=== PATIENT | male | born 1940 | race Caucasian/White ===

== ENCOUNTER 2016-12-30 19:25 | Inpatient (IN) | payer MEDICARE ==
[~2016-12-30] VITALS: Ht 172.7 cm; Wt 85.4 kg
[~2016-12-30 19:25] MED LIST: ADVA115A PO; ALBU1AER INH; CETI10 PO; ECOT81TA2 PO; FERR324T4 PO; OMEG5CAP PO; PROT40TA PO
[2016-12-30 19:30] VITALS: BP 149/75; PULSE 98; RESP 22; TEMP 98.4; O2SAT 91
--- NOTE | 2016-12-30 20:56 | PD ---
HPI Chief Complaint: Respiratory Symptoms Time Seen by Provider: 20:48 Travel History International Travel<30 days: No Contact w/Intl Traveler<30days: No Traveled to known affect area: No History of Present Illness HPI 76-year-old male presents to the emergency department for complaint of progressive shortness of breath 2 weeks. Patient was seen by his order clerk today Dr. Quiñones who prescribed a Z-Antonio for bronchitis and stated that his lungs were clear. Patient's had no chest pain or orthopnea. Patient denies any peripheral swelling or pain. Patient denies chest pain. Patient's had cough productive of scant sputum. No hemoptysis. Patient has history of COPD, PAD, anemia, peptic ulcer disease, and hypertension. Patient uses home nebulizer 4 times today and has noted that his machine is not working properly and not affectively administering his nebulized treatments. Patient took his first oral dose of azithromycin this afternoon at home. 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, hypertension, anemia, peptic ulcer disease, eye surgery, shoulder surgery, no tobacco use; nursing notes reviewed Hx Anticoagulant Therapy: Yes Arthritis: Yes Autoimmune Disease: No Cancer: Yes Cardiovascular Problems: Yes High Cholesterol: No Chemotherapy: No COPD: Yes Diabetes: No Endocrine: No Gastrointestinal Disorders: Yes (GERD) Genitourinary: No Hepatitis: No Hiatal Hernia: Yes Hypertension: Yes Immune Disorder: No Implanted Vascular Access Dvce: Yes Musculoskeletal: No Neurologic: No Psychiatric: No Reproductive: No Respiratory: Yes (COPD/EMPHYSEMA) Immunizations Current: Yes Radiation Therapy: No Thyroid Disease: No Ulcer: Yes (hx bleeding ulcers) Past Surgical History Abdominal Surgery: No AICD: No Cardiac Surgery: No Ear Surgery: No Endocrine Surgery: No Eye Surgery: Yes (BILATERAL CATARACT EXTRACT) Genitourinary Surgery: No Gynecologic Surgery: No Joint Replacement: Yes (BILATERAL SHOULDERS) Oral Surgery: Yes Pacemaker: No Thoracic Surgery: No Other Surgery: Yes (VASCULAR SURGERY LEFT LEG) Social History Alcohol Use: No Tobacco Use: No Substance Use: No Allergies-Medications (Allergen,Severity, Reaction): Coded Allergies: Cipro (Verified Allergy, Intermediate, RASH,SOB,TENDONITIS, 12/30/16) Pneumococcal Vaccine (Verified Allergy, Intermediate, SWELLING/RASH, ) Reported Meds & Prescriptions Reported Meds & Active Scripts Active Reported Integra (Multi-Vit/Iron-B Comp-Vit C) 62.5-62.5-40-3 mg Cap Fish Oil ([place]-3 Fatty Acids) 1,200 Mg Cap 1,200 Mg PO HS Atrovent HFA 12.9 GM Inh (Ipratropium [place]) 17 Mcg/Act Aer 2 Puff INH Q6HR PRN Coq10 (Coenzyme Q10 (Ubidecarenone)) 200 Mg Cap 200 Mg PO HS Advair Hfa 12 GM Inh (Fluticasone-Salmeterol 12 GM Inh) 115-21 Mcg/Act Aer 2 Puff INH BID Ecotrin Low Strength (Aspirin) 81 Mg Tabdr 81 Mg PO HS Rosuvastatin (Rosuvastatin Calcium) 10 Mg Tab 10 Mg PO HS Zithromax Z-Antonio (Azithromycin) 250 Mg Dspk 500 Mg PO DIRECTED 500 MG (2 tabs) day 1, then 1 tab days 2-5. Proair Hfa 8.5 GM Inh (Albuterol Sulfate) 90 Mcg/Act Aer 1 Puff INH Q4H PRN 108 mcg/actuation Review of Systems Except as stated in HPI: all other systems reviewed are Neg Physical Exam Narrative GENERAL: Well-developed well-nourished male in mild respiratory distress with supple oxygen in place SKIN: Warm and dry. HEAD: Normocephalic. EYES: No scleral icterus. No injection or drainage. NECK: Supple, trachea midline. No JVD or lymphadenopathy. CARDIOVASCULAR: Regular rate and rhythm without murmurs, gallops, or rubs. RESPIRATORY: Breath sounds equal bilaterally with a few expiratory wheezes. No accessory muscle use. GASTROINTESTINAL: Abdomen soft, non-tender, nondistended. MUSCULOSKELETAL: No cyanosis, or edema. BACK: Nontender without obvious deformity. No CVA tenderness. Data Data Last Documented VS Vital Signs Date Time Temp Pulse Resp B/P Pulse Ox O2 Delivery O2 Flow Rate FiO2 12/30/16 23:01 89 Nasal Cannula 2 12/30/16 23:01 101 20 134/65 12/30/16 19:30 98.4 Orders Complete Blood Count With Diff (12/30/16 20:48) Basic Metabolic Panel (Bmp) (12/30/16 20:48) B-Type Natriuretic Peptide (12/30/16 20:48) Magnesium (Mg) (12/30/16 20:48) Troponin I (12/30/16 20:48) Iv Access Insert/Monitor (12/30/16 20:48) Electrocardiogram (12/30/16 20:48) Ecg Monitoring (12/30/16 20:48) Oximetry (12/30/16 20:48) Oxygen Administration (12/30/16 20:48) Chest, Single Ap (12/30/16 20:48) Sodium Chloride 0.9% Flush (Ns Flush) (12/30/16 21:00) Methylprednisolone So Succ Inj (Solumedr (12/30/16 21:00) Albuterol-Ipratropium Neb (Duoneb Neb) (12/30/16 21:00) Albuterol-Ipratropium Neb (Duoneb Neb) (12/30/16 22:00) Blood Culture (12/30/16 21:57) Ceftriaxone Inj (Rocephin Inj) (12/30/16 22:00) Admit Order (Ed Use Only) (12/30/16 ) ^ Saline Lock (12/30/16 23:02) Resp Oxygen Bairon C Titrat 1-4 L (12/30/16 ) ^ Notify Dr: Other (12/30/16 23:02) Sodium Chloride 0.9% Flush (Ns Flush) (12/31/16 09:00) Sodium Chloride 0.9% Flush (Ns Flush) (12/30/16 23:15) Labs Laboratory Tests Test 12/30/16 21:05 White Blood Count 14.3 TH/MM3 Red Blood Count 4.70 MIL/MM3 Hemoglobin 10.0 GM/DL Hematocrit 32.3 % Mean Corpuscular Volume 68.7 FL Mean Corpuscular Hemoglobin 21.2 PG Mean Corpuscular Hemoglobin 30.9 % Concent Red Cell Distribution Width 20.0 % Platelet Count 219 TH/MM3 Mean Platelet Volume 8.1 FL Neutrophils (%) (Auto) 86.8 % Lymphocytes (%) (Auto) 6.0 % Monocytes (%) (Auto) 5.9 % Eosinophils (%) (Auto) 1.1 % Basophils (%) (Auto) 0.2 % Neutrophils # (Auto) 12.4 TH/MM3 Lymphocytes # (Auto) 0.9 TH/MM3 Monocytes # (Auto) 0.8 TH/MM3 Eosinophils # (Auto) 0.2 TH/MM3 Basophils # (Auto) 0.0 TH/MM3 CBC Comment AUTO DIFF Differential Comment AUTO DIFF CONFIRMED Ovalocytes 2+ Keratocytes 1+ Sodium Level 137 MEQ/L Potassium Level 4.3 MEQ/L Chloride Level 102 MEQ/L Carbon Dioxide Level 26.0 MEQ/L Anion Gap 9 MEQ/L Blood Urea Nitrogen 12 MG/DL Creatinine 1.30 MG/DL Estimat Glomerular Filtration 54 ML/MIN Rate Random Glucose 119 MG/DL Calcium Level 8.3 MG/DL Magnesium Level 2.3 MG/DL Troponin I LESS THAN 0.02 NG/ML B-Type Natriuretic Peptide 98 PG/ML MDM Medical Decision Making Medical Screen Exam Complete: Yes Emergency Medical Condition: Yes Medical Record Reviewed: Yes Interpretation(s) EKG sinus rhythm rate [address] elevation or injury pattern change noted Last Impressions Chest X-Ray 12/30/162047 Signed Impressions: Service Date/Time: Friday, December 30, 2016 21:32 - CONCLUSION: Bibasilar consolidation and small effusions. Calvin Jean Baptiste MD CBC & BMP Diagram 12/30/16 21:05 Differential Diagnosis Exacerbation COPD bronchitis pneumonia ACS CHF PE Narrative Course Patient placed on chief procurement officer IV access obtained patient continued on supplemental oxygen DuoNeb updrafts 2 ordered along with Solu-Medrol 125 mg to be administered Patient reports feels clinically improved and lung sounds are improved after 2 DuoNeb updrafts O2 saturations on 2 L 90 11/18/92 percent Third updraft ordered; patient desirous of being discharged to home however has been encouraged to stay for vital of and will reassess at that time O2 saturations have decreased to 88-90% on 2 L/M NC while waiting on 3rd updraft --patient denies associated dyspnea case discussed with java application engineer medicine service for admission; patient has already taken azithromycin 500 mg po today and received rocephin 1 gm ivpb here. Patient meets criterion for sepsis per HR WCC and source --pulmonary-infectious bronchitis/pneumonia; ABG respiratory alkalosis,placed on 3 L/M NC w O2sat 94% Sepsis Criteria SIRS Criteria (2 or more): Heart rate over 90, WBC > 68540, < 4000 or > 10% bands Sepsis Criteria (SIRS+source): Infect source susp/known (bronchitis; possible early LLL infiltrate) Physician Communication Physician Communication discussed with Gualberto Roa ---will admit to Dr Viera Diagnosis Primary Impression: COPD (chronic obstructive pulmonary disease) Qualified Code: J44.1 - Chronic obstructive pulmonary disease with acute exacerbation Additional Impressions: Pulmonary infiltrate Sepsis Qualified Code: A41.9 - Sepsis, due to unspecified organism Ailyn Coppola MD Dec 30, 2016 20:56
[2016-12-30] MEDS ORDERED: ADVA115A INH (21:00)
[2016-12-30] MEDS ORDERED: ROSU1TAB6 PO (21:00)
[2016-12-30] MEDS ORDERED: ASPI-147 PO (21:00)
[2016-12-30] MEDS ORDERED: methylPREDNISolone SOD SUCC 125 MG/2 ML VIAL IVP ONE (21:00)
[2016-12-30] MEDS ORDERED: FISH120014 PO (21:00)
[2016-12-30] MEDS ORDERED: IPRA17I INH (21:00)
[2016-12-30] MEDS ORDERED: SODIUM CHLORIDE 0.9% FLUSH 5 ML FLUSH IVF PRN ×2 (21:00→23:15)
[2016-12-30] MEDS ORDERED: ALBUAER3 INH (21:00)
[2016-12-30] MEDS ORDERED: COQ1200C PO (21:00)
[2016-12-30] MEDS ORDERED: ZITHTAB PO (21:00)
[2016-12-30 21:05] VITALS: BP 122/69; PULSE 86; RESP 22; O2SAT 93
[2016-12-30] MEDS: RESP: ALBUTEROL 2.5 MG/IPRATROPIUM 0.5 MG NEB (SCH) INH ×2 (21:07→21:20)
[2016-12-30] MEDS ORDERED: FE FCAP (21:12)
[2016-12-30 21:13] LABS: AUTOMATED NEUTROPHIL # 12.4 TH/MM3 (1.8-7.7); BASOPHIL % 0.2 % (0.0-2.0); EOSINOPHIL # 0.2 TH/MM3 (0-0.4); EOSINOPHIL % 1.1 % (0.0-4.0); HEMATOCRIT 32.3 % (39.0-51.0); LYMPHOCYTE # 0.9 TH/MM3 (1.0-4.8); MEAN CELL VOLUME 68.7 FL (80.0-100.0); MEAN CORPUSCULAR HEMOGLOBIN 21.2 PG (27.0-34.0); MEAN CORPUSCULAR HGB CONC 30.9 % (32.0-36.0); MONO % 5.9 % (0.0-8.0); NEUT % 86.8 % (16.0-70.0); PLATELET COUNT 219 TH/MM3 (150-450); WHITE BLOOD COUNT 14.3 TH/MM3 (4.0-11.0)
[2016-12-30 21:17] VITALS: BP 140/64; PULSE 86; RESP 22; O2SAT 94
[2016-12-30 21:24] LABS: HEMO FLAGS AUTO DIFF
[2016-12-30 21:27] LABS: CHLORIDE 102 MEQ/L (98-107); POTASSIUM 4.3 MEQ/L (3.5-5.1); SODIUM (NA) 137 MEQ/L (136-145)
[2016-12-30 21:30] LABS: ANION GAP 9 MEQ/L (5-15); BLOOD UREA NITROGEN 12 MG/DL (7-18); MAGNESIUM 2.3 MG/DL (1.5-2.5)
[2016-12-30 21:33] LABS: GLOMERULAR FILTRATION RATE 54 ML/MIN (>89)
--- NOTE | 2016-12-30 21:49 | RADHPO ---
EXAM DATE/TIME: 12/30/2016 21:32 [facility] COMPARISON: No previous studies available for comparison. INDICATIONS : Short of breath and difficulty breathing for 2 weeks. MEDICAL HISTORY : Emphysema. Hypertension. COPD. Ulcer. SURGICAL HISTORY : None. ENCOUNTER: Initial ACUITY: 2 weeks PAIN SCORE: 0/10 LOCATION: Bilateral chest FINDINGS: Mild, ill-defined infiltrate seen of both lung bases, left worse than right. Small bilateral pleural effusions are suspected as well. No pneumothorax. Heart size stable, within normal limits. Thoracic aorta is tortuous. I believe there is a hiatal pradeep ia. CONCLUSION: Bibasilar consolidation and small effusions. Calvin Jean Baptiste MD on December 30, 2016 at 21:46 Board Certified Radiologist. This report was verified electronically.
[2016-12-30 22:00] LABS: KERATOCYTES 1+ (NORMAL)
[2016-12-30] MEDS ORDERED: cefTRIAXone INJ 1,000 MG in SODIUM CHLORIDE 0.9% INJ 100 ML IV ONE (22:00)
[2016-12-30] MEDS ORDERED: RESP: ALBUTEROL 2.5 MG/IPRATROPIUM 0.5 MG NEB (SCH) NEB ONE (22:00)
[2016-12-30 22:01] LABS: OVALOCYTES 2+ (NORMAL); SCAN/DIFF AUTO DIFF CONFIRMED
[2016-12-30 23:01] VITALS: BP 134/65; PULSE 101; RESP 20; O2SAT 88
[2016-12-30 23:30] VITALS: O2SAT 90
[2016-12-30 23:31] LABS: BLOOD GAS BASE EXCESS -0.9 mmol/L (-2-2); BLOOD GAS CARBOXYHEMOGLOBIN 2.7 % (0-4); BLOOD GAS HCO3 23 mmol/L (22-26); BLOOD GAS METHEMOGLOBIN 0.9 % (0-2); BLOOD GAS O2 HGB SATURATION 88 % (90-100); BLOOD GAS OXYGEN CONTENT 12.2 Vol % (12.0-20.0); BLOOD GAS PCO2 35 mmHG (38-42); BLOOD GAS PO2 62 mmHG (61-120); BLOOD GAS TOTAL HGB 9.9 G/DL (12.0-16.0); TEMP CORR TO 98.6
[2016-12-30 23:32] LABS: CRITICAL VALUE YES; DRAW SITE RT RADIAL; LITER FLOW 2 L/M; NUMBER OF ARTERIAL PUNCTURES 1; OXYGEN DEVICE NASAL CANNULA; STAT YES; ULNAR PULSE PRESENT
[2016-12-30 23:53] VITALS: BP 108/65; PULSE 103; RESP 22; O2SAT 91
[2016-12-31] VITALS (26 sets, daily range): BP systolic 125–152; BP diastolic 32–87; PULSE 88–106; RESP 20–40; TEMP 97.4–98.4; O2SAT 90–95
[2016-12-31] MEDS ORDERED: AZITHROMYCIN 250 MG TAB PO ONE (01:30)
[2016-12-31] MEDS ORDERED: SENNOSIDES 8.6 MG TAB PO PRN (01:30)
[2016-12-31] MEDS ORDERED: ACETAMINOPHEN 325 MG TAB PO PRN (01:30)
[2016-12-31] MEDS: HEPARIN SODIUM - SQ 10,000 UNITS/ML VIAL SQ SCH ×2 (02:08→14:46)
[2016-12-31] MEDS: methylPREDNISolone SOD SUCC 125 MG/2 ML VIAL IVP SCH ×4 (03:22→20:14)
[2016-12-31] MEDS: SODIUM CHLORIDE 0.9% FLUSH 5 ML FLUSH IVF PRN (03:23)
[2016-12-31] MEDS: RESP: ALBUTEROL 2.5 MG/IPRATROPIUM 0.5 MG NEB (SCH) INH ×4 (04:08→20:02)
[2016-12-31] MEDS: SODIUM CHLORIDE 0.9% FLUSH 5 ML FLUSH IVF SCH ×2 (09:00→20:14)
[2016-12-31] MEDS ORDERED: SODIUM CHLORIDE 0.9% FLUSH 5 ML FLUSH IVF SCH (09:00)
[2016-12-31] MEDS ORDERED: ALBUTEROL SULFATE 90 MCG/ACT HFA 8 GM INHALER INH PRN (11:30)
--- NOTE | 2016-12-31 12:00 | MH ---
cc: HONORIO BELL MD DATE OF ADMISSION: 12/30/2016 CHIEF COMPLAINT Cough, shortness of breath. HISTORY OF PRESENT ILLNESS This is a 76-year-old male with past medical/surgical history significant for arthritis, COPD, popliteal aneurysm with thrombosis, limb ischemia and arterial bypass, hypertension, anemia, peptic ulcer disease, eye surgery, COPD, GERD, history of bilateral cataract extraction bilateral shoulder surgery, vascular surgery of the left leg, who came to the ER at [facility] complaining of shortness of breath from the last two weeks. The patient was seen by the manufacturing finance manager, Dr. Quiñones, who prescribed a Z-Antonio for bronchitis and stated that his lungs were clear. The patient has no chest pain or orthopnea. The patient denies any peripheral leg swelling or pain. The patient denies any chest pain. The patient had a productive cough with scant sputum. No hemoptysis. History of COPD, peripheral arterial disease and anemia. When I examined the patient he felt better but still had a lot of wheezing and decreased air entry in the lungs. The patient denies any other complaints. Other than that nothing significant. PAST MEDICAL/SURGICAL HISTORY As dictated above. SOCIAL HISTORY Denies smoking, drinking or taking any drugs. Lives at home. 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 FAMILY HISTORY Nothing significant. ALLERGIES 1. CIPRO. 2. PNEUMOCOCCAL VACCINE. MEDICATIONS 1. Integra p.o. daily. 2. Fish oil p.o. daily. 3. Atrovent HFA, two puff inhalation q.6h. 4. CoQ10 200 mg p.o. h.s. 5. Advair inhaler, two puff inhalation twice a day. 6. Ecotrin 81 mg p.o. daily. 7. Atorvastatin 10 mg p.o. h.s. 8. Zithromax. 9. Z-Antonio p.o. as directed. 10.ProAir HFA, one puff inhalation q.4h. REVIEW OF SYSTEMS Positive for cough, shortness of breath, wheezing and scant sputum. All other review of systems is negative. PHYSICAL EXAMINATION GENERAL: This is a 76-year-old male sitting lying in bed, not in acute distress. VITAL SIGNS: Temperature 98.0, heart rate 102, respirations 30, blood pressure 149/62. O2 saturation 92% on four liter nasal cannula. HEENT: Normocephalic, atraumatic. EOMI. PERRL. Oral mucosa moist. NECK: Supple. No visible thyromegaly or neck mass. Trachea is central. CV: Regular rate and rhythm. LUNGS: Bilateral wheezing. Bilateral decreased air entry. ABDOMEN: Soft, nontender. Bowel sounds audible. EXTREMITIES: No cyanosis. No clubbing. NEUROLOGIC: Awake, alert, oriented x4. No focal deficit. SKIN: Warm and dry. PSYCHIATRIC: The patient is cooperative. Mood and affect is normal. LABORATORY CBC reveals WBC count 14.3 high, hemoglobin 10.0 low, hematocrit 32.3 low, MCV 68.7 low, MCH 21.2 low, platelet count 219. ABGs done showed pH of 7.43 with PCO2 of 35 and PO2 62, oxygen saturation 88%. Blood cultures x2 done are negative so far. IMAGING Chest x-ray done shows bibasilar consolidation and small effusion. ASSESSMENT AND PLAN 1. This is a 76-year male who came to the ER diagnosed with shortness of breath, cough and wheezing secondary to bilateral pneumonia and COPD exacerbation. The patient is on Zithromax and Rocephin one gram IV daily. The patient is also on Solu-Medrol 60 mg IV q.6h. and DuoNeb nebulization every six hours. Pulmonary is consulted. Further recommendations per pulmonary. 2. History of hyperlipidemia. Continue the home medication, atorvastatin 10 mg p.o. daily. 3. History of COPD. Continue the home medication. 4. History of arthritis. Continue home medication. 5. History of popliteal aneurysm status post surgery. 6. History of hypertension. Continue home medication. 7. History of anemia. Will monitor H&H. 8. Leukocytosis secondary to pneumonia. 9. DVT prophylaxis. Heparin 5000 units subcutaneous twice a day. 10.GI prophylaxis with Protonix 40 mg p.o. daily. 11.We are going to manage the patient on a daily basis and make recommendations on a daily basis. Honorio Bell MD EA/JADE /11:22 AM /11:43 AM
[2016-12-31] MEDS: FLUTICASONE SALMETEROL PO SCH ×2 (12:45→21:50)
[2016-12-31] MEDS: ATORVASTATIN 20 MG TAB PO SCH (20:17)
[2016-12-31] MEDS: ASPIRIN EC 81 MG TABEC PO SCH (20:17)
[2016-12-31] MEDS: cefTRIAXone INJ 1,000 MG in SODIUM CHLORIDE 0.9% INJ 100 ML IV SCH (20:35)
[2016-12-31] MEDS ORDERED: NON-FORMULARY DRUG (Omega-3 Fatty Acids (Fish Oil) 1,200 MG) PO SCH (21:00)
[2016-12-31] MEDS ORDERED: NON-FORMULARY DRUG (Coenzyme Q10 (Ubidecarenone) (Coq10) 200 MG) PO SCH (21:00)
[2016-12-31] MEDS: AZITHROMYCIN 250 MG TAB PO SCH (21:50)
--- NOTE | 2016-12-31 22:15 | EKG ---
Date Performed: 12/30/2016 Time Performed: 21:00:08 PTAGE: 76 years EKG: Sinus rhythm Inferior T wave changes are nonspecific Borderline ECG PREVIOUS TRACING : 07/27/2016 22.38 Compared to prior tracing no significant change DOCTOR: Rachell Padgett Interpretating Date/Time 12/31/2016 22:14:56
--- NOTE | 2016-12-31 23:48 | MB ---
cc: HUANG VIERA MD,GABRIEL Nassar MD DATE OF CONSULTATION: 12/31/2016 REASON FOR CONSULTATION: COPD exacerbation and pneumonia. HISTORY OF PRESENT ILLNESS: Mr. Connell is a pleasant 76 year-old white male with longstanding history of severe COPD, uses oxygen 2 liters nasal cannula. The patient was having cough and congestion for a few days. He was seen in the office yesterday. At that time he was maintaining good oxygen saturation and did not have any wheezing. The patient was prescribed antibiotics. He went home. After some time he went to take a shower, he was feeling so weak and short of breath. He decided to come to the emergency room. He had a chest x-ray done which shows small pleural effusion with bibasilar infiltrate. His CBC showed WBC count 40.3, hemoglobin 10.0, hematocrit 32.3, MCV 68, platelet count 219. Sodium 137, potassium 4.25, chloride 102, CO2 26, BUN 12, creatinine 1.30, blood gas on 2 liters nasal cannula pH 7.43, PCO2 35, PO2 62, bicarb 23. PAST MEDICAL HISTORY: 1. History of COPD. 2. PAD. 3. GERD. 4. Cataract surgery. 5. Shoulder surgery. 6. Hypertension 7. Peptic ulcer disease. MEDICATIONS He is currently takin. Zithromax 500 milligrams 2. Rocephin one gram daily. 3. Aspirin 81 milligrams daily. 4. Lipitor 20 milligrams a day. 5. Albuterol and atrovent nebulizer treatment. 6. Solu-Medrol 667 milligrams q6 hours. ALLERGIES: CIPRO PNEUMOCOCCAL VACCINE. SOCIAL HISTORY: His has a smoking history in the past which he quit. No alcohol use. He still works for the [employer]. FAMILY HISTORY: Noncontributory. REVIEW OF SYSTEMS: He has shortness of breath with exertion, no DVT or pulmonary embolus. PHYSICAL EXAMINATION: The patient is mildly short of breath. VITAL SIGNS: Blood pressure 150/74, heart rate 104, respiratory rate 22, temperature 98.2. HEENT: Examination unremarkable. Neck: Supple. JVP not raised. Chest: He has basilar rales. Heart: S1-S2 is normal. Abdomen: Benign. Extremities: No edema. IMPRESSION 1. COPD exacerbation. 2. Bronchitis. 3. Basilar infiltrate. 4. Small pleural effusion. 5. Hypertension. 6. PAD. PLAN I discussed with the patient. Will give him antibiotics, Rocephin and Zithromax, aerosol treatment, IV Solu-Medrol, supplement his oxygen. Check his cultures. Wean steroids as tolerated. Further treatment will depend on the course in the hospital. Thank you, Dr. Viera, for the consult. Gabriel Quiñones MD ADA/TONJA /6:15 PM /11:24 PM
[2017-01-01] VITALS (17 sets, daily range): BP systolic 118–172; BP diastolic 48–80; PULSE 88–120; RESP 21–44; TEMP 97.4–97.8; O2SAT 90–96
[2017-01-01] MEDS: HEPARIN SODIUM - SQ 10,000 UNITS/ML VIAL SQ SCH ×2 (02:33→13:29)
[2017-01-01] MEDS: methylPREDNISolone SOD SUCC 125 MG/2 ML VIAL IVP SCH ×4 (02:33→19:46)
[2017-01-01] MEDS: SODIUM CHLORIDE 0.9% FLUSH 5 ML FLUSH IVF PRN (02:34)
[2017-01-01] MEDS: RESP: ALBUTEROL 2.5 MG/IPRATROPIUM 0.5 MG NEB (SCH) INH ×4 (03:48→21:45)
[2017-01-01 05:28] LABS: AUTOMATED NEUTROPHIL # 15.6 TH/MM3 (1.8-7.7); BASOPHIL % 0.1 % (0.0-2.0); HEMATOCRIT 30.3 % (39.0-51.0); LYMPH % 3.1 % (9.0-44.0); LYMPHOCYTE # 0.5 TH/MM3 (1.0-4.8); MEAN CELL VOLUME 69.5 FL (80.0-100.0); MEAN CORPUSCULAR HEMOGLOBIN 22.1 PG (27.0-34.0); MEAN CORPUSCULAR HGB CONC 31.8 % (32.0-36.0); MONO % 1.4 % (0.0-8.0); NEUT % 95.4 % (16.0-70.0); PLATELET COUNT 230 TH/MM3 (150-450); RED BLOOD COUNT 4.36 MIL/MM3 (4.50-5.90); RED CELL DISTRIBUTION WIDTH 20.4 % (11.6-17.2); WHITE BLOOD COUNT 16.3 TH/MM3 (4.0-11.0)
[2017-01-01 05:31] LABS: HEMO FLAGS AUTO DIFF
[2017-01-01 05:42] LABS: CHLORIDE 103 MEQ/L (98-107); SODIUM (NA) 141 MEQ/L (136-145)
[2017-01-01 05:48] LABS: ANION GAP 12 MEQ/L (5-15); BICARBONATE 26.3 MEQ/L (21.0-32.0); BLOOD UREA NITROGEN 16 MG/DL (7-18); OVALOCYTES 1+ (NORMAL); PLATELET ESTIMATE SMEAR NORMAL (NORMAL); PLATELET MORPHOLOGY NORMAL (NORMAL); SCAN/DIFF AUTO DIFF CONFIRMED
[2017-01-01 05:51] LABS: ALT (GPT) 15 U/L (12-78); AST (GOT) 6 U/L (15-37); GLOMERULAR FILTRATION RATE 54 ML/MIN (>89)
[2017-01-01 05:52] LABS: TOTAL BILIRUBIN ADULT 0.4 MG/DL (0.2-1.0)
[2017-01-01 05:54] LABS: ALKALINE PHOSPHATASE 97 U/L (45-117)
[2017-01-01] MEDS: FLUTICASONE SALMETEROL PO SCH ×2 (08:05→19:45)
[2017-01-01] MEDS: SODIUM CHLORIDE 0.9% FLUSH 5 ML FLUSH IVF SCH ×2 (08:05→19:46)
--- NOTE | 2017-01-01 08:13 | HHI.PR ---
Subjective History of Present Illness Patient have SOB/ Wheezing no acute issue d/w GLACIOLOGIST. Review of Systems Constitutional Constitutional: Fatigue, Weakness Vitals/Results Intake & Output 12/31/16 12/31/16 01/01/17 15:00 23:00 07:00 Intake Total 220 ml 500 ml 100 ml Output Total 960 ml 375 ml 900 ml Balance -740 ml 125 ml -800 ml Intake Oral 220 ml 500 ml 100 ml Output Urine Total 960 ml 375 ml 900 ml Stool Total 0 ml 0 ml 0 ml # Voids 1 2 Vital Signs Vital Signs Date Time Temp Pulse Resp B/P Pulse Ox O2 Delivery O2 Flow Rate FiO2 01/01/17 06:09 97 01/01/17 04:30 94 21 127/59 92 01/01/17 04:00 97.5 90 21 161/72 96 01/01/17 04:00 94 01/01/17 02:37 95 01/01/17 00:00 92 01/01/17 00:00 97.4 88 22 118/48 93 12/31/16 22:00 94 12/31/16 20:22 97.4 102 27 125/66 93 12/31/16 20:03 92 Nasal Cannula 3.00 12/31/16 20:00 101 12/31/16 19:00 100 31 149/69 93 12/31/16 18:00 104 12/31/16 17:00 104 32 150/73 92 12/31/16 16:00 106 12/31/16 16:00 106 32 147/66 92 12/31/16 15:00 102 31 147/64 92 12/31/16 14:00 104 12/31/16 14:00 98.2 106 27 152/87 94 12/31/16 14:00 102 12/31/16 13:50 104 12/31/16 13:00 96 31 143/62 90 12/31/16 12:00 98 31 141/63 91 12/31/16 12:00 98 12/31/16 11:00 100 27 148/32 91 12/31/16 10:06 102 40 149/62 92 12/31/16 10:00 102 12/31/16 09:22 91 Nasal Cannula 4.00 CBC/BMP: 01/01/17 0440 01/01/17 0440 Lab Results Laboratory Tests Test 01/01/17 04:40 White Blood Count 16.3 TH/MM3 Red Blood Count 4.36 MIL/MM3 Hemoglobin 9.6 GM/DL Hematocrit 30.3 % Mean Corpuscular Volume 69.5 FL Mean Corpuscular Hemoglobin 22.1 PG Mean Corpuscular Hemoglobin 31.8 % Concent Red Cell Distribution Width 20.4 % Platelet Count 230 TH/MM3 Mean Platelet Volume 8.9 FL Neutrophils (%) (Auto) 95.4 % Lymphocytes (%) (Auto) 3.1 % Monocytes (%) (Auto) 1.4 % Eosinophils (%) (Auto) 0.0 % Basophils (%) (Auto) 0.1 % Neutrophils # (Auto) 15.6 TH/MM3 Lymphocytes # (Auto) 0.5 TH/MM3 Monocytes # (Auto) 0.2 TH/MM3 Eosinophils # (Auto) 0.0 TH/MM3 Basophils # (Auto) 0.0 TH/MM3 CBC Comment AUTO DIFF Differential Comment AUTO DIFF CONFIRMED Platelet Estimate NORMAL Platelet Morphology Comment NORMAL Ovalocytes 1+ Sodium Level 141 MEQ/L Potassium Level 4.0 MEQ/L Chloride Level 103 MEQ/L Carbon Dioxide Level 26.3 MEQ/L Anion Gap 12 MEQ/L Blood Urea Nitrogen 16 MG/DL Creatinine 1.30 MG/DL Estimat Glomerular Filtration 54 ML/MIN Rate Random Glucose 149 MG/DL Calcium Level 8.8 MG/DL Total Bilirubin 0.4 MG/DL Aspartate Amino Transf 6 U/L (AST/SGOT) Alanine Aminotransferase 15 U/L (ALT/SGPT) Alkaline Phosphatase 97 U/L Total Protein 6.9 GM/DL Albumin 3.1 GM/DL Physical Exam General General Appearance: No Acute Distress, Comfortable Eyes Eye Exam: Pupils Equal, Pupils Reactive, Sclera White, Extraocular Movement Intact Throat Throat Exam: Oral Mucosa [place] & Moist, Oral Pharynx Normal Neck Neck Exam: Neck Supple, Trachea Midline Pulmonary Resp Exam: Rhonchi, Diminished Breath Sounds Resp Remarks Bilateral wheezing. Cardiology CV Exam: Regular, Normal Sinus Rhythm Gastrointestinal/Abdomen GI Exam: Soft, Non-Tender, Bowel Sounds Present Musculoskeletal MS Exam: Normal Tone Neurologic Neuro Exam: Alert, Awake, Oriented, Speech Clear, Moving All Extremities, No Focal Deficits Psychiatric Psych Exam: Appropriate Responses VTE Prophylaxis VTE Prophylaxis Meds: Heparin PUD Prophylasis PUD Prophylaxis: Protonix Assessment/Plan Assessment/Plan ASSESSMENT AND PLAN 1. This is a 76-year male who came to the ER diagnosed with shortness of breath, cough and wheezing secondary to bilateral pneumonia and COPD exacerbation. The patient is on Zithromax and Rocephin one gram IV daily. The patient is also on Solu-Medrol 60 mg IV q.6h. and DuoNeb nebulization every six hours. Pulmonary input noted. Further recommendations per pulmonary. 2. History of hyperlipidemia. Continue the home medication, atorvastatin 10 mg p.o. daily. 3. History of COPD. Continue the home medication. 4. History of arthritis. Continue home medication. 5. History of popliteal aneurysm status post surgery. 6. History of hypertension. Continue home medication. 7. History of anemia. Will monitor H&H. 8. Leukocytosis secondary to pneumonia. 9. DVT prophylaxis. Heparin 5000 units subcutaneous twice a day. 10.GI prophylaxis with Protonix 40 mg p.o. daily. 11.We are going to manage the patient on a daily basis and make recommendations on a daily basis. Discussed Condition with: Patient Honorio Viera MD Jan 01, 2017 08:13
[2017-01-01] MEDS: ATORVASTATIN 20 MG TAB PO SCH (19:45)
[2017-01-01] MEDS: ASPIRIN EC 81 MG TABEC PO SCH (19:45)
[2017-01-01 21:10] LABS: MEAN CORPUSCULAR HGB CONC 29.4 % (32.0-36.0)
[2017-01-01] MEDS: cefTRIAXone INJ 1,000 MG in SODIUM CHLORIDE 0.9% INJ 100 ML IV SCH (22:27)
[2017-01-01] MEDS: AZITHROMYCIN 250 MG TAB PO SCH (22:27)
[2017-01-01] MEDS: ONDANSETRON HCL 4 MG/2 ML VIAL IVP PRN (23:40)
[2017-01-02] VITALS (22 sets, daily range): BP systolic 110–175; BP diastolic 61–81; PULSE 82–104; RESP 15–49; TEMP 97.5–97.9; O2SAT 86–97
[2017-01-02] MEDS: HEPARIN SODIUM - SQ 10,000 UNITS/ML VIAL SQ SCH ×2 (01:37→13:30)
[2017-01-02] MEDS: methylPREDNISolone SOD SUCC 125 MG/2 ML VIAL IVP SCH ×4 (02:24→21:06)
[2017-01-02] MEDS: RESP: ALBUTEROL 2.5 MG/IPRATROPIUM 0.5 MG NEB (SCH) INH ×4 (03:13→20:49)
[2017-01-02 05:36] LABS: AUTOMATED NEUTROPHIL # 14.3 TH/MM3 (1.8-7.7); BASOPHIL % 0.1 % (0.0-2.0); HEMATOCRIT 32.3 % (39.0-51.0); LYMPH % 2.5 % (9.0-44.0); LYMPHOCYTE # 0.4 TH/MM3 (1.0-4.8); MEAN CELL VOLUME 69.9 FL (80.0-100.0); MEAN CORPUSCULAR HEMOGLOBIN 20.5 PG (27.0-34.0); MONO % 1.6 % (0.0-8.0); NEUT % 95.8 % (16.0-70.0); PLATELET COUNT 247 TH/MM3 (150-450); RED BLOOD COUNT 4.63 MIL/MM3 (4.50-5.90); RED CELL DISTRIBUTION WIDTH 21.9 % (11.6-17.2); WHITE BLOOD COUNT 14.9 TH/MM3 (4.0-11.0)
[2017-01-02 05:42] LABS: HEMO FLAGS AUTO DIFF
[2017-01-02 05:44] LABS: CHLORIDE 101 MEQ/L (98-107); POTASSIUM 4.7 MEQ/L (3.5-5.1); SODIUM (NA) 139 MEQ/L (136-145)
[2017-01-02 05:49] LABS: ANION GAP 10 MEQ/L (5-15); BICARBONATE 28.3 MEQ/L (21.0-32.0); BLOOD UREA NITROGEN 20 MG/DL (7-18)
[2017-01-02 05:52] LABS: ALT (GPT) 18 U/L (12-78); AST (GOT) 7 U/L (15-37); GLOMERULAR FILTRATION RATE 59 ML/MIN (>89)
[2017-01-02 05:54] LABS: TOTAL BILIRUBIN ADULT 0.3 MG/DL (0.2-1.0)
[2017-01-02 05:55] LABS: ALKALINE PHOSPHATASE 88 U/L (45-117)
[2017-01-02 06:02] LABS: ACANTHOCYTES 1+ (NORMAL); OVALOCYTES 1+ (NORMAL); PLATELET ESTIMATE SMEAR NORMAL (NORMAL); PLATELET MORPHOLOGY NORMAL (NORMAL)
[2017-01-02 06:03] LABS: SCAN/DIFF AUTO DIFF CONFIRMED
[2017-01-02] MEDS: ONDANSETRON HCL 4 MG/2 ML VIAL IVP PRN ×2 (06:18→21:05)
--- NOTE | 2017-01-02 07:09 | HHI.PR ---
Subjective History of Present Illness Patient have SOB/ Wheezing feel weak and tired. no acute issue. 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 Review of Systems Constitutional Constitutional: Fatigue, Weakness Pulmonary Respiratory: Coughing, Shortness of Breath, Wheezing Vitals/Results Intake & Output 01/01/17 01/01/17 01/02/17 15:00 23:00 07:00 Intake Total 360 ml 480 ml Output Total 350 ml 500 ml 900 ml Balance -350 ml -140 ml -420 ml Intake Oral 240 ml 480 ml IV Total 120 ml Output Urine Total 350 ml 500 ml 900 ml # Voids 1 Vital Signs Vital Signs Date Time Temp Pulse Resp B/P Pulse Ox O2 Delivery O2 Flow Rate FiO2 01/02/17 06:00 86 01/02/17 04:00 97.5 96 24 141/61 93 01/02/17 04:00 88 01/02/17 02:00 86 01/02/17 00:01 97.6 90 23 143/61 96 01/02/17 00:01 90 01/01/17 22:00 98 01/01/17 21:14 98 31 144/66 95 01/01/17 20:01 97.6 120 44 172/80 93 01/01/17 20:00 101 01/01/17 19:34 93 Nasal Cannula 5.50 01/01/17 18:00 104 01/01/17 16:00 96 01/01/17 16:00 96 32 138/67 91 01/01/17 14:00 96 01/01/17 12:00 100 01/01/17 12:00 97.6 100 30 151/64 90 01/01/17 10:00 88 01/01/17 09:42 93 Nasal Cannula 5.50 01/01/17 08:00 97.8 92 28 134/60 93 01/01/17 08:00 92 CBC/BMP: 01/02/17 0430 01/02/17 0430 Lab Results Laboratory Tests Test 01/02/17 04:30 White Blood Count 14.9 TH/MM3 Red Blood Count 4.63 MIL/MM3 Hemoglobin 9.5 GM/DL Hematocrit 32.3 % Mean Corpuscular Volume 69.9 FL Mean Corpuscular Hemoglobin 20.5 PG Mean Corpuscular Hemoglobin 29.4 % Concent Red Cell Distribution Width 21.9 % Platelet Count 247 TH/MM3 Mean Platelet Volume 8.9 FL Neutrophils (%) (Auto) 95.8 % Lymphocytes (%) (Auto) 2.5 % Monocytes (%) (Auto) 1.6 % Eosinophils (%) (Auto) 0.0 % Basophils (%) (Auto) 0.1 % Neutrophils # (Auto) 14.3 TH/MM3 Lymphocytes # (Auto) 0.4 TH/MM3 Monocytes # (Auto) 0.2 TH/MM3 Eosinophils # (Auto) 0.0 TH/MM3 Basophils # (Auto) 0.0 TH/MM3 CBC Comment AUTO DIFF Differential Comment AUTO DIFF CONFIRMED Platelet Estimate NORMAL Platelet Morphology Comment NORMAL Ovalocytes 1+ Acanthocytes 1+ Sodium Level 139 MEQ/L Potassium Level 4.7 MEQ/L Chloride Level 101 MEQ/L Carbon Dioxide Level 28.3 MEQ/L Anion Gap 10 MEQ/L Blood Urea Nitrogen 20 MG/DL Creatinine 1.20 MG/DL Estimat Glomerular Filtration 59 ML/MIN Rate Random Glucose 148 MG/DL Calcium Level 8.6 MG/DL Total Bilirubin 0.3 MG/DL Aspartate Amino Transf 7 U/L (AST/SGOT) Alanine Aminotransferase 18 U/L (ALT/SGPT) Alkaline Phosphatase 88 U/L Total Protein 6.6 GM/DL Albumin 2.9 GM/DL Microbiology Microbiology 01/01/17 Gram Stain, Received Pending 01/01/17 Sputum Culture, Received Pending Physical Exam General General Appearance: No Acute Distress, Comfortable Eyes Eye Exam: Pupils Equal, Pupils Reactive, Sclera White, Extraocular Movement Intact Throat Throat Exam: Oral Mucosa [place] & Moist, Oral Pharynx Normal Neck Neck Exam: Neck Supple, Trachea Midline Pulmonary Resp Exam: Rhonchi Resp Remarks Bilateral wheezing. Cardiology CV Exam: Regular, Normal Sinus Rhythm Gastrointestinal/Abdomen GI Exam: Soft, Non-Tender, Bowel Sounds Present Musculoskeletal MS Exam: Normal Tone Integumentary Skin Exam: Clear, Warm, Dry, Intact Neurologic Neuro Exam: Alert, Awake, Oriented, Speech Clear, Moving All Extremities, No Focal Deficits VTE Prophylaxis VTE Prophylaxis Meds: Heparin PUD Prophylasis PUD Prophylaxis: Protonix Assessment/Plan Assessment/Plan ASSESSMENT AND PLAN 1. This is a 76-year male who came to the ER diagnosed with shortness of breath, cough and wheezing secondary to bilateral pneumonia and COPD exacerbation. The patient is on Zithromax and Rocephin one gram IV daily. The patient is also on Solu-Medrol 60 mg IV q.6h. and DuoNeb nebulization every six hours. Pulmonary input noted. Further recommendations per pulmonary. 2. History of hyperlipidemia. Continue the home medication, atorvastatin 10 mg p.o. daily. 3. History of COPD. Continue the home medication. 4. History of arthritis. Continue home medication. 5. History of popliteal aneurysm status post surgery. 6. History of hypertension. Continue home medication. 7. History of anemia. Will monitor H&H. 8. Leukocytosis secondary to pneumonia. 9. DVT prophylaxis. Heparin 5000 units subcutaneous twice a day. 10.GI prophylaxis with Protonix 40 mg p.o. daily. 11.We are going to manage the patient on a daily basis and make recommendations on a daily basis. Discussed Condition with: Patient Honorio Viera MD Jan 02, 2017 07:09
[2017-01-02] MEDS: SODIUM CHLORIDE 0.9% FLUSH 5 ML FLUSH IVF SCH ×2 (08:56→21:06)
[2017-01-02] MEDS: FLUTICASONE SALMETEROL PO SCH ×2 (08:57→21:06)
--- NOTE | 2017-01-02 19:17 | HHI.PR ---
Subjective Remarks 76 YOWM with Severe COPD, Br, Lung infilt breathing better has cough, mild congestion has wheezing Objective Vital Signs Vital Signs Date Time Temp Pulse Resp B/P Pulse Ox O2 Delivery O2 Flow Rate FiO2 01/02/17 18:00 82 01/02/17 16:00 100 35 143/63 91 01/02/17 16:00 100 01/02/17 15:00 92 28 151/65 91 01/02/17 15:00 92 01/02/17 14:00 92 01/02/17 13:07 102 30 152/71 89 01/02/17 13:07 102 01/02/17 13:00 104 39 175/81 90 01/02/17 13:00 104 01/02/17 12:00 92 01/02/17 12:00 92 25 162/71 91 01/02/17 10:16 94 Nasal Cannula 4.00 01/02/17 10:00 88 01/02/17 10:00 88 23 140/66 95 01/02/17 09:00 92 49 150/74 91 01/02/17 09:00 92 01/02/17 08:00 84 01/02/17 08:00 97.9 86 27 140/67 93 01/02/17 07:30 97 Nasal Cannula 6.00 01/02/17 06:00 86 01/02/17 04:00 97.5 96 24 141/61 93 01/02/17 04:00 88 01/02/17 02:00 86 01/02/17 00:01 97.6 90 23 143/61 96 01/02/17 00:01 90 01/01/17 22:00 98 01/01/17 21:14 98 31 144/66 95 01/01/17 20:01 97.6 120 44 172/80 93 01/01/17 20:00 101 01/01/17 19:34 93 Nasal Cannula 5.50 I/O 01/01/17 01/01/17 01/01/17 01/02/17 01/02/17 01/02/17 07:00 15:00 23:00 07:00 15:00 23:00 Intake Total 100 ml 360 ml 480 ml 1180 ml Output Total 900 ml 350 ml 750 ml 900 ml 720 ml Balance -800 ml -350 ml -390 ml -420 ml 460 ml Intake Oral 100 ml 240 ml 480 ml 1180 ml IV Total 120 ml Output Urine Total 900 ml 350 ml 750 ml 900 ml 720 ml Stool Total 0 ml # Voids 2 1 1 0 Result Diagram: 01/02/1742901/02/17429 Objective Remarks GENERAL: MBMN WM, mild sob SKIN: Warm and dry. HEAD: Normocephalic. EYES: No scleral icterus. No injection or drainage. NECK: Supple, trachea midline. No JVD or lymphadenopathy. CARDIOVASCULAR: Regular rate and rhythm without murmurs, gallops, or rubs. RESPIRATORY: Breath sounds equal bilaterally. No accessory muscle use. Exp rhonchi GASTROINTESTINAL: Abdomen soft, non-tender, nondistended. MUSCULOSKELETAL: No cyanosis, or edema. BACK: Nontender without obvious deformity. No CVA tenderness. A/P Assessment and Plan COPD Exac Bronchitis Basal infilt HTN PAD PLAN: IV Solumedrol Cont Rocephin Aerosol nebs Wean 02 Stable to tr to floor from pulm standpoint Deo Quiñones MD Jan 02, 2017 19:17
[2017-01-02] MEDS: ASPIRIN EC 81 MG TABEC PO SCH (21:05)
[2017-01-02] MEDS: ATORVASTATIN 20 MG TAB PO SCH (21:05)
[2017-01-02] MEDS: cefTRIAXone INJ 1,000 MG in SODIUM CHLORIDE 0.9% INJ 100 ML IV SCH (21:07)
[2017-01-03] VITALS (22 sets, daily range): BP systolic 115–181; BP diastolic 48–82; PULSE 82–110; RESP 21–37; TEMP 97.4–98.1; O2SAT 85–98
[2017-01-03] MEDS: RESP: ALBUTEROL 2.5 MG/3 ML NEB (PRN) INH ×2 (01:57→22:44)
[2017-01-03] MEDS: methylPREDNISolone SOD SUCC 125 MG/2 ML VIAL IVP SCH ×4 (03:31→21:41)
[2017-01-03] MEDS: HEPARIN SODIUM - SQ 10,000 UNITS/ML VIAL SQ SCH ×2 (03:31→14:40)
[2017-01-03] MEDS: RESP: ALBUTEROL 2.5 MG/IPRATROPIUM 0.5 MG NEB (SCH) INH ×4 (03:54→21:19)
[2017-01-03 06:49] LABS: AUTOMATED NEUTROPHIL # 12.5 TH/MM3 (1.8-7.7); HEMATOCRIT 34.8 % (39.0-51.0); LYMPH % 2.6 % (9.0-44.0); LYMPHOCYTE # 0.3 TH/MM3 (1.0-4.8); MEAN CELL VOLUME 70.3 FL (80.0-100.0); MEAN CORPUSCULAR HEMOGLOBIN 22.4 PG (27.0-34.0); MEAN CORPUSCULAR HGB CONC 31.8 % (32.0-36.0); NEUT % 95.4 % (16.0-70.0); PLATELET COUNT 283 TH/MM3 (150-450); RED BLOOD COUNT 4.95 MIL/MM3 (4.50-5.90); RED CELL DISTRIBUTION WIDTH 22.8 % (11.6-17.2); WHITE BLOOD COUNT 13.1 TH/MM3 (4.0-11.0)
[2017-01-03 06:56] LABS: CHLORIDE 99 MEQ/L (98-107); POTASSIUM 4.8 MEQ/L (3.5-5.1); SODIUM (NA) 139 MEQ/L (136-145)
[2017-01-03 06:58] LABS: HEMO FLAGS AUTO DIFF
[2017-01-03 07:09] LABS: ALKALINE PHOSPHATASE 101 U/L (45-117); ALT (GPT) 33 U/L (12-78); ANION GAP 9 MEQ/L (5-15); AST (GOT) 17 U/L (15-37); BLOOD UREA NITROGEN 22 MG/DL (7-18); GLOMERULAR FILTRATION RATE 54 ML/MIN (>89); TOTAL BILIRUBIN ADULT 0.3 MG/DL (0.2-1.0)
--- NOTE | 2017-01-03 07:13 | HHI.PR ---
Subjective History of Present Illness Patient have SOB/ Wheezing feel weak and tired. no acute issue. 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 d/ w at bed side all questions answered. Review of Systems Constitutional Constitutional: Fatigue, Weakness Pulmonary Respiratory: Coughing, Shortness of Breath, Wheezing Vitals/Results Intake & Output 01/02/17 01/02/17 01/03/17 15:00 23:00 07:00 Intake Total 1180 ml 480 ml 600 ml Output Total 720 ml 500 ml 800 ml Balance 460 ml -20 ml -200 ml Intake Oral 1180 ml 480 ml 480 ml IV Total 120 ml Output Urine Total 720 ml 500 ml 800 ml # Voids 0 0 Vital Signs Vital Signs Date Time Temp Pulse Resp B/P Pulse Ox O2 Delivery O2 Flow Rate FiO2 01/03/17 06:00 92 01/03/17 04:00 97.6 92 24 117/56 92 01/03/17 04:00 92 01/03/17 03:00 90 21 144/61 89 01/03/17 02:13 95 Venturi Mask 3.00 50 01/03/17 02:10 94 Venturi Mask 6.00 50 01/03/17 02:00 82 01/03/17 02:00 82 24 138/52 98 01/03/17 01:57 93 Nasal Cannula 6.00 Humidified 01/03/17 01:54 82 Nasal Cannula 6.00 Humidified 01/03/17 01:51 87 Nasal Cannula 6.00 Humidified 01/03/17 01:50 88 01/03/17 01:50 88 21 131/48 89 01/03/17 01:50 89 Nasal Cannula 6.00 Humidified 01/03/17 01:30 95 Nasal Cannula 6.00 Humidified 01/03/17 01:00 108 01/03/17 01:00 108 37 181/77 85 01/03/17 00:30 99 Nasal Cannula 6.00 Humidified 01/03/17 00:00 97.9 84 25 115/71 94 01/03/17 00:00 94 Nasal Cannula 6.00 Humidified 01/03/17 00:00 84 01/02/17 23:13 86 Nasal Cannula 6.00 Humidified 01/02/17 23:13 153/75 86 01/02/17 23:00 100 15 110/65 89 01/02/17 23:00 100 01/02/17 23:00 89 Nasal Cannula 5.00 Humidified 01/02/17 22:00 90 Nasal Cannula 4.00 Humidified 01/02/17 22:00 94 01/02/17 22:00 94 18 140/69 90 01/02/17 21:00 92 19 121/64 97 01/02/17 21:00 97 Nasal Cannula 4.00 Humidified 01/02/17 20:49 92 Nasal Cannula 4.00 01/02/17 20:00 94 Nasal Cannula 4.00 Humidified 01/02/17 20:00 98 01/02/17 20:00 97.8 98 28 143/68 91 01/02/17 18:00 82 01/02/17 16:00 100 35 143/63 91 01/02/17 16:00 100 01/02/17 15:00 92 28 151/65 91 01/02/17 15:00 92 01/02/17 14:00 92 01/02/17 13:07 102 30 152/71 89 01/02/17 13:07 102 01/02/17 13:00 104 39 175/81 90 01/02/17 13:00 104 01/02/17 12:00 92 01/02/17 12:00 92 25 162/71 91 01/02/17 10:16 94 Nasal Cannula 4.00 01/02/17 10:00 88 01/02/17 10:00 88 23 140/66 95 01/02/17 09:00 92 49 150/74 91 01/02/17 09:00 92 01/02/17 08:00 84 01/02/17 08:00 97.9 86 27 140/67 93 01/02/17 07:30 97 Nasal Cannula 6.00 CBC/BMP: 01/03/17 0552 01/03/17 0552 Lab Results Laboratory Tests Test 01/03/17 05:52 White Blood Count 13.1 TH/MM3 Red Blood Count 4.95 MIL/MM3 Hemoglobin 11.1 GM/DL Hematocrit 34.8 % Mean Corpuscular Volume 70.3 FL Mean Corpuscular Hemoglobin 22.4 PG Mean Corpuscular Hemoglobin 31.8 % Concent Red Cell Distribution Width 22.8 % Platelet Count 283 TH/MM3 Mean Platelet Volume 9.9 FL Neutrophils (%) (Auto) 95.4 % Lymphocytes (%) (Auto) 2.6 % Monocytes (%) (Auto) 2.0 % Eosinophils (%) (Auto) 0.0 % Basophils (%) (Auto) 0.0 % Neutrophils # (Auto) 12.5 TH/MM3 Lymphocytes # (Auto) 0.3 TH/MM3 Monocytes # (Auto) 0.3 TH/MM3 Eosinophils # (Auto) 0.0 TH/MM3 Basophils # (Auto) 0.0 TH/MM3 CBC Comment AUTO DIFF Sodium Level 139 MEQ/L Potassium Level 4.8 MEQ/L Chloride Level 99 MEQ/L Carbon Dioxide Level 31.0 MEQ/L Anion Gap 9 MEQ/L Blood Urea Nitrogen 22 MG/DL Creatinine 1.30 MG/DL Estimat Glomerular Filtration 54 ML/MIN Rate Random Glucose 151 MG/DL Calcium Level 9.9 MG/DL Total Bilirubin 0.3 MG/DL Aspartate Amino Transf 17 U/L (AST/SGOT) Alanine Aminotransferase 33 U/L (ALT/SGPT) Alkaline Phosphatase 101 U/L Total Protein 7.7 GM/DL Albumin 3.4 GM/DL Physical Exam General General Appearance: No Acute Distress, Comfortable Eyes Eye Exam: Pupils Equal, Pupils Reactive, Sclera White, Extraocular Movement Intact Throat Throat Exam: Oral Mucosa [place] & Moist, Oral Pharynx Normal Neck Neck Exam: Neck Supple, Trachea Midline Pulmonary Resp Exam: Rhonchi Resp Remarks Bilateral wheezing. Cardiology CV Exam: Regular, Normal Sinus Rhythm Gastrointestinal/Abdomen GI Exam: Soft, Non-Tender, Bowel Sounds Present Musculoskeletal MS Exam: Normal Tone Integumentary Skin Exam: Clear, Warm, Dry, Intact Neurologic Neuro Exam: Alert, Awake, Oriented, Speech Clear, Moving All Extremities, No Focal Deficits Psychiatric Psych Exam: Appropriate Responses VTE Prophylaxis VTE Prophylaxis Meds: Heparin PUD Prophylasis PUD Prophylaxis: Protonix Assessment/Plan Assessment/Plan ASSESSMENT AND PLAN 1. This is a 76-year male who came to the ER diagnosed with shortness of breath, cough and wheezing secondary to bilateral pneumonia and COPD exacerbation. The patient is on Zithromax and Rocephin one gram IV daily. The patient is also on Solu-Medrol 60 mg IV q.6h. and DuoNeb nebulization every six hours. Pulmonary input noted. Further recommendations per pulmonary. 2. History of hyperlipidemia. Continue the home medication, atorvastatin 10 mg p.o. daily. 3. History of COPD. Continue the home medication. 4. History of arthritis. Continue home medication. 5. History of popliteal aneurysm status post surgery. 6. History of hypertension. Continue home medication. 7. History of anemia. Will monitor H&H. 8. Leukocytosis secondary to pneumonia. 9. DVT prophylaxis. Heparin 5000 units subcutaneous twice a day. 10.GI prophylaxis with Protonix 40 mg p.o. daily. 11.We are going to manage the patient on a daily basis and make recommendations on a daily basis. Discussed Condition with: Patient, Spouse Honorio Viera MD Jan 03, 2017 07:13
[2017-01-03 07:36] LABS: KERATOCYTES OCC (NORMAL); OVALOCYTES 1+ (NORMAL); PLATELET ESTIMATE SMEAR NORMAL (NORMAL); PLATELET MORPHOLOGY NORMAL (NORMAL); ROULEAUX PRESENT (NORMAL); SCAN/DIFF AUTO DIFF CONFIRMED
[2017-01-03] MEDS: FLUTICASONE SALMETEROL PO SCH ×2 (08:21→21:36)
[2017-01-03] MEDS: SODIUM CHLORIDE 0.9% FLUSH 5 ML FLUSH IVF SCH ×2 (08:21→21:42)
--- NOTE | 2017-01-03 14:22 | HHI.PR ---
Subjective Remarks alert on O2 by NC LESS SOB Objective Vital Signs Date Time Temp Pulse Resp B/P Pulse Ox O2 Delivery O2 Flow Rate FiO2 01/03/17 12:00 86 21 122/58 92 01/03/17 12:00 100 01/03/17 11:00 96 01/03/17 11:00 96 22 138/61 93 01/03/17 10:02 93 Nasal Cannula 4.00 01/03/17 10:00 100 26 137/61 93 01/03/17 10:00 100 01/03/17 09:16 110 25 164/68 90 01/03/17 09:16 110 01/03/17 09:00 100 37 179/82 96 01/03/17 09:00 100 01/03/17 08:08 102 01/03/17 08:08 97.4 102 37 147/64 89 01/03/17 07:00 98 Venturi Mask 3.00 50 01/03/17 06:00 92 01/03/17 04:00 97.6 92 24 117/56 92 01/03/17 04:00 92 01/03/17 03:00 90 21 144/61 89 01/03/17 02:13 95 Venturi Mask 3.00 50 01/03/17 02:10 94 Venturi Mask 6.00 50 01/03/17 02:00 82 01/03/17 02:00 82 24 138/52 98 01/03/17 01:57 93 Nasal Cannula 6.00 Humidified 01/03/17 01:54 82 Nasal Cannula 6.00 Humidified 01/03/17 01:51 87 Nasal Cannula 6.00 Humidified 01/03/17 01:50 88 01/03/17 01:50 88 21 131/48 89 01/03/17 01:50 89 Nasal Cannula 6.00 Humidified 01/03/17 01:30 95 Nasal Cannula 6.00 Humidified 01/03/17 01:00 108 01/03/17 01:00 108 37 181/77 85 01/03/17 00:30 99 Nasal Cannula 6.00 Humidified 01/03/17 00:00 97.9 84 25 115/71 94 01/03/17 00:00 94 Nasal Cannula 6.00 Humidified 01/03/17 00:00 84 01/02/17 23:13 86 Nasal Cannula 6.00 Humidified 01/02/17 23:13 153/75 86 2/24/17 23:00 100 15 110/65 89 01/02/17 23:00 100 01/02/17 23:00 89 Nasal Cannula 5.00 Humidified 01/02/17 22:00 90 Nasal Cannula 4.00 Humidified 01/02/17 22:00 94 01/02/17 22:00 94 18 140/69 90 01/02/17 21:00 92 19 121/64 97 01/02/17 21:00 97 Nasal Cannula 4.00 Humidified 01/02/17 20:49 92 Nasal Cannula 4.00 01/02/17 20:00 94 Nasal Cannula 4.00 Humidified 01/02/17 20:00 98 01/02/17 20:00 97.8 98 28 143/68 91 01/02/17 18:00 82 01/02/17 16:00 100 35 143/63 91 01/02/17 16:00 100 01/02/17 15:00 92 28 151/65 91 01/02/17 15:00 92 I/O 01/02/17 01/02/17 01/02/17 01/03/17 01/03/17 01/03/17 07:00 15:00 23:00 07:00 15:00 23:00 Intake Total 480 ml 1180 ml 480 ml 600 ml Output Total 901 ml 720 ml 500 ml 800 ml Balance -421 ml 460 ml -20 ml -200 ml Intake Oral 480 ml 1180 ml 480 ml 480 ml IV Total 120 ml Output Urine Total 900 ml 720 ml 500 ml 800 ml Stool Total 1 ml # Voids 0 0 Result Diagram: 01/03/17 0552 01/03/17 0552 Objective Remarks GENERAL: SKIN: Warm and dry. HEAD: Atraumatic. Normocephalic. EYES: Pupils equal and round. No scleral icterus. No injection or drainage. ENT: No nasal bleeding or discharge. Mucous membranes pink and moist. NECK: Trachea midline. No JVD. CARDIOVASCULAR: Regular rate and rhythm. RESPIRATORY: No accessory muscle use. Clear to auscultation. Breath sounds equal bilaterally. GASTROINTESTINAL: Abdomen soft, non-tender, nondistended. Hepatic and splenic margins not palpable. MUSCULOSKELETAL: Extremities without clubbing, cyanosis, or edema. No obvious deformities. NEUROLOGICAL: Awake and alert. No obvious cranial nerve deficits. Motor grossly within normal limits. Five out of 5 muscle strength in the arms and legs. Normal speech. PSYCHIATRIC: Appropriate mood and affect; insight and judgment normal. Assessment and Plan Assessment and Plan ASS: COPD EXACERBATION RESPIRATORY FAILURE PLAN: CONTINUE 02 BROCHDILATOR THERAPY INCREASE ACTIVITY Tate Ybarra MD Jan 03, 2017 14:22
[2017-01-03] MEDS: ASPIRIN EC 81 MG TABEC PO SCH (21:42)
[2017-01-03] MEDS: ATORVASTATIN 20 MG TAB PO SCH (21:42)
[2017-01-03] MEDS: cefTRIAXone INJ 1,000 MG in SODIUM CHLORIDE 0.9% INJ 100 ML IV SCH (21:43)
[2017-01-04] VITALS (18 sets, daily range): BP systolic 129–168; BP diastolic 70–87; PULSE 80–124; RESP 22–35; TEMP 97.4–98.2; O2SAT 84–99
[2017-01-04] MEDS: HEPARIN SODIUM - SQ 10,000 UNITS/ML VIAL SQ SCH ×2 (01:50→13:28)
[2017-01-04] MEDS: SODIUM CHLORIDE 0.9% FLUSH 5 ML FLUSH IVF PRN ×2 (02:59→20:49)
[2017-01-04] MEDS: methylPREDNISolone SOD SUCC 125 MG/2 ML VIAL IVP SCH ×4 (02:59→20:48)
[2017-01-04] MEDS: RESP: ALBUTEROL 2.5 MG/IPRATROPIUM 0.5 MG NEB (SCH) INH (03:02)
[2017-01-04 06:11] LABS: AUTOMATED NEUTROPHIL # 11.2 TH/MM3 (1.8-7.7); BASOPHIL % 0.2 % (0.0-2.0); HEMATOCRIT 33.9 % (39.0-51.0); LYMPH % 2.9 % (9.0-44.0); LYMPHOCYTE # 0.3 TH/MM3 (1.0-4.8); MEAN CELL VOLUME 69.7 FL (80.0-100.0); MEAN CORPUSCULAR HEMOGLOBIN 21.2 PG (27.0-34.0); MEAN CORPUSCULAR HGB CONC 30.4 % (32.0-36.0); NEUT % 93.9 % (16.0-70.0); PLATELET COUNT 238 TH/MM3 (150-450); RED BLOOD COUNT 4.87 MIL/MM3 (4.50-5.90); RED CELL DISTRIBUTION WIDTH 22.9 % (11.6-17.2); WHITE BLOOD COUNT 11.9 TH/MM3 (4.0-11.0)
[2017-01-04 06:17] LABS: HEMO FLAGS AUTO DIFF
[2017-01-04 06:19] LABS: CHLORIDE 98 MEQ/L (98-107); SODIUM (NA) 138 MEQ/L (136-145)
[2017-01-04 06:23] LABS: ANION GAP 6 MEQ/L (5-15); BICARBONATE 33.6 MEQ/L (21.0-32.0)
[2017-01-04 06:24] LABS: BLOOD UREA NITROGEN 28 MG/DL (7-18)
[2017-01-04 06:27] LABS: ALT (GPT) 36 U/L (12-78); AST (GOT) 16 U/L (15-37); GLOMERULAR FILTRATION RATE 54 ML/MIN (>89)
[2017-01-04 06:28] LABS: OVALOCYTES 1+ (NORMAL); PLATELET ESTIMATE SMEAR NORMAL (NORMAL); PLATELET MORPHOLOGY NORMAL (NORMAL); SCAN/DIFF AUTO DIFF CONFIRMED; TOTAL BILIRUBIN ADULT 0.5 MG/DL (0.2-1.0)
[2017-01-04 06:30] LABS: ALKALINE PHOSPHATASE 86 U/L (45-117)
[2017-01-04] MEDS: RESP: ALBUTEROL 2.5 MG/3 ML NEB (PRN) INH ×2 (07:47→11:49)
[2017-01-04] MEDS: FLUTICASONE SALMETEROL PO SCH ×2 (09:59→20:50)
[2017-01-04] MEDS: SODIUM CHLORIDE 0.9% FLUSH 5 ML FLUSH IVF SCH ×2 (09:59→20:49)
[2017-01-04] MEDS: RESP: IPRATROPIUM 0.5 MG/2.5 ML NEB NEB PRN (11:49)
--- NOTE | 2017-01-04 13:17 | RADHPO ---
EXAM DATE/TIME: 01/04/2017 13:00 [place] COMPARISON: CHEST SINGLE AP, December 30, 2016, 21:32. INDICATIONS : Short of breath, pneumonia MEDICAL HISTORY : Chronic obstructive pulmonary disease. Emphysema. SURGICAL HISTORY : Bilateral shoulder replacement ENCOUNTER: Subsequent ACUITY: 1 week PAIN SCORE: 0/10 LOCATION: Bilateral chest FINDINGS: Minimal bibasilar atelectasis, considerably improved in the interim. No definite effusion seen. No pn eumothorax. Heart size stable, within normal limits. CONCLUSION: Decreasing bibasilar atelectasis, now trace. Calvin Jean Baptiste MD on January 04, 2017 at 13:15 Board Certified Radiologist. This report was verified electronically.
--- NOTE | 2017-01-04 13:24 | HHI.PR ---
Subjective History of Present Illness Patient have SOB/ Wheezing feel weak and tired. no acute issue. 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 Check sputum for gram stain and culture sensitivity, d/w at bed side all questions answered. On 6 litre by nasal canula s/p Chest x- ray today. started on lasix 20 mg IV Daily and Mucinex need BIPAP at night. Review of Systems Constitutional Constitutional: Fatigue, Weakness Pulmonary Respiratory: Coughing, Shortness of Breath, Wheezing Vitals/Results Intake & Output 01/03/17 01/03/17 01/04/17 15:00 23:00 07:00 Intake Total 400 ml 420 ml 240 ml Output Total 200 ml 300 ml 475 ml Balance 200 ml 120 ml -235 ml Intake Oral 400 ml 320 ml 240 ml IV Total 100 ml Output Urine Total 200 ml 300 ml 475 ml Stool Total 0 ml 0 ml # Voids 1 Vital Signs Vital Signs Date Time Temp Pulse Resp B/P Pulse Ox O2 Delivery O2 Flow Rate FiO2 01/04/17 12:00 98 01/04/17 12:00 98.2 112 33 129/76 84 01/04/17 11:00 80 01/04/17 10:00 96 01/04/17 09:00 102 01/04/17 08:00 110 01/04/17 08:00 98.1 98 26 155/79 95 01/04/17 07:49 91 Nasal Cannula 6.00 01/04/17 07:21 92 Nasal Cannula 6.00 01/04/17 06:30 92 Nasal Cannula 6.00 01/04/17 06:00 95 01/04/17 04:00 98 01/04/17 04:00 97.6 96 22 142/76 92 01/04/17 03:02 92 Venturi Mask 6.00 50 01/04/17 00:00 97.4 92 22 145/70 92 01/04/17 00:00 98 01/03/17 23:10 Venturi Mask 6.00 50 01/03/17 23:10 89 Venturi Mask 7.00 50 01/03/17 21:19 92 Nasal Cannula 4.00 01/03/17 20:00 92 01/03/17 20:00 88 Nasal Cannula 4.00 01/03/17 20:00 98.1 92 28 153/68 92 01/03/17 18:00 104 01/03/17 16:25 102 30 129/58 90 01/03/17 16:00 102 01/03/17 14:50 97.4 102 37 147/64 89 01/03/17 14:00 94 CBC/BMP: 01/04/17 0540 01/04/17 0540 Lab Results Laboratory Tests Test 01/04/17 05:40 White Blood Count 11.9 TH/MM3 Red Blood Count 4.87 MIL/MM3 Hemoglobin 10.3 GM/DL Hematocrit 33.9 % Mean Corpuscular Volume 69.7 FL Mean Corpuscular Hemoglobin 21.2 PG Mean Corpuscular Hemoglobin 30.4 % Concent Red Cell Distribution Width 22.9 % Platelet Count 238 TH/MM3 Mean Platelet Volume 8.7 FL Neutrophils (%) (Auto) 93.9 % Lymphocytes (%) (Auto) 2.9 % Monocytes (%) (Auto) 3.0 % Eosinophils (%) (Auto) 0.0 % Basophils (%) (Auto) 0.2 % Neutrophils # (Auto) 11.2 TH/MM3 Lymphocytes # (Auto) 0.3 TH/MM3 Monocytes # (Auto) 0.4 TH/MM3 Eosinophils # (Auto) 0.0 TH/MM3 Basophils # (Auto) 0.0 TH/MM3 CBC Comment AUTO DIFF Differential Comment AUTO DIFF CONFIRMED Platelet Estimate NORMAL Platelet Morphology Comment NORMAL Ovalocytes 1+ Sodium Level 138 MEQ/L Potassium Level 5.0 MEQ/L Chloride Level 98 MEQ/L Carbon Dioxide Level 33.6 MEQ/L Anion Gap 6 MEQ/L Blood Urea Nitrogen 28 MG/DL Creatinine 1.30 MG/DL Estimat Glomerular Filtration 54 ML/MIN Rate Random Glucose 149 MG/DL Calcium Level 9.6 MG/DL Total Bilirubin 0.5 MG/DL Aspartate Amino Transf 16 U/L (AST/SGOT) Alanine Aminotransferase 36 U/L (ALT/SGPT) Alkaline Phosphatase 86 U/L Total Protein 6.6 GM/DL Albumin 3.1 GM/DL Microbiology Microbiology 01/04/17 Gram Stain, Received Pending 01/04/17 Sputum Culture, Received Pending Physical Exam General General Appearance: No Acute Distress, Comfortable Eyes Eye Exam: Pupils Equal, Pupils Reactive, Sclera White, Extraocular Movement Intact Throat Throat Exam: Oral Mucosa [place] & Moist, Oral Pharynx Normal Neck Neck Exam: Neck Supple, Trachea Midline Pulmonary Resp Exam: Rhonchi Resp Remarks Bilateral wheezing. Cardiology CV Exam: Regular, Normal Sinus Rhythm Gastrointestinal/Abdomen GI Exam: Soft, Non-Tender, Bowel Sounds Present Musculoskeletal MS Exam: Normal Tone Integumentary Skin Exam: Clear, Warm, Dry, Intact Neurologic Neuro Exam: Alert, Awake, Oriented, Speech Clear, Moving All Extremities, No Focal Deficits Psychiatric Psych Exam: Appropriate Responses VTE Prophylaxis VTE Prophylaxis Meds: Heparin PUD Prophylasis PUD Prophylaxis: Protonix Assessment/Plan Assessment/Plan ASSESSMENT AND PLAN 1. This is a 76-year male who came to the ER diagnosed with shortness of breath, cough and wheezing secondary to bilateral pneumonia and COPD exacerbation. The patient is on Zithromax and Rocephin one gram IV daily. The patient is also on Solu-Medrol 60 mg IV q.6h. and DuoNeb nebulization every six hours. Pulmonary input noted. Check sputum for gram stain and culture sensitivity, On 6 litre by nasal canula s/p Chest x- ray today...noted.. started on lasix 20 mg IV Daily and Mucinex need BIPAP at night. Further recommendations per pulmonary. 2. History of hyperlipidemia. Continue the home medication, atorvastatin 10 mg p.o. daily. 3. History of COPD. Continue the home medication. 4. History of arthritis. Continue home medication. 5. History of popliteal aneurysm status post surgery. 6. History of hypertension. Continue home medication. 7. History of anemia. Will monitor H&H. 8. Leukocytosis secondary to pneumonia. 9. DVT prophylaxis. Heparin 5000 units subcutaneous twice a day. 10.GI prophylaxis with Protonix 40 mg p.o. daily. 11.We are going to manage the patient on a daily basis and make recommendations on a daily basis. Check CBC with diff CMP in AM. Discussed Condition with: Patient, Spouse Honorio Viera MD Jan 04, 2017 13:24
[2017-01-04] MEDS: FUROSEMIDE 20 MG/2 ML VIAL IV SCH (13:28)
[2017-01-04] MEDS: guaiFENesin E.R. 600 MG TAB PO SCH ×2 (13:28→20:49)
[2017-01-04] MEDS: RESP: ALBUTEROL 2.5 MG/IPRATROPIUM 0.5 MG NEB (SCH) NEB ×2 (15:23→21:33)
[2017-01-04] MEDS: PANTOPRAZOLE SODIUM 40 MG VIAL IV PUSH SCH (20:48)
[2017-01-04] MEDS: cefTRIAXone INJ 1,000 MG in SODIUM CHLORIDE 0.9% INJ 100 ML IV SCH (20:48)
[2017-01-04] MEDS: ASPIRIN EC 81 MG TABEC PO SCH (20:49)
[2017-01-04] MEDS: ATORVASTATIN 20 MG TAB PO SCH (20:49)
[2017-01-04] MEDS ORDERED: CHLORHEXIDINE GLUCONATE 2 % 1 PACK (2 CLOTHS)(extra cloths) TOP PRN (22:30)
[2017-01-05] VITALS (31 sets, daily range): BP systolic 108–161; BP diastolic 53–77; PULSE 74–118; RESP 18–52; TEMP 97.3–98.1; O2SAT 85–99
[2017-01-05] MEDS: HEPARIN SODIUM - SQ 10,000 UNITS/ML VIAL SQ SCH ×2 (00:50→13:01)
[2017-01-05] MEDS: methylPREDNISolone SOD SUCC 125 MG/2 ML VIAL IVP SCH ×4 (02:39→19:40)
[2017-01-05] MEDS: CHLORHEXIDINE GLUCONATE 2 % 1 PACK (2 CLOTHS)(taper/protocol) TOP SCH (02:40)
[2017-01-05] MEDS: RESP: ALBUTEROL 2.5 MG/IPRATROPIUM 0.5 MG NEB (SCH) NEB ×4 (03:19→21:50)
[2017-01-05 05:55] LABS: BASOPHIL % 0.1 % (0.0-2.0); EOSINOPHIL % 0.1 % (0.0-4.0); HEMATOCRIT 31.7 % (39.0-51.0); LYMPH % 4.7 % (9.0-44.0); LYMPHOCYTE # 0.4 TH/MM3 (1.0-4.8); MEAN CELL VOLUME 69.6 FL (80.0-100.0); MEAN CORPUSCULAR HEMOGLOBIN 21.5 PG (27.0-34.0); MEAN CORPUSCULAR HGB CONC 30.9 % (32.0-36.0); MONO % 3.7 % (0.0-8.0); NEUT % 91.4 % (16.0-70.0); PLATELET COUNT 209 TH/MM3 (150-450); RED BLOOD COUNT 4.55 MIL/MM3 (4.50-5.90); RED CELL DISTRIBUTION WIDTH 23.2 % (11.6-17.2); WHITE BLOOD COUNT 7.7 TH/MM3 (4.0-11.0)
[2017-01-05 05:57] LABS: HEMO FLAGS AUTO DIFF
[2017-01-05 06:12] LABS: ALKALINE PHOSPHATASE 76 U/L (45-117); ALT (GPT) 34 U/L (12-78); ANION GAP 7 MEQ/L (5-15); AST (GOT) 11 U/L (15-37); BLOOD UREA NITROGEN 30 MG/DL (7-18); CHLORIDE 97 MEQ/L (98-107); GLOMERULAR FILTRATION RATE 49 ML/MIN (>89); POTASSIUM 4.1 MEQ/L (3.5-5.1); SODIUM (NA) 138 MEQ/L (136-145); TOTAL BILIRUBIN ADULT 0.4 MG/DL (0.2-1.0)
[2017-01-05 06:30] LABS: OVALOCYTES 1+ (NORMAL); PLATELET ESTIMATE SMEAR NORMAL (NORMAL); PLATELET MORPHOLOGY NORMAL (NORMAL); ROULEAUX PRESENT (NORMAL); SCAN/DIFF AUTO DIFF CONFIRMED
--- NOTE | 2017-01-05 08:29 | HHI.PR ---
Subjective History of Present Illness Patient have SOB/ Wheezing feel weak and tired. no acute issue. D/W [employer]. Annette. Check sputum for gram stain and culture sensitivity, . On 6 litre by nasal canula s/p Chest x- ray today. on lasix 20 mg IV Daily and Mucinex on BIPAP at night. Review of Systems Constitutional Constitutional: Fatigue, Weakness Pulmonary Respiratory: Coughing, Shortness of Breath, Wheezing Vitals/Results Intake & Output 01/04/17 01/04/17 01/05/17 15:00 23:00 07:00 Intake Total 480 ml 220 ml 120 ml Output Total 975 ml 1000 ml Balance -495 ml -780 ml 120 ml Intake Oral 480 ml 120 ml 120 ml IV Total 0 ml 100 ml Output Urine Total 975 ml 1000 ml Stool Total 0 ml 0 ml # Voids 3 # Bowel Movements 0 0 Vital Signs Vital Signs Date Time Temp Pulse Resp B/P Pulse Ox O2 Delivery O2 Flow Rate FiO2 01/05/17 08:00 100 52 154/63 85 01/05/17 07:35 85 Nasal Cannula 6.00 01/05/17 07:00 97.5 86 18 128/66 94 01/05/17 06:04 95 Bi-Pap 50 01/05/17 06:00 100 24 140/68 86 01/05/17 06:00 97 01/05/17 06:00 93 40 01/05/17 05:00 74 22 123/55 93 01/05/17 04:00 74 01/05/17 04:00 97.3 74 24 127/55 93 01/05/17 03:19 92 Nasal Cannula 6.00 01/05/17 03:00 90 28 124/68 93 01/05/17 02:00 102 01/05/17 02:00 80 19 121/60 95 01/05/17 01:10 93 40 01/05/17 01:00 86 20 108/53 94 01/05/17 00:25 99 40 01/05/17 00:25 96 Bi-Pap 40 01/05/17 00:00 86 01/05/17 00:00 97.7 90 18 131/64 99 01/04/17 23:53 90 Bi-Pap 50 01/04/17 23:30 99 50 01/04/17 22:00 100 01/04/17 21:00 98.2 98 24 168/87 92 01/04/17 20:10 91 Nasal Cannula 6.00 01/04/17 20:00 98 01/04/17 19:00 90 Nasal Cannula 6.00 01/04/17 18:00 104 01/04/17 16:00 98.1 108 35 151/75 94 01/04/17 16:00 124 01/04/17 14:00 116 01/04/17 12:00 98 01/04/17 12:00 98.2 112 33 129/76 84 01/04/17 11:00 80 01/04/17 10:00 96 01/04/17 09:00 102 CBC/BMP: 01/05/17 0505 01/05/17 0505 Lab Results Laboratory Tests Test 01/04/17 01/05/17 23:10 05:05 Nasal Screen MRSA (PCR) NEGATIVE White Blood Count 7.7 TH/MM3 Red Blood Count 4.55 MIL/MM3 Hemoglobin 9.8 GM/DL Hematocrit 31.7 % Mean Corpuscular Volume 69.6 FL Mean Corpuscular Hemoglobin 21.5 PG Mean Corpuscular Hemoglobin 30.9 % Concent Red Cell Distribution Width 23.2 % Platelet Count 209 TH/MM3 Mean Platelet Volume 9.1 FL Neutrophils (%) (Auto) 91.4 % Lymphocytes (%) (Auto) 4.7 % Monocytes (%) (Auto) 3.7 % Eosinophils (%) (Auto) 0.1 % Basophils (%) (Auto) 0.1 % Neutrophils # (Auto) 7.0 TH/MM3 Lymphocytes # (Auto) 0.4 TH/MM3 Monocytes # (Auto) 0.3 TH/MM3 Eosinophils # (Auto) 0.0 TH/MM3 Basophils # (Auto) 0.0 TH/MM3 CBC Comment AUTO DIFF Differential Comment AUTO DIFF CONFIRMED Platelet Estimate NORMAL Platelet Morphology Comment NORMAL Ovalocytes 1+ Rouleau PRESENT Sodium Level 138 MEQ/L Potassium Level 4.1 MEQ/L Chloride Level 97 MEQ/L Carbon Dioxide Level 34.0 MEQ/L Anion Gap 7 MEQ/L Blood Urea Nitrogen 30 MG/DL Creatinine 1.40 MG/DL Estimat Glomerular Filtration 49 ML/MIN Rate Random Glucose 153 MG/DL Calcium Level 8.8 MG/DL Total Bilirubin 0.4 MG/DL Aspartate Amino Transf 11 U/L (AST/SGOT) Alanine Aminotransferase 34 U/L (ALT/SGPT) Alkaline Phosphatase 76 U/L Total Protein 6.0 GM/DL Albumin 2.9 GM/DL Microbiology Microbiology 01/04/17 Gram Stain, Received Pending 01/04/17 Sputum Culture, Received Pending Physical Exam General General Appearance: No Acute Distress, Comfortable Eyes Eye Exam: Pupils Equal, Pupils Reactive, Sclera White, Extraocular Movement Intact Throat Throat Exam: Oral Mucosa [place] & Moist, Oral Pharynx Normal Neck Neck Exam: Neck Supple, Trachea Midline Pulmonary Resp Exam: Rhonchi, Diminished Breath Sounds Resp Remarks Bilateral wheezing. Cardiology CV Exam: Regular, Normal Sinus Rhythm Gastrointestinal/Abdomen GI Exam: Soft, Non-Tender, Bowel Sounds Present Musculoskeletal MS Exam: Normal Tone Integumentary Skin Exam: Clear, Warm, Dry, Intact Neurologic Neuro Exam: Alert, Awake, Oriented, Speech Clear, Moving All Extremities, No Focal Deficits Psychiatric Psych Exam: Appropriate Responses VTE Prophylaxis VTE Prophylaxis Meds: Heparin PUD Prophylasis PUD Prophylaxis: Protonix Assessment/Plan Assessment/Plan ASSESSMENT AND PLAN 1. This is a 76-year male who came to the ER diagnosed with shortness of breath, cough and wheezing secondary to bilateral pneumonia and COPD exacerbation. The patient is on Zithromax and Rocephin one gram IV daily. The patient is also on Solu-Medrol 60 mg IV q.6h. and DuoNeb nebulization every six hours. Pulmonary input noted. Check sputum for gram stain and culture sensitivity, On 6 litre by nasal canula s/p Chest x- ray today...noted.. on lasix 20 mg IV Daily and Mucinex on BIPAP at night. Further recommendations per pulmonary. 2. History of hyperlipidemia. Continue the home medication, atorvastatin 10 mg p.o. daily. 3. History of COPD. Continue the home medication. 4. History of arthritis. Continue home medication. 5. History of popliteal aneurysm status post surgery. 6. History of hypertension. Continue home medication. 7. History of anemia. Will monitor H&H. 8. Leukocytosis secondary to pneumonia. 9. DVT prophylaxis. Heparin 5000 units subcutaneous twice a day. 10.GI prophylaxis with Protonix 40 mg p.o. daily. 11.We are going to manage the patient on a daily basis and make recommendations on a daily basis. Check CBC with diff CMP in AM. Physical therapy evaluation and treatment. Discussed Condition with: Patient Honorio Viera MD Jan 05, 2017 08:29
[2017-01-05] MEDS: FUROSEMIDE 20 MG/2 ML VIAL IV SCH (10:26)
[2017-01-05] MEDS: guaiFENesin E.R. 600 MG TAB PO SCH ×2 (10:26→19:41)
[2017-01-05] MEDS: SODIUM CHLORIDE 0.9% FLUSH 5 ML FLUSH IVF SCH ×2 (10:27→19:40)
[2017-01-05] MEDS: FLUTICASONE SALMETEROL PO SCH ×2 (10:27→19:41)
[2017-01-05] MEDS: LORazepam 0.5 MG TAB PO PRN ×2 (13:00→22:52)
[2017-01-05] MEDS ORDERED: GLUCAGON 1 MG/ML VIAL OTHER PRN (13:15)
[2017-01-05] MEDS ORDERED: DEXTROSE 50% IN WATER 50 ML VIAL(D50) IV PUSH PRN (13:15)
[2017-01-05] MEDS ORDERED: PLEASE DISCONTINUE PREVIOUS SUPPLEMENTAL SCALE INSULIN ORDERS XX ONE (13:15)
[2017-01-05] MEDS: LOW DOSE INSULIN NOVOLOG SUPPLEMENTAL SCALE SQ SCH ×2 (18:05→20:49)
--- NOTE | 2017-01-05 18:37 | HHI.PR ---
Subjective Remarks 76 YOWM with Severe COPD, Br, Lung infilt breathing better has cough, mild congestion has wheezing Used CPAP briefly, does't like it Objective Vital Signs Vital Signs Date Time Temp Pulse Resp B/P Pulse Ox O2 Delivery O2 Flow Rate FiO2 01/05/17 18:00 102 01/05/17 18:00 102 28 148/77 96 01/05/17 17:00 104 32 141/72 89 01/05/17 16:00 98 01/05/17 16:00 98.1 98 23 115/60 95 01/05/17 15:00 100 29 140/71 95 01/05/17 14:00 104 25 124/63 94 01/05/17 14:00 104 01/05/17 13:00 106 24 131/60 95 01/05/17 12:00 97.5 110 40 132/66 94 01/05/17 12:00 118 01/05/17 11:00 104 38 158/71 92 01/05/17 10:00 94 23 142/66 96 01/05/17 10:00 94 01/05/17 09:00 96 22 143/66 96 01/05/17 08:00 100 01/05/17 08:00 100 52 154/63 85 01/05/17 07:35 85 Nasal Cannula 6.00 01/05/17 07:25 93 Nasal Cannula 6.00 01/05/17 07:00 97.5 86 18 128/66 94 01/05/17 06:04 95 Bi-Pap 50 01/05/17 06:00 100 24 140/68 86 01/05/17 06:00 97 01/05/17 06:00 93 40 01/05/17 05:00 74 22 123/55 93 01/05/17 04:00 74 01/05/17 04:00 97.3 74 24 127/55 93 01/05/17 03:19 92 Nasal Cannula 6.00 01/05/17 03:00 90 28 124/68 93 01/05/17 02:00 102 01/05/17 02:00 80 19 121/60 95 01/05/17 01:10 93 40 01/05/17 01:00 86 20 108/53 94 01/05/17 00:25 99 40 01/05/17 00:25 96 Bi-Pap 40 01/05/17 00:00 86 01/05/17 00:00 97.7 90 18 131/64 99 01/04/17 23:53 90 Bi-Pap 50 01/04/17 23:30 99 50 01/04/17 22:00 100 01/04/17 21:00 98.2 98 24 168/87 92 01/04/17 20:10 91 Nasal Cannula 6.00 01/04/17 20:00 98 01/04/17 19:00 90 Nasal Cannula 6.00 I/O 01/04/17 01/04/17 01/04/17 01/05/17 01/05/17 01/05/17 07:00 15:00 23:00 07:00 15:00 23:00 Intake Total 240 ml 480 ml 220 ml 120 ml 720 ml Output Total 475 ml 975 ml 1000 ml 1375 ml Balance -235 ml -495 ml -780 ml 120 ml -655 ml Intake Oral 240 ml 480 ml 120 ml 120 ml 720 ml IV Total 0 ml 100 ml 0 ml Output Urine Total 475 ml 975 ml 1000 ml 1375 ml Stool Total 0 ml 0 ml 0 ml # Voids 3 # Bowel Movements 0 0 0 Result Diagram: 01/05/17 0505 01/05/17 0505 Objective Remarks GENERAL: MBMN WM, mild sob SKIN: Warm and dry. HEAD: Normocephalic. EYES: No scleral icterus. No injection or drainage. NECK: Supple, trachea midline. No JVD or lymphadenopathy. CARDIOVASCULAR: Regular rate and rhythm without murmurs, gallops, or rubs. RESPIRATORY: Breath sounds equal bilaterally. No accessory muscle use. Exp rhonchi GASTROINTESTINAL: Abdomen soft, non-tender, nondistended. MUSCULOSKELETAL: No cyanosis, or edema. BACK: Nontender without obvious deformity. No CVA tenderness. A/P Assessment and Plan COPD Exac Bronchitis Basal infilt HTN PAD PLAN: IV Solumedrol Cont Rocephin Aerosol nebs Wean 02 CPAP prn DW pt and NuriaDeo Carlisle MD Jan 05, 2017 18:37
[2017-01-05] MEDS: PANTOPRAZOLE SODIUM 40 MG VIAL IV PUSH SCH (19:40)
[2017-01-05] MEDS: ASPIRIN EC 81 MG TABEC PO SCH (19:41)
[2017-01-05] MEDS: ATORVASTATIN 20 MG TAB PO SCH (19:41)
[2017-01-05] MEDS: INSULIN DETEMIR 100 UNITS/ML VIAL SQ SCH (20:49)
[2017-01-05] MEDS: cefTRIAXone INJ 1,000 MG in SODIUM CHLORIDE 0.9% INJ 100 ML IV SCH (21:43)
[2017-01-06] VITALS (27 sets, daily range): BP systolic 100–159; BP diastolic 47–77; PULSE 80–112; RESP 16–36; TEMP 97.6–98.4; O2SAT 89–97
[2017-01-06] MEDS: HEPARIN SODIUM - SQ 10,000 UNITS/ML VIAL SQ SCH ×2 (01:33→16:21)
[2017-01-06] MEDS: RESP: ALBUTEROL 2.5 MG/IPRATROPIUM 0.5 MG NEB (SCH) NEB ×4 (03:59→22:03)
[2017-01-06] MEDS: CHLORHEXIDINE GLUCONATE 2 % 1 PACK (2 CLOTHS)(taper/protocol) TOP SCH (04:00)
[2017-01-06] MEDS: methylPREDNISolone SOD SUCC 125 MG/2 ML VIAL IVP SCH ×4 (04:35→21:52)
[2017-01-06 06:04] LABS: HEMATOCRIT 32.6 % (39.0-51.0); LYMPH % 3.1 % (9.0-44.0); LYMPHOCYTE # 0.5 TH/MM3 (1.0-4.8); MEAN CELL VOLUME 69.1 FL (80.0-100.0); MEAN CORPUSCULAR HEMOGLOBIN 21.4 PG (27.0-34.0); MONO % 5.1 % (0.0-8.0); NEUT % 91.8 % (16.0-70.0); PLATELET COUNT 259 TH/MM3 (150-450); RED BLOOD COUNT 4.72 MIL/MM3 (4.50-5.90); RED CELL DISTRIBUTION WIDTH 22.5 % (11.6-17.2); WHITE BLOOD COUNT 15.3 TH/MM3 (4.0-11.0)
[2017-01-06 06:05] LABS: CHLORIDE 95 MEQ/L (98-107); POTASSIUM 3.7 MEQ/L (3.5-5.1); SODIUM (NA) 139 MEQ/L (136-145)
[2017-01-06 06:12] LABS: ANION GAP 10 MEQ/L (5-15); BLOOD UREA NITROGEN 30 MG/DL (7-18); HEMO FLAGS AUTO DIFF
[2017-01-06 06:15] LABS: ALT (GPT) 39 U/L (12-78); AST (GOT) 9 U/L (15-37); GLOMERULAR FILTRATION RATE 54 ML/MIN (>89)
[2017-01-06 06:16] LABS: TOTAL BILIRUBIN ADULT 0.5 MG/DL (0.2-1.0)
[2017-01-06 06:18] LABS: ALKALINE PHOSPHATASE 80 U/L (45-117)
[2017-01-06] MEDS: LOW DOSE INSULIN NOVOLOG SUPPLEMENTAL SCALE SQ SCH ×4 (06:29→22:00)
--- NOTE | 2017-01-06 07:18 | HHI.PR ---
Subjective History of Present Illness Patient have SOB/ Wheezing feel weak and tired. no acute issue. D/W [employer]. [place]. Check sputum for gram stain and culture sensitivity, . On 6 litre by nasal canula s/p Chest x- ray today. on lasix 20 mg IV Daily and Mucinex on BIPAP at night. have anxiety on ativan Review of Systems Constitutional Constitutional: Fatigue, Weakness Pulmonary Respiratory: Coughing, Shortness of Breath, Wheezing Vitals/Results Intake & Output 01/05/17 01/05/17 01/06/17 15:00 23:00 07:00 Intake Total 1620 ml 220 ml Output Total 1725 ml 900 ml Balance -105 ml -680 ml Intake Oral 1520 ml 220 ml IV Total 100 ml Output Urine Total 1725 ml 900 ml # Voids 2 # Bowel Movements 0 0 Vital Signs Vital Signs Date Time Temp Pulse Resp B/P Pulse Ox O2 Delivery O2 Flow Rate FiO2 01/06/17 06:00 88 01/06/17 06:00 84 22 121/58 97 01/06/17 05:00 94 26 150/75 90 01/06/17 05:00 90 Nasal Cannula 6.00 01/06/17 04:00 88 01/06/17 04:00 98.4 88 26 140/63 96 01/06/17 03:40 96 Nasal Cannula 5.00 01/06/17 03:40 92 Nasal Cannula 5.00 01/06/17 03:00 82 21 117/59 89 01/06/17 02:00 80 21 114/50 91 01/06/17 02:00 80 01/06/17 02:00 93 Bi-Pap 40 01/06/17 01:30 94 Nasal Cannula 5.00 01/06/17 01:26 95 40 01/06/17 01:00 84 19 100/56 97 01/06/17 00:04 88 01/06/17 00:00 93 Bi-Pap 40 01/06/17 00:00 98.2 88 16 112/60 93 01/05/17 23:10 97 Bi-Pap 40 01/05/17 23:10 97 40 01/05/17 23:01 98 30 161/64 95 01/05/17 22:00 92 01/05/17 22:00 92 24 140/75 99 01/05/17 21:50 94 Nasal Cannula 5.00 01/05/17 21:00 104 30 158/72 94 01/05/17 20:50 95 Nasal Cannula 5.00 01/05/17 20:00 98.0 108 27 122/71 93 01/05/17 20:00 108 01/05/17 19:35 93 Nasal Cannula 6.00 01/05/17 19:00 108 26 133/65 94 01/05/17 19:00 92 Nasal Cannula 6.00 01/05/17 18:00 102 01/05/17 18:00 102 28 148/77 96 01/05/17 17:00 104 32 141/72 89 01/05/17 16:00 98 01/05/17 16:00 98.1 98 23 115/60 95 01/05/17 15:00 100 29 140/71 95 01/05/17 14:00 104 25 124/63 94 01/05/17 14:00 104 01/05/17 13:00 106 24 131/60 95 01/05/17 12:00 97.5 110 40 132/66 94 01/05/17 12:00 118 01/05/17 11:00 104 38 158/71 92 01/05/17 10:00 94 23 142/66 96 01/05/17 10:00 94 01/05/17 09:00 96 22 143/66 96 01/05/17 08:00 100 01/05/17 08:00 100 52 154/63 85 01/05/17 07:35 85 Nasal Cannula 6.00 01/05/17 07:25 93 Nasal Cannula 6.00 CBC/BMP: 01/06/17 0500 01/06/17 0500 Lab Results Laboratory Tests Test 01/06/17 05:00 White Blood Count 15.3 TH/MM3 Red Blood Count 4.72 MIL/MM3 Hemoglobin 10.1 GM/DL Hematocrit 32.6 % Mean Corpuscular Volume 69.1 FL Mean Corpuscular Hemoglobin 21.4 PG Mean Corpuscular Hemoglobin 31.0 % Concent Red Cell Distribution Width 22.5 % Platelet Count 259 TH/MM3 Mean Platelet Volume 9.0 FL Neutrophils (%) (Auto) 91.8 % Lymphocytes (%) (Auto) 3.1 % Monocytes (%) (Auto) 5.1 % Eosinophils (%) (Auto) 0.0 % Basophils (%) (Auto) 0.0 % Neutrophils # (Auto) 14.0 TH/MM3 Lymphocytes # (Auto) 0.5 TH/MM3 Monocytes # (Auto) 0.8 TH/MM3 Eosinophils # (Auto) 0.0 TH/MM3 Basophils # (Auto) 0.0 TH/MM3 CBC Comment AUTO DIFF Sodium Level 139 MEQ/L Potassium Level 3.7 MEQ/L Chloride Level 95 MEQ/L Carbon Dioxide Level 34.0 MEQ/L Anion Gap 10 MEQ/L Blood Urea Nitrogen 30 MG/DL Creatinine 1.30 MG/DL Estimat Glomerular Filtration 54 ML/MIN Rate Random Glucose 121 MG/DL Calcium Level 8.4 MG/DL Total Bilirubin 0.5 MG/DL Aspartate Amino Transf 9 U/L (AST/SGOT) Alanine Aminotransferase 39 U/L (ALT/SGPT) Alkaline Phosphatase 80 U/L Total Protein 6.3 GM/DL Albumin 2.9 GM/DL Physical Exam General General Appearance: No Acute Distress, Comfortable Eyes Eye Exam: Pupils Equal, Pupils Reactive, Sclera White, Extraocular Movement Intact Throat Throat Exam: Oral Mucosa [place] & Moist, Oral Pharynx Normal Neck Neck Exam: Neck Supple, Trachea Midline Pulmonary Resp Exam: Rhonchi, Diminished Breath Sounds Resp Remarks Bilateral wheezing. Cardiology CV Exam: Regular, Normal Sinus Rhythm Gastrointestinal/Abdomen GI Exam: Soft, Non-Tender, Bowel Sounds Present Musculoskeletal MS Exam: Normal Tone Integumentary Skin Exam: Clear, Warm, Dry, Intact Neurologic Neuro Exam: Alert, Awake, Oriented, Speech Clear, Moving All Extremities, No Focal Deficits Psychiatric Psych Exam: Appropriate Responses VTE Prophylaxis VTE Prophylaxis Meds: Heparin PUD Prophylasis PUD Prophylaxis: Protonix Assessment/Plan Assessment/Plan ASSESSMENT AND PLAN 1. This is a 76-year male who came to the ER diagnosed with shortness of breath, cough and wheezing secondary to bilateral pneumonia and COPD exacerbation. The patient is on Zithromax and Rocephin one gram IV daily. The patient is also on Solu-Medrol 60 mg IV q.6h. and DuoNeb nebulization every six hours. Pulmonary input noted. Check sputum for gram stain and culture sensitivity, On 6 litre by nasal canula s/p Chest x- ray today...noted.. on lasix 20 mg IV Daily and Mucinex on BIPAP at night. Further recommendations per pulmonary. 2. History of hyperlipidemia. Continue the home medication, atorvastatin 10 mg p.o. daily. 3. History of COPD. Continue the home medication. 4. History of arthritis. Continue home medication. 5. History of popliteal aneurysm status post surgery. 6. History of hypertension. Continue home medication. 7. History of anemia. Will monitor H&H. 8. Leukocytosis secondary to pneumonia. 9. DVT prophylaxis. Heparin 5000 units subcutaneous twice a day. 10.GI prophylaxis with Protonix 40 mg p.o. daily. 11.We are going to manage the patient on a daily basis and make recommendations on a daily basis. Check CBC with diff CMP in AM. Physical therapy evaluation and treatment. Discussed Condition with: Patient Honorio Viera MD Jan 06, 2017 07:18
[2017-01-06 07:22] LABS: KERATOCYTES OCC (NORMAL); OVALOCYTES 1+ (NORMAL); SCAN/DIFF AUTO DIFF CONFIRMED
[2017-01-06] MEDS: AZITHROMYCIN INJ 500 MG in SODIUM CHLOR 0.9% 250 ML INJ 250 ML IV SCH (07:48)
[2017-01-06] MEDS: FUROSEMIDE 20 MG/2 ML VIAL IV SCH (07:53)
[2017-01-06] MEDS: SODIUM CHLORIDE 0.9% FLUSH 5 ML FLUSH IVF SCH ×2 (07:53→19:40)
[2017-01-06] MEDS: guaiFENesin E.R. 600 MG TAB PO SCH ×2 (07:53→21:53)
[2017-01-06] MEDS: FLUTICASONE SALMETEROL PO SCH ×2 (07:54→21:53)
[2017-01-06] MEDS: ONDANSETRON HCL 4 MG/2 ML VIAL IVP PRN (19:39)
[2017-01-06] MEDS: PANTOPRAZOLE SODIUM 40 MG VIAL IV PUSH SCH (19:40)
--- NOTE | 2017-01-06 19:46 | HHI.PR ---
Subjective Remarks 76 YOWM with Severe COPD, Br, Lung infilt breathing better has cough, mild congestion has wheezing Used CPAP briefly, does't like it weaned to 3LNC Objective Vital Signs Vital Signs Date Time Temp Pulse Resp B/P Pulse Ox O2 Delivery O2 Flow Rate FiO2 01/06/17 18:00 112 01/06/17 18:00 102 28 148/61 93 01/06/17 17:00 96 25 153/73 93 01/06/17 16:00 94 01/06/17 16:00 91 Nasal Cannula 4.00 01/06/17 16:00 98.1 94 28 151/70 97 01/06/17 15:00 96 28 148/71 90 01/06/17 14:00 84 28 123/47 96 01/06/17 14:00 84 01/06/17 13:00 102 01/06/17 13:00 102 29 153/59 92 01/06/17 12:00 98.2 102 36 159/77 94 01/06/17 12:00 102 01/06/17 12:00 94 Nasal Cannula 4.00 01/06/17 11:00 102 01/06/17 11:00 104 27 135/65 93 01/06/17 10:00 96 30 127/56 01/06/17 10:00 95 Nasal Cannula 4.00 01/06/17 10:00 96 01/06/17 09:00 102 01/06/17 09:00 102 34 122/65 93 01/06/17 08:00 96 01/06/17 08:00 92 Nasal Cannula 4.00 01/06/17 08:00 97.6 92 17 150/69 90 01/06/17 07:00 92 25 136/75 91 01/06/17 07:00 92 Nasal Cannula 5.00 01/06/17 06:00 88 01/06/17 06:00 84 22 121/58 97 01/06/17 05:00 94 26 150/75 90 01/06/17 05:00 90 Nasal Cannula 6.00 01/06/17 04:00 88 01/06/17 04:00 98.4 88 26 140/63 96 01/06/17 03:40 96 Nasal Cannula 5.00 01/06/17 03:40 92 Nasal Cannula 5.00 01/06/17 03:00 82 21 117/59 89 01/06/17 02:00 80 21 114/50 91 01/06/17 02:00 80 01/06/17 02:00 93 Bi-Pap 40 01/06/17 01:30 94 Nasal Cannula 5.00 01/06/17 01:26 95 40 01/06/17 01:00 84 19 100/56 97 01/06/17 00:04 88 01/06/17 00:00 93 Bi-Pap 40 01/06/17 00:00 98.2 88 16 112/60 93 01/05/17 23:10 97 Bi-Pap 40 01/05/17 23:10 97 40 01/05/17 23:01 98 30 161/64 95 01/05/17 22:00 92 01/05/17 22:00 92 24 140/75 99 01/05/17 21:50 94 Nasal Cannula 5.00 01/05/17 21:00 104 30 158/72 94 01/05/17 20:50 95 Nasal Cannula 5.00 01/05/17 20:00 98.0 108 27 122/71 93 01/05/17 20:00 108 I/O 01/05/17 01/05/17 01/05/17 01/06/17 01/06/17 01/06/17 07:00 15:00 23:00 07:00 15:00 23:00 Intake Total 120 ml 1620 ml 220 ml 750 ml Output Total 1725 ml 900 ml 700 ml Balance 120 ml -105 ml -680 ml 50 ml Intake Oral 120 ml 1520 ml 220 ml 480 ml IV Total 100 ml 270 ml Output Urine Total 1725 ml 900 ml 700 ml # Voids 3 2 # Bowel Movements 0 0 0 1 Result Diagram: 01/06/17 0500 01/06/17 0500 Objective Remarks GENERAL: MBMN WM, mild sob SKIN: Warm and dry. HEAD: Normocephalic. EYES: No scleral icterus. No injection or drainage. NECK: Supple, trachea midline. No JVD or lymphadenopathy. CARDIOVASCULAR: Regular rate and rhythm without murmurs, gallops, or rubs. RESPIRATORY: Breath sounds equal bilaterally. No accessory muscle use. Exp rhonchi GASTROINTESTINAL: Abdomen soft, non-tender, nondistended. MUSCULOSKELETAL: No cyanosis, or edema. BACK: Nontender without obvious deformity. No CVA tenderness. A/P Assessment and Plan COPD Exac Bronchitis Basal infilt HTN PAD PLAN: IV Solumedrol Cont Rocephin Aerosol nebs Wean 02 CPAP prn DW pt and at BS Stable to tr to floor in AM Deo Quiñones MD Jan 06, 2017 19:46
[2017-01-06] MEDS: SODIUM CHLORIDE 0.9% FLUSH 5 ML FLUSH IVF PRN (21:52)
[2017-01-06] MEDS: ATORVASTATIN 20 MG TAB PO SCH (21:53)
[2017-01-06] MEDS: cefTRIAXone INJ 1,000 MG in SODIUM CHLORIDE 0.9% INJ 100 ML IV SCH (21:56)
[2017-01-06] MEDS: ASPIRIN EC 81 MG TABEC PO SCH (21:59)
[2017-01-06] MEDS: INSULIN DETEMIR 100 UNITS/ML VIAL SQ SCH (22:00)
[2017-01-06] MEDS: LORazepam 0.5 MG TAB PO PRN (22:19)
[2017-01-07] VITALS (41 sets, daily range): BP systolic 108–161; BP diastolic 46–79; PULSE 68–102; RESP 22–40; TEMP 97.7–98.2; O2SAT 88–99
[2017-01-07] MEDS: HEPARIN SODIUM - SQ 10,000 UNITS/ML VIAL SQ SCH ×2 (01:45→15:09)
[2017-01-07] MEDS: SODIUM CHLORIDE 0.9% FLUSH 5 ML FLUSH IVF PRN (02:27)
[2017-01-07] MEDS: methylPREDNISolone SOD SUCC 125 MG/2 ML VIAL IVP SCH ×4 (02:27→21:22)
[2017-01-07] MEDS: RESP: ALBUTEROL 2.5 MG/IPRATROPIUM 0.5 MG NEB (SCH) NEB ×3 (03:49→21:38)
[2017-01-07] MEDS: CHLORHEXIDINE GLUCONATE 2 % 1 PACK (2 CLOTHS)(taper/protocol) TOP SCH (04:00)
[2017-01-07 05:02] LABS: AUTOMATED NEUTROPHIL # 15.4 TH/MM3 (1.8-7.7); HEMATOCRIT 31.3 % (39.0-51.0); LYMPH % 1.3 % (9.0-44.0); LYMPHOCYTE # 0.2 TH/MM3 (1.0-4.8); MEAN CORPUSCULAR HEMOGLOBIN 21.3 PG (27.0-34.0); MEAN CORPUSCULAR HGB CONC 30.9 % (32.0-36.0); MONO % 2.8 % (0.0-8.0); NEUT % 95.9 % (16.0-70.0); PLATELET COUNT 219 TH/MM3 (150-450); RED BLOOD COUNT 4.54 MIL/MM3 (4.50-5.90)
[2017-01-07 05:08] LABS: HEMO FLAGS AUTO DIFF
[2017-01-07 05:29] LABS: CHLORIDE 98 MEQ/L (98-107); SODIUM (NA) 139 MEQ/L (136-145)
[2017-01-07 05:50] LABS: ALKALINE PHOSPHATASE 74 U/L (45-117); ALT (GPT) 36 U/L (12-78); ANION GAP 7 MEQ/L (5-15); AST (GOT) 8 U/L (15-37); BICARBONATE 34.1 MEQ/L (21.0-32.0); BLOOD UREA NITROGEN 26 MG/DL (7-18); GLOMERULAR FILTRATION RATE 59 ML/MIN (>89); TOTAL BILIRUBIN ADULT 0.5 MG/DL (0.2-1.0)
[2017-01-07] MEDS: LOW DOSE INSULIN NOVOLOG SUPPLEMENTAL SCALE SQ SCH ×4 (07:00→21:32)
[2017-01-07 07:23] LABS: SCAN/DIFF AUTO DIFF CONFIRMED
--- NOTE | 2017-01-07 07:33 | HHI.PR ---
Subjective History of Present Illness Patient have SOB/ Wheezing feel weak and tired. no acute issue. D/W [employer]. sintia. . On 4 litre by nasal canula s/p Chest x- ray ..noted on lasix 20 mg IV Daily and Mucinex on BIPAP at night. have anxiety on ativan Review of Systems Constitutional Constitutional: Fatigue, Weakness Pulmonary Respiratory: Coughing, Shortness of Breath, Wheezing Vitals/Results Intake & Output 01/06/17 01/06/17 01/07/17 15:00 23:00 07:00 Intake Total 750 ml 500 ml 340 ml Output Total 700 ml 700 ml 750 ml Balance 50 ml -200 ml -410 ml Intake Oral 480 ml 500 ml 240 ml IV Total 270 ml 100 ml Output Urine Total 700 ml 700 ml 750 ml # Bowel Movements 1 0 0 Vital Signs Vital Signs Date Time Temp Pulse Resp B/P Pulse Ox O2 Delivery O2 Flow Rate FiO2 01/07/17 07:01 74 24 124/50 97 01/07/17 06:01 80 28 140/63 95 01/07/17 05:01 86 25 144/79 93 01/07/17 04:01 98.0 70 25 127/47 97 01/07/17 04:00 95 Nasal Cannula 4.00 01/07/17 04:00 68 01/07/17 03:00 72 26 130/49 96 01/07/17 02:00 74 01/07/17 02:00 74 28 147/49 99 01/07/17 01:00 80 22 135/65 88 01/07/17 00:00 90 Nasal Cannula 5.00 01/07/17 00:00 97.7 78 22 142/52 95 01/07/17 00:00 78 01/06/17 23:00 84 23 131/59 93 01/06/17 22:00 92 34 150/68 95 01/06/17 22:00 92 01/06/17 21:00 92 26 129/64 96 01/06/17 20:00 93 Nasal Cannula 4.00 01/06/17 20:00 102 01/06/17 20:00 98.0 102 27 118/55 93 01/06/17 19:20 95 Nasal Cannula 4.00 01/06/17 18:00 112 01/06/17 18:00 102 28 148/61 93 01/06/17 17:00 96 25 153/73 93 01/06/17 16:00 94 01/06/17 16:00 91 Nasal Cannula 4.00 01/06/17 16:00 98.1 94 28 151/70 97 01/06/17 15:00 96 28 148/71 90 01/06/17 14:00 84 28 123/47 96 01/06/17 14:00 84 01/06/17 13:00 102 01/06/17 13:00 102 29 153/59 92 01/06/17 12:00 98.2 102 36 159/77 94 01/06/17 12:00 102 01/06/17 12:00 94 Nasal Cannula 4.00 01/06/17 11:00 102 01/06/17 11:00 104 27 135/65 93 01/06/17 10:00 96 30 127/56 01/06/17 10:00 95 Nasal Cannula 4.00 01/06/17 10:00 96 01/06/17 09:00 102 01/06/17 09:00 102 34 122/65 93 01/06/17 08:00 96 01/06/17 08:00 92 Nasal Cannula 4.00 01/06/17 08:00 97.6 92 17 150/69 90 CBC/BMP: 01/07/17 0426 01/07/17 0426 Lab Results Laboratory Tests Test 01/07/17 04:26 White Blood Count 16.0 TH/MM3 Red Blood Count 4.54 MIL/MM3 Hemoglobin 9.7 GM/DL Hematocrit 31.3 % Mean Corpuscular Volume 69.0 FL Mean Corpuscular Hemoglobin 21.3 PG Mean Corpuscular Hemoglobin 30.9 % Concent Red Cell Distribution Width 23.0 % Platelet Count 219 TH/MM3 Mean Platelet Volume 8.7 FL Neutrophils (%) (Auto) 95.9 % Lymphocytes (%) (Auto) 1.3 % Monocytes (%) (Auto) 2.8 % Eosinophils (%) (Auto) 0.0 % Basophils (%) (Auto) 0.0 % Neutrophils # (Auto) 15.4 TH/MM3 Lymphocytes # (Auto) 0.2 TH/MM3 Monocytes # (Auto) 0.4 TH/MM3 Eosinophils # (Auto) 0.0 TH/MM3 Basophils # (Auto) 0.0 TH/MM3 CBC Comment AUTO DIFF Differential Comment AUTO DIFF CONFIRMED Sodium Level 139 MEQ/L Potassium Level 4.0 MEQ/L Chloride Level 98 MEQ/L Carbon Dioxide Level 34.1 MEQ/L Anion Gap 7 MEQ/L Blood Urea Nitrogen 26 MG/DL Creatinine 1.20 MG/DL Estimat Glomerular Filtration 59 ML/MIN Rate Random Glucose 133 MG/DL Calcium Level 7.6 MG/DL Total Bilirubin 0.5 MG/DL Aspartate Amino Transf 8 U/L (AST/SGOT) Alanine Aminotransferase 36 U/L (ALT/SGPT) Alkaline Phosphatase 74 U/L Total Protein 5.5 GM/DL Albumin 2.5 GM/DL Physical Exam General General Appearance: No Acute Distress, Comfortable Eyes Eye Exam: Pupils Equal, Pupils Reactive, Sclera White, Extraocular Movement Intact Throat Throat Exam: Oral Mucosa [place] & Moist, Oral Pharynx Normal Neck Neck Exam: Neck Supple, Trachea Midline Pulmonary Resp Exam: Rhonchi, Diminished Breath Sounds Resp Remarks Bilateral wheezing. Cardiology CV Exam: Regular, Normal Sinus Rhythm Gastrointestinal/Abdomen GI Exam: Soft, Non-Tender, Bowel Sounds Present Musculoskeletal MS Exam: Normal Tone Integumentary Skin Exam: Clear, Warm, Dry, Intact Neurologic Neuro Exam: Alert, Awake, Oriented, Speech Clear, Moving All Extremities, No Focal Deficits Psychiatric Psych Exam: Appropriate Responses VTE Prophylaxis VTE Prophylaxis Meds: Heparin PUD Prophylasis PUD Prophylaxis: Protonix Assessment/Plan Assessment/Plan ASSESSMENT AND PLAN 1. This is a 76-year male who came to the ER diagnosed with shortness of breath, cough and wheezing secondary to bilateral pneumonia and COPD exacerbation. The patient is on Zithromax and Rocephin one gram IV daily. The patient is also on Solu-Medrol 60 mg IV q.6h. and DuoNeb nebulization every six hours. Pulmonary input noted. Check sputum for gram stain and culture sensitivity, On 4 litre by nasal canula s/p Chest x- ray today...noted.. on lasix 20 mg IV Daily and Mucinex on BIPAP at night. Further recommendations per pulmonary. 2. History of hyperlipidemia. Continue the home medication, atorvastatin 10 mg p.o. daily. 3. History of COPD. Continue the home medication. 4. History of arthritis. Continue home medication. 5. History of popliteal aneurysm status post surgery. 6. History of hypertension. Continue home medication. 7. History of anemia. Will monitor H&H. 8. Leukocytosis secondary to pneumonia. 9. DVT prophylaxis. Heparin 5000 units subcutaneous twice a day. 10.GI prophylaxis with Protonix 40 mg p.o. daily. 11.We are going to manage the patient on a daily basis and make recommendations on a daily basis. Check CBC with diff CMP in AM. Physical therapy evaluation and treatment. Discussed Condition with: Patient Honorio Viera MD Jan 07, 2017 07:33
[2017-01-07] MEDS: FLUTICASONE SALMETEROL PO SCH ×2 (09:02→21:23)
[2017-01-07] MEDS: FUROSEMIDE 20 MG/2 ML VIAL IV SCH (09:03)
[2017-01-07] MEDS: AZITHROMYCIN INJ 500 MG in SODIUM CHLOR 0.9% 250 ML INJ 250 ML IV SCH (09:03)
[2017-01-07] MEDS: guaiFENesin E.R. 600 MG TAB PO SCH ×2 (09:03→21:22)
[2017-01-07] MEDS: SODIUM CHLORIDE 0.9% FLUSH 5 ML FLUSH IVF SCH ×2 (09:04→21:22)
--- NOTE | 2017-01-07 18:11 | HHI.PR ---
Subjective Remarks 76 YOWM with Severe COPD, Br, Lung infilt breathing better has cough, mild congestion has wheezing Used CPAP briefly, does't like it weaned to 3LNC Feels depressed Objective Vital Signs Vital Signs Date Time Temp Pulse Resp B/P Pulse Ox O2 Delivery O2 Flow Rate FiO2 01/07/17 17:01 84 26 132/62 92 01/07/17 16:01 98.2 86 31 115/61 95 01/07/17 16:00 84 01/07/17 16:00 95 Nasal Cannula 4.00 01/07/17 15:01 84 34 140/58 94 01/07/17 15:00 84 01/07/17 14:01 94 35 125/67 93 01/07/17 14:00 96 01/07/17 13:00 86 01/07/17 12:01 98.0 96 31 121/50 92 01/07/17 12:00 86 01/07/17 12:00 96 Nasal Cannula 4.00 01/07/17 11:01 102 29 161/75 88 01/07/17 11:00 100 01/07/17 10:01 84 23 143/59 94 01/07/17 10:00 88 01/07/17 09:41 92 Nasal Cannula 5.00 01/07/17 09:01 97.9 84 40 151/66 91 01/07/17 09:00 88 01/07/17 08:30 99 Nasal Cannula 4.00 01/07/17 08:00 84 01/07/17 07:01 74 24 124/50 97 01/07/17 07:00 74 01/07/17 06:01 80 28 140/63 95 01/07/17 06:00 80 01/07/17 05:01 86 25 144/79 93 01/07/17 04:01 98.0 70 25 127/47 97 01/07/17 04:00 95 Nasal Cannula 4.00 01/07/17 04:00 68 01/07/17 03:00 72 26 130/49 96 01/07/17 02:00 74 01/07/17 02:00 74 28 147/49 99 01/07/17 01:00 80 22 135/65 88 01/07/17 00:00 90 Nasal Cannula 5.00 01/07/17 00:00 97.7 78 22 142/52 95 01/07/17 00:00 78 01/06/17 23:00 84 23 131/59 93 01/06/17 22:00 92 34 150/68 95 01/06/17 22:00 92 01/06/17 21:00 92 26 129/64 96 01/06/17 20:00 93 Nasal Cannula 4.00 01/06/17 20:00 102 01/06/17 20:00 98.0 102 27 118/55 93 01/06/17 19:20 95 Nasal Cannula 4.00 I/O 01/06/17 01/06/17 01/06/17 01/07/17 01/07/17 01/07/17 07:00 15:00 23:00 07:00 15:00 23:00 Intake Total 220 ml 750 ml 500 ml 340 ml 730 ml Output Total 900 ml 700 ml 700 ml 750 ml 400 ml Balance -680 ml 50 ml -200 ml -410 ml 330 ml Intake Oral 220 ml 480 ml 500 ml 240 ml 480 ml IV Total 270 ml 100 ml 250 ml Output Urine Total 900 ml 700 ml 700 ml 750 ml 400 ml # Voids 2 # Bowel Movements 0 1 0 0 0 Result Diagram: 01/07/1742501/07/17425 Objective Remarks GENERAL: MBMN WM, mild sob SKIN: Warm and dry. HEAD: Normocephalic. EYES: No scleral icterus. No injection or drainage. NECK: Supple, trachea midline. No JVD or lymphadenopathy. CARDIOVASCULAR: Regular rate and rhythm without murmurs, gallops, or rubs. RESPIRATORY: Breath sounds equal bilaterally. No accessory muscle use. Exp rhonchi GASTROINTESTINAL: Abdomen soft, non-tender, nondistended. MUSCULOSKELETAL: No cyanosis, or edema. BACK: Nontender without obvious deformity. No CVA tenderness. A/P Assessment and Plan COPD Exac Bronchitis Basal infilt HTN PAD PLAN: IV Solumedrol Cont Rocephin Aerosol nebs Wean 02 CPAP prn Nystatin S&S paxil 20 mg daily Deo Quiñones MD Jan 07, 2017 18:11
[2017-01-07] MEDS: cefTRIAXone INJ 1,000 MG in SODIUM CHLORIDE 0.9% INJ 100 ML IV SCH (21:21)
[2017-01-07] MEDS: NYSTATIN SUSP 500,000 U/5 ML CUP SWISH-SWAL SCH (21:21)
[2017-01-07] MEDS: ATORVASTATIN 20 MG TAB PO SCH (21:22)
[2017-01-07] MEDS: ASPIRIN EC 81 MG TABEC PO SCH (21:22)
[2017-01-07] MEDS: PANTOPRAZOLE SODIUM 40 MG VIAL IV PUSH SCH (21:22)
[2017-01-07] MEDS: INSULIN DETEMIR 100 UNITS/ML VIAL SQ SCH (21:30)
[2017-01-08] VITALS (32 sets, daily range): BP systolic 102–154; BP diastolic 42–80; PULSE 72–108; RESP 20–40; TEMP 96–98.3; O2SAT 90–96
[2017-01-08] MEDS: SODIUM CHLORIDE 0.9% FLUSH 5 ML FLUSH IVF PRN (01:55)
[2017-01-08] MEDS: HEPARIN SODIUM - SQ 10,000 UNITS/ML VIAL SQ SCH ×2 (01:55→13:45)
[2017-01-08] MEDS: methylPREDNISolone SOD SUCC 125 MG/2 ML VIAL IVP SCH (01:55)
[2017-01-08] MEDS: RESP: ALBUTEROL 2.5 MG/IPRATROPIUM 0.5 MG NEB (SCH) NEB ×3 (03:10→15:33)
[2017-01-08] MEDS: CHLORHEXIDINE GLUCONATE 2 % 1 PACK (2 CLOTHS)(taper/protocol) TOP SCH (04:00)
[2017-01-08 04:59] LABS: AUTOMATED NEUTROPHIL # 15.4 TH/MM3 (1.8-7.7); BASOPHIL # 0.4 TH/MM3 (0-0.2); BASOPHIL % 2.2 % (0.0-2.0); LYMPH % 3.3 % (9.0-44.0); LYMPHOCYTE # 0.5 TH/MM3 (1.0-4.8); MEAN CELL VOLUME 69.2 FL (80.0-100.0); MEAN CORPUSCULAR HEMOGLOBIN 21.6 PG (27.0-34.0); MEAN CORPUSCULAR HGB CONC 31.2 % (32.0-36.0); MONO % 1.2 % (0.0-8.0); NEUT % 93.3 % (16.0-70.0); PLATELET COUNT 208 TH/MM3 (150-450); RED BLOOD COUNT 4.47 MIL/MM3 (4.50-5.90); RED CELL DISTRIBUTION WIDTH 21.5 % (11.6-17.2); WHITE BLOOD COUNT 16.5 TH/MM3 (4.0-11.0)
[2017-01-08 05:07] LABS: POTASSIUM 4.2 MEQ/L (3.5-5.1)
[2017-01-08 05:09] LABS: HEMO FLAGS AUTO DIFF
[2017-01-08 05:15] LABS: BICARBONATE 35.1 MEQ/L (21.0-32.0)
[2017-01-08 05:19] LABS: CALCIUM-PROTEIN CORRECTED 8.2 MG/DL (8.5-10.1); TOTAL BILIRUBIN ADULT 0.4 MG/DL (0.2-1.0)
[2017-01-08 05:22] LABS: OVALOCYTES 1+ (NORMAL); PLATELET ESTIMATE SMEAR NORMAL (NORMAL); PLATELET MORPHOLOGY NORMAL (NORMAL); SCAN/DIFF AUTO DIFF CONFIRMED; TEARDROP RBCS 1+ (NORMAL)
[2017-01-08] MEDS: LOW DOSE INSULIN NOVOLOG SUPPLEMENTAL SCALE SQ SCH ×4 (06:20→21:00)
--- NOTE | 2017-01-08 08:13 | HHI.PR ---
Subjective History of Present Illness Patient have SOB/ Wheezing better feel better. no acute issue. D/W [employer]. soham . On 3 litre by nasal canula on lasix 20 mg IV Daily and Mucinex on BIPAP at night. have anxiety on ativan ok to transfer to [facility]. Review of Systems Constitutional Constitutional: Fatigue, Weakness Pulmonary Respiratory: Coughing, Shortness of Breath, Wheezing Vitals/Results Intake & Output 01/07/17 01/07/17 01/08/17 15:00 23:00 07:00 Intake Total 730 ml 840 ml Output Total 400 ml 1150 ml Balance 330 ml -310 ml Intake Oral 480 ml 740 ml IV Total 250 ml 100 ml Output Urine Total 400 ml 1150 ml # Voids 3 # Bowel Movements 0 0 Vital Signs Vital Signs Date Time Temp Pulse Resp B/P Pulse Ox O2 Delivery O2 Flow Rate FiO2 01/08/17 06:14 73 01/08/17 06:01 72 28 141/57 93 01/08/17 05:01 88 26 154/68 92 01/08/17 04:01 98.0 74 20 102/49 93 01/08/17 04:00 93 Nasal Cannula 3.00 01/08/17 04:00 90 01/08/17 03:01 78 29 144/55 95 01/08/17 02:01 82 26 125/42 96 01/08/17 02:00 82 01/08/17 01:01 78 21 128/53 95 01/08/17 00:01 80 24 148/47 96 01/08/17 00:00 80 01/08/17 00:00 96 Nasal Cannula 3.00 01/07/17 23:01 98.0 100 28 135/64 92 01/07/17 23:00 95 Nasal Cannula 3.00 01/07/17 22:02 92 28 124/57 94 01/07/17 22:00 90 01/07/17 21:38 94 Nasal Cannula 4.00 01/07/17 21:01 86 22 126/62 95 01/07/17 20:01 96 29 129/64 94 01/07/17 20:00 95 Nasal Cannula 4.00 01/07/17 20:00 96 01/07/17 19:30 98.0 94 32 123/64 94 01/07/17 19:01 94 24 108/46 94 01/07/17 19:00 95 Nasal Cannula 5.00 01/07/17 18:01 90 27 137/56 95 01/07/17 18:00 88 01/07/17 17:01 84 26 132/62 92 01/07/17 17:00 88 01/07/17 16:01 98.2 86 31 115/61 95 01/07/17 16:00 84 01/07/17 16:00 95 Nasal Cannula 4.00 01/07/17 15:01 84 34 140/58 94 01/07/17 15:00 84 01/07/17 14:01 94 35 125/67 93 01/07/17 14:00 96 01/07/17 13:00 86 01/07/17 12:01 98.0 96 31 121/50 92 01/07/17 12:00 86 01/07/17 12:00 96 Nasal Cannula 4.00 01/07/17 11:01 102 29 161/75 88 01/07/17 11:00 100 01/07/17 10:01 84 23 143/59 94 01/07/17 10:00 88 01/07/17 09:41 92 Nasal Cannula 5.00 01/07/17 09:01 97.9 84 40 151/66 91 01/07/17 09:00 88 01/07/17 08:30 99 Nasal Cannula 4.00 CBC/BMP: 01/08/17 0439 01/08/17 0439 Lab Results Laboratory Tests Test 01/08/17 04:39 White Blood Count 16.5 TH/MM3 Red Blood Count 4.47 MIL/MM3 Hemoglobin 9.7 GM/DL Hematocrit 31.0 % Mean Corpuscular Volume 69.2 FL Mean Corpuscular Hemoglobin 21.6 PG Mean Corpuscular Hemoglobin 31.2 % Concent Red Cell Distribution Width 21.5 % Platelet Count 208 TH/MM3 Mean Platelet Volume 9.1 FL Neutrophils (%) (Auto) 93.3 % Lymphocytes (%) (Auto) 3.3 % Monocytes (%) (Auto) 1.2 % Eosinophils (%) (Auto) 0.0 % Basophils (%) (Auto) 2.2 % Neutrophils # (Auto) 15.4 TH/MM3 Lymphocytes # (Auto) 0.5 TH/MM3 Monocytes # (Auto) 0.2 TH/MM3 Eosinophils # (Auto) 0.0 TH/MM3 Basophils # (Auto) 0.4 TH/MM3 CBC Comment AUTO DIFF Differential Comment AUTO DIFF CONFIRMED Platelet Estimate NORMAL Platelet Morphology Comment NORMAL Tear Drop Cells 1+ Ovalocytes 1+ Sodium Level 140 MEQ/L Potassium Level 4.2 MEQ/L Chloride Level 98 MEQ/L Carbon Dioxide Level 35.1 MEQ/L Anion Gap 7 MEQ/L Blood Urea Nitrogen 22 MG/DL Creatinine 1.30 MG/DL Estimat Glomerular Filtration 54 ML/MIN Rate Random Glucose 108 MG/DL Calcium Level 7.4 MG/DL Protein Corrected Calcium 8.2 MG/DL Total Bilirubin 0.4 MG/DL Aspartate Amino Transf 9 U/L (AST/SGOT) Alanine Aminotransferase 35 U/L (ALT/SGPT) Alkaline Phosphatase 75 U/L Total Protein 5.7 GM/DL Albumin 2.6 GM/DL Physical Exam General General Appearance: No Acute Distress, Comfortable Eyes Eye Exam: Pupils Equal, Pupils Reactive, Sclera White, Extraocular Movement Intact Throat Throat Exam: Oral Mucosa [place] & Moist, Oral Pharynx Normal Neck Neck Exam: Neck Supple, Trachea Midline Pulmonary Resp Exam: Rhonchi, Diminished Breath Sounds Resp Remarks Bilateral wheezing. Cardiology CV Exam: Regular, Normal Sinus Rhythm Gastrointestinal/Abdomen GI Exam: Soft, Non-Tender, Bowel Sounds Present Musculoskeletal MS Exam: Normal Tone Integumentary Skin Exam: Clear, Warm, Dry, Intact Neurologic Neuro Exam: Alert, Awake, Oriented, Speech Clear, Moving All Extremities, No Focal Deficits Psychiatric Psych Exam: Appropriate Responses VTE Prophylaxis VTE Prophylaxis Meds: Heparin PUD Prophylasis PUD Prophylaxis: Protonix Assessment/Plan Assessment/Plan ASSESSMENT AND PLAN 1. This is a 76-year male who came to the ER diagnosed with shortness of breath, cough and wheezing secondary to bilateral pneumonia and COPD exacerbation. The patient is on Zithromax and Rocephin one gram IV daily. The patient is also on Solu-Medrol 40 mg IV q.6h. and DuoNeb nebulization every six hours. Pulmonary input noted. Check sputum for gram stain and culture sensitivity, On 3 litre by nasal canula s/p Chest x- ray today...noted.. on lasix 20 mg IV Daily and Mucinex on BIPAP at night. Further recommendations per pulmonary. 2. History of hyperlipidemia. Continue the home medication, atorvastatin 10 mg p.o. daily. 3. History of COPD. Continue the home medication. 4. History of arthritis. Continue home medication. 5. History of popliteal aneurysm status post surgery. 6. History of hypertension. Continue home medication. 7. History of anemia. Will monitor H&H. 8. Leukocytosis secondary to pneumonia/ steroids...will monitor. 9. DVT prophylaxis. Heparin 5000 units subcutaneous twice a day. 10.GI prophylaxis with Protonix 40 mg p.o. daily. Check CBC with diff CMP in AM. Physical therapy evaluation and treatment. ok to transfer to [facility]. We are going to manage the patient on a daily basis and make recommendations on a daily basis. Discussed Condition with: Patient Honorio Viera MD Jan 08, 2017 08:13
[2017-01-08] MEDS: guaiFENesin E.R. 600 MG TAB PO SCH ×2 (08:51→19:54)
[2017-01-08] MEDS: NYSTATIN SUSP 500,000 U/5 ML CUP SWISH-SWAL SCH ×4 (08:51→19:53)
[2017-01-08] MEDS: FUROSEMIDE 20 MG/2 ML VIAL IV SCH (08:51)
[2017-01-08] MEDS: SODIUM CHLORIDE 0.9% FLUSH 5 ML FLUSH IVF SCH ×2 (08:52→19:56)
[2017-01-08] MEDS: AZITHROMYCIN INJ 500 MG in SODIUM CHLOR 0.9% 250 ML INJ 250 ML IV SCH (08:52)
[2017-01-08] MEDS: methylPREDNISolone SOD SUCC 40 MG/1 ML VIAL IVP SCH ×2 (08:52→15:36)
[2017-01-08] MEDS: FLUTICASONE SALMETEROL PO SCH ×2 (08:53→19:56)
[2017-01-08] MEDS: PARoxetine HCL 20 MG TAB PO SCH (08:57)
[2017-01-08] MEDS: POLYETHYLENE GLYCOL 17 GM PKG PO SCH (15:37)
--- NOTE | 2017-01-08 19:12 | HHI.PR ---
Subjective Remarks 76 YOWM with Severe COPD, Br, Lung infilt breathing better has cough, mild congestion has wheezing weaned to 2LNC Feelsbetter Ambulates in hallway Objective Vital Signs Vital Signs Date Time Temp Pulse Resp B/P Pulse Ox O2 Delivery O2 Flow Rate FiO2 01/08/17 18:00 94 01/08/17 16:41 98.3 102 29 134/64 96 01/08/17 16:00 96 01/08/17 16:00 93 Nasal Cannula 3.00 01/08/17 15:00 106 01/08/17 14:00 108 01/08/17 13:44 98.0 108 40 135/58 93 01/08/17 13:00 94 01/08/17 12:00 93 Nasal Cannula 3.00 01/08/17 12:00 94 01/08/17 11:00 98 01/08/17 10:01 100 31 140/57 93 01/08/17 10:00 102 01/08/17 09:07 93 Nasal Cannula 3.00 01/08/17 09:01 100 29 153/61 90 01/08/17 09:00 102 01/08/17 08:30 95 Nasal Cannula 4.00 01/08/17 08:01 98.3 86 30 149/67 90 01/08/17 08:00 80 01/08/17 07:00 78 01/08/17 06:14 73 01/08/17 06:01 72 28 141/57 93 01/08/17 05:01 88 26 154/68 92 01/08/17 04:01 98.0 74 20 102/49 93 01/08/17 04:00 93 Nasal Cannula 3.00 01/08/17 04:00 90 01/08/17 03:01 78 29 144/55 95 01/08/17 02:01 82 26 125/42 96 01/08/17 02:00 82 01/08/17 01:01 78 21 128/53 95 01/08/17 00:01 80 24 148/47 96 01/08/17 00:00 80 01/08/17 00:00 96 Nasal Cannula 3.00 01/07/17 23:01 98.0 100 28 135/64 92 01/07/17 23:00 95 Nasal Cannula 3.00 01/07/17 22:02 92 28 124/57 94 01/07/17 22:00 90 01/07/17 21:38 94 Nasal Cannula 4.00 01/07/17 21:01 86 22 126/62 95 01/07/17 20:01 96 29 129/64 94 01/07/17 20:00 95 Nasal Cannula 4.00 01/07/17 20:00 96 01/07/17 19:30 98.0 94 32 123/64 94 I/O 01/07/17 01/07/17 01/07/17 01/08/17 01/08/17 01/08/17 07:00 15:00 23:00 07:00 15:00 23:00 Intake Total 340 ml 730 ml 840 ml 730 ml Output Total 750 ml 400 ml 1150 ml 800 ml Balance -410 ml 330 ml -310 ml -70 ml Intake Oral 240 ml 480 ml 740 ml 480 ml IV Total 100 ml 250 ml 100 ml 250 ml Output Urine Total 750 ml 400 ml 1150 ml 800 ml # Voids 3 # Bowel Movements 0 0 0 1 Result Diagram: 01/08/179 01/08/17438 Objective Remarks GENERAL: MBMN WM, mild sob SKIN: Warm and dry. HEAD: Normocephalic. EYES: No scleral icterus. No injection or drainage. NECK: Supple, trachea midline. No JVD or lymphadenopathy. CARDIOVASCULAR: Regular rate and rhythm without murmurs, gallops, or rubs. RESPIRATORY: Breath sounds equal bilaterally. No accessory muscle use. Exp rhonchi GASTROINTESTINAL: Abdomen soft, non-tender, nondistended. MUSCULOSKELETAL: No cyanosis, or edema. BACK: Nontender without obvious deformity. No CVA tenderness. A/P Assessment and Plan COPD Exac Bronchitis Basal infilt HTN PAD PLAN: Cont Rocephin Aerosol nebs Wean 02 CPAP prn Nystatin S&S Paxil 20 mg daily DC Solumedrol Pred 10 mg tid DW Pt would prefer to go to Rehab for few days Deo Quiñones MD Jan 08, 2017 19:12
[2017-01-08] MEDS: PANTOPRAZOLE SODIUM 40 MG VIAL IV PUSH SCH (19:53)
[2017-01-08] MEDS: ASPIRIN EC 81 MG TABEC PO SCH (19:53)
[2017-01-08] MEDS: ATORVASTATIN 20 MG TAB PO SCH (19:54)
[2017-01-08] MEDS: INSULIN DETEMIR 100 UNITS/ML VIAL SQ SCH (21:04)
[2017-01-08] MEDS: RESP: ALBUTEROL 2.5 MG/3 ML NEB (PRN) INH (21:13)
[2017-01-08] MEDS: RESP: IPRATROPIUM 0.5 MG/2.5 ML NEB NEB PRN (21:13)
[2017-01-08] MEDS: cefTRIAXone INJ 1,000 MG in SODIUM CHLORIDE 0.9% INJ 100 ML IV SCH (21:34)
[2017-01-09] VITALS (7 sets, daily range): BP systolic 133–178; BP diastolic 66–98; PULSE 80–92; RESP 20; TEMP 96.4–98; O2SAT 91–95
[2017-01-09] MEDS: HEPARIN SODIUM - SQ 10,000 UNITS/ML VIAL SQ SCH ×2 (00:10→14:03)
[2017-01-09] MEDS: CHLORHEXIDINE GLUCONATE 2 % 1 PACK (2 CLOTHS)(taper/protocol) TOP SCH (03:27)
[2017-01-09] MEDS: RESP: ALBUTEROL 2.5 MG/3 ML NEB (PRN) INH (03:35)
[2017-01-09] MEDS: RESP: IPRATROPIUM 0.5 MG/2.5 ML NEB NEB PRN (03:35)
[2017-01-09 05:50] LABS: CHLORIDE 99 MEQ/L (98-107); POTASSIUM 3.9 MEQ/L (3.5-5.1); SODIUM (NA) 142 MEQ/L (136-145)
[2017-01-09 05:52] LABS: AUTOMATED NEUTROPHIL # 13.3 TH/MM3 (1.8-7.7); BASOPHIL % 0.3 % (0.0-2.0); EOSINOPHIL % 0.1 % (0.0-4.0); HEMATOCRIT 32.5 % (39.0-51.0); LYMPH % 3.7 % (9.0-44.0); LYMPHOCYTE # 0.5 TH/MM3 (1.0-4.8); MEAN CELL VOLUME 69.8 FL (80.0-100.0); MEAN CORPUSCULAR HEMOGLOBIN 22.1 PG (27.0-34.0); MEAN CORPUSCULAR HGB CONC 31.7 % (32.0-36.0); MONO % 4.9 % (0.0-8.0); PLATELET COUNT 204 TH/MM3 (150-450); RED BLOOD COUNT 4.66 MIL/MM3 (4.50-5.90); RED CELL DISTRIBUTION WIDTH 22.6 % (11.6-17.2); WHITE BLOOD COUNT 14.5 TH/MM3 (4.0-11.0)
[2017-01-09 05:54] LABS: HEMO FLAGS AUTO DIFF
[2017-01-09 05:57] LABS: ANION GAP 7 MEQ/L (5-15); BICARBONATE 36.4 MEQ/L (21.0-32.0)
[2017-01-09 05:58] LABS: BLOOD UREA NITROGEN 19 MG/DL (7-18)
[2017-01-09 06:00] LABS: ALT (GPT) 31 U/L (12-78); AST (GOT) 8 U/L (15-37); GLOMERULAR FILTRATION RATE 59 ML/MIN (>89)
[2017-01-09 06:02] LABS: TOTAL BILIRUBIN ADULT 0.4 MG/DL (0.2-1.0)
[2017-01-09 06:03] LABS: ALKALINE PHOSPHATASE 82 U/L (45-117)
[2017-01-09 06:13] LABS: OVALOCYTES 2+ (NORMAL); PLATELET ESTIMATE SMEAR NORMAL (NORMAL); PLATELET MORPHOLOGY NORMAL (NORMAL); SCAN/DIFF AUTO DIFF CONFIRMED
[2017-01-09] MEDS: LOW DOSE INSULIN NOVOLOG SUPPLEMENTAL SCALE SQ SCH ×4 (06:34→20:16)
--- NOTE | 2017-01-09 08:08 | HHI.PR ---
Subjective History of Present Illness Patient have SOB/ Wheezing better feel better. no acute issue. D/W RN. Daniela On 3 litre by nasal canula on lasix 20 mg IV Daily and Mucinex on BIPAP at night. have anxiety on ativan d/w no acute yuri possible DC Soon. Review of Systems Constitutional Constitutional: Fatigue, Weakness Pulmonary Respiratory: Coughing, Shortness of Breath, Wheezing Vitals/Results Intake & Output 01/08/17 01/08/17 01/09/17 15:00 23:00 07:00 Intake Total 1190 ml 120 ml Output Total 1250 ml Balance -60 ml 120 ml Intake Oral 840 ml 120 ml IV Total 350 ml Output Urine Total 1250 ml # Voids 2 # Bowel Movements 1 0 Vital Signs Vital Signs Date Time Temp Pulse Resp B/P Pulse Ox O2 Delivery O2 Flow Rate FiO2 01/09/17 04:00 Nasal Cannula 3.00 01/09/17 04:00 97.5 87 20 156/77 95 01/09/17 00:00 Nasal Cannula 3.00 01/08/17 23:00 96.0 89 20 150/80 94 01/08/17 23:00 Nasal Cannula 3.00 01/08/17 22:00 94 01/08/17 21:13 96 Nasal Cannula 3.00 01/08/17 20:00 97.6 96 40 137/65 96 01/08/17 20:00 97 Nasal Cannula 2.00 01/08/17 20:00 87 01/08/17 18:00 94 01/08/17 16:41 98.3 102 29 134/64 96 01/08/17 16:00 96 01/08/17 16:00 93 Nasal Cannula 3.00 01/08/17 15:00 106 01/08/17 14:00 108 01/08/17 13:44 98.0 108 40 135/58 93 01/08/17 13:00 94 01/08/17 12:00 93 Nasal Cannula 3.00 01/08/17 12:00 94 01/08/17 11:00 98 01/08/17 10:01 100 31 140/57 93 01/08/17 10:00 102 01/08/17 09:07 93 Nasal Cannula 3.00 01/08/17 09:01 100 29 153/61 90 01/08/17 09:00 102 01/08/17 08:30 95 Nasal Cannula 4.00 CBC/BMP: 01/09/17 0455 01/09/17 0455 Lab Results Laboratory Tests Test 01/09/17 04:55 White Blood Count 14.5 TH/MM3 Red Blood Count 4.66 MIL/MM3 Hemoglobin 10.3 GM/DL Hematocrit 32.5 % Mean Corpuscular Volume 69.8 FL Mean Corpuscular Hemoglobin 22.1 PG Mean Corpuscular Hemoglobin 31.7 % Concent Red Cell Distribution Width 22.6 % Platelet Count 204 TH/MM3 Mean Platelet Volume 8.6 FL Neutrophils (%) (Auto) 91.0 % Lymphocytes (%) (Auto) 3.7 % Monocytes (%) (Auto) 4.9 % Eosinophils (%) (Auto) 0.1 % Basophils (%) (Auto) 0.3 % Neutrophils # (Auto) 13.3 TH/MM3 Lymphocytes # (Auto) 0.5 TH/MM3 Monocytes # (Auto) 0.7 TH/MM3 Eosinophils # (Auto) 0.0 TH/MM3 Basophils # (Auto) 0.0 TH/MM3 CBC Comment AUTO DIFF Differential Comment AUTO DIFF CONFIRMED Platelet Estimate NORMAL Platelet Morphology Comment NORMAL Ovalocytes 2+ Sodium Level 142 MEQ/L Potassium Level 3.9 MEQ/L Chloride Level 99 MEQ/L Carbon Dioxide Level 36.4 MEQ/L Anion Gap 7 MEQ/L Blood Urea Nitrogen 19 MG/DL Creatinine 1.20 MG/DL Estimat Glomerular Filtration 59 ML/MIN Rate Random Glucose 129 MG/DL Calcium Level 7.6 MG/DL Total Bilirubin 0.4 MG/DL Aspartate Amino Transf 8 U/L (AST/SGOT) Alanine Aminotransferase 31 U/L (ALT/SGPT) Alkaline Phosphatase 82 U/L Total Protein 6.0 GM/DL Albumin 2.7 GM/DL Physical Exam General General Appearance: No Acute Distress, Comfortable Eyes Eye Exam: Pupils Equal, Pupils Reactive, Sclera White, Extraocular Movement Intact Throat Throat Exam: Oral Mucosa [place] & Moist, Oral Pharynx Normal Neck Neck Exam: Neck Supple, Trachea Midline Pulmonary Resp Exam: Rhonchi, Diminished Breath Sounds Resp Remarks Bilateral wheezing. Cardiology CV Exam: Regular, Normal Sinus Rhythm Gastrointestinal/Abdomen GI Exam: Soft, Non-Tender, Bowel Sounds Present Musculoskeletal MS Exam: Normal Tone Integumentary Skin Exam: Clear, Warm, Dry, Intact Neurologic Neuro Exam: Alert, Awake, Oriented, Speech Clear, Moving All Extremities, No Focal Deficits Psychiatric Psych Exam: Appropriate Responses VTE Prophylaxis VTE Prophylaxis Meds: Heparin PUD Prophylasis PUD Prophylaxis: Protonix Assessment/Plan Assessment/Plan ASSESSMENT AND PLAN 1. This is a 76-year male who came to the ER diagnosed with shortness of breath, cough and wheezing secondary to bilateral pneumonia and COPD exacerbation. The patient is on Zithromax and Rocephin one gram IV daily. The patient is also on Solu-Medrol 40 mg IV q.6h. and DuoNeb nebulization every six hours. Pulmonary input noted. Check sputum for gram stain and culture sensitivity, On 3 litre by nasal canula s/p Chest x- ray ...noted.. on lasix 20 mg IV Daily and Mucinex on BIPAP at night. Further recommendations per pulmonary. 2. History of hyperlipidemia. Continue the home medication, atorvastatin 10 mg p.o. daily. 3. History of COPD. Continue the home medication. 4. History of arthritis. Continue home medication. 5. History of popliteal aneurysm status post surgery. 6. History of hypertension. Continue home medication. 7. History of anemia. Will monitor H&H. 8. Leukocytosis secondary to pneumonia/ steroids...will monitor. 9. DVT prophylaxis. Heparin 5000 units subcutaneous twice a day. 10.GI prophylaxis with Protonix 40 mg p.o. daily. Check CBC with diff CMP in AM. Physical therapy evaluation and treatment. We are going to manage the patient on a daily basis and make recommendations on a daily basis. DC Plan soon. Discussed Condition with: Patient Honorio Viera MD Jan 09, 2017 08:08
[2017-01-09] MEDS: SODIUM CHLORIDE 0.9% FLUSH 5 ML FLUSH IVF SCH ×2 (08:40→20:14)
[2017-01-09] MEDS: FUROSEMIDE 20 MG/2 ML VIAL IV SCH (08:40)
[2017-01-09] MEDS: AZITHROMYCIN INJ 500 MG in SODIUM CHLOR 0.9% 250 ML INJ 250 ML IV SCH (08:40)
[2017-01-09] MEDS: guaiFENesin E.R. 600 MG TAB PO SCH ×2 (08:41→20:15)
[2017-01-09] MEDS: POLYETHYLENE GLYCOL 17 GM PKG PO SCH (08:41)
[2017-01-09] MEDS: PARoxetine HCL 20 MG TAB PO SCH (08:41)
[2017-01-09] MEDS: predniSONE 10 MG TAB PO SCH ×3 (08:41→16:59)
[2017-01-09] MEDS: NYSTATIN SUSP 500,000 U/5 ML CUP SWISH-SWAL SCH ×4 (08:41→20:16)
[2017-01-09] MEDS: FLUTICASONE SALMETEROL PO SCH ×2 (08:41→20:17)
[2017-01-09] MEDS: RESP: ALBUTEROL 2.5 MG/IPRATROPIUM 0.5 MG NEB (SCH) NEB ×4 (09:15→20:32)
--- NOTE | 2017-01-09 17:37 | HHI.PR ---
Subjective Remarks 76 YOWM with Severe COPD, Br, Lung infilt breathing better has cough, mild congestion has wheezing weaned to 2LNC Feelsbetter Objective Vital Signs Vital Signs Date Time Temp Pulse Resp B/P Pulse Ox O2 Delivery O2 Flow Rate FiO2 01/09/17 16:00 87 20 178/79 91 01/09/17 12:18 98.0 80 20 133/66 93 01/09/17 09:16 93 Nasal Cannula 2.50 01/09/17 09:10 96 Nasal Cannula 3.00 01/09/17 08:00 97.9 82 20 138/68 93 01/09/17 04:00 Nasal Cannula 3.00 01/09/17 04:00 97.5 87 20 156/77 95 01/09/17 00:00 Nasal Cannula 3.00 01/08/17 23:00 96.0 89 20 150/80 94 01/08/17 23:00 Nasal Cannula 3.00 01/08/17 22:00 94 01/08/17 21:13 96 Nasal Cannula 3.00 01/08/17 20:00 97.6 96 40 137/65 96 01/08/17 20:00 97 Nasal Cannula 2.00 01/08/17 20:00 87 01/08/17 18:00 94 I/O 01/08/17 01/08/17 01/08/17 01/09/17 01/09/17 01/09/17 07:00 15:00 23:00 07:00 15:00 23:00 Intake Total 840 ml 1190 ml 120 ml 260 ml Output Total 1150 ml 1250 ml Balance -310 ml -60 ml 120 ml 260 ml Intake Oral 740 ml 840 ml 120 ml IV Total 100 ml 350 ml 260 ml Output Urine Total 1150 ml 1250 ml # Voids 3 2 # Bowel Movements 0 1 0 Result Diagram: 01/09/17 0455 01/09/17 0455 Objective Remarks GENERAL: MBMN WM, mild sob SKIN: Warm and dry. HEAD: Normocephalic. EYES: No scleral icterus. No injection or drainage. NECK: Supple, trachea midline. No JVD or lymphadenopathy. CARDIOVASCULAR: Regular rate and rhythm without murmurs, gallops, or rubs. RESPIRATORY: Breath sounds equal bilaterally. No accessory muscle use. Exp rhonchi GASTROINTESTINAL: Abdomen soft, non-tender, nondistended. MUSCULOSKELETAL: No cyanosis, or edema. BACK: Nontender without obvious deformity. No CVA tenderness. A/P Assessment and Plan COPD Exac Bronchitis Basal infilt HTN PAD PLAN: Cont Rocephin Aerosol nebs Wean 02 CPAP prn Nystatin S&S Paxil 20 mg daily Pred 10 mg tid Avaiable prn over weekend. Deo Quiñones MD Jan 09, 2017 17:37
[2017-01-09] MEDS: PANTOPRAZOLE SODIUM 40 MG VIAL IV PUSH SCH (20:14)
[2017-01-09] MEDS: INSULIN DETEMIR 100 UNITS/ML VIAL SQ SCH (20:15)
[2017-01-09] MEDS: ATORVASTATIN 20 MG TAB PO SCH (20:15)
[2017-01-09] MEDS: ASPIRIN EC 81 MG TABEC PO SCH (20:15)
[2017-01-09] MEDS: cefTRIAXone INJ 1,000 MG in SODIUM CHLORIDE 0.9% INJ 100 ML IV SCH (21:22)
[2017-01-10] VITALS (9 sets, daily range): BP systolic 123–163; BP diastolic 67–83; PULSE 80–101; RESP 18–22; TEMP 96.4–98.7; O2SAT 91–97
[2017-01-10] MEDS: HEPARIN SODIUM - SQ 10,000 UNITS/ML VIAL SQ SCH ×2 (00:08→14:37)
[2017-01-10] MEDS: LOW DOSE INSULIN NOVOLOG SUPPLEMENTAL SCALE SQ SCH ×4 (06:20→21:36)
[2017-01-10 07:05] LABS: AUTOMATED NEUTROPHIL # 11.3 TH/MM3 (1.8-7.7); BASOPHIL # 0.1 TH/MM3 (0-0.2); BASOPHIL % 0.5 % (0.0-2.0); EOSINOPHIL % 0.1 % (0.0-4.0); LYMPH % 7.9 % (9.0-44.0); LYMPHOCYTE # 1.1 TH/MM3 (1.0-4.8); MEAN CELL VOLUME 69.8 FL (80.0-100.0); MEAN CORPUSCULAR HEMOGLOBIN 21.9 PG (27.0-34.0); MEAN CORPUSCULAR HGB CONC 31.4 % (32.0-36.0); MONO % 7.2 % (0.0-8.0); NEUT % 84.3 % (16.0-70.0); PLATELET COUNT 206 TH/MM3 (150-450); RED BLOOD COUNT 4.43 MIL/MM3 (4.50-5.90); RED CELL DISTRIBUTION WIDTH 23.3 % (11.6-17.2); WHITE BLOOD COUNT 13.5 TH/MM3 (4.0-11.0)
[2017-01-10 07:06] LABS: HEMO FLAGS AUTO DIFF
[2017-01-10 07:18] LABS: POTASSIUM 3.9 MEQ/L (3.5-5.1)
[2017-01-10 07:37] LABS: BICARBONATE 36.4 MEQ/L (21.0-32.0); CALCIUM-PROTEIN CORRECTED 8.1 MG/DL (8.5-10.1); TOTAL BILIRUBIN ADULT 0.4 MG/DL (0.2-1.0)
[2017-01-10] MEDS: RESP: ALBUTEROL 2.5 MG/IPRATROPIUM 0.5 MG NEB (SCH) NEB ×4 (07:43→19:50)
[2017-01-10 07:46] LABS: KERATOCYTES OCC (NORMAL); OVALOCYTES 1+ (NORMAL); SCAN/DIFF AUTO DIFF CONFIRMED
--- NOTE | 2017-01-10 08:54 | HHI.PR ---
Subjective History of Present Illness Patient have SOB/ Wheezing better feel better. no acute issue. D/W RN. Mariza On 3 litre by nasal canula on lasix 20 mg IV Daily and Mucinex on BIPAP at night. have anxiety on ativan d/w at bed side no acute issue possible DC Soon. Patient and very happy with care provided by me. Review of Systems Constitutional Constitutional: Fatigue, Weakness Pulmonary Respiratory: Coughing, Shortness of Breath, Wheezing Vitals/Results Intake & Output 01/09/17 01/09/17 01/10/17 15:00 23:00 07:00 Intake Total 380 ml 0 ml Balance 380 ml 0 ml IV Total 380 ml 0 ml # Voids 4 # Bowel Movements 0 Vital Signs Vital Signs Date Time Temp Pulse Resp B/P Pulse Ox O2 Delivery O2 Flow Rate FiO2 01/10/17 07:44 97 Nasal Cannula 3.50 01/10/17 04:41 96.4 89 20 159/80 96 01/10/17 00:03 97.0 101 22 145/81 95 01/09/17 21:11 96.4 92 20 145/98 93 01/09/17 20:33 92 Nasal Cannula 4.00 01/09/17 20:00 Nasal Cannula 3.00 01/09/17 16:00 87 20 178/79 91 01/09/17 12:18 98.0 80 20 133/66 93 01/09/17 09:16 93 Nasal Cannula 2.50 01/09/17 09:10 96 Nasal Cannula 3.00 CBC/BMP: 01/10/17 0634 01/10/17 0634 Lab Results Laboratory Tests Test 01/10/17 06:34 White Blood Count 13.5 TH/MM3 Red Blood Count 4.43 MIL/MM3 Hemoglobin 9.7 GM/DL Hematocrit 31.0 % Mean Corpuscular Volume 69.8 FL Mean Corpuscular Hemoglobin 21.9 PG Mean Corpuscular Hemoglobin 31.4 % Concent Red Cell Distribution Width 23.3 % Platelet Count 206 TH/MM3 Mean Platelet Volume 8.4 FL Neutrophils (%) (Auto) 84.3 % Lymphocytes (%) (Auto) 7.9 % Monocytes (%) (Auto) 7.2 % Eosinophils (%) (Auto) 0.1 % Basophils (%) (Auto) 0.5 % Neutrophils # (Auto) 11.3 TH/MM3 Lymphocytes # (Auto) 1.1 TH/MM3 Monocytes # (Auto) 1.0 TH/MM3 Eosinophils # (Auto) 0.0 TH/MM3 Basophils # (Auto) 0.1 TH/MM3 CBC Comment AUTO DIFF Differential Comment AUTO DIFF CONFIRMED Ovalocytes 1+ Keratocytes OCC Sodium Level 138 MEQ/L Potassium Level 3.9 MEQ/L Chloride Level 98 MEQ/L Carbon Dioxide Level 36.4 MEQ/L Anion Gap 4 MEQ/L Blood Urea Nitrogen 18 MG/DL Creatinine 1.10 MG/DL Estimat Glomerular Filtration 65 ML/MIN Rate Random Glucose 71 MG/DL Calcium Level 7.3 MG/DL Protein Corrected Calcium 8.1 MG/DL Total Bilirubin 0.4 MG/DL Aspartate Amino Transf 10 U/L (AST/SGOT) Alanine Aminotransferase 30 U/L (ALT/SGPT) Alkaline Phosphatase 78 U/L Total Protein 5.6 GM/DL Albumin 2.5 GM/DL Physical Exam General General Appearance: No Acute Distress, Comfortable Eyes Eye Exam: Pupils Equal, Pupils Reactive, Sclera White, Extraocular Movement Intact Throat Throat Exam: Oral Mucosa [place] & Moist, Oral Pharynx Normal Neck Neck Exam: Neck Supple, Trachea Midline Pulmonary Resp Exam: Rhonchi, Diminished Breath Sounds Resp Remarks Bilateral wheezing...better. Cardiology CV Exam: Regular, Normal Sinus Rhythm Gastrointestinal/Abdomen GI Exam: Soft, Non-Tender, Bowel Sounds Present Musculoskeletal MS Exam: Normal Tone Integumentary Skin Exam: Clear, Warm, Dry, Intact Neurologic Neuro Exam: Alert, Awake, Oriented, Speech Clear, Moving All Extremities, No Focal Deficits Psychiatric Psych Exam: Appropriate Responses VTE Prophylaxis VTE Prophylaxis Meds: Heparin PUD Prophylasis PUD Prophylaxis: Protonix Assessment/Plan Assessment/Plan ASSESSMENT AND PLAN 1. This is a 76-year male who came to the ER diagnosed with shortness of breath, cough and wheezing secondary to bilateral pneumonia and COPD exacerbation. The patient is on Zithromax and Rocephin one gram IV daily. The patient is also on prednisone 10 mg PO TID. and DuoNeb nebulization every six hours. Pulmonary input noted. Checked sputum for gram stain and culture sensitivity,..normal respiratory vladimir.. On 3 litre by nasal canula s/ p Chest x- ray ...noted.. on lasix 20 mg IV Daily and Mucinex on BIPAP at night. Further recommendations per pulmonary. 2. History of hyperlipidemia. Continue the home medication, atorvastatin 10 mg p.o. daily. 3. History of COPD. Continue the home medication. 4. History of arthritis. Continue home medication. 5. History of popliteal aneurysm status post surgery. 6. History of hypertension. Continue home medication. 7. History of anemia. Will monitor H&H. 8. Leukocytosis secondary to pneumonia/ steroids...will monitor. 9. DVT prophylaxis. Heparin 5000 units subcutaneous twice a day. 10.GI prophylaxis with Protonix 40 mg p.o. daily. Check CBC with diff CMP in AM. Physical therapy evaluation and treatment. We are going to manage the patient on a daily basis and make recommendations on a daily basis. DC Plan soon. Discussed Condition with: Patient, Spouse Honorio Viera MD Jan 10, 2017 08:54
[2017-01-10] MEDS: PARoxetine HCL 20 MG TAB PO SCH (09:06)
[2017-01-10] MEDS: NYSTATIN SUSP 500,000 U/5 ML CUP SWISH-SWAL SCH ×4 (09:06→21:35)
[2017-01-10] MEDS: guaiFENesin E.R. 600 MG TAB PO SCH ×2 (09:06→21:35)
[2017-01-10] MEDS: predniSONE 10 MG TAB PO SCH ×3 (09:06→17:51)
[2017-01-10] MEDS: POLYETHYLENE GLYCOL 17 GM PKG PO SCH (09:07)
[2017-01-10] MEDS: FUROSEMIDE 20 MG/2 ML VIAL IV SCH (09:07)
[2017-01-10] MEDS: AZITHROMYCIN INJ 500 MG in SODIUM CHLOR 0.9% 250 ML INJ 250 ML IV SCH (09:13)
[2017-01-10] MEDS: SODIUM CHLORIDE 0.9% FLUSH 5 ML FLUSH IVF SCH ×2 (09:14→21:38)
[2017-01-10] MEDS: FLUTICASONE SALMETEROL PO SCH ×2 (09:15→21:38)
[2017-01-10] MEDS: PANTOPRAZOLE SODIUM 40 MG VIAL IV PUSH SCH (21:34)
[2017-01-10] MEDS: ASPIRIN EC 81 MG TABEC PO SCH (21:35)
[2017-01-10] MEDS: ATORVASTATIN 20 MG TAB PO SCH (21:35)
[2017-01-10] MEDS: cefTRIAXone INJ 1,000 MG in SODIUM CHLORIDE 0.9% INJ 100 ML IV SCH (21:35)
[2017-01-10] MEDS: INSULIN DETEMIR 100 UNITS/ML VIAL SQ SCH (21:36)
[2017-01-11] VITALS (8 sets, daily range): BP systolic 131–158; BP diastolic 66–78; PULSE 79–94; RESP 16–22; TEMP 96.6–99.2; O2SAT 92–96
[2017-01-11] MEDS: HEPARIN SODIUM - SQ 10,000 UNITS/ML VIAL SQ SCH ×2 (00:39→13:13)
[2017-01-11] MEDS: LOW DOSE INSULIN NOVOLOG SUPPLEMENTAL SCALE SQ SCH ×4 (06:19→21:00)
[2017-01-11 07:10] LABS: AUTOMATED NEUTROPHIL # 9.5 TH/MM3 (1.8-7.7); BASOPHIL % 0.1 % (0.0-2.0); EOSINOPHIL % 0.1 % (0.0-4.0); HEMATOCRIT 29.5 % (39.0-51.0); LYMPH % 9.5 % (9.0-44.0); LYMPHOCYTE # 1.1 TH/MM3 (1.0-4.8); MEAN CELL VOLUME 69.8 FL (80.0-100.0); MEAN CORPUSCULAR HEMOGLOBIN 22.1 PG (27.0-34.0); MEAN CORPUSCULAR HGB CONC 31.7 % (32.0-36.0); MONO % 5.5 % (0.0-8.0); NEUT % 84.8 % (16.0-70.0); PLATELET COUNT 208 TH/MM3 (150-450); RED BLOOD COUNT 4.23 MIL/MM3 (4.50-5.90); RED CELL DISTRIBUTION WIDTH 22.4 % (11.6-17.2); WHITE BLOOD COUNT 11.2 TH/MM3 (4.0-11.0)
[2017-01-11 07:11] LABS: HEMO FLAGS AUTO DIFF
[2017-01-11 07:24] LABS: POTASSIUM 3.8 MEQ/L (3.5-5.1)
[2017-01-11] MEDS: RESP: ALBUTEROL 2.5 MG/IPRATROPIUM 0.5 MG NEB (SCH) NEB ×4 (07:38→19:36)
[2017-01-11 07:41] LABS: KERATOCYTES OCC (NORMAL); OVALOCYTES 1+ (NORMAL); SCAN/DIFF AUTO DIFF CONFIRMED
[2017-01-11 07:45] LABS: BICARBONATE 34.5 MEQ/L (21.0-32.0); CALCIUM-PROTEIN CORRECTED 8.3 MG/DL (8.5-10.1); TOTAL BILIRUBIN ADULT 0.4 MG/DL (0.2-1.0)
[2017-01-11] MEDS: FUROSEMIDE 20 MG/2 ML VIAL IV SCH (09:01)
[2017-01-11] MEDS: AZITHROMYCIN INJ 500 MG in SODIUM CHLOR 0.9% 250 ML INJ 250 ML IV SCH (09:01)
[2017-01-11] MEDS: guaiFENesin E.R. 600 MG TAB PO SCH ×2 (09:02→20:46)
[2017-01-11] MEDS: NYSTATIN SUSP 500,000 U/5 ML CUP SWISH-SWAL SCH ×4 (09:02→20:46)
[2017-01-11] MEDS: predniSONE 10 MG TAB PO SCH ×3 (09:02→17:31)
[2017-01-11] MEDS: PARoxetine HCL 20 MG TAB PO SCH (09:02)
[2017-01-11] MEDS: POLYETHYLENE GLYCOL 17 GM PKG PO SCH (09:02)
[2017-01-11] MEDS: SODIUM CHLORIDE 0.9% FLUSH 5 ML FLUSH IVF SCH ×2 (09:02→20:47)
[2017-01-11] MEDS: FLUTICASONE SALMETEROL PO SCH ×2 (09:03→20:47)
--- NOTE | 2017-01-11 11:34 | HHI.PR ---
Subjective History of Present Illness Patient have SOB/ Wheezing better feel better. no acute issue. D/W RN. Reyna On 2 litre by nasal canula on lasix 20 mg IV Daily and Mucinex on BIPAP at night. have anxiety on ativan d/w at bed side refused to be discharged today..no acute issue. Patient and very happy with care provided by me. Review of Systems Constitutional Constitutional: Fatigue, Weakness Pulmonary Respiratory: Coughing, Shortness of Breath, Wheezing Vitals/Results Intake & Output 01/10/17 01/10/17 01/11/17 15:00 23:00 07:00 Intake Total 650 ml Balance 650 ml Intake Oral 650 ml # Voids 7 1 1 # Bowel Movements 0 1 Vital Signs Vital Signs Date Time Temp Pulse Resp B/P Pulse Ox O2 Delivery O2 Flow Rate FiO2 01/11/17 11:19 94 Nasal Cannula 2.00 01/11/17 09:16 96.6 79 16 158/78 94 01/11/17 07:39 96 Nasal Cannula 2.50 01/11/17 00:31 96.8 87 22 144/77 94 01/10/17 20:20 96.7 86 22 149/75 93 01/10/17 20:00 Nasal Cannula 3.00 01/10/17 19:50 94 Nasal Cannula 2.50 01/10/17 16:00 98.7 98 18 158/78 94 01/10/17 12:00 98.3 92 22 123/67 91 CBC/BMP: 01/11/17 0632 01/11/17 0632 Lab Results Laboratory Tests Test 01/11/17 06:32 White Blood Count 11.2 TH/MM3 Red Blood Count 4.23 MIL/MM3 Hemoglobin 9.3 GM/DL Hematocrit 29.5 % Mean Corpuscular Volume 69.8 FL Mean Corpuscular Hemoglobin 22.1 PG Mean Corpuscular Hemoglobin 31.7 % Concent Red Cell Distribution Width 22.4 % Platelet Count 208 TH/MM3 Mean Platelet Volume 8.4 FL Neutrophils (%) (Auto) 84.8 % Lymphocytes (%) (Auto) 9.5 % Monocytes (%) (Auto) 5.5 % Eosinophils (%) (Auto) 0.1 % Basophils (%) (Auto) 0.1 % Neutrophils # (Auto) 9.5 TH/MM3 Lymphocytes # (Auto) 1.1 TH/MM3 Monocytes # (Auto) 0.6 TH/MM3 Eosinophils # (Auto) 0.0 TH/MM3 Basophils # (Auto) 0.0 TH/MM3 CBC Comment AUTO DIFF Differential Comment AUTO DIFF CONFIRMED Ovalocytes 1+ Keratocytes OCC Sodium Level 137 MEQ/L Potassium Level 3.8 MEQ/L Chloride Level 97 MEQ/L Carbon Dioxide Level 34.5 MEQ/L Anion Gap 6 MEQ/L Blood Urea Nitrogen 12 MG/DL Creatinine 1.00 MG/DL Estimat Glomerular Filtration 72 ML/MIN Rate Random Glucose 82 MG/DL Calcium Level 7.3 MG/DL Protein Corrected Calcium 8.3 MG/DL Total Bilirubin 0.4 MG/DL Aspartate Amino Transf 9 U/L (AST/SGOT) Alanine Aminotransferase 31 U/L (ALT/SGPT) Alkaline Phosphatase 74 U/L Total Protein 5.3 GM/DL Albumin 2.4 GM/DL Physical Exam General General Appearance: No Acute Distress, Comfortable Eyes Eye Exam: Pupils Equal, Pupils Reactive, Sclera White, Extraocular Movement Intact Throat Throat Exam: Oral Mucosa [place] & Moist, Oral Pharynx Normal Neck Neck Exam: Neck Supple, Trachea Midline Pulmonary Resp Exam: Rhonchi, Diminished Breath Sounds Resp Remarks Bilateral wheezing...better. Cardiology CV Exam: Regular, Normal Sinus Rhythm Gastrointestinal/Abdomen GI Exam: Soft, Non-Tender, Bowel Sounds Present Musculoskeletal MS Exam: Normal Tone Integumentary Skin Exam: Clear, Warm, Dry, Intact Neurologic Neuro Exam: Alert, Awake, Oriented, Speech Clear, Moving All Extremities, No Focal Deficits Psychiatric Psych Exam: Appropriate Responses VTE Prophylaxis VTE Prophylaxis Meds: Heparin PUD Prophylasis PUD Prophylaxis: Protonix Assessment/Plan Assessment/Plan ASSESSMENT AND PLAN 1. This is a 76-year male who came to the ER diagnosed with shortness of breath, cough and wheezing secondary to bilateral pneumonia and COPD exacerbation. The patient is on Zithromax and Rocephin one gram IV daily. The patient is also on prednisone 10 mg PO TID. and DuoNeb nebulization every six hours. Pulmonary input noted. Checked sputum for gram stain and culture sensitivity,..normal respiratory vladimir.. On 3 litre by nasal canula s/ p Chest x- ray ...noted.. on lasix 20 mg IV Daily and Mucinex on BIPAP at night. Further recommendations per pulmonary. 2. History of hyperlipidemia. Continue the home medication, atorvastatin 10 mg p.o. daily. 3. History of COPD. Continue the home medication. 4. History of arthritis. Continue home medication. 5. History of popliteal aneurysm status post surgery. 6. History of hypertension. Continue home medication. 7. History of anemia. Will monitor H&H. 8. Leukocytosis secondary to pneumonia/ steroids...will monitor. 9. DVT prophylaxis. Heparin 5000 units subcutaneous twice a day. 10.GI prophylaxis with Protonix 40 mg p.o. daily. Check CBC with diff CMP in AM. Physical therapy evaluation and treatment. We are going to manage the patient on a daily basis and make recommendations on a daily basis. DC Plan soon. Discussed Condition with: Patient Honorio Viera MD Jan 11, 2017 11:34
[2017-01-11] MEDS: cefTRIAXone INJ 1,000 MG in SODIUM CHLORIDE 0.9% INJ 100 ML IV SCH (20:46)
[2017-01-11] MEDS: ATORVASTATIN 20 MG TAB PO SCH (20:46)
[2017-01-11] MEDS: PANTOPRAZOLE SODIUM 40 MG VIAL IV PUSH SCH (20:46)
[2017-01-11] MEDS: ASPIRIN EC 81 MG TABEC PO SCH (20:46)
[2017-01-11] MEDS: INSULIN DETEMIR 100 UNITS/ML VIAL SQ SCH (20:47)
[2017-01-12] VITALS: BP 143/79; PULSE 94; RESP 22; TEMP 98; O2SAT 92
[2017-01-12] MEDS: HEPARIN SODIUM - SQ 10,000 UNITS/ML VIAL SQ SCH (01:04)
[2017-01-12] MEDS: LOW DOSE INSULIN NOVOLOG SUPPLEMENTAL SCALE SQ SCH (06:22)
[2017-01-12 06:55] LABS: AUTOMATED NEUTROPHIL # 9.9 TH/MM3 (1.8-7.7); EOSINOPHIL % 0.4 % (0.0-4.0); HEMATOCRIT 27.6 % (39.0-51.0); LYMPH % 8.9 % (9.0-44.0); MEAN CELL VOLUME 69.2 FL (80.0-100.0); MEAN CORPUSCULAR HEMOGLOBIN 22.1 PG (27.0-34.0); MEAN CORPUSCULAR HGB CONC 31.9 % (32.0-36.0); MONO % 6.5 % (0.0-8.0); NEUT % 84.2 % (16.0-70.0); PLATELET COUNT 200 TH/MM3 (150-450); RED BLOOD COUNT 3.99 MIL/MM3 (4.50-5.90); RED CELL DISTRIBUTION WIDTH 22.9 % (11.6-17.2); WHITE BLOOD COUNT 11.7 TH/MM3 (4.0-11.0)
[2017-01-12 06:59] LABS: POTASSIUM 3.6 MEQ/L (3.5-5.1)
[2017-01-12 07:00] LABS: HEMO FLAGS AUTO DIFF
[2017-01-12 07:16] LABS: BICARBONATE 30.8 MEQ/L (21.0-32.0); CALCIUM-PROTEIN CORRECTED 8.5 MG/DL (8.5-10.1); TOTAL BILIRUBIN ADULT 0.5 MG/DL (0.2-1.0)
[2017-01-12 07:28] LABS: ACANTHOCYTES OCC (NORMAL); OVALOCYTES 1+ (NORMAL); SCAN/DIFF AUTO DIFF CONFIRMED; TARGET CELLS 1+ (NORMAL)
[2017-01-12] MEDS: RESP: ALBUTEROL 2.5 MG/IPRATROPIUM 0.5 MG NEB (SCH) NEB (07:42)
[2017-01-12 07:43] VITALS: O2SAT 92
[2017-01-12 08:00] VITALS: BP 155/72; PULSE 78; RESP 20; TEMP 96.7; O2SAT 94
--- NOTE | 2017-01-12 08:24 | HHI.PR ---
Subjective History of Present Illness Patient have SOB/ Wheezing better feel better. no acute issue. D/W RN. Reyna On 2 litre by nasal canula on lasix 20 mg IV Daily and Mucinex on BIPAP at night. have anxiety on ativan d/w at bed side refused to be discharged today..no acute issue. Patient and very happy with care provided by me. Review of Systems Constitutional Constitutional: Fatigue, Weakness Pulmonary Respiratory: Coughing, Shortness of Breath, Wheezing Vitals/Results Intake & Output 01/11/17 01/11/17 01/12/17 15:00 23:00 07:00 Intake Total 1000 ml Balance 1000 ml Intake Oral 1000 ml # Voids 5 3 # Bowel Movements 1 Vital Signs Vital Signs Date Time Temp Pulse Resp B/P Pulse Ox O2 Delivery O2 Flow Rate FiO2 01/12/17 08:00 96.7 78 20 155/72 94 01/12/17 07:43 92 Nasal Cannula 2.00 01/12/17 04:00 01/12/17 00:00 98.0 94 22 143/79 92 01/11/17 21:12 97.3 86 22 142/78 95 01/11/17 20:00 95 Nasal Cannula 3.00 01/11/17 19:35 95 Nasal Cannula 2.00 01/11/17 17:43 98.5 93 18 137/77 92 01/11/17 13:25 99.2 94 16 131/66 92 01/11/17 11:19 94 Nasal Cannula 2.00 01/11/17 09:16 96.6 79 16 158/78 94 CBC/BMP: 01/12/17 0603 01/12/17 0603 Lab Results Laboratory Tests Test 01/12/17 06:03 White Blood Count 11.7 TH/MM3 Red Blood Count 3.99 MIL/MM3 Hemoglobin 8.8 GM/DL Hematocrit 27.6 % Mean Corpuscular Volume 69.2 FL Mean Corpuscular Hemoglobin 22.1 PG Mean Corpuscular Hemoglobin 31.9 % Concent Red Cell Distribution Width 22.9 % Platelet Count 200 TH/MM3 Mean Platelet Volume 8.7 FL Neutrophils (%) (Auto) 84.2 % Lymphocytes (%) (Auto) 8.9 % Monocytes (%) (Auto) 6.5 % Eosinophils (%) (Auto) 0.4 % Basophils (%) (Auto) 0.0 % Neutrophils # (Auto) 9.9 TH/MM3 Lymphocytes # (Auto) 1.0 TH/MM3 Monocytes # (Auto) 0.8 TH/MM3 Eosinophils # (Auto) 0.0 TH/MM3 Basophils # (Auto) 0.0 TH/MM3 CBC Comment AUTO DIFF Differential Comment AUTO DIFF CONFIRMED Target Cells 1+ Ovalocytes 1+ Acanthocytes OCC Sodium Level 137 MEQ/L Potassium Level 3.6 MEQ/L Chloride Level 99 MEQ/L Carbon Dioxide Level 30.8 MEQ/L Anion Gap 7 MEQ/L Blood Urea Nitrogen 13 MG/DL Creatinine 0.98 MG/DL Estimat Glomerular Filtration 74 ML/MIN Rate Random Glucose 86 MG/DL Calcium Level 7.4 MG/DL Protein Corrected Calcium 8.5 MG/DL Total Bilirubin 0.5 MG/DL Aspartate Amino Transf 9 U/L (AST/SGOT) Alanine Aminotransferase 32 U/L (ALT/SGPT) Alkaline Phosphatase 69 U/L Total Protein 5.2 GM/DL Albumin 2.3 GM/DL Physical Exam General General Appearance: No Acute Distress, Comfortable Eyes Eye Exam: Pupils Equal, Pupils Reactive, Sclera White, Extraocular Movement Intact Throat Throat Exam: Oral Mucosa [place] & Moist, Oral Pharynx Normal Neck Neck Exam: Neck Supple, Trachea Midline Pulmonary Resp Exam: Rhonchi, Diminished Breath Sounds Resp Remarks Bilateral wheezing...better. Cardiology CV Exam: Regular, Normal Sinus Rhythm Gastrointestinal/Abdomen GI Exam: Soft, Non-Tender, Bowel Sounds Present Musculoskeletal MS Exam: Normal Tone Integumentary Skin Exam: Clear, Warm, Dry, Intact Neurologic Neuro Exam: Alert, Awake, Oriented, Speech Clear, Moving All Extremities, No Focal Deficits Psychiatric Psych Exam: Appropriate Responses VTE Prophylaxis VTE Prophylaxis Meds: Heparin PUD Prophylasis PUD Prophylaxis: Protonix Assessment/Plan Assessment/Plan ASSESSMENT AND PLAN 1. This is a 76-year male who came to the ER diagnosed with shortness of breath, cough and wheezing secondary to bilateral pneumonia and COPD exacerbation. The patient is on Zithromax and Rocephin one gram IV daily. The patient is also on prednisone 10 mg PO TID. and DuoNeb nebulization every six hours. Pulmonary input noted. Checked sputum for gram stain and culture sensitivity,..normal respiratory vladimir.. On 3 litre by nasal canula s/ p Chest x- ray ...noted.. on lasix 20 mg IV Daily and Mucinex on BIPAP at night. Further recommendations per pulmonary. 2. History of hyperlipidemia. Continue the home medication, atorvastatin 10 mg p.o. daily. 3. History of COPD. Continue the home medication. 4. History of arthritis. Continue home medication. 5. History of popliteal aneurysm status post surgery. 6. History of hypertension. Continue home medication. 7. History of anemia. Will monitor H&H. 8. Leukocytosis secondary to pneumonia/ steroids...will monitor. 9. DVT prophylaxis. Heparin 5000 units subcutaneous twice a day. 10.GI prophylaxis with Protonix 40 mg p.o. daily. Check CBC with diff CMP in AM. Physical therapy evaluation and treatment. We are going to manage the patient on a daily basis and make recommendations on a daily basis. DC Plan soon. Honorio Viera MD Jan 12, 2017 08:24
[2017-01-12] MEDS ORDERED: LORA-392 PO (08:35)
[2017-01-12] MEDS ORDERED: PARO20TA2 PO (08:35)
[2017-01-12] MEDS ORDERED: NYST1000 SWISH-SWAL (08:35)
[2017-01-12] MEDS ORDERED: CEFT500T3 PO (08:35)
[2017-01-12] MEDS ORDERED: FURO20TA PO (08:35)
[2017-01-12] MEDS: PARoxetine HCL 20 MG TAB PO SCH (08:41)
[2017-01-12] MEDS: guaiFENesin E.R. 600 MG TAB PO SCH (08:41)
[2017-01-12] MEDS: SODIUM CHLORIDE 0.9% FLUSH 5 ML FLUSH IVF SCH (08:42)
[2017-01-12] MEDS: FUROSEMIDE 20 MG/2 ML VIAL IV SCH (08:42)
[2017-01-12] MEDS: POLYETHYLENE GLYCOL 17 GM PKG PO SCH (08:42)
[2017-01-12] MEDS: NYSTATIN SUSP 500,000 U/5 ML CUP SWISH-SWAL SCH (08:42)
[2017-01-12] MEDS: AZITHROMYCIN INJ 500 MG in SODIUM CHLOR 0.9% 250 ML INJ 250 ML IV SCH (08:42)
[2017-01-12] MEDS: predniSONE 10 MG TAB PO SCH (08:42)
[2017-01-12] MEDS: FLUTICASONE SALMETEROL PO SCH (08:43)
--- NOTE | 2017-02-12 10:12 | MD ---
cc: HONORIO BELL MD ADMISSION DATE: 12/31/2016 DISCHARGE DATE: 01/12/2017 Okay to discharge the patient home. CONDITION AT THE TIME OF DISCHARGE Satisfactory. ACTIVITY As tolerated. DIET Cardiac diet. ALLERGIES CIPRO AND PNEUMOCOCCAL VACCINE. DISCHARGE MEDICATIONS Include: 1. Ceftin 500 mg twice a day. 2. Furosemide 20 mg p.o. daily. 3. Lorazepam 0.5 mg p.o. q. 8-hour. 4. Nystatin liquid 5 mL swish and swallow four times a day for 10 days. 5. Paxil 20 mg p.o. daily. 6. Albuterol one puff inhalation q. 4-hour. 7. Aspirin 81 mg p.o. daily. 8. Zithromax 500 mg p.o. daily. 9. Advair 115/21 two puff inhalation twice a day. 10. Atrovent inhaler two puff inhalation q. 6-hour. 11. Multivitamin p.o. daily. 12. [place]-3 polyunsaturated fatty acid 1200 mg p.o. at bedtime. 13. Crestor 10 mg p.o. daily. The patient was advised to followup with PCP and pulmonary in one week. ADMISSION DIAGNOSIS Shortness of breath, cough and wheezing secondary to bilateral pneumonia and COPD exacerbation. The patient was given Zithromax, Rocephin during the hospital stay. The patient was also seen by rn assessment. Sputum Gram stain and culture and sensitivity was checked and shows normal respiratory vladimir. The patient was on oxygen in the hospital. The patient also has sleep apnea and was on BiPAP at nighttime. Other complaints include hyperlipidemia, COPD, arthritis, popliteal aneurysm, hypertension, anemia, leukocytosis secondary to pneumonia and steroids. HOSPITAL COURSE This is a 76-year-old male admitted with shortness of breath, diagnosed with pneumonia and COPD exacerbation. The patient was given IV antibiotic and also Solu-Medrol IV and eventually changed to prednisone p.o. The patient remained stable. The patient was discharged in satisfactory condition. The patient had leukocytosis which is improved during hospital stay. The patient had low albumin and low protein. MRSA nasal screen was negative. The patient had a gram stain which shows heavy growth of normal respiratory vladimir. The patient had blood cultures x2 done and negative so far. The patient had a chest x-ray done which shows bibasilar consolidation and small effusion which was done on December 30, 2016 and chest x-ray was done and shows decreasing bibasilar atelectasis which was done on January 04. Further details in the medical record. Honorio Bell MD EA/MARKUS /11:46 AM /9:58 AM
== END 2017-01-12 10:20 | disposition home or self-care (01) | DRG 190 ==
LOC: PHED 19:25 → INTOOBSV 23:05 → PHEDA 23:05 → PHICU 12-31 02:21 → OBSVTOIN 12-31 11:32 → PH3B 01-08 22:55
PROVIDERS: ADMIT Family Medicine; ATTEND Family Medicine
PROC: 5A09457 Assistance with Respiratory Ventilation, 24-96 Consecutive Hours, Continuous Positive Airway Pressure (ICD-10-PCS; principal; 2017-01-04)
DX: J44.0 Chronic obstructive pulmonary disease with (acute) lower respiratory infection (principal); J18.9 Pneumonia, unspecified organism; J96.90 Respiratory failure, unspecified, unspecified whether with hypoxia or hypercapnia; E87.3 Alkalosis; D64.9 Anemia, unspecified; J44.1 Chronic obstructive pulmonary disease with (acute) exacerbation; E78.5 Hyperlipidemia, unspecified; I10 Essential (primary) hypertension; I73.9 Peripheral vascular disease, unspecified; K21.9 Gastro-esophageal reflux disease without esophagitis; F41.9 Anxiety disorder, unspecified; Z87.891 Personal history of nicotine dependence; Z88.1 Allergy status to other antibiotic agents; Z88.7 Allergy status to serum and vaccine
CPT/HCPCS: 36600; 71010; 80048; 80053; 82805; 82948; 83735; 83880; 84484; 85025; 87040; 87070; 87205; 87641; 93005; 94003; 94640; 94664; 94667; 94668; 96365; 96375; C9113; J0456; J0696; J1644; J1815; J1940; J2405; J2920; J2930; J7050; J7512; J7613; J7644

== ENCOUNTER 2017-03-17 11:28 | Observation (INO) | payer MEDICARE ==
[2017-03-17] VITALS (9 sets, daily range): BP systolic 144–185; BP diastolic 69–92; PULSE 84–103; RESP 18–20; TEMP 96.2–98.7; O2SAT 89–94
[~2017-03-17] VITALS: Ht 172.7 cm; Wt 84.7 kg
[~2017-03-17 11:28] MED LIST changes: +ADVA115A INH; -ADVA115A PO; -ALBU1AER INH; +ALBUAER3 INH; +ASPI-147 PO; +CEFT500T3 PO; -CETI10 PO; +COQ1200C PO; -ECOT81TA2 PO; +FE FCAP; -FERR324T4 PO; +FISH120014 PO; +FURO20TA PO; +IPRA17I INH; +LORA-392 PO; +NYST1000 SWISH-SWAL; -OMEG5CAP PO; +PARO20TA2 PO; -PROT40TA PO; +ROSU1TAB6 PO; +ZITHTAB PO
[2017-03-17] MEDS ORDERED: PRED10 PO (11:44)
[2017-03-17] MEDS ORDERED: FE FCAP (11:44)
[2017-03-17] MEDS ORDERED: methylPREDNISolone SOD SUCC 125 MG/2 ML VIAL IVP ONE (11:45)
--- NOTE | 2017-03-17 11:48 | PD ---
HPI Chief Complaint: Respiratory Distress Time Seen by Provider: 11:35 Travel History International Travel<30 days: No Contact w/Intl Traveler<30days: No Traveled to known affect area: No History of Present Illness HPI 76yo M with PMH of COPD on home O2 2L NC presents to the ED with c/o worsening sob that started at 4am today. States he walked back from the bathroom and felt sob so he used his pump but he was not feeling much better. Pt was seen at his PMD's office last week and was given z-enma and prednisone tapering. Pt is on 10mg of prednisone now. Denies any fever, chest pain, n/v, abdominal pain , focal weakness or numbness. Pt was admitted at [place] for COPD exacerbation and pneumonia 12/31/16-01/12/17. PFSH Past Medical History Hx Anticoagulant Therapy: Yes Arthritis: Yes (hands and ankle) Asthma: No Autoimmune Disease: No Cancer: Yes (ca polyp removed during colonoscopy) Cardiovascular Problems: Yes High Cholesterol: Yes Chemotherapy: No Congestive Heart Failure: No COPD: Yes Coronary Artery Disease: No Diabetes: No Endocrine: No Gastrointestinal Disorders: Yes (GERD) Genitourinary: Yes Hepatitis: No Hiatal Hernia: Yes Hypertension: Yes Immune Disorder: No Inguinal Hernia: Yes (bilateral) Implanted Vascular Access Dvce: Yes Musculoskeletal: Yes Neurologic: No Psychiatric: No Reproductive: No Respiratory: Yes (COPD, EMPHYSEMA) Immunizations Current: Yes Radiation Therapy: No Thyroid Disease: No Ulcer: Yes (hx bleeding [id number] yrs ago) Past Surgical History Abdominal Surgery: No AICD: No Cardiac Surgery: No Ear Surgery: No Endocrine Surgery: No Eye Surgery: Yes (BILATERAL CATARACT EXTRACT) Genitourinary Surgery: No Gynecologic Surgery: No Joint Replacement: Yes (BILATERAL SHOULDERS) Oral Surgery: Yes Pacemaker: No Thoracic Surgery: No Other Surgery: Yes (VASCULAR SURGERY LEFT LEG, papliteal aneurysm with thrombosis) Social History Alcohol Use: No Tobacco Use: No Substance Use: No Allergies-Medications (Allergen,Severity, Reaction): Coded Allergies: Cipro (Verified Allergy, Intermediate, RASH,SOB,TENDONITIS, 03/17/17) Pneumococcal Vaccine (Verified Allergy, Intermediate, SWELLING/RASH, ) Reported Meds & Prescriptions Reported Meds & Active Scripts Active Reported Integra (Multi-Vit/Iron-B Comp-Vit C) 62.5-62.5-40-3 mg Cap Prednisone 10 Mg Tab 10 Mg PO BID Integra (Multi-Vit/Iron-B Comp-Vit C) 62.5-62.5-40-3 mg Cap Fish Oil ([place]-3 Fatty Acids) 1,200 Mg Cap 1,200 Mg PO HS Atrovent HFA 12.9 GM Inh (Ipratropium [place]) 17 Mcg/Act Aer 2 Puff INH Q6HR PRN Coq10 (Coenzyme Q10 (Ubidecarenone)) 200 Mg Cap 200 Mg PO HS Advair Hfa 12 GM Inh (Fluticasone-Salmeterol 12 GM Inh) 115-21 Mcg/Act Aer 2 Puff INH BID Ecotrin Low Strength (Aspirin) 81 Mg Tabdr 81 Mg PO HS Rosuvastatin (Rosuvastatin Calcium) 10 Mg Tab 10 Mg PO HS Proair Hfa 8.5 GM Inh (Albuterol Sulfate) 90 Mcg/Act Aer 1 Puff INH Q4H PRN 108 mcg/actuation Review of Systems Except as stated in HPI: all other systems reviewed are Neg Physical Exam Narrative GENERAL: 76yo M in moderate distress. SKIN: Focused skin assessment warm/dry. HEAD: Atraumatic. Normocephalic. EYES: Pupils equal and round. No scleral icterus. No injection or drainage. ENT: No nasal bleeding or discharge. Mucous membranes pink and moist. NECK: Trachea midline. No JVD. CARDIOVASCULAR: Tachycardia at 100bpm. No murmur appreciated. RESPIRATORY: + accessory muscle use. Expiratory wheezing bilaterally. Tachypneic. 91% on 2L NC. GASTROINTESTINAL: Abdomen soft, non-tender, nondistended. MUSCULOSKELETAL: No obvious deformities. No clubbing. No cyanosis. No edema. No calf tenderness. NEUROLOGICAL: Awake and alert. No obvious cranial nerve deficits. Motor grossly within normal limits. Normal speech. PSYCHIATRIC: Appropriate mood and affect; insight and judgment normal. Data Data Last Documented VS Vital Signs Date Time Temp Pulse Resp B/P Pulse Ox O2 Delivery O2 Flow Rate FiO2 03/17/17 13:47 18 94 Nasal Cannula 2 03/17/17 13:35 86 151/72 03/17/17 11:36 98.7 Orders Complete Blood Count With Diff (03/17/17 11:42) Basic Metabolic Panel (Bmp) (03/17/17 11:42) B-Type Natriuretic Peptide (03/17/17 11:42) Act Partial Throm Time (Ptt) (03/17/17 11:42) Prothrombin Time / Inr (Pt) (03/17/17 11:42) Ckmb (Isoenzyme) Profile (03/17/17 11:42) Troponin I (03/17/17 11:42) Arterial Blood Gas (Abg) (03/17/17 11:42) Blood Culture (03/17/17 11:42) Iv Access Insert/Monitor (03/17/17 11:42) Ecg Monitoring (03/17/17 11:42) Oximetry (03/17/17 11:42) Oxygen Administration (03/17/17 11:42) Chest, Single Ap (03/17/17 11:42) Sodium Chloride 0.9% Flush (Ns Flush) (03/17/17 11:45) Methylprednisolone So Succ Inj (Solumedr (03/17/17 11:45) Albuterol-Ipratropium Neb (Duoneb Neb) (03/17/17 11:45) Lactic Acid Sepsis Protocol (03/17/17 11:42) Sodium Chlor 0.9% 1000 Ml Inj (Ns 1000 M (03/17/17 12:15) Vancomycin Inj (Vancomycin Inj) (03/17/17 12:15) Piperacil-Tazo 2.25 Gm Premix (Zosyn 2.2 (03/17/17 12:15) Labs Laboratory Tests Test 03/17/17 03/17/17 03/17/17 11:45 12:00 12:01 White Blood Count 12.6 TH/MM3 Red Blood Count 5.74 MIL/MM3 Hemoglobin 13.7 GM/DL Hematocrit 43.7 % Mean Corpuscular Volume 76.1 FL Mean Corpuscular Hemoglobin 23.9 PG Mean Corpuscular Hemoglobin 31.3 % Concent Red Cell Distribution Width 22.6 % Platelet Count 260 TH/MM3 Mean Platelet Volume 9.6 FL Neutrophils (%) (Auto) 89.4 % Lymphocytes (%) (Auto) 5.9 % Monocytes (%) (Auto) 4.2 % Eosinophils (%) (Auto) 0.4 % Basophils (%) (Auto) 0.1 % Neutrophils # (Auto) 11.3 TH/MM3 Lymphocytes # (Auto) 0.7 TH/MM3 Monocytes # (Auto) 0.5 TH/MM3 Eosinophils # (Auto) 0.1 TH/MM3 Basophils # (Auto) 0.0 TH/MM3 CBC Comment AUTO DIFF Differential Comment AUTO DIFF CONFIRMED Ovalocytes 1+ Rouleau PRESENT Prothrombin Time 11.0 SEC Prothromb Time International 1.0 RATIO Ratio Activated Partial 25.0 SEC Thromboplast Time Sodium Level 138 MEQ/L Potassium Level 3.9 MEQ/L Chloride Level 100 MEQ/L Carbon Dioxide Level 30.0 MEQ/L Anion Gap 8 MEQ/L Blood Urea Nitrogen 11 MG/DL Creatinine 1.20 MG/DL Estimat Glomerular Filtration 59 ML/MIN Rate Random Glucose 127 MG/DL Calcium Level 8.8 MG/DL Total Creatine Kinase 32 U/L Troponin I LESS THAN 0.02 NG/ML B-Type Natriuretic Peptide 111 PG/ML Lactic Acid Level 2.0 mmol/L Blood Gas Puncture Site LT RADIAL Blood Gas Patient Temperature 98.6 Blood Gas HCO3 28 mmol/L Blood Gas Base Excess 4.3 mmol/L Blood Gas Oxygen Saturation 90 % Arterial Blood pH 7.46 Arterial Blood Partial 40 mmHG Pressure CO2 Arterial Blood Partial 67 mmHG Pressure O2 Arterial Blood Oxygen Content 16.7 Vol % Arterial Blood 2.1 % Carboxyhemoglobin Arterial Blood Methemoglobin 0.9 % Blood Gas Hemoglobin 13.1 G/DL Oxygen Delivery Device NASAL CANNULA Blood Gas Liter Flow 2 L/M [facility] Medical Decision Making Medical Screen Exam Complete: Yes Emergency Medical Condition: Yes Interpretation(s) EKG: NSR 83bpm. Normal axis. +PACs. Q wave V1, V2. Laboratory Tests Test 03/17/17 03/17/17 03/17/17 11:45 12:00 12:01 White Blood Count 12.6 TH/MM3 (4.0-11.0) Red Blood Count 5.74 MIL/MM3 (4.50-5.90) Hemoglobin 13.7 GM/DL (13.0-17.0) Hematocrit 43.7 % (39.0-51.0) Mean Corpuscular Volume 76.1 FL (80.0-100.0) Mean Corpuscular Hemoglobin 23.9 PG (27.0-34.0) Mean Corpuscular Hemoglobin 31.3 % Concent (32.0-36.0) Red Cell Distribution Width 22.6 % (11.6-17.2) Platelet Count 260 TH/MM3 (150-450) Mean Platelet Volume 9.6 FL (7.0-11.0) Neutrophils (%) (Auto) 89.4 % (16.0-70.0) Lymphocytes (%) (Auto) 5.9 % (9.0-44.0) Monocytes (%) (Auto) 4.2 % (0.0-8.0) Eosinophils (%) (Auto) 0.4 % (0.0-4.0) Basophils (%) (Auto) 0.1 % (0.0-2.0) Neutrophils # (Auto) 11.3 TH/MM3 (1.8-7.7) Lymphocytes # (Auto) 0.7 TH/MM3 (1.0-4.8) Monocytes # (Auto) 0.5 TH/MM3 (0-0.9) Eosinophils # (Auto) 0.1 TH/MM3 (0-0.4) Basophils # (Auto) 0.0 TH/MM3 (0-0.2) CBC Comment AUTO DIFF Differential Comment AUTO DIFF CONFIRMED Ovalocytes 1+ (NORMAL) Rouleau PRESENT (NORMAL) Prothrombin Time 11.0 SEC (9.8-11.6) Prothromb Time International 1.0 RATIO Ratio Activated Partial 25.0 SEC Thromboplast Time (24.3-30.1) Sodium Level 138 MEQ/L (136-145) Potassium Level 3.9 MEQ/L (3.5-5.1) Chloride Level 100 MEQ/L (98-107) Carbon Dioxide Level 30.0 MEQ/L (21.0-32.0) Anion Gap 8 MEQ/L (5-15) Blood Urea Nitrogen 11 MG/DL (7-18) Creatinine 1.20 MG/DL (0.60-1.30) Estimat Glomerular Filtration 59 ML/MIN (>89) Rate Random Glucose 127 MG/DL (74-106) Calcium Level 8.8 MG/DL (8.5-10.1) Total Creatine Kinase 32 U/L (39-308) Troponin I LESS THAN 0.02 NG/ML (0.02-0.05) B-Type Natriuretic Peptide 111 PG/ML (0-100) Lactic Acid Level 2.0 mmol/L (0.4-2.0) Blood Gas Puncture Site LT RADIAL Blood Gas Patient Temperature 98.6 Blood Gas HCO3 28 mmol/L (22-26) Blood Gas Base Excess 4.3 mmol/L (-2-2) Blood Gas Oxygen Saturation 90 % (90-100) Arterial Blood pH 7.46 (7.380-7.420) Arterial Blood Partial 40 mmHG (38-42) Pressure CO2 Arterial Blood Partial 67 mmHG Pressure O2 (61-120) Arterial Blood Oxygen Content 16.7 Vol % (12.0-20.0) Arterial Blood 2.1 % (0-4) Carboxyhemoglobin Arterial Blood Methemoglobin 0.9 % (0-2) Blood Gas Hemoglobin 13.1 G/DL (12.0-16.0) Oxygen Delivery Device NASAL CANNULA Blood Gas Liter Flow 2 L/M Last Impressions Chest X-Ray 03/17/17 1142 Signed Impressions: Service Date/Time: Friday, March 17, 2017 12:07 - CONCLUSION: Chronic bilateral linear lower lung zone opacity. Differential diagnosis includes atelectasis, mild pulmonary edema, and chronic lung disease. Franc Lopez MD Differential Diagnosis COPD exacerbation vs. Pneumonia vs. ACS vs. CHF Narrative Course 76yo M with worsening sob today. Pt wheezing diffusely and tachypneic. Pt given duonebs x 3, and methylprednisolone 60mg IV. Pt just saw his PMD last week and finished z-enma and is on prednisone taper. Pt meets SIRS criteria with HR 96 and WBC at 12.6. Pt given NS IVF x1 and vancomycin and zosyn since pt was hospitalized less than 3 months ago. Lactic acid 2.0. BNP 111. CXR showed chronic bilateral linear lower lung zone opacity. Pt reevaluated at bedside and was feeling better but now short of breath again after laying down. Pt is sitting up and states he normally is not sob just sitting down and this is new. Since pt failed outpatient treatment, will admit him for COPD exacerbation. Sepsis Criteria SIRS Criteria (2 or more): Heart rate over 90, RR > 20 or PaCO2 < 32, WBC > 39855, < 4000 or > 10% bands Sepsis Criteria (SIRS+source): Infect source susp/known Diagnosis Primary Impression: COPD exacerbation Admitting Information Admitting Physician Requests: Observation Jennifer Hoover DO March 17, 2017 11:48
[2017-03-17] MEDS: RESP: ALBUTEROL 2.5 MG/IPRATROPIUM 0.5 MG NEB (SCH) INH ×3 (11:56→22:00)
[2017-03-17 11:58] LABS: AUTOMATED NEUTROPHIL # 11.3 TH/MM3 (1.8-7.7); BASOPHIL % 0.1 % (0.0-2.0); EOSINOPHIL # 0.1 TH/MM3 (0-0.4); EOSINOPHIL % 0.4 % (0.0-4.0); HEMATOCRIT 43.7 % (39.0-51.0); LYMPH % 5.9 % (9.0-44.0); LYMPHOCYTE # 0.7 TH/MM3 (1.0-4.8); MEAN CELL VOLUME 76.1 FL (80.0-100.0); MEAN CORPUSCULAR HEMOGLOBIN 23.9 PG (27.0-34.0); MEAN CORPUSCULAR HGB CONC 31.3 % (32.0-36.0); MONO % 4.2 % (0.0-8.0); NEUT % 89.4 % (16.0-70.0); PLATELET COUNT 260 TH/MM3 (150-450); RED BLOOD COUNT 5.74 MIL/MM3 (4.50-5.90); RED CELL DISTRIBUTION WIDTH 22.6 % (11.6-17.2); WHITE BLOOD COUNT 12.6 TH/MM3 (4.0-11.0)
[2017-03-17 12:00] LABS: HEMO FLAGS AUTO DIFF
[2017-03-17] MEDS: SODIUM CHLORIDE 0.9% FLUSH 10 ML FLUSH IVF PRN ×2 (12:02→12:37)
[2017-03-17 12:08] LABS: CHLORIDE 100 MEQ/L (98-107); POTASSIUM 3.9 MEQ/L (3.5-5.1); SODIUM (NA) 138 MEQ/L (136-145)
[2017-03-17 12:10] LABS: ANION GAP 8 MEQ/L (5-15)
[2017-03-17 12:10] LABS: BLOOD GAS BASE EXCESS 4.3 mmol/L (-2-2); BLOOD GAS CARBOXYHEMOGLOBIN 2.1 % (0-4); BLOOD GAS HCO3 28 mmol/L (22-26); BLOOD GAS METHEMOGLOBIN 0.9 % (0-2); BLOOD GAS O2 HGB SATURATION 90 % (90-100); BLOOD GAS OXYGEN CONTENT 16.7 Vol % (12.0-20.0); BLOOD GAS PCO2 40 mmHG (38-42); BLOOD GAS PO2 67 mmHG (61-120); BLOOD GAS TOTAL HGB 13.1 G/DL (12.0-16.0); TEMP CORR TO 98.6
[2017-03-17 12:11] LABS: BLOOD UREA NITROGEN 11 MG/DL (7-18)
[2017-03-17 12:11] LABS: CRITICAL VALUE NO; DRAW SITE LT RADIAL; LITER FLOW 2 L/M; NUMBER OF ARTERIAL PUNCTURES 1; OXYGEN DEVICE NASAL CANNULA; STAT YES; ULNAR PULSE PRESENT
[2017-03-17 12:14] LABS: GLOMERULAR FILTRATION RATE 59 ML/MIN (>89)
[2017-03-17] MEDS ORDERED: SODIUM CHLOR 0.9% 1000 ML INJ 1,000 ML IV ONE (12:15)
[2017-03-17] MEDS ORDERED: PIPERACIL-TAZO 2.25 GM PREMIX 50 ML IV ONE (12:15)
[2017-03-17] MEDS ORDERED: VANCOMYCIN INJ 1,000 MG in SODIUM CHLOR 0.9% 250 ML INJ 250 ML IV ONE (12:15)
[2017-03-17 12:19] LABS: CREATINE KINASE 32 U/L (39-308)
[2017-03-17 12:20] LABS: OVALOCYTES 1+ (NORMAL); ROULEAUX PRESENT (NORMAL); SCAN/DIFF AUTO DIFF CONFIRMED
--- NOTE | 2017-03-17 12:23 | RADHPO ---
EXAM DATE/TIME: 03/17/2017 12:07 [place] COMPARISON: CHEST SINGLE AP, January 04, 2017, 13:00. INDICATIONS : Short of breath. MEDICAL HISTORY : Chronic obstructive pulmonary disease. Emphysema. SURGICAL HISTORY : None. ENCOUNTER: Initial ACUITY: 2 days PAIN SCORE: 0/10 LOCATION: Bilateral chest FINDINGS: Single AP view of the chest. Bilateral shoulder prostheses. Bilateral lower lung zone atelectasis nir johnny mild pulmonary edema versus chronic lung disease. The lungs are otherwise clear and grossly uncha nged from the prior study of 01/04/2070. Cardiomediastinal silhouette within normal limits. No evidenc e of pleural effusion or pneumothorax. CONCLUSION: Chronic bilateral linear lower lung zone opacity. Differential diagnosis includes atelect asis, mild pulmonary edema, and chronic lung disease. Franc Lopez MD on March 17, 2017 at 12:19 Board Certified Radiologist. This report was verified electronically.
[2017-03-17] MEDS ORDERED: RESP: ALBUTEROL 2.5 MG/3 ML NEB (PRN) INH (14:15)
[2017-03-17] MEDS ORDERED: SODIUM CHLORIDE 0.9% FLUSH 10 ML FLUSH IV FLUSH PRN (14:15)
[2017-03-17] MEDS ORDERED: LEVOFLOXACIN 500 MG PREMIX INJ 100 ML IV SCH (14:30)
[2017-03-17] MEDS: cefTRIAXone 1,000 MG/NS 100 ML IV SCH ×2 (15:51)
[2017-03-17] MEDS: HEPARIN SODIUM - SQ 10,000 UNITS/ML VIAL SQ SCH (18:00)
--- NOTE | 2017-03-17 19:00 | MH ---
cc: TANIA MELLO DATE OF ADMISSION 03/17/2017 DATE OF [address] Tania Mello. PRIMARY CARE PHYSICIAN Dr. Caitlin Jimenez. REASON FOR ADMISSION Shortness of breath, wheezing, respiratory distress. HISTORY OF THE PRESENT ILLNESS The patient is very pleasant 76-year male with significant past history of COPD who was last admitted in the hospital on December of 2016 because of COPD exacerbation. This time the patient came again with complaint of shortness of breath. 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 He could not get out of bed. While he was sitting he had a shortness of breath and on getting up he has more shortness of breath with wheezing. He uses pump inhalers and it did not help. The patient was having some shortness of breath and some wheezing for the past couple of days, for which he has been seen by his primary care doctor who gave him a tapering dose of steroids and he had a course of Z-Antonio. The patient last took 10 milligrams of prednisone. He had no fever, no chills. No nausea or vomiting. The patient has no abdominal pain. No chest pain. Just tightness and wheezing, overall tightness with wheezing and shortness of breath. There is no diaphoresis. There is no headache or dizziness. PAST MEDICAL HISTORY Significant for: 1. COPD. 2. Anemia. 3. Hypertension. 4. 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 5. Peptic ulcer disease in the remote past. 6. Eye surgery. 7. Gastroesophageal reflux disease. SOCIAL HISTORY The patient stopped smoking approximately one year ago. He does not drink or do any drugs. Lives at home. 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 REVIEW OF SYSTEMS As described above in the history of present illness, otherwise negative for 10 systems. FAMILY HISTORY Noncontributory. ALLERGIES THE PATIENT IS ALLERGIC TO CIPRO AND PNEUMOCOCCAL VACCINE. MEDICATIONS Reviewed, please see MAR. PHYSICAL EXAMINATION GENERAL: The patient is alert and oriented, well-built, lying on bed with some shortness of breath. VITAL SIGNS: The patient afebrile, heart rate 103, respiratory 20, blood pressure 155/83, pulse ox of 91% on 2 liters. HEENT: Head is atraumatic, normocephalic. Negative conjunctival icterus. Mouth unremarkable. NECK: Supple. Negative increased JVD. Central trachea. CHEST: Distant air entry bibasilar in the mid zone. With scattered expiratory wheeze mostly in the basilar region. CARDIOVASCULAR: S1-S2 audible. Unable to hear any S3 gallop. ABDOMEN: Soft, no organomegaly. Positive bowel sounds. MUSCULOSKELETAL: No cyanosis or pedal edema appreciated. CENTRAL NERVOUS SYSTEM: Grossly intact. SKIN: Warm and dry. PSYCHIATRIC: Appropriate mood and affect. LABORATORY DATA Investigations WBC 12.6. Hemoglobin, hematocrit and platelet count within normal limits. GFR 59, random glucose 127, otherwise BMP within normal limits. Total CK 32. Troponin less than 0.02. peptide 111. Lactic acid 2. PT, INR, APTT within normal limits. ABG was done on 2 liters shows pH of 7.46, CO2 40, O2 of 67. IMAGING Chest x-ray was done which shows chronic bilateral linear lower lung zone opacity. Differential diagnosis include atelectasis, mild pulmonary edema, and chronic lung disease. EKG was done which showed sinus rhythm with PACs at rate of 83 beats per minute. Without any acute ST-T wave changes. ASSESSMENT 1. COPD exacerbation. 2. Acute on chronic bronchitis with chronic lung changes on x-ray. 3. Seems like SARS on admission. History of arthritis. 4. History of anemia. 5. Hypertension. 6. Leukocytosis likely secondary to steroids and infection. PLAN 1. Admit to the floor under observation. 2. IV steroids. 3. IV antibiotic. 4. Breathing treatments. 5. Monitor labs. 6. Pulmonary consult. 7. Continue some of home medications as indicated. 8. As the patient failed outpatient therapy, need to observe in house. If needed we may convert into inpatient. 9. Discussed with the patient. 10. Further recommendation to follow as per patient's progress. 11. GI prophylaxis and DVT prophylaxis as well. Tania Mello MD JP/TD /6:05 PM /6:36 PM
[2017-03-17] MEDS ORDERED: NON-FORMULARY DRUG (Coenzyme Q10 (Ubidecarenone) (Coq10) 200 MG) PO SCH (21:00)
[2017-03-17] MEDS ORDERED: NON-FORMULARY DRUG (Omega-3 Fatty Acids (Fish Oil) 1,200 MG) PO SCH (21:00)
[2017-03-17] MEDS ORDERED: FLUTICASONE SALMETEROL INH SCH (21:00)
[2017-03-17] MEDS: FAMOTIDINE 20 MG TAB PO SCH (21:03)
[2017-03-17] MEDS: ASPIRIN EC 81 MG TABEC PO SCH (21:03)
[2017-03-17] MEDS: ATORVASTATIN 20 MG TAB PO SCH (21:03)
[2017-03-17] MEDS: SODIUM CHLORIDE 0.9% FLUSH 10 ML FLUSH IV FLUSH SCH (21:04)
[2017-03-17] MEDS: methylPREDNISolone SOD SUCC 125 MG/2 ML VIAL IVP SCH (21:04)
--- NOTE | 2017-03-17 23:28 | MB ---
cc: DEO HAMMOND,JAWBRENDON DATE OF CONSULTATION: 03/17/2017 REQUESTING PHYSICIAN: Dr. Mello REASON FOR CONSULTATION: COPD exacerbation HISTORY OF PRESENT ILLNESS: Mr. Connell is a 78-year-old male with a longstanding history of COPD is oxygen dependent. He is on oxygen 2 liters nasal cannula. He has not been doing well for the last 8 to 10 days. He was seen in the office, and was started on Z-Antonio and prednisone. He did better but over the last 2 or 3 days he was getting worse. He went to the hospital and could not work. He uses oxygen all the time. Because of worsening of his symptoms, he came to the hospital. He had a workup done. LABORATORY DATA: His CBC showed WBC count 12.6, hemoglobin 13.3, hematocrit 43.7, MCV 76, platelet count 260. Sodium 138, potassium 3.9, chloride 100, CO2 33, BUN 11, creatinine 1.10, blood gas pH 7.46, PCO2 40, PO2 67, bicarb 28. X-RAYS: Chest x-ray shows chronic bilateral urinary changes. Possible atelectasis of pulmonary edema. PAST MEDICAL HISTORY: Significant for: 1. History of COPD. 2. GERD. 3. Cataract surgery. 4. Shoulder surgery. 5. PAD, status post surgery on his back. 6. Peptic ulcer disease. MEDICATIONS: 1. Solu-Medrol 60 mg q. 8-hour. 2. Aspirin 81 mg a day. 3. Lipitor 20 milligrams a day. 4. Famotidine 20 milligrams 5. Heparin 5000 q12 hours. 6. Albuterol and atrovent 7. Rocephin one gram a day. ALLERGIES: CIPRO AND PNEUMOCOCCAL VACCINE. SOCIAL HISTORY He is . He has a history of smoking which he quit. 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 FAMILY HISTORY: Noncontributory. REVIEW OF SYSTEMS: He is short of breath with any little activity. Performance status has decreased. No history of DVT or pulmonary embolism. PHYSICAL EXAMINATION: Physical examination reveals an elderly male, mild short of breath. VITAL SIGNS: Blood pressure is 155/83, heart rate 103, respiratory rate 20, temperature 97.8. HEENT: Pupils are equal and reactive to light. Nasal mucosa normal. Neck: Supple. JVP not raised. Chest: Expiratory rhonchi. Abdomen: Soft, nontender, nondistended. Bowel sounds present. Extremities: No edema. He has varicose veins. ADJUNCT PHILOSOPHY FACULTY: Alert, oriented x3, no focal deficits. IMPRESSION: 1. COPD exacerbation. 2. Bronchitis. 3. PAD. 4. GERD. 5. Peptic ulcer disease. 6. Hypertension. PLAN: IV Solu-Medrol, aerosol treatment, Albuterol and atrovent. Continue antibiotics supplement, oxygen. He is on subcu atrovent for DVT prophylaxis and famotidine for GI prophylaxis. Further treatment will depend on the course in the hospital. Thank you, Dr. Mello, for this consult. Deo Hammond MD ADA/TONJA /7:35 PM /11:05 PM
[2017-03-18] VITALS (8 sets, daily range): BP systolic 142–164; BP diastolic 86–99; PULSE 91–105; RESP 14–20; TEMP 95.3–97.1; O2SAT 92–94
[2017-03-18] MEDS: RESP: ALBUTEROL 2.5 MG/IPRATROPIUM 0.5 MG NEB (SCH) INH ×4 (04:11→21:11)
[2017-03-18] MEDS: methylPREDNISolone SOD SUCC 125 MG/2 ML VIAL IVP SCH ×3 (05:22→22:48)
[2017-03-18] MEDS: HEPARIN SODIUM - SQ 10,000 UNITS/ML VIAL SQ SCH ×2 (05:23→19:14)
--- NOTE | 2017-03-18 06:22 | EKG ---
Date Performed: 03/17/2017 Time Performed: 11:33:34 PTAGE: 76 years EKG: Sinus rhythm with PAC(s) Possible septal infarct - age undetermined Abnormal ECG PREVIOUS TRACING : 12/30/2016 21.00 Compared to the previous tracing Q waves present DOCTOR: Rachell Padgett Interpretating Date/Time 03/18/2017 06:21:35
[2017-03-18 06:36] LABS: AUTOMATED NEUTROPHIL # 8.9 TH/MM3 (1.8-7.7); BASOPHIL % 0.1 % (0.0-2.0); HEMATOCRIT 42.9 % (39.0-51.0); LYMPH % 5.7 % (9.0-44.0); LYMPHOCYTE # 0.6 TH/MM3 (1.0-4.8); MEAN CELL VOLUME 76.2 FL (80.0-100.0); MEAN CORPUSCULAR HEMOGLOBIN 24.2 PG (27.0-34.0); MEAN CORPUSCULAR HGB CONC 31.8 % (32.0-36.0); MONO % 1.9 % (0.0-8.0); NEUT % 92.3 % (16.0-70.0); PLATELET COUNT 262 TH/MM3 (150-450); RED BLOOD COUNT 5.63 MIL/MM3 (4.50-5.90); RED CELL DISTRIBUTION WIDTH 23.1 % (11.6-17.2); WHITE BLOOD COUNT 9.8 TH/MM3 (4.0-11.0)
[2017-03-18 06:50] LABS: BICARBONATE 29.9 MEQ/L (21.0-32.0)
[2017-03-18 07:11] LABS: HEMO FLAGS AUTO DIFF
[2017-03-18 07:49] LABS: OVALOCYTES 1+ (NORMAL); SCAN/DIFF AUTO DIFF CONFIRMED; TARGET CELLS 1+ (NORMAL)
--- NOTE | 2017-03-18 08:18 | HHI.PR ---
Subjective History of Present Illness Patient c/o SOB/ Wheezing no other acute issue. Review of Systems Constitutional Constitutional: Fatigue, Weakness Pulmonary Respiratory: Coughing, Shortness of Breath, Wheezing Vitals/Results Intake & Output 03/17/17 03/17/17 03/18/17 15:00 23:00 07:00 Intake Total 1150 ml 480 ml 0 ml Output Total 275 ml 300 ml 1000 ml Balance 875 ml 180 ml -1000 ml Intake Oral 480 ml IV Total 1150 ml 0 ml Output Urine Total 275 ml 300 ml 1000 ml # Voids 2 # Bowel Movements 0 Vital Signs Vital Signs Date Time Temp Pulse Resp B/P Pulse Ox O2 Delivery O2 Flow Rate FiO2 03/18/17 04:00 95.4 95 18 148/91 92 03/18/17 00:00 95.3 105 20 164/87 94 03/17/17 22:00 92 Nasal Cannula 3.00 03/17/17 20:00 96.2 97 18 147/76 93 03/17/17 15:15 97.0 103 20 155/83 91 03/17/17 14:45 86 18 156/69 92 Nasal Cannula 2 03/17/17 13:47 18 94 Nasal Cannula 2 03/17/17 13:35 86 18 151/72 93 Nasal Cannula 2 03/17/17 12:35 84 18 144/75 92 Nasal Cannula 2 03/17/17 12:01 93 Nasal Cannula 2.00 03/17/17 11:49 93 Nasal Cannula 2 03/17/17 11:44 20 92 Nasal Cannula 2 03/17/17 11:36 98.7 96 20 185/92 89 CBC/BMP: 03/18/17 0515 03/18/17 0515 Lab Results Laboratory Tests Test 03/17/17 03/17/17 03/17/17 03/18/17 11:45 12:00 12:01 05:15 White Blood Count 12.6 TH/MM3 9.8 TH/MM3 Red Blood Count 5.74 MIL/MM3 5.63 MIL/MM3 Hemoglobin 13.7 GM/DL 13.6 GM/DL Hematocrit 43.7 % 42.9 % Mean Corpuscular Volume 76.1 FL 76.2 FL Mean Corpuscular Hemoglobin 23.9 PG 24.2 PG Mean Corpuscular Hemoglobin 31.3 % 31.8 % Concent Red Cell Distribution Width 22.6 % 23.1 % Platelet Count 260 TH/MM3 262 TH/MM3 Mean Platelet Volume 9.6 FL 10.0 FL Neutrophils (%) (Auto) 89.4 % 92.3 % Lymphocytes (%) (Auto) 5.9 % 5.7 % Monocytes (%) (Auto) 4.2 % 1.9 % Eosinophils (%) (Auto) 0.4 % 0.0 % Basophils (%) (Auto) 0.1 % 0.1 % Neutrophils # (Auto) 11.3 TH/MM3 8.9 TH/MM3 Lymphocytes # (Auto) 0.7 TH/MM3 0.6 TH/MM3 Monocytes # (Auto) 0.5 TH/MM3 0.2 TH/MM3 Eosinophils # (Auto) 0.1 TH/MM3 0.0 TH/MM3 Basophils # (Auto) 0.0 TH/MM3 0.0 TH/MM3 CBC Comment AUTO DIFF AUTO DIFF Differential Comment AUTO DIFF AUTO DIFF CONFIRMED CONFIRMED Ovalocytes 1+ 1+ Rouleau PRESENT Prothrombin Time 11.0 SEC Prothromb Time International 1.0 RATIO Ratio Activated Partial 25.0 SEC Thromboplast Time Sodium Level 138 MEQ/L 140 MEQ/L Potassium Level 3.9 MEQ/L 4.0 MEQ/L Chloride Level 100 MEQ/L 100 MEQ/L Carbon Dioxide Level 30.0 MEQ/L 29.9 MEQ/L Anion Gap 8 MEQ/L 10 MEQ/L Blood Urea Nitrogen 11 MG/DL 13 MG/DL Creatinine 1.20 MG/DL 1.20 MG/DL Estimat Glomerular Filtration 59 ML/MIN 59 ML/MIN Rate Random Glucose 127 MG/DL 156 MG/DL Calcium Level 8.8 MG/DL 9.1 MG/DL Total Creatine Kinase 32 U/L Troponin I LESS THAN 0.02 NG/ML B-Type Natriuretic Peptide 111 PG/ML Lactic Acid Level 2.0 mmol/L Blood Gas Puncture Site LT RADIAL Blood Gas Patient Temperature 98.6 Blood Gas HCO3 28 mmol/L Blood Gas Base Excess 4.3 mmol/L Blood Gas Oxygen Saturation 90 % Arterial Blood pH 7.46 Arterial Blood Partial 40 mmHG Pressure CO2 Arterial Blood Partial 67 mmHG Pressure O2 Arterial Blood Oxygen Content 16.7 Vol % Arterial Blood 2.1 % Carboxyhemoglobin Arterial Blood Methemoglobin 0.9 % Blood Gas Hemoglobin 13.1 G/DL Oxygen Delivery Device NASAL CANNULA Blood Gas Liter Flow 2 L/M Target Cells 1+ Microbiology Microbiology 5/9/17 Aerobic Blood Culture, Received Pending 03/17/17 Anaerobic Blood Culture, Received Pending 03/17/17 Aerobic Blood Culture, Received Pending 03/17/17 Anaerobic Blood Culture, Received Pending Physical Exam General General Appearance: No Acute Distress, Comfortable Eyes Eye Exam: Pupils Equal, Pupils Reactive, Sclera White, Extraocular Movement Intact Throat Throat Exam: Oral Mucosa [place] & Moist, Oral Pharynx Normal Neck Neck Exam: Neck Supple, Trachea Midline Pulmonary Resp Exam: Crackles, Decreased Bases Resp Remarks bilateral wheezing. Cardiology CV Exam: Regular, Normal Sinus Rhythm Gastrointestinal/Abdomen GI Exam: Soft, Non-Tender, Bowel Sounds Present, Non-Distended, Distended Musculoskeletal MS Exam: Normal Tone, Good Strength Integumentary Skin Exam: Clear, Warm, Dry, Intact Extremeties Extremities Exam: No Edema Neurologic Neuro Exam: Alert, Awake, Oriented, Speech Clear, Moving All Extremities, No Focal Deficits Psychiatric Psych Exam: Appropriate Responses VTE Prophylaxis VTE Prophylaxis Meds: Heparin PUD Prophylasis PUD Prophylaxis: Protonix Assessment/Plan Assessment/Plan ASSESSMENT 1. COPD exacerbation. 2. Acute on chronic bronchitis with chronic lung changes on x-ray. 3. Seems like SARS on admission. History of arthritis. 4. History of anemia. 5. Hypertension. 6. Leukocytosis likely secondary to steroids and infection. resolved. PLAN IV steroids. IV antibiotic. Breathing treatments. Monitor labs. Pulmonary consult. Continue some of home medications as indicated. As the patient failed outpatient therapy, need to observe in house. If needed we may convert into inpatient. Discussed with the patient. Further recommendation to follow as per patient's progress. GI prophylaxis and DVT prophylaxis as well. Discussed Condition with: Patient Honorio Viera MD March 18, 2017 08:18
[2017-03-18] MEDS: FAMOTIDINE 20 MG TAB PO SCH ×2 (08:19→22:47)
[2017-03-18] MEDS: SODIUM CHLORIDE 0.9% FLUSH 10 ML FLUSH IV FLUSH SCH ×2 (08:20→22:46)
[2017-03-18] MEDS: cefTRIAXone 1,000 MG/NS 100 ML IV SCH ×2 (14:49)
[2017-03-18] MEDS: ASPIRIN EC 81 MG TABEC PO SCH (22:47)
[2017-03-18] MEDS: ATORVASTATIN 20 MG TAB PO SCH (22:47)
[2017-03-19] VITALS (8 sets, daily range): BP systolic 134–176; BP diastolic 75–97; PULSE 89–102; RESP 18–22; TEMP 95.4–98.4; O2SAT 90–94
[2017-03-19] MEDS: RESP: ALBUTEROL 2.5 MG/IPRATROPIUM 0.5 MG NEB (SCH) INH ×4 (03:12→21:13)
[2017-03-19 06:36] LABS: AUTOMATED NEUTROPHIL # 14.6 TH/MM3 (1.8-7.7); BASOPHIL % 0.2 % (0.0-2.0); EOSINOPHIL # 0.1 TH/MM3 (0-0.4); EOSINOPHIL % 0.8 % (0.0-4.0); HEMATOCRIT 42.2 % (39.0-51.0); LYMPH % 2.5 % (9.0-44.0); LYMPHOCYTE # 0.4 TH/MM3 (1.0-4.8); MEAN CELL VOLUME 76.7 FL (80.0-100.0); MEAN CORPUSCULAR HEMOGLOBIN 24.4 PG (27.0-34.0); MEAN CORPUSCULAR HGB CONC 31.8 % (32.0-36.0); MONO % 3.8 % (0.0-8.0); NEUT % 92.7 % (16.0-70.0); PLATELET COUNT 260 TH/MM3 (150-450); RED CELL DISTRIBUTION WIDTH 22.8 % (11.6-17.2); WHITE BLOOD COUNT 15.7 TH/MM3 (4.0-11.0)
[2017-03-19 06:37] LABS: HEMO FLAGS AUTO DIFF
[2017-03-19 06:45] LABS: CHLORIDE 102 MEQ/L (98-107); POTASSIUM 4.3 MEQ/L (3.5-5.1); SODIUM (NA) 142 MEQ/L (136-145)
[2017-03-19 06:52] LABS: ANION GAP 8 MEQ/L (5-15); BLOOD UREA NITROGEN 22 MG/DL (7-18)
[2017-03-19 06:55] LABS: ALT (GPT) 24 U/L (12-78); AST (GOT) 11 U/L (15-37); GLOMERULAR FILTRATION RATE 59 ML/MIN (>89)
[2017-03-19 06:56] LABS: TOTAL BILIRUBIN ADULT 0.5 MG/DL (0.2-1.0)
[2017-03-19] MEDS: methylPREDNISolone SOD SUCC 125 MG/2 ML VIAL IVP SCH (06:56)
[2017-03-19 06:57] LABS: ALKALINE PHOSPHATASE 95 U/L (45-117)
[2017-03-19] MEDS: HEPARIN SODIUM - SQ 10,000 UNITS/ML VIAL SQ SCH ×2 (06:57→17:10)
[2017-03-19 07:13] LABS: KERATOCYTES OCC (NORMAL); OVALOCYTES 1+ (NORMAL); SCAN/DIFF AUTO DIFF CONFIRMED; TARGET CELLS 1+ (NORMAL)
--- NOTE | 2017-03-19 08:02 | HHI.PR ---
Subjective History of Present Illness Patient SOB/ Wheezing better no other acute issue. D/W KATHIA Baez. Possible DC Tomorrow. Review of Systems Constitutional Constitutional: Fatigue, Weakness Pulmonary Respiratory: Coughing, Shortness of Breath, Wheezing Vitals/Results Intake & Output 03/18/17 03/18/17 03/19/17 15:00 23:00 07:00 Intake Total 1350 ml 220 ml Output Total 200 ml 600 ml 900 ml Balance -200 ml 750 ml -680 ml Intake Oral 1350 ml 220 ml Output Urine Total 200 ml 600 ml 900 ml # Voids 2 # Bowel Movements 1 0 Vital Signs Vital Signs Date Time Temp Pulse Resp B/P Pulse Ox O2 Delivery O2 Flow Rate FiO2 03/19/17 04:00 98.4 89 22 134/75 94 03/19/17 00:00 98.3 90 22 135/75 93 03/18/17 21:10 92 Nasal Cannula 3.00 03/18/17 20:00 97.0 91 20 142/86 93 03/18/17 17:35 97.1 93 16 162/86 92 03/18/17 12:00 96.3 96 14 160/86 92 03/18/17 09:19 92 Nasal Cannula 3.00 03/18/17 09:03 96.5 95 18 164/99 93 CBC/BMP: 03/19/17 0610 03/19/17 0610 Lab Results Laboratory Tests Test 03/19/17 06:10 White Blood Count 15.7 TH/MM3 Red Blood Count 5.50 MIL/MM3 Hemoglobin 13.4 GM/DL Hematocrit 42.2 % Mean Corpuscular Volume 76.7 FL Mean Corpuscular Hemoglobin 24.4 PG Mean Corpuscular Hemoglobin 31.8 % Concent Red Cell Distribution Width 22.8 % Platelet Count 260 TH/MM3 Mean Platelet Volume 9.6 FL Neutrophils (%) (Auto) 92.7 % Lymphocytes (%) (Auto) 2.5 % Monocytes (%) (Auto) 3.8 % Eosinophils (%) (Auto) 0.8 % Basophils (%) (Auto) 0.2 % Neutrophils # (Auto) 14.6 TH/MM3 Lymphocytes # (Auto) 0.4 TH/MM3 Monocytes # (Auto) 0.6 TH/MM3 Eosinophils # (Auto) 0.1 TH/MM3 Basophils # (Auto) 0.0 TH/MM3 CBC Comment AUTO DIFF Differential Comment AUTO DIFF CONFIRMED Target Cells 1+ Ovalocytes 1+ Keratocytes OCC Sodium Level 142 MEQ/L Potassium Level 4.3 MEQ/L Chloride Level 102 MEQ/L Carbon Dioxide Level 32.0 MEQ/L Anion Gap 8 MEQ/L Blood Urea Nitrogen 22 MG/DL Creatinine 1.20 MG/DL Estimat Glomerular Filtration 59 ML/MIN Rate Random Glucose 145 MG/DL Calcium Level 8.7 MG/DL Total Bilirubin 0.5 MG/DL Aspartate Amino Transf 11 U/L (AST/SGOT) Alanine Aminotransferase 24 U/L (ALT/SGPT) Alkaline Phosphatase 95 U/L Total Protein 6.4 GM/DL Albumin 3.1 GM/DL Microbiology Microbiology 03/18/17 Gram Stain, Received Pending 03/18/17 Sputum Culture, Received Pending Physical Exam General General Appearance: No Acute Distress, Comfortable Eyes Eye Exam: Pupils Equal, Pupils Reactive, Sclera White, Extraocular Movement Intact Throat Throat Exam: Oral Mucosa [place] & Moist, Oral Pharynx Normal Neck Neck Exam: Neck Supple, Trachea Midline Pulmonary Resp Exam: Crackles, Decreased Bases Resp Remarks bilateral wheezing. Cardiology CV Exam: Regular, Normal Sinus Rhythm Gastrointestinal/Abdomen GI Exam: Soft, Non-Tender, Bowel Sounds Present, Non-Distended, Distended Musculoskeletal MS Exam: Normal Tone, Good Strength Integumentary Skin Exam: Clear, Warm, Dry, Intact Extremeties Extremities Exam: No Edema Neurologic Neuro Exam: Alert, Awake, Oriented, Speech Clear, Moving All Extremities, No Focal Deficits Psychiatric Psych Exam: Appropriate Responses VTE Prophylaxis VTE Prophylaxis Meds: Heparin PUD Prophylasis PUD Prophylaxis: Protonix Assessment/Plan Assessment/Plan ASSESSMENT 1. COPD exacerbation. 2. Acute on chronic bronchitis with chronic lung changes on x-ray. 3. Seems like SARS on admission. History of arthritis. 4. History of anemia. 5. Hypertension. 6. Leukocytosis likely secondary to steroids and infection. resolved. PLAN PO steroids Prednisone. IV antibiotic. Breathing treatments. Monitor labs. Pulmonary input noted. Continue some of home medications as indicated. Discussed with the patient. Further recommendation to follow as per patient's progress. GI prophylaxis and DVT prophylaxis as well. Check CBC with diff CMP in AM. Possible DC Tomorrow. Discussed Condition with: Patient Honorio Viera MD March 19, 2017 08:02
[2017-03-19] MEDS: SODIUM CHLORIDE 0.9% FLUSH 10 ML FLUSH IV FLUSH SCH ×2 (09:52→20:54)
[2017-03-19] MEDS: predniSONE 20 MG TAB PO SCH ×2 (09:52→20:53)
[2017-03-19] MEDS: FAMOTIDINE 20 MG TAB PO SCH ×2 (09:53→20:54)
[2017-03-19] MEDS: cefTRIAXone 1,000 MG/NS 100 ML IV SCH ×2 (15:13)
--- NOTE | 2017-03-19 20:17 | HHI.PR ---
Subjective Remarks 76 YOWM with COPD exac, bronchitis Feels better Ambulates with 02 Breathing better Objective Vital Signs Vital Signs Date Time Temp Pulse Resp B/P Pulse Ox O2 Delivery O2 Flow Rate FiO2 03/19/17 16:00 95.4 92 21 152/91 92 03/19/17 12:00 95.6 98 22 152/85 92 03/19/17 10:18 92 Nasal Cannula 2.50 03/19/17 08:00 95.9 97 22 176/97 90 03/19/17 04:00 98.4 89 22 134/75 94 03/19/17 00:00 98.3 90 22 135/75 93 03/18/17 21:10 92 Nasal Cannula 3.00 I/O 03/18/17 03/18/17 03/18/17 03/19/17 03/19/17 03/19/17 07:00 15:00 23:00 07:00 15:00 23:00 Intake Total 0 ml 1350 ml 220 ml 900 ml 650 ml Output Total 1000 ml 200 ml 600 ml 900 ml Balance -1000 ml -200 ml 750 ml -680 ml 900 ml 650 ml Intake Oral 1350 ml 220 ml 900 ml 550 ml IV Total 0 ml 100 ml Output Urine Total 1000 ml 200 ml 600 ml 900 ml # Voids 2 4 # Bowel Movements 1 0 0 Result Diagram: 03/19/17 0610 03/19/17 0610 Objective Remarks GENERAL: MBMN WM mild sob on ambulation SKIN: Warm and dry. HEAD: Normocephalic. EYES: No scleral icterus. No injection or drainage. NECK: Supple, trachea midline. No JVD or lymphadenopathy. CARDIOVASCULAR: Regular rate and rhythm without murmurs, gallops, or rubs. RESPIRATORY: Breath sounds equal bilaterally. No accessory muscle use. GASTROINTESTINAL: Abdomen soft, non-tender, nondistended. MUSCULOSKELETAL: No cyanosis, or edema. BACK: Nontender without obvious deformity. No CVA tenderness. A/P Assessment and Plan COPD Exac improving Bronchitis PAD GERD PLAN: DW Pt and DC Solumedrol PO Prednisone Chenge to PO Abx DC plans for home vs rehab Deo Quiñones MD March 19, 2017 20:17
[2017-03-19] MEDS: CEFUROXIME AXETIL 500 MG TAB PO SCH (20:53)
[2017-03-19] MEDS: ASPIRIN EC 81 MG TABEC PO SCH (20:53)
[2017-03-19] MEDS: ATORVASTATIN 20 MG TAB PO SCH (20:54)
[2017-03-20] VITALS: BP 133/69; PULSE 83; RESP 18; TEMP 95.4; O2SAT 92
[2017-03-20] MEDS: RESP: ALBUTEROL 2.5 MG/IPRATROPIUM 0.5 MG NEB (SCH) INH (03:18)
[2017-03-20] MEDS: HEPARIN SODIUM - SQ 10,000 UNITS/ML VIAL SQ SCH (05:47)
[2017-03-20 06:40] LABS: AUTOMATED NEUTROPHIL # 13.6 TH/MM3 (1.8-7.7); BASOPHIL % 0.3 % (0.0-2.0); HEMATOCRIT 40.1 % (39.0-51.0); LYMPH % 3.3 % (9.0-44.0); LYMPHOCYTE # 0.5 TH/MM3 (1.0-4.8); MEAN CELL VOLUME 76.1 FL (80.0-100.0); MEAN CORPUSCULAR HEMOGLOBIN 24.1 PG (27.0-34.0); MEAN CORPUSCULAR HGB CONC 31.7 % (32.0-36.0); MONO % 4.6 % (0.0-8.0); NEUT % 91.8 % (16.0-70.0); PLATELET COUNT 244 TH/MM3 (150-450); RED BLOOD COUNT 5.27 MIL/MM3 (4.50-5.90); WHITE BLOOD COUNT 14.8 TH/MM3 (4.0-11.0)
[2017-03-20 06:47] LABS: CHLORIDE 103 MEQ/L (98-107); POTASSIUM 4.5 MEQ/L (3.5-5.1); SODIUM (NA) 142 MEQ/L (136-145)
[2017-03-20 06:51] LABS: ANION GAP 5 MEQ/L (5-15); BICARBONATE 33.8 MEQ/L (21.0-32.0); BLOOD UREA NITROGEN 27 MG/DL (7-18)
[2017-03-20 06:54] LABS: ALT (GPT) 27 U/L (12-78); AST (GOT) 12 U/L (15-37); GLOMERULAR FILTRATION RATE 65 ML/MIN (>89)
[2017-03-20 06:55] LABS: TOTAL BILIRUBIN ADULT 0.3 MG/DL (0.2-1.0)
[2017-03-20 06:57] LABS: ALKALINE PHOSPHATASE 88 U/L (45-117)
[2017-03-20 06:59] LABS: HEMO FLAGS DIFF FINAL
[2017-03-20 08:00] VITALS: BP 136/79; PULSE 82; RESP 20; TEMP 96.1; O2SAT 95
--- NOTE | 2017-03-20 08:34 | HHI.PR ---
Subjective History of Present Illness Patient SOB/ Wheezing better no other acute issue. D/W KATHIA [email or web address] to DC home today. Review of Systems Constitutional Constitutional: Fatigue, Weakness Pulmonary Respiratory: Coughing, Shortness of Breath, Wheezing Vitals/Results Intake & Output 03/19/17 03/19/17 03/20/17 15:00 23:00 07:00 Intake Total 900 ml 1130 ml 420 ml Balance 900 ml 1130 ml 420 ml Intake Oral 900 ml 1030 ml 420 ml IV Total 100 ml # Voids 4 2 2 # Bowel Movements 0 0 0 Vital Signs Vital Signs Date Time Temp Pulse Resp B/P Pulse Ox O2 Delivery O2 Flow Rate FiO2 03/20/17 08:00 96.1 82 20 136/79 95 03/20/17 00:00 95.4 83 18 133/69 92 03/19/17 21:15 94 Nasal Cannula 3.00 03/19/17 20:00 97.6 102 18 161/92 93 03/19/17 16:00 95.4 92 21 152/91 92 03/19/17 12:00 95.6 98 22 152/85 92 03/19/17 10:18 92 Nasal Cannula 2.50 CBC/BMP: 03/20/17 0515 03/20/17 0515 Lab Results Laboratory Tests Test 03/20/17 05:15 White Blood Count 14.8 TH/MM3 Red Blood Count 5.27 MIL/MM3 Hemoglobin 12.7 GM/DL Hematocrit 40.1 % Mean Corpuscular Volume 76.1 FL Mean Corpuscular Hemoglobin 24.1 PG Mean Corpuscular Hemoglobin 31.7 % Concent Red Cell Distribution Width 23.0 % Platelet Count 244 TH/MM3 Mean Platelet Volume 9.5 FL Neutrophils (%) (Auto) 91.8 % Lymphocytes (%) (Auto) 3.3 % Monocytes (%) (Auto) 4.6 % Eosinophils (%) (Auto) 0.0 % Basophils (%) (Auto) 0.3 % Neutrophils # (Auto) 13.6 TH/MM3 Lymphocytes # (Auto) 0.5 TH/MM3 Monocytes # (Auto) 0.7 TH/MM3 Eosinophils # (Auto) 0.0 TH/MM3 Basophils # (Auto) 0.0 TH/MM3 CBC Comment DIFF FINAL Differential Comment Sodium Level 142 MEQ/L Potassium Level 4.5 MEQ/L Chloride Level 103 MEQ/L Carbon Dioxide Level 33.8 MEQ/L Anion Gap 5 MEQ/L Blood Urea Nitrogen 27 MG/DL Creatinine 1.10 MG/DL Estimat Glomerular Filtration 65 ML/MIN Rate Random Glucose 129 MG/DL Calcium Level 8.4 MG/DL Total Bilirubin 0.3 MG/DL Aspartate Amino Transf 12 U/L (AST/SGOT) Alanine Aminotransferase 27 U/L (ALT/SGPT) Alkaline Phosphatase 88 U/L Total Protein 6.1 GM/DL Albumin 3.0 GM/DL Physical Exam General General Appearance: No Acute Distress, Comfortable Eyes Eye Exam: Pupils Equal, Pupils Reactive, Sclera White, Extraocular Movement Intact Throat Throat Exam: Oral Mucosa [place] & Moist, Oral Pharynx Normal Neck Neck Exam: Neck Supple, Trachea Midline Pulmonary Resp Exam: Crackles, Decreased Bases Resp Remarks bilateral wheezing. Cardiology CV Exam: Regular, Normal Sinus Rhythm Gastrointestinal/Abdomen GI Exam: Soft, Non-Tender, Bowel Sounds Present, Non-Distended, Distended Musculoskeletal MS Exam: Normal Tone, Good Strength Integumentary Skin Exam: Clear, Warm, Dry, Intact Extremeties Extremities Exam: No Edema Neurologic Neuro Exam: Alert, Awake, Oriented, Speech Clear, Moving All Extremities, No Focal Deficits Psychiatric Psych Exam: Appropriate Responses VTE Prophylaxis VTE Prophylaxis Meds: Heparin PUD Prophylasis PUD Prophylaxis: Protonix Assessment/Plan Assessment/Plan ASSESSMENT 1. COPD exacerbation. 2. Acute on chronic bronchitis with chronic lung changes on x-ray. 3. Seems like SARS on admission. History of arthritis. 4. History of anemia. 5. Hypertension. 6. Leukocytosis likely secondary to steroids and infection. resolved. PLAN PO steroids Prednisone. IV antibiotic. Breathing treatments. Monitor labs. Pulmonary input noted. Continue some of home medications as indicated. Discussed with the patient. Further recommendation to follow as per patient's progress. GI prophylaxis and DVT prophylaxis as well. ok to dc home today f/u with pcp/pulmonary 1 week. Discussed Condition with: Patient Honorio Viera MD March 20, 2017 08:34
[2017-03-20] MEDS ORDERED: CEFT500T3 PO (08:36)
[2017-03-20] MEDS: CEFUROXIME AXETIL 500 MG TAB PO SCH (09:10)
[2017-03-20] MEDS: FAMOTIDINE 20 MG TAB PO SCH (09:10)
[2017-03-20] MEDS: predniSONE 20 MG TAB PO SCH (09:10)
[2017-03-20] MEDS: SODIUM CHLORIDE 0.9% FLUSH 10 ML FLUSH IV FLUSH SCH (09:10)
--- NOTE | 2017-03-23 08:09 | MD ---
cc: HONORIO BELL MD ADMISSION DATE: 03/17/2017 DISCHARGE DATE: 03/20/2017 DISPOSITION Okay to discharge the patient home. CONDITION AT THE TIME OF DISCHARGE Satisfactory. ACTIVITY As tolerated. DIET Cardiac diet. ALLERGY CIPRO. PNEUMOCOCCAL VACCINE. MEDICATIONS 1. Rocephin 500 mg twice a day for 7 days. 2. Albuterol inhaler, 2 puff inhalation q.4 hours p.r.n. cough, congestion, wheezing and shortness of breath. 3. Aspirin 81 mg p.o. q.h.s. 4. Coenzyme Q10 200 mg p.o. at bedtime. 5. Advair HFA 115/21 mcg, 2 puffs inhalation twice a day. 6. Ipratropium HFA 2 puffs inhalation q.6 h. 7. Multivitamin p.o. daily. 8. [place]-3 polyunsaturated fatty acid 1200 mg p.o. at bedtime. 9. Prednisone 10 mg twice a day. 10. Rosuvastatin 10 mg p.o. at bedtime. FOLLOWUP Patient advised to follow up with PCP and pulmonary in one week. ADMISSION DIAGNOSIS Shortness of breath secondary to COPD exacerbation. DISCHARGE DIAGNOSES 1. COPD exacerbation improved. The patient's shortness of breath improved. 2. Acute on chronic bronchitis. 3. History of anemia. 4. History of hypertension. HOSPITAL COURSE This is a 76-year male admitted with above-mentioned complaints and problems, seen by Pulmonary. The patient was given IV steroids and also given Rocephin during the hospital stay IV. The patient remained stable. No acute event happened. Dr. Jaylan Quiñones was the patient during the hospital stay. The patient was discharged in satisfactory condition. Further details in the medical record. Honorio Bell MD EA/CHEYENNE /8:40 AM /8:00 AM
== END 2017-03-20 10:41 | disposition home or self-care (01) ==
LOC: PHED 11:28 → PHEDA 14:02 → PH3A 14:51
PROVIDERS: ADMIT Family Medicine; ATTEND Family Medicine
DX: J44.1 Chronic obstructive pulmonary disease with (acute) exacerbation (principal); J20.9 Acute bronchitis, unspecified; J44.0 Chronic obstructive pulmonary disease with (acute) lower respiratory infection; K21.9 Gastro-esophageal reflux disease without esophagitis; I73.9 Peripheral vascular disease, unspecified; D72.829 Elevated white blood cell count, unspecified; I10 Essential (primary) hypertension; D64.9 Anemia, unspecified; E78.00 Pure hypercholesterolemia, unspecified; Z88.1 Allergy status to other antibiotic agents; Z88.7 Allergy status to serum and vaccine; Z87.11 Personal history of peptic ulcer disease; Z87.891 Personal history of nicotine dependence; Z96.611 Presence of right artificial shoulder joint; Z96.612 Presence of left artificial shoulder joint
CPT/HCPCS: 36600; 71010; 80048; 80053; 82550; 82805; 83605; 83880; 84484; 85025; 85610; 85730; 87040; 87070; 87205; 93005; 94640; 94664; 96365; 96367; 96375; 99285; G0378; J0696; J1644; J2543; J2930; J3370; J7030; J7050; J7512

== ENCOUNTER 2017-06-07 09:40 | Emergency (ER) | payer MEDICARE ==
[~2017-06-07] VITALS: Ht 172.7 cm; Wt 85.0 kg
[~2017-06-07 09:40] MED LIST changes: +FE FCAP PO; -FURO20TA PO; -LORA-392 PO; -NYST1000 SWISH-SWAL; -PARO20TA2 PO; +PRED10 PO; -ZITHTAB PO
[2017-06-07 09:42] VITALS: BP 138/70; PULSE 79; RESP 20; TEMP 98; O2SAT 92
[2017-06-07] MEDS ORDERED: OMEGCAP PO (09:53)
[2017-06-07] MEDS ORDERED: IPRASOL INH (09:53)
[2017-06-07] MEDS ORDERED: FISHCAP4 PO (09:53)
--- NOTE | 2017-06-07 09:57 | PD ---
HPI Chief Complaint: Pain: Acute or Chronic Time Seen by Provider: 09:49 Travel History International Travel<30 days: No Contact w/Intl Traveler<30days: No Traveled to known affect area: No History of Present Illness HPI Patient presents with complaints of right calf pain after a fall yesterday. States he was walking in the house when he fell forward partially onto the left seat and his knees. Denies any head trauma. Denies any loss consciousness. Continues to ambulate with pain in his right calf. History of peripheral vascular disease, takes enteric-coated aspirin daily. Denies any swelling or erythema. Denies any knee pain. Denies any ankle pain. Aggravated by ambulation, relieved with rest PFSH Past Medical History Hx Anticoagulant Therapy: Yes Arthritis: Yes Asthma: Yes Autoimmune Disease: No Cancer: Yes (ca polyp removed during colonoscopy) Cardiovascular Problems: No High Cholesterol: Yes Chemotherapy: No Congestive Heart Failure: No COPD: Yes Coronary Artery Disease: No Diabetes: No Diminished Hearing: No Endocrine: No Gastrointestinal Disorders: Yes (GERD) Genitourinary: No Hepatitis: No Hiatal Hernia: Yes Hypertension: Yes Immune Disorder: No Inguinal Hernia: Yes (bilateral) Implanted Vascular Access Dvce: Yes Musculoskeletal: Yes Neurologic: No Psychiatric: No Reproductive: No Respiratory: Yes Immunizations Current: Yes Radiation Therapy: No Thyroid Disease: No Ulcer: Yes (hx bleeding [id number] yrs ago) ?: Not Past Surgical History Abdominal Surgery: No AICD: No Cardiac Surgery: Yes (bilateral angiograms) Ear Surgery: No Endocrine Surgery: No Eye Surgery: Yes (BILATERAL CATARACT EXTRACT) Genitourinary Surgery: No Gynecologic Surgery: No Joint Replacement: Yes (BILATERAL SHOULDERS) Oral Surgery: Yes Pacemaker: No Thoracic Surgery: No Other Surgery: Yes (VASCULAR SURGERY LEFT LEG, papliteal aneurysm with thrombosis) Social History Alcohol Use: No Tobacco Use: No (QUIT 11/2015) Substance Use: No Allergies-Medications (Allergen,Severity, Reaction): Coded Allergies: Cipro (Verified Allergy, Intermediate, RASH,SOB,TENDONITIS, 06/07/17) Pneumococcal Vaccine (Verified Allergy, Intermediate, SWELLING/RASH, ) Reported Meds & Prescriptions Reported Meds & Active Scripts Active Reported Fish Oil + D3 (Fish Oil-Cholecalciferol) 1,200-1,000 Mg-Unit Cap 1 Cap PO DAILY Duoneb (Ipratropium-Albuterol Neb) 0.5-2.5 Mg/3 Ml Neb 1 Nebule INH Q4HR NEB [place]-3 Fish Oil/Vitamin (Fish Oil-Cholecalciferol) 1,000-1,000 Mg Cap 1 Cap PO DAILY Integra (Multi-Vit/Iron-B Comp-Vit C) 62.5-62.5-40-3 mg Cap 1 Tab PO DAILY Atrovent HFA 12.9 GM Inh (Ipratropium [place]) 17 Mcg/Act Aer 2 Puff INH Q6HR PRN Advair Hfa 12 GM Inh (Fluticasone-Salmeterol 12 GM Inh) 115-21 Mcg/Act Aer 2 Puff INH BID Ecotrin Low Strength (Aspirin) 81 Mg Tabdr 81 Mg PO HS Rosuvastatin (Rosuvastatin Calcium) 10 Mg Tab 10 Mg PO HS Proair Hfa 8.5 GM Inh (Albuterol Sulfate) 90 Mcg/Act Aer 1 Puff INH Q4H PRN 108 mcg/actuation Review of Systems General / Constitutional: No: Fever Eyes: No: Visual changes HENT: No: Headaches Cardiovascular: No: Chest Pain or Discomfort Respiratory: No: Shortness of Breath Gastrointestinal: No: Abdominal Pain Genitourinary: No: Dysuria Musculoskeletal: No: Pain Skin: No Rash Neurologic: No: Weakness Psychiatric: No: Depression Endocrine: No: Polydipsia Hematologic/Lymphatic: No: Easy Bruising Physical Exam Narrative GENERAL: Well-nourished, well-developed patient. SKIN: Focused skin assessment warm/dry. HEAD: Normocephalic. EYES: No scleral icterus. No injection or drainage. NECK: Supple, trachea midline. No JVD or lymphadenopathy. CARDIOVASCULAR: Regular rate and rhythm without murmurs, gallops, or rubs. RESPIRATORY: Breath sounds equal bilaterally. No accessory muscle use. GASTROINTESTINAL: Abdomen soft, non-tender, nondistended. MUSCULOSKELETAL: No cyanosis, or edema. BACK: Nontender without obvious deformity. No CVA tenderness. Examination right lower extremity reveals mild aggravation of calf pain with flexion extension of the ankle, no pain with flexion extension of the knee, no erythema or edema, tender to palpation of the calf without ecchymosis pain is slightly elicited with palpation of the tibial surface Data Data Last Documented VS Vital Signs Date Time Temp Pulse Resp B/P Pulse Ox O2 Delivery O2 Flow Rate FiO2 06/07/17 09:42 98.0 79 20 138/70 92 Orders Tibia/Fibula (Ap/Lat) (06/07/17 ) MDM Medical Decision Making Medical Screen Exam Complete: Yes Emergency Medical Condition: Yes Differential Diagnosis Calf muscle strain, tib-fib fracture, DVT Narrative Course Assessment and plan discussed with patient and at bedside. DVT is unlikely secondary to acute onset after a fall. Last 72 hours Impressions Tibia/Fibula X-Ray 06/07/17 0000 Signed Impressions: Service Date/Time: Wednesday, June 07, 2017 10:06 - CONCLUSION: Negative for acute process. Sriram Stanford MD FACR Diagnosis Primary Impression: Strain of calf muscle Qualified Code: S86.811A - Strain of calf muscle, right, initial encounter Patient Instructions: General Instructions Additional Instructions: Encourage nonsteroidal anti-inflammatories warm heat gentle stretching and strengthening and massage. Follow-up with PCP. Encouraged to return to emergency room with any onset of new symptoms. Med/Other Pt SpecificInfo: No Meds Exist/No RX given Disposition: 01 DISCHARGE HOME Condition: Good Robbin Randolph MD Jun 07, 2017 09:57
--- NOTE | 2017-06-07 10:35 | RADRPT ---
EXAM DATE/TIME: 06/07/2017 10:06 [facility] COMPARISON: No previous studies available for comparison. INDICATIONS : Right upper posterior lower leg pain and swelling from a fall MEDICAL HISTORY : Chronic obstructive pulmonary disease. Emphysema. blood clots SURGICAL HISTORY : Vascular surgery bilateral legs ENCOUNTER: Initial ACUITY: 3 days PAIN SCORE: 8/10 LOCATION: Right posterior lower leg FINDINGS: Two view examination of the right tibia demonstrates no evidence of fracture or dislocation. Bony mi neralization is normal. The soft tissue structures are intact. Evidence for previous surgery is not ed. CONCLUSION: Negative for acute process. Sriram Stanford MD FACR on June 07, 2017 at 10:33 Board Certified Radiologist. This report was verified electronically.
== END 2017-06-07 11:09 | disposition home or self-care (01) ==
LOC: PHED 09:40
DX: S86.111A Strain of other muscle(s) and tendon(s) of posterior muscle group at lower leg level, right leg, initial encounter (principal); W19.XXXA Unspecified fall, initial encounter; Y93.01 Activity, walking, marching and hiking; Y92.009 Unspecified place in unspecified non-institutional (private) residence as the place of occurrence of the external cause
CPT/HCPCS: 73590; 99283

== ENCOUNTER 2017-09-22 08:26 | Emergency (ER) | payer MEDICARE ==
[~2017-09-22] VITALS: Ht 172.7 cm; Wt 84.2 kg
[~2017-09-22 08:26] MED LIST changes: -CEFT500T3 PO; -COQ1200C PO; -FE FCAP; -FISH120014 PO; +FISHCAP4 PO; +IPRASOL INH; +OMEGCAP PO; -PRED10 PO
[2017-09-22 08:36] VITALS: BP 167/87; PULSE 94; RESP 20; TEMP 97.7; O2SAT 90
[2017-09-22] MEDS ORDERED: PRED5TAB PO (08:46)
[2017-09-22 09:03] VITALS: PULSE 89; O2SAT 94
--- NOTE | 2017-09-22 09:11 | PD ---
HPI Chief Complaint: Musculoskeletal Complaint Time Seen by Provider: 09:00 Travel History International Travel<30 days: No Contact w/Intl Traveler<30days: No Traveled to known affect area: No History of Present Illness HPI 77-year-old male with history of COPD on 3 L of oxygen at home presents for evaluation of right elbow pain. Symptoms started yesterday. Pain is an aching pain in his right elbow that is worse with movement. 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 He denies fevers, chills. No history of gout. He has no other complaints at this time. PFSH Past Medical History Hx Anticoagulant Therapy: Yes Arthritis: Yes Asthma: Yes Autoimmune Disease: No Cancer: Yes (ca polyp removed during colonoscopy) Cardiovascular Problems: No High Cholesterol: Yes Chemotherapy: No Congestive Heart Failure: No COPD: Yes Coronary Artery Disease: No Diabetes: No Diminished Hearing: No Endocrine: No Gastrointestinal Disorders: Yes (GERD) Genitourinary: No Hepatitis: No Hiatal Hernia: Yes Hypertension: No Immune Disorder: No Inguinal Hernia: Yes (bilateral) Implanted Vascular Access Dvce: Yes Musculoskeletal: Yes Neurologic: No Psychiatric: No Reproductive: No Respiratory: Yes Immunizations Current: Yes Radiation Therapy: No Thyroid Disease: No Ulcer: Yes (hx bleeding [id number] yrs ago) ?: Not Past Surgical History Abdominal Surgery: No AICD: No Cardiac Surgery: Yes Ear Surgery: No Endocrine Surgery: No Eye Surgery: Yes (BILATERAL CATARACT EXTRACT) Genitourinary Surgery: No Gynecologic Surgery: No Joint Replacement: Yes (BILATERAL SHOULDERS) Oral Surgery: Yes Pacemaker: No Thoracic Surgery: No Other Surgery: Yes (FEM POP BLE) Social History Alcohol Use: No Tobacco Use: No (QUIT 11/2015) Substance Use: No Allergies-Medications (Allergen,Severity, Reaction): Coded Allergies: ciprofloxacin (Unverified Allergy, Intermediate, RASH,SOB,TENDONITIS, ) pneumococcal vaccine (Unverified Allergy, Intermediate, SWELLING/RASH, ) Reported Meds & Prescriptions Reported Meds & Active Scripts Active Tylenol-Codeine #3 (Acetaminophen-Codeine) 300-30 mg Tab 1 Tab PO Q4H PRN Reported Prednisone 5 Mg Tab 5 Mg PO DAILY Duoneb (Ipratropium-Albuterol Neb) 0.5-2.5 Mg/3 Ml Neb 1 Nebule INH Q4HR NEB [place]-3 Fish Oil/Vitamin (Fish Oil-Cholecalciferol) 1,000-1,000 Mg Cap 1 Cap PO DAILY Integra (Multi-Vit/Iron-B Comp-Vit C) 62.5-62.5-40-3 mg Cap 1 Tab PO DAILY Atrovent HFA 12.9 GM Inh (Ipratropium [place]) 17 Mcg/Act Aer 2 Puff INH Q6HR PRN Advair Hfa 12 GM Inh (Fluticasone-Salmeterol 12 GM Inh) 115-21 Mcg/Act Aer 2 Puff INH BID Ecotrin Low Strength (Aspirin) 81 Mg Tabdr 81 Mg PO HS Rosuvastatin (Rosuvastatin Calcium) 10 Mg Tab 10 Mg PO HS Proair Hfa 8.5 GM Inh (Albuterol Sulfate) 90 Mcg/Act Aer 1 Puff INH Q4H PRN 108 mcg/actuation Review of Systems Except as stated in HPI: all other systems reviewed are Neg Physical Exam Narrative GENERAL: Well-developed well-nourished male in no acute distress SKIN: Warm and dry. HEAD: Atraumatic. Normocephalic. CARDIOVASCULAR: Regular rate and rhythm. No murmur appreciated. RESPIRATORY: No accessory muscle use. Wheezing noted. GASTROINTESTINAL: Abdomen soft, non-tender, nondistended. Hepatic and splenic margins not palpable. MUSCULOSKELETAL: No obvious deformities. The right elbow is tender to palpation and there appears to be a joint effusion. There is no erythema, the joint is not warm to palpation. The patient is able to flex and extend his right elbow with some pain. NEUROLOGICAL: Awake and alert. No obvious cranial nerve deficits. Motor grossly within normal limits. Normal speech. Data Data Last Documented VS Vital Signs Date Time Temp Pulse Resp B/P (MAP) Pulse Ox O2 Delivery O2 Flow Rate FiO2 09/22/17 09:38 94 3.00 09/22/17 09:03 Nasal Cannula 09/22/17 09:03 89 09/22/17 08:36 97.7 20 167/87 (113) Orders Orders Elbow, Complete (4 Vws) (09/22/17 ) Splint Or Brace Apply/Monitor (09/22/17 09:55) Ed Discharge Order (09/22/17 09:55) [facility] Medical Decision Making Medical Screen Exam Complete: Yes Emergency Medical Condition: Yes Medical Record Reviewed: Yes Differential Diagnosis Gouty arthritis, bursitis, tendinitis, septic arthritis, other inflammatory arthritis Narrative Course 77-year-old male with 2 days of right elbow pain. On examination he doesn't appear to have a right elbow effusion. The joint does not appear septic- it is not erythematous or warm, range of motion is preserved. X-ray imaging reveals CONCLUSION: 1. Questionable nondisplaced radial neck fracture. 2. Large joint effusion. 3. Advanced osteoarthritis. There is no history of trauma to suggest fracture. Plan at this point in time would be to have the patient follow-up this week with an orthopedist. He'll be placed in a posterior long-arm splint. Discussed signs and symptoms that weren' t returning to the emergency room. He is stable for discharge. Diagnosis Primary Impression: Effusion, right elbow Referrals: Gennaro Ewing Jr., MD Additional Instructions: Follow-up with an orthopedist such as Dr. Ewing in the next 3 days, call to make an appointment. Do not remove the splint. Tylenol with Codeine for pain. Do not drive or drink alcohol when taking this medication. Return for severe pain, fevers. Med/Other Pt SpecificInfo: Prescription(s) given, Orthopedic Instructions Scripts Acetaminophen-Codeine (Tylenol-Codeine #3) 300-30 mg Tab 1 TAB PO Q4H Y for PAIN, #15 TAB 0 Refills Prov: Erika Claudio MD 09/22/17 Disposition: 01 DISCHARGE HOME Condition: Stable Dae Tucker Sep 22, 2017 09:11
[2017-09-22 09:38] VITALS: O2SAT 94
--- NOTE | 2017-09-22 09:40 | RADRPT ---
EXAM DATE/TIME: 09/22/2017 09:25 [facility] COMPARISON: No previous studies available for comparison. INDICATIONS : Right elbow pain, no known injury. MEDICAL HISTORY : None. SURGICAL HISTORY : None. ENCOUNTER: Initial ACUITY: 1 day PAIN SCORE: 8/10 LOCATION: Right elbow FINDINGS: 4 views of the right elbow reveal a large joint effusion. There is advanced osteoarthritic changes in volving the elbow joint. Large osteophytes are seen. There is a questionable nondisplaced radial neck fracture. No induration or distraction. No intra-articular extension. Soft tissues are unremarkable. CONCLUSION: 1. Questionable nondisplaced radial neck fracture. 2. Large joint effusion. 3. Advanced osteoarthritis. Erickson Brenner Jr., MD on September 22, 2017 at 9:35 Board Certified Radiologist. This report was verified electronically.
[2017-09-22] MEDS ORDERED: TYLETAB34 PO (09:51)
== END 2017-09-22 11:07 | disposition home or self-care (01) ==
LOC: PHED 08:26 → PHEFT 11:07
DX: M25.421 Effusion, right elbow (principal)
CPT/HCPCS: 29105; 73080

== ENCOUNTER 2017-12-21 09:17 | Emergency (ER) | payer MEDICARE ==
[~2017-12-21] VITALS: Ht 172.7 cm; Wt 85.0 kg
[~2017-12-21 09:17] MED LIST changes: -FISHCAP4 PO; +PRED5TAB PO; +TYLETAB34 PO
[2017-12-21 09:27] VITALS: BP 150/80; PULSE 74; RESP 18; TEMP 98; O2SAT 91
[2017-12-21] MEDS ORDERED: FE FCAP (09:48)
[2017-12-21] MEDS ORDERED: COEN400C (09:48)
[2017-12-21] MEDS ORDERED: OXYGENDME NAS.CANULA (09:48)
[2017-12-21] MEDS ORDERED: CYCL5TAB PO (09:54)
[2017-12-21] MEDS ORDERED: NAPR500 PO (09:54)
[2017-12-21] MEDS ORDERED: KETOROLAC TROMETHAMINE 60 MG/2 ML (IM) VIAL IM ONE (10:00)
--- NOTE | 2017-12-21 10:00 | PD ---
HPI Chief Complaint: Back/ Neck Pain or Injury Time Seen by Provider: 09:38 Travel History International Travel<30 days: No Contact w/Intl Traveler<30days: No Traveled to known affect area: No History of Present Illness HPI 77-year-old male presents to the ED for evaluation of 3 day history of right- sided back pain, radiating into the buttocks and the right leg to the knee. Waxing and waning, occasionally sharp, 10/10 maximally. Patient states that he works 2 days a weeks for the [employer] service. He can recall no acute injury or overuse. He denies numbness, tingling, weakness, limitations to range of motion of the extremity. He denies saddle anesthesia or urinary/fecal incontinence. He treated at home with ice pack with no improvement of symptoms. PFSH Past Medical History Hx Anticoagulant Therapy: Yes Arthritis: Yes Asthma: Yes Autoimmune Disease: No Cancer: Yes (ca polyp removed during colonoscopy) Cardiovascular Problems: No High Cholesterol: Yes Chemotherapy: No Congestive Heart Failure: No COPD: Yes Coronary Artery Disease: No Diabetes: No Diminished Hearing: No Endocrine: No Gastrointestinal Disorders: Yes (GERD) Genitourinary: No Hepatitis: No Hiatal Hernia: Yes Hypertension: No Immune Disorder: No Inguinal Hernia: Yes (bilateral) Implanted Vascular Access Dvce: Yes Medical other: No Musculoskeletal: Yes Neurologic: No Psychiatric: No Reproductive: No Respiratory: Yes (WEARS OXYGEN) Immunizations Current: Yes Radiation Therapy: No Thyroid Disease: No Ulcer: Yes (hx bleeding [id number] yrs ago) Past Surgical History Abdominal Surgery: No AICD: No Cardiac Surgery: Yes Ear Surgery: No Endocrine Surgery: No Eye Surgery: Yes (BILATERAL CATARACT EXTRACT) Genitourinary Surgery: No Gynecologic Surgery: No Joint Replacement: Yes (BILATERAL SHOULDERS) Neurologic Surgery: No Oral Surgery: Yes Pacemaker: No Thoracic Surgery: No Other Surgery: Yes (FEM POP BLE) Social History Alcohol Use: No Tobacco Use: No (QUIT 11/2015) Substance Use: No Allergies-Medications (Allergen,Severity, Reaction): Coded Allergies: ciprofloxacin (Unverified Allergy, Intermediate, RASH,SOB,TENDONITIS, 12/21) pneumococcal vaccine (Unverified Allergy, Intermediate, SWELLING/RASH, 10/26) Reported Meds & Prescriptions Reported Meds & Active Scripts Active Flexeril (Cyclobenzaprine HCl) 5 Mg Tab 5 Mg PO TID Naprosyn (Naproxen) 500 Mg Tab 500 Mg PO BID 5 Days Reported Oxygen (O2) Device Liter TONJA.CANULA CONTINUOUS Oxygen Concentrator Portable Gaseous 2 L/min via Nasal Canula Continuous For 99 months Integra (Multi-Vit/Iron-B Comp-Vit C) 62.5-62.5-40-3 mg Cap Coq-10 (Coenzyme Q10 (Ubidecarenone)) 400 Mg Cap Duoneb (Ipratropium-Albuterol Neb) 0.5-2.5 Mg/3 Ml Neb 1 Nebule INH Q4HR NEB [place]-3 Fish Oil/Vitamin (Fish Oil-Cholecalciferol) 1,000-1,000 Mg Cap 1 Cap PO DAILY Advair Hfa 12 GM Inh (Fluticasone-Salmeterol 12 GM Inh) 115-21 Mcg/Act Aer 2 Puff INH BID Ecotrin Low Strength (Aspirin) 81 Mg Tabdr 81 Mg PO HS Rosuvastatin (Rosuvastatin Calcium) 10 Mg Tab 10 Mg PO HS Proair Hfa 8.5 GM Inh (Albuterol Sulfate) 90 Mcg/Act Aer 1 Puff INH Q4H PRN 108 mcg/actuation Review of Systems Except as stated in HPI: all other systems reviewed are Neg Physical Exam Narrative GENERAL: Well-nourished, well-developed white male in no acute distress. SKIN: Focused skin assessment warm/dry. HEAD: Normocephalic. EYES: No scleral icterus. No injection or drainage. NECK: Supple, trachea midline. No JVD or lymphadenopathy. CARDIOVASCULAR: Regular rate and rhythm without murmurs, gallops, or rubs. RESPIRATORY: Breath sounds equal bilaterally. No accessory muscle use. GASTROINTESTINAL: Abdomen soft, non-tender, nondistended. MUSCULOSKELETAL: No cyanosis, or edema. 5/5 strength with dorsiflexion, plantar flexion, knee and hip flexion bilaterally. BACK: Nontender without obvious deformity. No CVA tenderness. No tenderness of the sciatic notch. Data Data Last Documented VS Vital Signs Date Time Temp Pulse Resp B/P (MAP) Pulse Ox O2 Delivery O2 Flow Rate FiO2 12/21/17 09:27 98.0 74 18 150/80 (103) 91 Orders Orders Ketorolac Inj (Toradol Inj) (12/21/17 10:00) [facility] Medical Decision Making Medical Screen Exam Complete: Yes Emergency Medical Condition: Yes Differential Diagnosis Acute low back pain versus muscle spasm versus sciatica versus other Narrative Course 77-year-old male presents to the ED for evaluation of 3 day history of right- sided back pain, radiating into the buttocks and the right leg to the knee. Waxing and waning, occasionally sharp, 10/10 maximally. He denies numbness, tingling, weakness, limitations to range of motion of the extremities, saddle anesthesia or urinary/fecal incontinence. Cor right sciatic notch. 5/5 strength of all muscle groups of the lower extremities bilaterally. This is right-sided low back pain with sciatica. Patient's administered IM Toradol in the emergency room. He is prescribed a short course of Naprosyn and Flexeril. He is instructed to discontinue aspirin until Naprosyn treatment is completed. He is instructed to return to normal, gentle activity as tolerated, return for worsening symptoms, otherwise follow up with the primary care provider. The patient is stable and discharged home. Diagnosis Primary Impression: Right-sided low back pain with sciatica Qualified Codes: M54.41 - Lumbago with sciatica, right side Referrals: Primary Care Physician Patient Instructions: General Instructions, Sciatica (ED) Med/Other Pt SpecificInfo: Prescription(s) given Scripts Cyclobenzaprine (Flexeril) 5 Mg Tab 5 MG PO TID for Muscle Spasm, #15 TAB 0 Refills Prov: oNe Urias MD 12/21/17 Naproxen (Naprosyn) 500 Mg Tab 500 MG PO BID for 5 Days, #10 TAB 0 Refills Prov: Noe Urias MD 12/21/17 Disposition: 01 DISCHARGE HOME Condition: Stable Sue Walsh Dec 21, 2017 10:00
== END 2017-12-21 10:15 | disposition home or self-care (01) ==
LOC: PHED 09:17
DX: M54.41 Lumbago with sciatica, right side (principal); J44.9 Chronic obstructive pulmonary disease, unspecified; E78.00 Pure hypercholesterolemia, unspecified; Z79.01 Long term (current) use of anticoagulants; Z99.81 Dependence on supplemental oxygen; Z87.39 Personal history of other diseases of the musculoskeletal system and connective tissue; Z87.19 Personal history of other diseases of the digestive system; Z85.038 Personal history of other malignant neoplasm of large intestine
CPT/HCPCS: 96372; 99283; J1885

== ENCOUNTER 2018-07-30 22:04 | Inpatient (IN) ==
--- NOTE | 2018-07-30 22:12 | ED ---
HPI General Chief complaint: Shortness of Breath/Dyspnea Stated complaint: Resp distress Time Seen by Provider: 07/30/18 22:06 History of Present Illness HPI narrative: 77-year-old male with history of COPD on 3 L nasal cannula home O2, brought in by ambulance for evaluation of shortness of breath. Patient reports sudden onset of shortness of breath at around 7:30 PM. He tried his home albuterol treatments, however did not have any improvement. EMS provided a DuoNeb treatment and 2 albuterol nebulized treatments as well as 125 mg of IV Solu-Medrol prior to arrival and the patient has had some improvement in his respiratory status. Upon arrival he is still in significant respiratory distress with intercostal and supraclavicular retractions. He denies fevers, chills, cough, or recent illness. No chest pain. Dyspnea is at rest. No known history of cardiac disease, however the patient has significant history of vascular disease with several procedures done on his bilateral lower extremities with reported "blood clots." Related Data Home Medications Medication Instructions Recorded Confirmed albuterol sulfate [ProAir HFA] 2 puff INHALATION Q4H PRN 05/11/18 07/30/18 aspirin [Ecotrin Low Strength] 81 mg PO DAILY 05/11/18 07/30/18 coenzyme Q10 [CoQ-10] 400 mg PO DAILY 05/11/18 07/30/18 fluticasone-salmeterol [Advair HFA] 2 puff INHALATION BID 05/11/18 07/30/18 ipratropium-albuterol 3 ml INHALATION Q8H 05/11/18 07/30/18 omega 2-xin-qwb-fish oil [Fish Oil] 1 tab PO DAILY 05/11/18 07/30/18 rosuvastatin 10 mg PO DAILY 05/11/18 07/30/18 tamsulosin 0.4 mg PO DAILY 05/11/18 07/30/18 prednisone 30 mg PO DAILY 07/30/18 07/30/18 Allergies Allergy/AdvReac Type Severity Reaction Status Date / Time ciprofloxacin Allergy Intermediate RASH,SOB,TE Verified 07/30/18 22:13 NDONITIS pneumococcal vaccine Allergy Intermediate SWELLING/RA Verified 07/30/18 22:13 SH Review of Systems ROS: all other systems reviewed are negative [facility] Social History Social History Substance History: No History of Abuse Second Hand Smoke Exposure: Yes Smoking Status: Former smoker Tobacco Type: Cigarettes How Often Do You Have a Drink Containing Alcohol: Never Recent Travel in [facility] within the Last 8 Weeks: No Recent Out of Country Travel within the Last 8 Weeks: No Exam Narrative Exam Narrative: GENERAL: Well-developed, well-nourished, awake, alert, moderate to severe respiratory distress, speaking a few words at a time. SKIN: Focused skin assessment warm/dry. HEAD: Atraumatic. Normocephalic. EYES: Pupils equal and round. No scleral icterus. No injection or drainage. ENT: Mucous membranes pink and dry. NECK: Trachea midline. No JVD. CARDIOVASCULAR: Tachycardic, rate 120s, regular. RESPIRATORY: Accessory muscle use. Intercostal and supraclavicular retractions. Poor air movement bilaterally. Wheezes and rhonchi bilaterally. GASTROINTESTINAL: Abdomen soft, non-tender, nondistended. MUSCULOSKELETAL: No obvious deformities. No clubbing. No cyanosis. Mild bilateral lower extremity edema. NEUROLOGICAL: Awake and alert. No obvious cranial nerve deficits. Motor grossly within normal limits. Normal speech. PSYCHIATRIC: Appropriate mood and affect; insight and judgment normal. Course Initial Documented Vital Signs Temperature 98.4 F 07/30/18 22:05 Pulse Rate 115 H 07/30/18 22:05 Respiratory Rate 35 H 07/30/18 22:05 Blood Pressure 208/108 H 07/30/18 22:05 Pulse Oximetry 92 L 07/30/18 22:05 Last Documented Vital Signs Temperature 98.4 F 07/30/18 22:05 Pulse Rate 126 H 07/30/18 22:35 Respiratory Rate 25 H 07/30/18 22:35 Blood Pressure 197/83 H 07/30/18 22:35 Pulse Oximetry 93 L 07/30/18 22:35 Critical Care Time Critical Care Time: Yes Total Critical Care Time: 40 Attestation: Aggregate critical care time was 40 minutes. Time to perform other separately billable procedures was not included in the critical care time. My time did not include minutes spent treating any other patients simultaneously or on activities that did not directly contribute to the patient's treatment. The services I provided to this patient were to treat and/or prevent clinically significant deterioration that could result in: , permanent disability, acute respiratory failure I provided critical care services requiring my management, as noted below: Chart data review, documentation time, medication orders and management, vital sign assessments/reviewing monitor data, ordering and reviewing lab tests, ordering and interpreting/reviewing x-rays and diagnostic studies, care of the patient and discussion of the patient with the admitting physicians. Medical Decision Making MDM Narrative Medical decision making narrative: This is a 77-year-old male with history of COPD on 3 L nasal cannula at home who was brought in by ambulance from home for severe respiratory distress. Before arriving to the emergency department the patient was provided 1 DuoNeb treatment as well as to albuterol nebulized treatments along with 125 mg of IV Solu-Medrol. His respiratory status had mildly improved. He arrives in severe respiratory distress with intercostal and supraclavicular retractions with poor air movement bilaterally with wheezes and rhonchi bilaterally. Although the patient does not report having any recent illness, shortly after he arrived, his is at the bedside and tells me that this would be the fifth day of him being on a Z-Antonio as well as prednisone as he has had cough productive of yellowish sputum. He was started on this by his compass operator Dr. Quiñones. The patient was started on BiPAP upon arrival to the emergency department and his respiratory status has significantly improved. CODE STATUS was discussed with both the patient and the patient's and he is a FULL CODE. Chest x-ray: CONCLUSION: Chronic basilar scarring or atelectasis. No effusion. CT pulmonary angiogram: CONCLUSION:1. No pulmonary embolus.2. Bronchiectasis with peribronchial thickening and widespread endobronchial filling defects likely representing inspissated secretion/mucous. This is right worse than left. Poor ciliary clearance related to bronchiectasis considered most likely. Allergic bronchopulmonary aspergillosis would also be in the differential. There is associated infectious/inflammatory appearing parenchymal changes of both bases, right worse than left.3. Severe emphysema again seen.4. Coronary artery calcification.5. Stable size and appearance atherosclerosis and mild aneurysmal dilatation of the thoracic aorta.6. Small pericardial effusion not significantly changed.7. Moderate to large hiatal hernia not significantly changed.Electronically signed by: Calvin Jean Baptiste MD 07/30/2018 11:59 PM EDT Patient was eventually weaned off of BiPAP in the emergency department and placed on 3 L nasal cannula. His respiratory status has significantly improved. I discussed the case with on-call cork molder Dr. Luz who will admit the patient to the ICU under his service here in [place]. Patient will be started on Rocephin and azithromycin. Medical Screen Exam Complete: Yes Emergency Medical Condition: Yes Differential Diagnosis Differential Diagnosis: COPD exacerbation, pneumonia, PE, pneumothorax, pulmonary edema, ACS Lab Data Result diagrams: 07/30/18 22:10 07/30/18 22:10 Lab Results 07/30/18 07/30/18 07/30/18 Range/Units 22:10 22:10 22:10 CBC w Diff Auto diff final WBC 11.1 H (4.0-11.0) th/mm3 RBC 5.21 (4.50-5.90) mil/mm3 Hgb 15.0 (13.0-17.0) gm/dL Hct 45.6 (39.0-51.0) % MCV 87.5 (80.0-100.0) fL MCH 28.8 (27.0-34.0) pg MCHC 32.9 (32.0-36.0) % RDW 13.8 (11.6-17.2) % Plt Count 215 (150-450) th/mm3 MPV 8.1 (7.0-11.0) fL Neut % (Auto) 91.2 H (16.0-70.0) % Lymph % (Auto) 5.2 L (9.0-44.0) % Brule % (Auto) 2.8 (0.0-8.0) % Eos % (Auto) 0.2 (0.0-4.0) % Baso % (Auto) 0.6 (0.0-2.0) % Neut # (Auto) 10.1 H (1.8-7.7) th/mm3 Lymph # (Auto) 0.6 L (1.0-4.8) th/mm3 Brule # (Auto) 0.3 (0.0-0.9) th/mm3 Eos # (Auto) 0.0 (0.0-0.4) th/mm3 Baso # (Auto) 0.1 (0.0-0.2) th/mm3 WBC Differential . Differential Comment . Puncture Site Patient Temperature O2 Saturation (90-100) % ABG pH (7.380-7.420) ABG pCO2 (38-42) mmHg ABG pO2 (61-120) mmHg ABG HCO3 (22-26) mmol/L ABG O2 Content (12.0-20.0) Vol % ABG Base Excess (-2-2) mmol/L ABG Methemoglobin (0-2) % Chriss Test Hemoglobin (12.0-16.0) G/DL Carboxyhemoglobin (0-4) % O2 Delivery Device Vent Setting Inspired O2 % Critical Value Sodium 138 (136-145) meq/L Potassium 4.0 (3.5-5.1) meq/L Chloride 103 (98-107) meq/L Carbon Dioxide 27.2 (21.0-32.0) meq/L Anion Gap 8 (5-15) meq/L BUN 13 (7-18) mg/dL Creatinine 1.30 (0.60-1.30) mg/dL Estimated GFR 53 L (>89) mL/min POC Glucose (68-110) mg/dl Random Glucose 131 H (74-106) mg/dL Lactic Acid 2.1 H (0.4-2.0) mmol/L Calcium 8.6 (8.5-10.1) mg/dL Total Bilirubin 0.3 (0.2-1.0) mg/dL AST 14 L (15-37) U/L ALT 20 (12-78) U/L Alkaline Phosphatase 115 (45-117) U/L Total Creatine Kinase 89 (39-308) U/L Troponin I 0.02 (0.02-0.05) ng/mL B-Natriuretic Peptide (0-100) pg/mL Total Protein 7.5 (6.4-8.2) g/dL Albumin 3.7 (3.4-5.0) g/dL 07/30/18 07/30/18 07/30/18 Range/Units 22:10 22:27 22:48 CBC w Diff WBC (4.0-11.0) th/mm3 RBC (4.50-5.90) mil/mm3 Hgb (13.0-17.0) gm/dL Hct (39.0-51.0) % MCV (80.0-100.0) fL MCH (27.0-34.0) pg MCHC (32.0-36.0) % RDW (11.6-17.2) % Plt Count (150-450) th/mm3 MPV (7.0-11.0) fL Neut % (Auto) (16.0-70.0) % Lymph % (Auto) (9.0-44.0) % Brule % (Auto) (0.0-8.0) % Eos % (Auto) (0.0-4.0) % Baso % (Auto) (0.0-2.0) % Neut # (Auto) (1.8-7.7) th/mm3 Lymph # (Auto) (1.0-4.8) th/mm3 Brule # (Auto) (0.0-0.9) th/mm3 Eos # (Auto) (0.0-0.4) th/mm3 Baso # (Auto) (0.0-0.2) th/mm3 WBC Differential Differential Comment Puncture Site Right radial Patient Temperature 98.6 O2 Saturation 95 (90-100) % ABG pH 7.43 H (7.380-7.420) ABG pCO2 39 (38-42) mmHg ABG pO2 92 (61-120) mmHg ABG HCO3 26 (22-26) mmol/L ABG O2 Content 19.4 (12.0-20.0) Vol % ABG Base Excess 1.9 (-2-2) mmol/L ABG Methemoglobin 1.1 (0-2) % Chriss Test Y Hemoglobin 14.5 (12.0-16.0) G/DL Carboxyhemoglobin 1.3 (0-4) % O2 Delivery Device Bipap Vent Setting [id number] Inspired O2 50 % Critical Value No Sodium (136-145) meq/L Potassium (3.5-5.1) meq/L Chloride (98-107) meq/L Carbon Dioxide (21.0-32.0) meq/L Anion Gap (5-15) meq/L BUN (7-18) mg/dL Creatinine (0.60-1.30) mg/dL Estimated GFR (>89) mL/min POC Glucose 217 H (68-110) mg/dl Random Glucose (74-106) mg/dL Lactic Acid (0.4-2.0) mmol/L Calcium (8.5-10.1) mg/dL Total Bilirubin (0.2-1.0) mg/dL AST (15-37) U/L ALT (12-78) U/L Alkaline Phosphatase (45-117) U/L Total Creatine Kinase (39-308) U/L Troponin I (0.02-0.05) ng/mL B-Natriuretic Peptide 127 H (0-100) pg/mL Total Protein (6.4-8.2) g/dL Albumin (3.4-5.0) g/dL Imaging Data Radiologist's impression: Chest X-Ray 07/30/18 22:06 CONCLUSION: Chronic basilar scarring or atelectasis. No effusion. Chest CTA 07/30/18 22:48 CONCLUSION: 1. No pulmonary embolus. 2. Bronchiectasis with peribronchial thickening and widespread endobronchial filling defects likely representing inspissated secretion/mucous. This is right worse than left. Poor ciliary clearance related to bronchiectasis considered most likely. Allergic bronchopulmonary aspergillosis would also be in the differential. There is associated infectious/inflammatory appearing parenchymal changes of both bases, right worse than left. 3. Severe emphysema again seen. 4. Coronary artery calcification. 5. Stable size and appearance atherosclerosis and mild aneurysmal dilatation of the thoracic aorta. 6. Small pericardial effusion not significantly changed. 7. Moderate to large hiatal hernia not significantly changed. ECG Data Attestation: I personally reviewed and interpreted this ECG as follows: (Sinus tachycardia, rate 116, leftward axis, frequent PVCs, Q waves in anteroseptal leads, no acute ischemic abnormalities) Discharge Plan Discharge Disposition Patient Disposition: 30 Still Patient Discharge Condition Condition: Fair Discharge Details Diagnosis: COPD exacerbation, Pneumonia Physicians Team ED Provider: Noe Urias Primary Care Provider: UNKNOWN, Rxs /Orders / Referrals /Forms Prescriptions: No Action ipratropium-albuterol 0.5 mg-3 mg(2.5 mg base)/3 mL Solution For Nebulization 3 ml INHALATION Q8H RF: 0 aspirin [Ecotrin Low Strength] 81 mg Tablet,Delayed Release (Dr/Ec) 81 mg PO DAILY RF: 0 tamsulosin 0.4 mg Capsule,Extended Release 24hr 0.4 mg PO DAILY RF: 0 albuterol sulfate [ProAir HFA] 90 mcg/actuation Hfa Aerosol Inhaler 2 puff INHALATION Q4H PRN (Reason: Respiratory Distress) RF: 0 coenzyme Q10 [CoQ-10] 100 mg Capsule 400 mg PO DAILY RF: 0 rosuvastatin 10 mg Tablet 10 mg PO DAILY RF: 0 fluticasone-salmeterol [Advair HFA] 115-21 mcg/actuation Hfa Aerosol Inhaler 2 puff INHALATION BID RF: 0 omega 7-oxs-fst-fish oil [Fish Oil] 1,000 mg (120 mg-180 mg) Capsule 1 tab PO DAILY RF: 0 prednisone 10 mg Tablet 30 mg PO DAILY RF: 0 Discharge Interventions Interventions: Vital Signs Last Done: 07/30/18 22:35 Status ED Status: With Doctor
[2018-07-30 22:21] LABS: Baso # (Auto) 0.1 th/mm3 (0.0-0.2); Baso % (Auto) 0.6 % (0.0-2.0); Eos % (Auto) 0.2 % (0.0-4.0); Hematocrit 45.6 % (39.0-51.0); Lymph # (Auto) 0.6 th/mm3 (1.0-4.8); Lymph % (Auto) 5.2 % (9.0-44.0); Mean Corpuscular HGB Conc 32.9 % (32.0-36.0); Mean Corpuscular Hemoglobin 28.8 pg (27.0-34.0); Mean Corpuscular Volume 87.5 fL (80.0-100.0); Mean Platelet Volume 8.1 fL (7.0-11.0); Mono # (Auto) 0.3 th/mm3 (0.0-0.9); Mono % (Auto) 2.8 % (0.0-8.0); Neut # (Auto) 10.1 th/mm3 (1.8-7.7); Neut % (Auto) 91.2 % (16.0-70.0); Platelet Count 215 th/mm3 (150-450); Red Blood Count 5.21 mil/mm3 (4.50-5.90); Red Cell Distribution Width 13.8 % (11.6-17.2); White Blood Count 11.1 th/mm3 (4.0-11.0)
[2018-07-30 22:29] LABS: Chloride 103 meq/L (98-107); Sodium 138 meq/L (136-145)
--- NOTE | 2018-07-30 22:31 | XR ---
EXAM DATE: 07/30/2018 10:26 PM EDT AGE/SEX: 77 years / Male INDICATIONS: Shortness of breath and fever. CLINICAL DATA: This is the patient's initial encounter. Patient reports that signs and symptoms have been present for 1 day and indicates a pain score of 0/10. MEDICAL/SURGICAL HISTORY: . Hypertension. COPD. Ulcer . . Bilateral cataracts. Right knee arth roscopy. Bilateral shoulder repair. Fem pop graft. COMPARISON: [facility], CHEST 2V PA&LAT, 05/11/2018. . FINDINGS: Compared with May 2018. Chronic basilar atelectasis or scarring. Tortuous aorta. Bilateral shoulder joint replacement. No effusion or pneumothorax. CONCLUSION: Chronic basilar scarring or atelectasis. No effusion. Electronically signed by: Bart Merino MD 07/30/2018 10:29 PM EDT
[2018-07-30 22:33] LABS: Albumin 3.7 g/dL (3.4-5.0); Anion Gap 8 meq/L (5-15); Blood Urea Nitrogen 13 mg/dL (7-18); Calcium 8.6 mg/dL (8.5-10.1); Carbon Dioxide 27.2 meq/L (21.0-32.0); Glucose,Random 131 mg/dL (74-106)
[2018-07-30 22:36] LABS: Alanine Aminotransferase 20 U/L (12-78); Aspartate Aminotransferase 14 U/L (15-37)
[2018-07-30 22:37] LABS: Glomerular Filtration Rate 53 mL/min (>89)
[2018-07-30 22:38] LABS: Total Protein 7.5 g/dL (6.4-8.2)
[2018-07-30 22:39] LABS: Alkaline Phosphatase 115 U/L (45-117)
[2018-07-30 22:41] LABS: Troponin I 0.02 ng/mL (0.02-0.05)
[2018-07-30 23:02] LABS: ABG Base Excess 1.9 mmol/L (-2-2); ABG PCO2 39 mmHg (38-42); ABG PO2 92 mmHg (61-120)
[2018-07-30 23:38] LABS: Creatine Kinase 89 U/L (39-308)
--- NOTE | 2018-07-31 | CT ---
EXAM DATE: 07/30/2018 11:36 PM EDT AGE/SEX: 77 years / Male INDICATIONS: Shortness of breath. CLINICAL DATA: This is the patient's initial encounter. Patient reports that signs and symptoms have been present for 1 day and indicates a pain score of 0/10. MEDICAL/SURGICAL HISTORY: Chronic obstructive pulmonary disease. Abdominal aortic aneurysm without rupture. 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 Arthritis. Emphysema. Prostate disorder. . Bi lateral shoulder. RADIATION DOSE: 15.60 CTDI (mGy) COMPARISON: [facility], CT CHEST W/O CONTRAST, 12/07/2014. . TECHNIQUE: Volumetric scanning was performed using a multi-row detector CT scanner during bolus infu mattie of 75 ml Omnipaque 350 (iohexol) nonionic water-soluble contrast as a single exam dose. The lesli a was post processed with a variety of visualization algorithms including full volume maximum intensi ty projection and sliding thin slab reformation. Using automated exposure control and adjustment of the mA and/or kV according to patient size, radiation dose was kept as low as reasonably achievable t o obtain optimal diagnostic quality images. DICOM format image data is available electronically for review and comparison. FINDINGS: There is no pulmonary embolus. Severe emphysema again noted. There is extensive bilateral but right more so the left peribronchial t hickening and endobronchial filling defects which are most likely inspissated secretions. Mild to mod erate, basilar predominant bronchiectasis present. There is patchy streaky and nodular consolidation of the lung bases which is also right more so the left. No pleural effusion. No pneumothorax. Heart size stable, within normal limits. Coronary artery calcification again noted. There is a small pericardial effusion, similar to 2015. No mediastinal, hilar or axillary lymphadenopathy. Atherosclerosis and mild aneurysmal dilatation of the thoracic aorta has a stable size and configurat ion. Moderate to large hiatal hernia similar to before. CONCLUSION: 1. No pulmonary embolus. 2. Bronchiectasis with peribronchial thickening and widespread endobronchial filling defects likely representing inspissated secretion/mucous. This is right worse than left. Poor ciliary clearance rela annabelle to bronchiectasis considered most likely. Allergic bronchopulmonary aspergillosis would also be i n the differential. There is associated infectious/inflammatory appearing parenchymal changes of both bases, right worse than left. 3. Severe emphysema again seen. 4. Coronary artery calcification. 5. Stable size and appearance atherosclerosis and mild aneurysmal dilatation of the thoracic aorta. 6. Small pericardial effusion not significantly changed. 7. Moderate to large hiatal hernia not significantly changed. Electronically signed by: Calvin Jean Baptiste MD 07/30/2018 11:59 PM EDT
[2018-07-31] MEDS ORDERED: Azithromycin Inj 500 MG in Sodium Chlor 0.9% Inj 250 ML IV.SIG ONE (00:35)
[2018-07-31] MEDS ORDERED: Morphine Inj 4 MG/ML Vial IV.PUSH PRN (01:20)
[2018-07-31] MEDS ORDERED: Acetaminophen 325 MG Tablet PO PRN (01:20)
[2018-07-31] MEDS ORDERED: Temazepam 15 MG Capsule PO PRN (01:20)
[2018-07-31] MEDS ORDERED: Bisacodyl 10 MG Supp RECTAL PRN (01:20)
[2018-07-31] MEDS ORDERED: Azithromycin Inj 500 MG in Sodium Chlor 0.9% Inj 250 ML IV.SIG SCH (02:00)
[2018-07-31] MEDS: Heparin - SQ 10,000 UNITS/ML Vial SQ SCH ×3 (02:15→18:03)
[2018-07-31 02:39] LABS: Bilirubin,Urine Negative (Negative); Clarity,Urine Clear (Clear); Color,Urine Yellow (Yellw/Straw); Glucose,Urine (UA) Negative (Negative); Leukocyte Esterase,Urine Trace (Negative); Nitrite,Urine Negative (Negative); PH,Urine 5.5 (5.0-8.5); Specific Gravity,Urine Less/Equal 1.005 (1.002-1.035); Urobilinogen,Urine 0.2 mg/dL (Less than 2)
[2018-07-31 02:57] LABS: RBC,Urine 0-3 /hpf (0-3); Squamous Epithelial Cell,Urine 0-5 /hpf (0-5); WBC,Urine 0-5 /hpf (0-5)
[2018-07-31] MEDS ORDERED: Chlorhexidine Gluconate 2% 1 Pack (2 Cloths) TOPICAL PRN (04:00)
[2018-07-31] MEDS: Chlorhexidine Gluconate 2% 1 Pack (2 Cloths) TOPICAL SCH (05:09)
[2018-07-31] MEDS ORDERED: MethylPREDNISolone Sod Succinate Inj 40 MG/ML Vial IV.PUSH SCH (06:00)
--- NOTE | 2018-07-31 06:46 | P.HPCC ---
History of Present Illness Service: Critical care medicine Primary Care Physician: UNKNOWN Chief Complaint: Shortness of breath History of Present Illness: This is a 77-year-old male. Date of admission 07/31/2018. Past medical history includes COPD with chronic respiratory failure/3 L oxygen dependent, chronic anemia, coronary artery disease, atherosclerotic vascular disease, essential hypertension, hyperlipidemia, gastroesophageal disease, hiatal hernia, benign prostatic hypertrophy and chronic prednisone use. Patient presented to [facility] 07/30 with acute shortness of breath. States he 7/ fever/chills/coughing/nonproductive without hematemesis or hemoptysis. Denies any recent sick contacts. Patient has not been at [facility] since 2017 admission. Patient received intravenous steroids in aggressive aerosolized medication therapy in the ED. CT pulmonary angiogram revealed no central pulmonary embolism. Signs of bronchial thickening indicative possible bronchiectasis. Severe emphysema. Coronary disease with atherosclerotic vascular disease. Large hiatal hernia. Small pericardial effusion. Patient has been started on ceftriaxone and azithromycin and aggressive pulmonary toilet. Patient is currently on BiPAP 5/5 and 50% saturations currently 92%. Patient is anxious in sinus tachycardia. Denies sputum production.. Inpatient Certification: I certify that the inpatient services were ordered in accordance with Medicare regulations governing the order. This includes certification that hospital inpatient services are reasonable and necessary and in the case of services not specified as inpatient-only under 42 CFR 419.22(n), that they are appropriately provided as inpatient services in accordance to with the 2-midnight benchmark under 43 CFR 412.3(e) Estimated Total Length of Stay (Days): 5 Plans for Post Hospital Care: Not yet determined Review of Systems Constitutional: Reports body ache(s), Reports chills, Reports fever(s), Denies anorexia, Denies daytime sleepiness, Denies excessive sweating Eyes: Denies blind spots, Denies blurry vision Ears, Nose, Mouth, and Throat: Reports bad breath, Denies abnormal hearing, Denies bleeding gums, Denies poor balance Cardiovascular: Reports shortness of breath with activity, Denies chest pain, Denies chest pain at rest, Denies shortness of breath when lying down Respiratory: Reports change in phlegm color, Reports chest congestion, Reports cough, Reports excessive phlegm production, Denies coughing up blood Gastrointestinal: Denies abdominal pain, Denies loose stools Genitourinary: Reports difficulty urinating, Denies decreased urination Musculoskeletal: Reports body aches, Reports stiffness, Denies abnormal walking , Denies back pain Skin/Breast: Reports dry skin, Denies bleeding lesions, Denies unusual bruising Neurologic: Denies abnormal hearing, Denies loss of vision Psychiatric: Reports anxiety, Denies abnormal sleep pattern Endocrine: Reports excessive sweating, Denies cold intolerance Hematologic/Lymphatic: Denies easy bleeding Allergic/Immunologic: Denies GI upset with certain foods PMFSH - History History Provided By: Patient - Medical History Medical History: Medical History (Last Updated 07/31/18 @ 06:43 by [place] Saavedra MD) Atherosclerotic vascular disease Benign prostatic hyperplasia Chronic anemia Coronary artery disease Gastroesophageal reflux disease Hiatal hernia Hyperlipidemia Abdominal aortic aneurysm without rupture Aneurysm of left lower extremity Aneurysm of lower extremity, right Arthritis COPD (chronic obstructive pulmonary disease) Emphysema, unspecified Prostate disorder - Surgical History Surgical History: Surgical History (Last Updated 07/31/18 @ 06:44 by [place] Saavedra MD) History of femoropopliteal bypass Hx of cataract surgery History of shoulder surgery - Family History Family History: Family History (Last Updated 07/31/18 @ 06:45 by [place] Saavedra MD) Other Family history non-contributory - Social History I have reviewed the patient's Social History: Yes - Tobacco History Second Hand Smoke Exposure: No Tobacco Use In Past 30 Days: No Smoking Status: Former smoker Tobacco Type: Cigarettes - Alcohol History How Often Do You Have a Drink Containing Alcohol: Never - Substance Use History Substance History: No History of Abuse - Travel History Recent Travel in the [place] Within the Last 8 Weeks: No Recent Travel Out of the Country Within the Last 8 Weeks: No - Immunization History Tetanus Immunization: Never Vaccinated Hx Influenza Vaccine This Season: No Medications and Allergies Active Medications: Active Medications Acetaminophen (Tylenol) 650 mg PO Q6H PRN PRN Reason: FEVER Hydrocodone Bitart/Acetaminophen ([place] 5/325) 1 tab PO Q6H PRN PRN Reason: pain 1-5 Al Hydroxide/Mg Hydroxide (Milk Of Magnesia Liq) 30 ml PO Q12H PRN PRN Reason: Mild Constipation Albuterol (Duoneb Neb (Mary Ann)) 1 ampul NEB Q4HR NEB MARY ANN Last Admin: 07/31/18 03:01 Dose: 1 ampul Albuterol (Albuterol Neb (Prn)) 2.5 mg NEB Q2HR NEB PRN PRN Reason: DYSPNEA Aspirin (Ecotrin) 81 mg PO DAILY [facility] Atorvastatin Calcium (Lipitor) 20 mg PO DAILY [facility] Bisacodyl (Dulcolax Supp) 10 mg RECTAL DAILY PRN PRN Reason: SEVERE CONSITIPATION Budesonide/Formoterol Fumarate (Symbicort 80/4.5 Mcg Inh) 2 puff INH BID [facility] Chlorhexidine Gluconate (Chlorhexidine 2% Cloth) 3 pack TOPICAL DAILY@0400 [facility] Stop: 08/05/18 03:59 Last Admin: 07/31/18 05:09 Dose: 3 pack Chlorhexidine Gluconate (Chlorhexidine 2% Cloth) 3 pack TOPICAL DAILY@0400 PRN PRN Reason: Extra cloth needed Stop: 08/05/18 03:59 Heparin Sodium (Porcine) (Heparin Inj) 5,000 units SQ Q8H [facility] Last Admin: 07/31/18 02:15 Dose: 5,000 units Ceftriaxone Sodium 1,000 mg/ (Sodium Chloride) 100 mls @ 200 mls/hr IV.SIG Q12H [facility] Azithromycin 500 mg/ Sodium (Chloride) 250 mls @ 250 mls/hr IV.SIG Q24H [facility] Lactulose (Lactulose Liq) 30 ml PO DAILY PRN PRN Reason: SEVERE CONSITIPATION Methylprednisolone Sodium Succinate (Solumedrol Inj) 40 mg IV.PUSH Q8HR [facility] Last Admin: 07/31/18 05:40 Dose: 40 mg Morphine Sulfate (Morphine Inj) 2 mg IV.PUSH Q2H PRN PRN Reason: PAIN SCALE 6 TO 10 Ondansetron HCl (Zofran Inj) 4 mg IV.PUSH Q6H PRN PRN Reason: NAUSEA OR VOMITING Pantoprazole Sodium (Protonix) 40 mg PO DAILY [facility] Senna/Docusate Sodium (Jen-Colace) 1 tab PO BID [facility] Sennosides (Senokot) 17.2 mg PO Q12H PRN PRN Reason: Moderate Constipation Sodium Chloride (Ns Flush) 2 ml IV.FLUSH BID [facility] Sodium Chloride (Ns Flush) 2 ml IV.FLUSH PRN PRN PRN Reason: FLUSH AFTER USING IV ACCESS Sodium Chloride (Sodium Chloride 3% Neb) 2 ml NEB Q4HR NEB [facility] Stop: 08/05/18 07:59 Tamsulosin HCl (Flomax) 0.4 mg PO DAILY MARY ANN Allergies Allergy/AdvReac Type Severity Reaction Status Date / Time ciprofloxacin Allergy Intermediate RASH,SOB,TE Verified 07/30/18 22:13 NDONITIS pneumococcal vaccine Allergy Intermediate SWELLING/RA Verified 07/30/18 22:13 SH Home Medications Medication Instructions Recorded Confirmed Type albuterol sulfate [ProAir HFA] 2 puff INHALATION Q4H PRN 05/11/18 07/30/18 History aspirin [Ecotrin Low Strength] 81 mg PO DAILY 05/11/18 07/30/18 History coenzyme Q10 [CoQ-10] 400 mg PO DAILY 05/11/18 07/30/18 History fluticasone-salmeterol [Advair HFA] 2 puff INHALATION BID 05/11/18 07/30/18 History ipratropium-albuterol 3 ml INHALATION Q8H 05/11/18 07/30/18 History omega 3-iwp-isl-fish oil [Fish Oil] 1 tab PO DAILY 05/11/18 07/30/18 History rosuvastatin 10 mg PO DAILY 05/11/18 07/30/18 History tamsulosin 0.4 mg PO DAILY 05/11/18 07/30/18 History prednisone 30 mg PO DAILY 07/30/18 07/30/18 History Results - Labs CBC & Chem 7: 07/30/18 22:10 07/30/18 22:10 Labs: Short CBC 07/30/18 Range/Units 22:10 WBC 11.1 H (4.0-11.0) th/mm3 Hgb 15.0 (13.0-17.0) gm/dL Hct 45.6 (39.0-51.0) % Plt Count 215 (150-450) th/mm3 BMP 07/30/18 22:10 Sodium 138 Potassium 4.0 Chloride 103 Carbon Dioxide 27.2 BUN 13 Creatinine 1.30 Calcium 8.6 Cardiac Enzymes 07/30/18 Range/Units 22:10 Total Creatine Kinase 89 (39-308) U/L Troponin I 0.02 (0.02-0.05) ng/mL Liver Function 07/30/18 Range/Units 22:10 Total Bilirubin 0.3 (0.2-1.0) mg/dL AST 14 L (15-37) U/L ALT 20 (12-78) U/L Alkaline Phosphatase 115 (45-117) U/L Albumin 3.7 (3.4-5.0) g/dL Urine 07/31/18 Range/Units 02:10 Urine Color Yellow (Yellw/Straw) Urine Clarity Clear (Clear) Urine pH 5.5 (5.0-8.5) Ur Specific [place] Less/equal 1.005 (1.002-1.035) Urine Protein Negative (Neg-Trace) mg/dL Urine Glucose (UA) Negative (Negative) mg/dL - Imaging Impressions Chest X-Ray 07/30/18 22:06 CONCLUSION: Chronic basilar scarring or atelectasis. No effusion. Chest CTA 07/30/18 22:48 CONCLUSION: 1. No pulmonary embolus. 2. Bronchiectasis with peribronchial thickening and widespread endobronchial filling defects likely representing inspissated secretion/mucous. This is right worse than left. Poor ciliary clearance related to bronchiectasis considered most likely. Allergic bronchopulmonary aspergillosis would also be in the differential. There is associated infectious/inflammatory appearing parenchymal changes of both bases, right worse than left. 3. Severe emphysema again seen. 4. Coronary artery calcification. 5. Stable size and appearance atherosclerosis and mild aneurysmal dilatation of the thoracic aorta. 6. Small pericardial effusion not significantly changed. 7. Moderate to large hiatal hernia not significantly changed. Exam Vital signs: Vital Signs 07/30/18 22:05 07/30/18 22:14 07/30/18 22:20 Temperature 98.4 F Pulse Rate 115 H Respiratory Rate 35 H Blood Pressure 208/108 H Pulse Oximetry 92 L 90 L 95 07/30/18 22:35 07/30/18 22:55 07/31/18 00:20 Temperature 98.5 F Pulse Rate 126 H 112 H 113 H Respiratory Rate 25 H 22 24 Blood Pressure 197/83 H 165/88 H Pulse Oximetry 93 L 07/31/18 00:30 07/31/18 01:05 07/31/18 01:40 Temperature 96.8 F L Pulse Rate 112 H Respiratory Rate 25 H Blood Pressure 178/93 H Pulse Oximetry 93 L 91 L 90 L 07/31/18 01:52 07/31/18 02:27 07/31/18 03:00 Temperature 96.8 F L Pulse Rate 112 H 111 H 100 H Respiratory Rate 25 H 25 H Blood Pressure 178/93 H 157/73 H Pulse Oximetry 90 L 89 L 07/31/18 04:00 07/31/18 05:00 07/31/18 05:10 Temperature 97.9 F Pulse Rate 99 H 112 H Respiratory Rate 30 H 20 Blood Pressure 129/83 166/84 H Pulse Oximetry 92 L 89 L 93 L 07/31/18 06:00 07/31/18 06:25 Temperature Pulse Rate 108 H 110 H Respiratory Rate 20 Blood Pressure 164/86 H Pulse Oximetry Intake & Output 07/30/18 07/30/18 07/31/18 06:59 18:59 06:59 Intake Total 360 / 360 Output Total 350 / 350 Balance 10 / 10 Weight 80.3 kg Intake: Oral 360 / 360 Output: Urine 350 / 350 Other: # Bowel Movements 0 Weight On Admission 80.3 kg - Constitutional no acute distress - Routine HEENT Exam Head: Present: normocephalic, atraumatic Eye: Present: EOMI, PERRL ENT: Present: mucous membranes moist - Routine Neck Exam Present: supple, full ROM. Absent: JVD - Routine Chest/Breast/Axilla Exam Chest wall: Absent: tenderness Breast: Absent: tenderness Axillae: Absent: lymphadenopathy - Routine Respiratory Exam Present: accessory muscle use, prolonged expiratory phase, crackles, distant breath sounds, diminished air movement - Routine Cardiovascular Exam Present: S1, S2, tachycardia. Absent: murmur, rubs - Routine Abdominal Exam Present: soft, normoactive bowel sounds. Absent: tenderness - Routine Extremities Exam Absent: cyanosis, clubbing - Routine Skin Exam Present: intact - Routine Neurological Exam Present: alert, oriented X3, CN II-XII intact Septic Shock Reassessment Septic shock perfusion: reassessment completed Caprini VTE Risk Assessment Caprini VTE Risk Assessment: Moderate/High Risk (score >= 2) Caprini Risk Assessment Model: Point Value = 1 Point Value = 2 Point Value = 3 Point Value = 5 Age 41-60 Minor surgery BMI > 25 kg/m2 Swollen legs Varicose veins or History of unexplained or recurrent spontaneous Oral contraceptives or hormone replacement Sepsis (< 1 month) Serious lung disease, including pneumonia (< 1 month) Abnormal pulmonary function Acute myocardial infarction Congestive heart failure (< 1 month) History of inflammatory bowel disease Medical patient at bed rest Age 61-74 Arthroscopic surgery Major open surgery (> 45 min) Laparoscopic surgery (> 45 min) Malignancy Confined to bed (> 72 hours) Immobilizing plaster cast Central venous access Age >= 75 History of VTE Family history of VTE Factor V Leiden Prothrombin [id number] Lupus anticoagulant Anticardiolipin antibodies Elevated serum homocysteine Heparin-induced thrombocytopenia Other congenital or acquired thrombophilia Stroke (< 1 month) Elective arthroplasty Hip, pelvis, or leg fracture Acute spinal cord injury (< 1 month) Prophylaxis Regimen: Total Risk Factor Score Risk Level Prophylaxis Regimen 0-1 Low Early ambulation 2 Moderate Order ONE of the following: *Sequential Compression Device (SCD) *Heparin 5000 units SQ BID 3-4 Higher Order ONE of the following medications: *Heparin 5000 units SQ TID *Enoxaparin/Lovenox 40 mg SQ daily (WT < 150 kg, CrCl > 30 mL/min) *Enoxaparin/Lovenox 30 mg SQ daily (WT < 150 kg, CrCl > 10-29 mL/min) *Enoxaparin/Lovenox 30 mg SQ BID (WT < 150 kg, CrCl > 30 mL/min) AND/OR *Sequential Compression Device (SCD) 5 or more Highest Order ONE of the following medications: *Heparin 5000 units SQ TID (Preferred with Epidurals) *Enoxaparin/Lovenox 40 mg SQ daily (WT < 150 kg, CrCl > 30 mL/min) *Enoxaparin/Lovenox 30 mg SQ daily (WT < 150 kg, CrCl > 10-29 mL/min) *Enoxaparin/Lovenox 30 mg SQ BID (WT < 150 kg, CrCl > 30 mL/min) AND *Sequential Compression Device (SCD) Assessment and Plan - Assessment and Plan Plan: Neuro/Psych: Acetaminophen 650 mg p.o. every 6 hours as needed fever Hydrocodone/acetaminophen 5/325 1 tablet every 6 hours as needed pain 1 through 5 Morphine sulfate 2 mg IV every 2 hours as needed pain 6-10 CV: Essential hypertension Hyperlipidemia Coronary artery disease Atherosclerotic vascular disease Small pericardial effusion Small right thoracic aortic aneurysm Lactic acidosis As needed labetalol, hydralazine Nitropaste for hypertension Currently on atorvastatin 20 mg daily/on rosuvastatin 10 mg daily and fish oil 1 g daily at home. Routine limited 2D echocardiogram ordered Serial lactates until cleared Review EKG Resp: Acute hypoxic hypercapnic respiratory failure in the setting of chronic hypoxic respiratory failure 3 L COPD oxygen dependent CT pulmonary angiogram revealed no central pulmonary vessels. Significant bronchiectasis bilaterally. Severe emphysema. Coronary artery disease/ atherosclerotic vascular disease. Moderately large hiatal hernia. Small pericardial effusion. Right thoracic aortic aneurysm. Currently on albuterol/ipratropium aerosols every 4 hours with albuterol aerosols every 2 hours as needed dyspnea Currently on budesonide/formoterol 80/4.5 2 puffs twice daily -on fluticasone/ salmeterol 150/21 2 puffs twice daily at home Methylprednisolone succinate 40 mg IV every 8 hours Incentive spirometry while awake Currently on BiPAP 5/5 and 50%. Add hypertonic saline aerosols every 4 hours as mucolytic with guaifenesin 600 mg twice daily Lung hyperinflation protocol initiated with pulmonary kinetics every 4 hours Pulmonary consultation by overnight tool die maker Recheck chest x-ray in a.m. 08/01 GI: Moderately large hiatal hernia Gastroesophageal reflux disease History of peptic ulcer disease Currently on regular diet Pantoprazole for GI prophylaxis Docusate sodium/senna 1 tablet twice daily for bowel regimen : BPH Continue tamsulosin 0.4 mg p.o. daily. Rosas catheter if continued urinary retention Endo: Chronic prednisone use/10 mg daily Sliding scale insulin Accu-Cheks to maintain euglycemia/aspart insulin q. before meals and at bedtime low Check TSH On methylprednisolone succinate as above see orders Renal: Acute kidney injury Monitor urine output Accurate I's and O's Heme: Leukocytosis Monitor CBC daily. Follow trends. No indication for the transfusion of blood products at this time ID: Currently on ceftriaxone and azithromycin Blood cultures 2 07/30 pending. UA 07/31 pending. Influenza a and B- Check immunoglobin IgG G, A, M and IgE, rheumatoid factor and alpha anti- trypsin in light of bronchiectasis FEN: Replace electrolytes as clinically indicated per ICU likely protocol MSK: PT/OT evaluate and treat Access -Utilize peripheral IV. Central line if indicated Prophylaxis -GI -pantoprazole -DVT -SCD/heparin subcu Level 3 admission H&P: Quality - VTE Deep Vein Thrombosis/Pulmonary Embolism Present on Admission: No
[2018-07-31] MEDS ORDERED: Potassium Chlor 40 mEq Premix 40 MEQ/100 ML PIGGYBACK IV.SIG PRN ×2 (06:56)
[2018-07-31] MEDS ORDERED: Sodium Phosphate Inj 30 MMOL in Sodium Chlor 0.9% Inj 250 ML IV.SIG PRN (06:56)
[2018-07-31] MEDS ORDERED: Potassium Phosphate 500 MG Soluble Tablet PO PRN ×2 (06:56)
[2018-07-31] MEDS ORDERED: Dextrose 50% in Water 50 ML Vial IV.PUSH PRN (06:56)
[2018-07-31] MEDS ORDERED: Potassium Phosphate Inj 30 MMOL in Sodium Chlor 0.9% Inj 250 ML IV.SIG PRN (06:56)
[2018-07-31] MEDS ORDERED: Magnesium Sulfate Inj 2 GM in Sodium Chlor 0.9% Inj 96 ML IV.SIG PRN (06:56)
[2018-07-31] MEDS ORDERED: Magnesium Oxide 400 MG Tablet PO PRN (06:56)
[2018-07-31] MEDS ORDERED: Magnesium Sulfate Inj 4 GM in Sodium Chlor 0.9% Inj 92 ML IV.SIG PRN (06:56)
[2018-07-31] MEDS ORDERED: Potassium Chloride 25 MEQ Effervescent Tablet PO PRN (06:56)
[2018-07-31] MEDS ORDERED: Potassium Chlor 20 mEq Premix 20 MEQ/100 ML PIGGYBACK IV.SIG PRN ×2 (06:56)
[2018-07-31] MEDS ORDERED: COENZYME Q10 400 MG PO SCH (09:00)
[2018-07-31] MEDS ORDERED: OMEGA DHA EPA FISH OIL PO SCH (09:00)
[2018-07-31] MEDS ORDERED: Famotidine PF Inj 20 MG/2 ML Vial IV.PUSH SCH (09:00)
[2018-07-31] MEDS: Senna/Docusate Sodium 8.6/50 MG Tablet PO SCH ×2 (09:02→21:16)
[2018-07-31] MEDS: guaiFENesin 600 MG ER Tablet PO SCH ×2 (09:02→21:15)
[2018-07-31] MEDS: Insulin NovoLOG Aspart Correctional Sugar Inj SQ SCH ×4 (09:07→21:46)
[2018-07-31 10:30] LABS: Phosphorus 2.9 mg/dL (2.5-4.9)
[2018-07-31 10:41] LABS: Thyroid Stimulating Hormone 0.373 uIU/mL (0.358-3.740)
[2018-07-31] MEDS: Budesonide-Formoterol 80/4.5 MCG 6.9 GM Inhaler INH SCH ×2 (10:53→21:16)
[2018-07-31] MEDS ORDERED: Labetalol HCl Inj 100 MG/20 ML Vial IV.PUSH PRN (11:17)
[2018-07-31] MEDS ORDERED: hydrALAZINE HCl Inj 20 MG/ML Vial IV.PUSH PRN (11:18)
[2018-07-31] MEDS ORDERED: niCARdipine Inj 25 MG in Sodium Chlor 0.9% Inj 240 ML IV.CONT PRN (11:20)
[2018-07-31 12:20] LABS: Immunoglobulin A 331 mg/dL (103-568); Immunoglobulin G 1030 mg/dL (680-1670)
[2018-07-31 12:30] LABS: Immunoglobulin M 78 mg/dL (38-231)
--- NOTE | 2018-07-31 12:42 | US ---
EXAM DATE: 07/31/2018 12:36 PM EDT AGE/SEX: 77 years / Male INDICATIONS: Bilateral lower extremity edema. CLINICAL DATA: This is the patient's initial encounter. Patient reports that signs and symptoms have been present for 1 day and indicates a pain score of 0/10. MEDICAL/SURGICAL HISTORY: . Abdominal aortic aneurysm without rupture. Aneurysm of lower extre mity, right. Arthritis. Atherosclerotic vascular disease. Benign prostatic hyperplasia. Chronic a nemia. Chronic obstructive pulmonary disease. Coronary artery disease. Emphysema, unspecified. Ga stroesophageal reflux disease. Hiatal hernia. Hyperlipidemia. Prostate disorder. Former smoker. . Femoropopliteal bypass. Bilateral shoulder surgery. Cataract surgery. COMPARISON: POI, US LEG ARTERIAL DUPLEX, BILATERAL, 02/10/2018. . TECHNIQUE: Venous ultrasound of both lower extremities was performed from the inguinal ligament to t he proximal calf. Real-time, color Doppler and spectral tracing, compression and augmentation techni ques were used. FINDINGS: Right Leg: Normal compression of the deep venous system from the inguinal region to the proximal simi f. No echogenic clot is seen. Normal response of the venous system to augmentation and respiration. Left Leg: Normal compression of the deep venous system from the inguinal region to the proximal calf . No echogenic clot is seen. Normal response of the venous system to augmentation and respiration. Other: At the level of the left popliteal artery, aneurysmal dilatation is identified including a 2. 6 x 2.7 x 2.8 cm aneurysm, and directly adjacent 3.2 x 3.1 x 3.6 cm aneurysm, partially thrombosed. CONCLUSION: 1. No evidence for DVT. 2. Left popliteal artery aneurysms. Electronically signed by: Jens Oconnor MD 07/31/2018 12:40 PM EDT
--- NOTE | 2018-07-31 14:12 | MB ---
cc: Kimberly Mai MD DATE: 07/31/2018 HISTORY OF PRESENT ILLNESS: The patient is a 77-year-old male with a past medical history of COPD, on 3 liters home oxygen continuously, hypertension, hyperlipidemia, GERD, and on chronic prednisone use. He is being followed up by Dr. Quiñones, his outpatient health coach. The patient was admitted to [place] overnight for progressive worsening shortness of breath associated with wheezing, productive cough with yellow phlegm. He denies any associated symptoms of orthopnea, PND, or edema of the lower extremities. In addition, the patient denies any prior history of intubation. He was treated for a pneumonia approximately 1-2 years ago. He denies any constitutional symptoms, nausea, vomiting or abdominal pain. In addition, he denies any exposure to sick contacts. Chest x-ray on admission showed chronic basilar scarring or atelectasis, no effusions noted. He subsequently underwent CT angiogram of the chest which showed no evidence of pulmonary embolism; however, it showed bronchiectasis with peribronchial thickening, severe emphysema, and small pericardial effusion. He was started on bronchodilators, antibiotics and IV steroids. The patient is currently on a 6 liters of oxygen with good saturation. He is awake, alert off BiPAP. PAST MEDICAL HISTORY: Significant for COPD, on 3 liters home oxygen, BPH, coronary artery disease, GERD, hyperlipidemia, abdominal aortic aneurysm, arthritis, BPH. PAST SURGICAL HISTORY: Previous femoropopliteal bypass, previous cataract and shoulder surgery. ALLERGIES: CIPROFLOXACIN AND PNEUMOCOCCAL VACCINE. SOCIAL HISTORY: Former smoker, nondrinker. FAMILY HISTORY: Noncontributory to present illness. MEDICATIONS AT HOME: 1. Prednisone. 2. Advair. 3. Aspirin. 4. ProAir. REVIEW OF SYSTEMS: As per HPI. Rest of review of systems is unremarkable. PHYSICAL EXAMINATION: GENERAL: A 77-year-old male lying in bed, in mild respiratory distress. VITAL SIGNS: Temperature of 97.9, pulse of 88, respiratory rate of 22, blood pressure 189/84, saturation 91%. HEENT: Atraumatic, normocephalic. Pupils are equal, round and reactive airways disease to light and accommodation. Extraocular muscles intact. Conjunctivae pink. Nonicteric sclerae. Oral mucosa within normal. NECK: Supple. No JVD, adenopathy or thyromegaly. Trachea in the midline. CARDIOVASCULAR: Tachycardic. Normal S1, S2. No murmurs, rubs or gallops heard. PULMONARY: Bilateral air entry with scattered wheezing and coarse breath sounds. ABDOMEN: Soft, nontender, no distention, positive bowel sounds. EXTREMITIES: No cyanosis, clubbing or edema. NEUROLOGIC: No focal sensory deficit. LABORATORY DATA: WBC 11.1, hemoglobin 15, hematocrit 45, platelet count of 215. Sodium 138, potassium 4, chloride 103, CO2 27, BUN 13, creatinine 1.30, glucose of 131. ABG on BiPAP last night, pH of 7.43, CO2 of 39, pO2 of 92, bicarbonate 26, and saturation of 95%. RADIOGRAPHIC STUDIES: CT angiogram of the chest showed no evidence of pulmonary embolism. Bronchiectasis with peribronchial thickening, severe emphysema, and coronary artery calcification. Doppler ultrasound of the lower extremity negative for DVT. IMPRESSION: 1. Acute hypoxemic respiratory insufficiency. 2. Chronic obstructive pulmonary disease exacerbation. 3. History of chronic obstructive pulmonary disease, on 3 liters home oxygen. 4. Bronchiectasis. 5. Hypertension. 6. Coronary artery disease. 7. Gastroesophageal reflux disease. RECOMMENDATIONS: 1. Continue with oxygen and maintain saturations above 92%. 2. Bronchodilators in the form of DuoNeb every 4 hours plus every 2 hours p.r.n. for shortness of breath. Will add Symbicort 160/4.5 two puffs b.i.d. 3. Agree with IV steroids. Will increase Solu-Medrol to 60 mg IV every 8 hours. 4. BiPAP p.r.n. for respiratory distress. 5. Continue with antibiotics in the form of Rocephin and azithromycin. Monitor for signs of infection, which include fever and WBC. Follow up on Streptococcus pneumoniae and legionella urinary antigen, pending at this time. His influenza screening is negative. We will obtain a sputum culture with Gram stain. 6. CT chest reviewed, which showed no evidence of PE; however, it showed bronchiectasis with peribronchial thickening and findings suggestive of allergic bronchopulmonary aspergillosis would be in the differential. We will obtain a baseline IgE level and will check Aspergillus IgG antibodies. 7. Optimize blood pressure control per primary team. 8. Further recommendations will be based on hospital course. Thank you for this consultation and allowing us to participate in this patient's care. MD Randal Hood , 01:37 PM , 01:50 PM
[2018-07-31] MEDS: MethylPREDNISolone Sod Succinate Inj 125 MG/2 ML Vial IV.PUSH SCH ×2 (14:14→21:17)
--- NOTE | 2018-07-31 14:21 | ECG ---
Date Performed: 07/30/2018 Time Performed: 22:28:28 PTAGE: 77 years EKG: SINUS TACHYCARDIA WITH FREQUENT VENTRICULAR PREMATURE COMPLEXES WITH OCCASIONAL SUPRAVENTRI CULAR PREMATURE COMPLEXES LOW QRS VOLTAGE IN PRECORDIAL LEADS ANTEROSEPTAL MYOCARDIAL INFARCTION ABNO RMAL ECG PREVIOUS TRACING : 05/11/2018 22.14 Compared to previous tracing, there are now occasional PVC' s . DOCTOR: Oswaldo Patterson Interpretating Date/Time 07/31/2018 14:20:43
--- NOTE | 2018-07-31 15:21 | ECHRPT ---
Indication: SOB CONCLUSIONS Technically difficult study. The left ventricular systolic function is severely reduced with an estimated ejection fraction in th e range of 30-35%. Mildly dilated left ventricle. Mild concentric left ventricular hypertrophy. There is global left ventricular dysfunction. Trace mitral valve regurgitation. Trace aortic valve regurgitation. There is trace tricuspid valve regurgitation. BP: / HR: Rhythm: Sinus MEASUREMENTS (Male / Female) Normal Values Technical Quality:Technically difficult study 2D ECHO LV Diastolic Diameter PLAX 6.4 cm 4.2 - 5.9 / 3.9 - 5.3 cm LV Systolic Diameter PLAX 5.5 cm IVS Diastolic Thickness 1.2 cm 0.6 - 1.0 / 0.6 - 0.9 cm LVPW Diastolic Thickness 1.2 cm 0.6 - 1.0 / 0.6 - 0.9 cm LV Relative Wall Thickness 0.4 RV Internal Dim ED PLAX 1.8 cm LVOT Diameter 2.4 cm Aortic Root Diameter 3.7 cm LA Systolic Diameter LX 2.9 cm 3.0 - 4.0 / 2.7 - 3.8 cm M-MODE AV Cusp Separation MM 2.6 cm DOPPLER AV Peak Velocity 138.0 cm/s AV Peak Gradient 7.6 mmHg AV Mean Gradient 4.0 mmHg AV Velocity Time Integral 21.2 cm AI Peak Velocity 444.0 cm/s AI Peak Gradient 78.9 mmHg AI Pressure Half Time 295.0 ms LVOT Peak Velocity 66.2 cm/s LVOT Peak Gradient 1.8 mmHg LVOT Velocity Time Integral 10.9 cm AV Area Cont Eq vti 2.3 cm AV Area Cont Eq pk 2.2 cm Mitral E Point Velocity 50.3 cm/s Mitral A Point Velocity 96.7 cm/s Mitral E to A Ratio 0.5 LV E' Lateral Velocity 6.2 cm/s Mitral E to LV E' Lateral Ratio 8.1 LV E' Septal Velocity 4.6 cm/s Mitral E to LV E' Septal Ratio 11.0 FINDINGS LEFT VENTRICLE Mildly dilated left ventricle. Mild concentric left ventricular hypertrophy. The left ventricular systolic function is severely reduced with an estimated ejection fraction in th e range of 30-35%. There is global left ventricular dysfunction. RIGHT VENTRICLE The right ventricle was not well visualized. LEFT ATRIUM Grossly normal size in limited views. RIGHT ATRIUM The right atrium is not well visualized. ATRIAL SEPTUM The interatrial septum not well visualized. AORTA The aortic root and proximal ascending aorta are not well visualized. MITRAL VALVE Grossly normal valve. Trace mitral valve regurgitation. AORTIC VALVE Aortic valve sclerosis is present. The aortic valve is not well visualized. Trace aortic valve regurgitation. TRICUSPID VALVE The tricuspid valve is not well visualized. There is trace tricuspid valve regurgitation. PULMONARY VALVE The pulmonary valve is not well visualized. VESSELS The inferior vena cava was not well visualized. PERICARDIUM No pericardial effusion. Raf Dey DO (Electronically Signed) Final Date:31 July 2018 15:20
[2018-07-31] MEDS: Budesonide-Formoterol 160/4.5 MCG 6 GM Inhaler INH SCH ×2 (18:02→21:16)
[2018-08-01 00:21] LABS: Activated Partial Thrombo Time 24.8 sec (24.3-30.1); INR 1.1 Ratio; Prothrombin Time 10.7 sec (9.8-11.6)
[2018-08-01] MEDS: Azithromycin Inj 500 MG in Sodium Chlor 0.9% Inj 250 ML IV.SIG SCH (00:55)
[2018-08-01] MEDS: Heparin - SQ 10,000 UNITS/ML Vial SQ SCH ×3 (00:59→17:33)
--- NOTE | 2018-08-01 03:26 | XR ---
EXAM DATE: 08/01/2018 3:19 AM EDT AGE/SEX: 77 years / Male INDICATIONS: Bronchiectasis. CLINICAL DATA: This is the patient's subsequent encounter. Patient reports that signs and symptoms h ave been present for 3 days and indicates a pain score of Nonresponsive. MEDICAL/SURGICAL HISTORY: . Chronic obstructive pulmonary disease. Abdominal aortic aneurysm wi thout rupture. 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 Arthritis. Emphysema. Prostate disorder. . Bilateral shoulder. COMPARISON: [facility], CTA PULMONARY W CONTRAST W 3D, 07/30/2018. . FINDINGS: Mild parenchymal consolidation again seen of both lung bases, right slightly more so the left. I don' t believe there is been a significant change from the CT. No pleural effusion demonstrated. No pneumo thorax. Heart size stable, upper limits of normal. Tortuous thoracic aorta again seen. A moderate to large hi atal hernia is again seen. CONCLUSION: Right greater than left patchy parenchymal consolidation without definite change from the CT. Electronically signed by: Calvin Jean Baptiste MD 08/01/2018 3:25 AM EDT
[2018-08-01] MEDS: Chlorhexidine Gluconate 2% 1 Pack (2 Cloths) TOPICAL SCH (05:51)
[2018-08-01] MEDS: MethylPREDNISolone Sod Succinate Inj 125 MG/2 ML Vial IV.PUSH SCH ×3 (05:51→21:18)
[2018-08-01 06:23] LABS: ABG Base Excess 3.9 mmol/L (-2-2); ABG PCO2 41 mmHg (38-42); ABG PO2 69 mmHg (61-120)
[2018-08-01 06:24] LABS: Baso % (Auto) 0.1 % (0.0-2.0); Hematocrit 45.2 % (39.0-51.0); Hemoglobin 14.8 gm/dL (13.0-17.0); Lymph # (Auto) 0.4 th/mm3 (1.0-4.8); Lymph % (Auto) 2.5 % (9.0-44.0); Mean Corpuscular HGB Conc 32.7 % (32.0-36.0); Mean Corpuscular Hemoglobin 28.8 pg (27.0-34.0); Mean Corpuscular Volume 88.2 fL (80.0-100.0); Mean Platelet Volume 8.8 fL (7.0-11.0); Mono # (Auto) 0.3 th/mm3 (0.0-0.9); Mono % (Auto) 1.7 % (0.0-8.0); Neut % (Auto) 95.7 % (16.0-70.0); Platelet Count 228 th/mm3 (150-450); Red Blood Count 5.12 mil/mm3 (4.50-5.90); Red Cell Distribution Width 13.7 % (11.6-17.2); White Blood Count 14.7 th/mm3 (4.0-11.0)
[2018-08-01 06:34] LABS: Chloride 105 meq/L (98-107); Potassium 4.5 meq/L (3.5-5.1); Sodium 141 meq/L (136-145)
[2018-08-01 06:36] LABS: Activated Partial Thrombo Time 24.7 sec (24.3-30.1); INR 1.1 Ratio; Prothrombin Time 10.7 sec (9.8-11.6)
[2018-08-01 06:38] LABS: Albumin 3.4 g/dL (3.4-5.0); Calcium 8.8 mg/dL (8.5-10.1)
[2018-08-01 06:39] LABS: Anion Gap 7 meq/L (5-15); Blood Urea Nitrogen 15 mg/dL (7-18); Carbon Dioxide 29.1 meq/L (21.0-32.0); Glucose,Random 127 mg/dL (74-106); Magnesium 2.5 mg/dL (1.5-2.5)
[2018-08-01 06:41] LABS: Alanine Aminotransferase 19 U/L (12-78)
[2018-08-01 06:42] LABS: Aspartate Aminotransferase 14 U/L (15-37); Glomerular Filtration Rate 72 mL/min (>89); Phosphorus 3.2 mg/dL (2.5-4.9)
[2018-08-01 06:43] LABS: Total Protein 7.1 g/dL (6.4-8.2)
[2018-08-01 06:44] LABS: Alkaline Phosphatase 112 U/L (45-117)
--- NOTE | 2018-08-01 06:47 | P.PNCC ---
Subjective Subjective Remarks/Hospital Course: This is a 77-year-old male. Date of admission 07/31/2018. Past medical history includes COPD with chronic respiratory failure/3 L oxygen dependent, chronic anemia, coronary artery disease, atherosclerotic vascular disease, essential hypertension, hyperlipidemia, gastroesophageal disease, hiatal hernia, benign prostatic hypertrophy and chronic prednisone use. Patient presented to [facility] 07/30 with acute shortness of breath. States he 7/ fever/chills/coughing/nonproductive without hematemesis or hemoptysis. Denies any recent sick contacts. Patient has not been at [facility] since 2017 admission. Patient received intravenous steroids in aggressive aerosolized medication therapy in the ED. CT pulmonary angiogram revealed no central pulmonary embolism. Signs of bronchial thickening indicative possible bronchiectasis. Severe emphysema. Coronary disease with atherosclerotic vascular disease. Large hiatal hernia. Small pericardial effusion. Patient has been started on ceftriaxone and azithromycin and aggressive pulmonary toilet. Patient is currently on BiPAP 5/5 and 50% saturations currently 92%. Patient is anxious in sinus tachycardia. Denies sputum production.. SUBJECTIVE: 08/01: Remains on CPAP 5/5 at 40%. Saturations 94%. When patient takes off BiPAP for extended period time patient becomes extremely short of breath. Appears comfortable now with an adequate ABG. A.m. chest x-ray pending Objective Vital Signs / I&O: Vital Signs 07/31/18 07:00 07/31/18 07:28 07/31/18 07:46 Temperature 97.9 F Pulse Rate 108 H 107 H Respiratory Rate 26 H 23 Blood Pressure 162/88 H Pulse Oximetry 92 L 91 L 07/31/18 08:00 07/31/18 09:00 07/31/18 10:00 Temperature Pulse Rate 110 H 110 H 112 H Respiratory Rate 25 H 23 26 H Blood Pressure 177/78 H 193/79 H 189/84 H Pulse Oximetry 89 L 91 L 91 L 07/31/18 10:59 07/31/18 11:29 07/31/18 11:40 Temperature Pulse Rate 114 H 114 H 98 H Respiratory Rate 33 H 30 H 33 H Blood Pressure 157/85 H 193/93 H Pulse Oximetry 90 L 92 L 88 L 07/31/18 11:42 07/31/18 11:50 07/31/18 11:59 Temperature Pulse Rate 84 84 Respiratory Rate 22 32 H Blood Pressure 160/75 H 149/80 H Pulse Oximetry 91 L 07/31/18 12:00 07/31/18 12:59 07/31/18 14:00 Temperature 98.5 F Pulse Rate 88 94 H 96 H Respiratory Rate 25 H Blood Pressure 141/70 H Pulse Oximetry 94 L 07/31/18 14:13 07/31/18 15:38 07/31/18 15:42 Temperature Pulse Rate 96 H 99 H 96 H Respiratory Rate 38 H 24 30 H Blood Pressure 149/74 H 147/93 H Pulse Oximetry 90 L 91 L 07/31/18 16:00 07/31/18 16:42 07/31/18 17:42 Temperature 98.1 F Pulse Rate 100 H 92 H 100 H Respiratory Rate 30 H 33 H Blood Pressure 160/79 H 161/73 H Pulse Oximetry 94 L 91 L 07/31/18 18:00 07/31/18 18:42 07/31/18 19:00 Temperature Pulse Rate 104 H 104 H 96 H Respiratory Rate 39 H 28 H Blood Pressure 168/80 H 168/80 H Pulse Oximetry 89 L 95 07/31/18 20:00 07/31/18 20:41 07/31/18 21:00 Temperature 97.5 F L Pulse Rate 100 H 96 H 91 H Respiratory Rate 22 20 28 H Blood Pressure 159/78 H 159/78 H Pulse Oximetry 93 L 92 L 91 L 07/31/18 22:00 07/31/18 23:00 07/31/18 23:10 Temperature Pulse Rate 91 H 67 88 Respiratory Rate 19 18 Blood Pressure 146/73 H 152/76 H Pulse Oximetry 92 L 99 07/31/18 23:30 08/01/18 00:00 08/01/18 01:00 Temperature 96.1 F L Pulse Rate 85 89 Respiratory Rate 19 23 Blood Pressure 152/76 H 162/82 H Pulse Oximetry 96 99 94 L 08/01/18 02:00 08/01/18 03:00 08/01/18 04:00 Temperature 98 F Pulse Rate 89 103 H 88 Respiratory Rate 34 H 22 Blood Pressure 148/71 H 152/70 H 152/70 H Pulse Oximetry 99 94 L 93 L 08/01/18 04:12 08/01/18 04:28 08/01/18 05:00 Temperature Pulse Rate 103 H 97 H Respiratory Rate 27 H 32 H Blood Pressure 150/82 H Pulse Oximetry 92 L 91 L 08/01/18 05:48 Temperature Pulse Rate 98 H Respiratory Rate 25 H Blood Pressure Pulse Oximetry 91 L Intake & Output 07/31/18 07/31/18 08/01/18 06:59 18:59 06:59 Intake Total 460 / 460 580 / 580 120 / 120 Output Total 350 / 350 625 / 625 1475 / 1475 Balance 110 / 110 -45 / -45 -1355 / -1355 Weight 80.3 kg 80.1 kg Intake: IV 100 / 100 100 / 100 Azithromycin Inj 500 MG In NS 0 / 0 Inj 250 ML @ 250 mls/hr IV.SIG Q24H [facility] Rx#:[id number] Rocephin Inj 1,000 MG In NS Inj 100 / 100 100 / 100 100 ML @ 200 mls/hr IV.SIG Q12H [facility] Rx#:[id number] Oral 360 / 360 480 / 480 120 / 120 Output: Urine 350 / 350 625 / 625 1475 / 1475 Other: Date of Last Bowel Movement 07/29/18 # Bowel Movements 0 0 Weight On Admission 80.3 kg Result Diagrams: 08/01/18 05:45 08/01/18 05:45 Other Results: Microbiology 07/30/18 22:20 Blood - Peripheral Aerobic Blood Culture - Preliminary No growth in 1 day 07/30/18 22:20 Blood - Peripheral Anaerobic Blood Culture - Preliminary No growth in 1 day 07/30/18 22:10 Blood - Peripheral Aerobic Blood Culture - Preliminary No growth in 1 day 07/30/18 22:10 Blood - Peripheral Anaerobic Blood Culture - Preliminary No growth in 1 day 07/30/18 22:24 Nasal Wash Influenza Types A,B Antigen - Final Negative for FLU A and B antigen Infection due to influenza A or B cannot be ruled out since the antigen present in the sample may be below the detection limit of the test. Imaging: Chest X-Ray 07/30/18 22:06 CONCLUSION: Chronic basilar scarring or atelectasis. No effusion. Chest CTA 07/30/18 22:48 CONCLUSION: 1. No pulmonary embolus. 2. Bronchiectasis with peribronchial thickening and widespread endobronchial filling defects likely representing inspissated secretion/mucous. This is right worse than left. Poor ciliary clearance related to bronchiectasis considered most likely. Allergic bronchopulmonary aspergillosis would also be in the differential. There is associated infectious/inflammatory appearing parenchymal changes of both bases, right worse than left. 3. Severe emphysema again seen. 4. Coronary artery calcification. 5. Stable size and appearance atherosclerosis and mild aneurysmal dilatation of the thoracic aorta. 6. Small pericardial effusion not significantly changed. 7. Moderate to large hiatal hernia not significantly changed. Venous Doppler Study 07/31/18 00:00 CONCLUSION: 1. No evidence for DVT. 2. Left popliteal artery aneurysms. Chest X-Ray 08/01/18 06:00 CONCLUSION: Right greater than left patchy parenchymal consolidation without definite change from the CT. Objective Remarks: GENERAL: 77-year-old male currently resting in bed on BiPAP SKIN: Warm and dry. HEAD: Atraumatic. Normocephalic. EYES: Pupils equal and round. No scleral icterus. No injection or drainage. ENT: No nasal bleeding or discharge. Mucous membranes pink and moist. NECK: Trachea midline. No JVD. CARDIOVASCULAR: Regular rate and rhythm. S1, S2. No S4. RESPIRATORY: Crackles appreciated bilateral bases left greater than right. Positive end expiratory wheeze.. GASTROINTESTINAL: Abdomen soft, non-tender, nondistended. Hepatic and splenic margins not palpable. MUSCULOSKELETAL: Extremities without significant peripheral edema. No obvious deformities. NEUROLOGICAL: Awake and alert. No obvious cranial nerve deficits. Motor grossly within normal limits. Five out of 5 muscle strength in the arms and legs. Normal speech. PSYCHIATRIC: Appropriate mood and affect; insight and judgment normal. Assessment and Plan - Assessment and Plan Plan: Neuro/Psych: Acetaminophen 650 mg p.o. 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 Routine limited 2D echocardiogram - The left ventricular systolic function is severely reduced with an estimated ejection fraction in the range of 30-35%. Mildly dilated left ventricle. Mild concentric left ventricular hypertrophy. There is global left ventricular dysfunction. Trace mitral valve regurgitation. Trace aortic valve regurgitation. There is trace tricuspid valve regurgitation Serial lactates until cleared Review EKG We will start on low-dose furosemide 20 mill grams daily and lisinopril 5 mg daily. As needed labetalol, hydralazine and Nitropaste and nicardipine drip for hypertension Resp: Acute hypoxic hypercapnic respiratory failure in the setting of chronic hypoxic respiratory failure [address] COPD [address] dependent CT pulmonary angiogram revealed no central pulmonary vessels. Significant bronchiectasis bilaterally. Severe emphysema. Coronary artery disease/ atherosclerotic vascular disease. Moderately large hiatal hernia. Small pericardial effusion. Right thoracic aortic aneurysm. Currently on albuterol/ipratropium aerosols every 4 hours with albuterol aerosols every 2 hours as needed dyspnea Currently on budesonide/formoterol 150/4.5 2 puffs twice daily -on fluticasone/ salmeterol 150/21 2 puffs twice daily at home Methylprednisolone succinate 60 mg IV every 8 hours Incentive spirometry while awake Currently on BiPAP 5/5 and 40%. Add hypertonic saline aerosols every 4 hours as mucolytic with guaifenesin 600 mg twice daily Lung hyperinflation protocol initiated with pulmonary kinetics every 4 hours Pulmonary consultation by overnight mold clamper Recheck chest x-ray in a.m. 08/01 GI: Moderately large hiatal hernia Gastroesophageal reflux disease History of peptic ulcer disease Currently on regular diet Pantoprazole for GI prophylaxis Docusate sodium/senna 1 tablet twice daily for bowel regimen : BPH Continue tamsulosin 0.4 mg p.o. daily. Rosas catheter if continued urinary retention Endo: Chronic prednisone use/10 mg daily Sliding scale insulin Accu-Cheks to maintain euglycemia/aspart insulin q. before meals and at bedtime low Check TSH On methylprednisolone succinate as above see orders Renal: Acute kidney injury Monitor urine output Accurate I's and O's Heme: Leukocytosis Monitor CBC daily. Follow trends. No indication for the transfusion of blood products at this time ID: Bronchiectasis? Community acquired pneumonia question irena Currently on ceftriaxone and azithromycin Blood cultures 2 07/30 no growth to date UA 07/31 no growth Sputum 07/31 pending Influenza a and B- Legionella and pneumococcal urinary antigens pending Check immunoglobin Ig G, A, M (Nl)and IgE (pending) , rheumatoid factor (-) and alpha anti-trypsin (-) in light of bronchiectasis Aspergillus pending Mycoplasma and Chlamydia pending FEN: Replace electrolytes as clinically indicated per ICU electrolyte protocol MSK: PT/OT evaluate and treat Access -Utilize peripheral IV. Central line if indicated Prophylaxis -GI -pantoprazole -DVT -SCD/heparin subcu Level 3 follow-up
[2018-08-01 06:52] LABS: Thyroid Stimulating Hormone 0.354 uIU/mL (0.358-3.740)
[2018-08-01] MEDS: Insulin NovoLOG Aspart Correctional Sugar Inj SQ SCH ×4 (08:15→22:26)
[2018-08-01] MEDS: Senna/Docusate Sodium 8.6/50 MG Tablet PO SCH ×2 (08:53→21:16)
[2018-08-01] MEDS: guaiFENesin 600 MG ER Tablet PO SCH ×2 (08:53→21:17)
[2018-08-01] MEDS: Lisinopril 5 MG Tablet PO SCH (08:54)
[2018-08-01] MEDS: Budesonide-Formoterol 160/4.5 MCG 6 GM Inhaler INH SCH ×2 (08:55→22:28)
[2018-08-01] MEDS ORDERED: Furosemide 20 MG Tablet PO SCH (09:00)
--- NOTE | 2018-08-01 13:18 | P.PNPL ---
Subjective Interval history: Patient is sitting in chair in NAD. Afebrile. Feeling better. Physical Exam Vital signs: Vital Signs 07/31/18 14:00 07/31/18 14:13 07/31/18 15:38 Temperature Pulse Rate 96 H 96 H 99 H Respiratory Rate 38 H 24 Blood Pressure 149/74 H Pulse Oximetry 90 L 07/31/18 15:42 07/31/18 16:00 07/31/18 16:42 Temperature 98.1 F Pulse Rate 96 H 100 H 92 H Respiratory Rate 30 H 30 H Blood Pressure 147/93 H 160/79 H Pulse Oximetry 91 L 94 L 07/31/18 17:42 07/31/18 18:00 07/31/18 18:42 Temperature Pulse Rate 100 H 104 H 104 H Respiratory Rate 33 H 39 H Blood Pressure 161/73 H 168/80 H Pulse Oximetry 91 L 89 L 07/31/18 19:00 07/31/18 20:00 07/31/18 20:41 Temperature 97.5 F L Pulse Rate 96 H 100 H 96 H Respiratory Rate 28 H 22 20 Blood Pressure 168/80 H 159/78 H Pulse Oximetry 95 93 L 92 L 07/31/18 21:00 07/31/18 22:00 07/31/18 23:00 Temperature Pulse Rate 91 H 91 H 67 Respiratory Rate 28 H 19 Blood Pressure 159/78 H 146/73 H 152/76 H Pulse Oximetry 91 L 92 L 99 07/31/18 23:10 07/31/18 23:30 08/01/18 00:00 Temperature 96.1 F L Pulse Rate 88 85 Respiratory Rate 18 19 Blood Pressure 152/76 H Pulse Oximetry 96 99 08/01/18 01:00 08/01/18 02:00 08/01/18 03:00 Temperature Pulse Rate 89 89 103 H Respiratory Rate 23 34 H Blood Pressure 162/82 H 148/71 H 152/70 H Pulse Oximetry 94 L 99 94 L 08/01/18 04:00 08/01/18 04:12 08/01/18 04:28 Temperature 98 F Pulse Rate 88 103 H Respiratory Rate 22 27 H Blood Pressure 152/70 H Pulse Oximetry 93 L 92 L 08/01/18 05:00 08/01/18 05:48 08/01/18 07:00 Temperature 98.1 F Pulse Rate 97 H 98 H 92 H Respiratory Rate 32 H 25 H 24 Blood Pressure 150/82 H 139/86 Pulse Oximetry 91 L 91 L 95 08/01/18 07:52 08/01/18 08:00 08/01/18 09:00 Temperature Pulse Rate 94 H 96 H 112 H Respiratory Rate 24 16 37 H Blood Pressure 128/67 144/64 H Pulse Oximetry 91 L 92 L 87 L 08/01/18 11:37 Temperature Pulse Rate 95 H Respiratory Rate 22 Blood Pressure Pulse Oximetry Intake & Output 07/31/18 08/01/18 08/01/18 18:59 06:59 18:59 Intake Total 580 / 580 120 / 120 Output Total 625 / 625 1475 / 1475 Balance -45 / -45 -1355 / -1355 Weight 80.1 kg Intake: IV 100 / 100 Azithromycin Inj 500 MG In NS 0 / 0 Inj 250 ML @ 250 mls/hr IV.SIG Q24H [facility] Rx#:[id number] Rocephin Inj 1,000 MG In NS Inj 100 / 100 100 ML @ 200 mls/hr IV.SIG Q12H [facility] Rx#:[id number] Oral 480 / 480 120 / 120 Output: Urine 625 / 625 1475 / 1475 Other: Date of Last Bowel Movement 07/29/18 # Bowel Movements 0 - Constitutional mild distress - Routine HEENT Exam Head: Present: normocephalic, atraumatic Eye: Present: EOMI, PERRL, normal accommodation, conjunctivae pink ENT: Present: mucous membranes moist - Routine Neck Exam Present: supple, full ROM, trachea midline - Routine Respiratory Exam Present: rales - Routine Cardiovascular Exam Present: RRR, S1, S2 - Routine Abdominal Exam Present: soft, normoactive bowel sounds - Routine Extremities Exam Present: full ROM, pulses intact - Routine Skin Exam Present: intact, dry - Routine Neurological Exam Present: alert, oriented X3, CN II-XII intact - Routine Psychiatric Exam Present: normal affect Assessment and Plan - Plan 1. Acute hypoxemic respiratory insufficiency. 2. COPD exacerbation. 3. History COPD, on 3 liters home oxygen. 4. Bronchiectasis ? ABPA 5. Hypertension. 6. Coronary artery disease. 7. GERD 8. Leukocytosis Plan Wean down oxygen as talib keep sats > 92%. Bronchodilators( DuoNeb,Symbicort) On Solu-Medrol to 60 mg IV every 8 hours. BiPAP p.r.n. for respiratory distress. Continue abx( Rocephin and azithromycin). Monitor for signs of infections( fever and WBC) Strep pneumoniae, legionella urinary antigen and influenza screening all negative. Follow up on IgE level and Aspergillus IgG antibodies. Mycoplasma pneumonia IgG, IgM pending, C. pneumonia titers pending GI/DVT prophylaxis- On Heparin SQ Continue treatment plan
[2018-08-02] MEDS: Azithromycin Inj 500 MG in Sodium Chlor 0.9% Inj 250 ML IV.SIG SCH (01:02)
[2018-08-02 01:30] LABS: Baso % (Auto) 0.3 % (0.0-2.0); Hematocrit 42.5 % (39.0-51.0); Hemoglobin 14.3 gm/dL (13.0-17.0); Lymph # (Auto) 0.4 th/mm3 (1.0-4.8); Lymph % (Auto) 2.4 % (9.0-44.0); Mean Corpuscular HGB Conc 33.6 % (32.0-36.0); Mean Corpuscular Hemoglobin 29.2 pg (27.0-34.0); Mean Platelet Volume 8.3 fL (7.0-11.0); Mono # (Auto) 0.7 th/mm3 (0.0-0.9); Mono % (Auto) 4.4 % (0.0-8.0); Neut # (Auto) 14.9 th/mm3 (1.8-7.7); Neut % (Auto) 92.9 % (16.0-70.0); Platelet Count 211 th/mm3 (150-450); Red Blood Count 4.88 mil/mm3 (4.50-5.90); Red Cell Distribution Width 13.5 % (11.6-17.2)
[2018-08-02] MEDS: Heparin - SQ 10,000 UNITS/ML Vial SQ SCH ×3 (01:34→17:24)
[2018-08-02 01:50] LABS: Alanine Aminotransferase 18 U/L (12-78); Alkaline Phosphatase 92 U/L (45-117); Anion Gap 7 meq/L (5-15); Aspartate Aminotransferase 9 U/L (15-37); Blood Urea Nitrogen 19 mg/dL (7-18); Calcium 8.2 mg/dL (8.5-10.1); Carbon Dioxide 28.7 meq/L (21.0-32.0); Chloride 104 meq/L (98-107); Glomerular Filtration Rate 72 mL/min (>89); Glucose,Random 152 mg/dL (74-106); Magnesium 2.3 mg/dL (1.5-2.5); Phosphorus 3.7 mg/dL (2.5-4.9); Potassium 3.6 meq/L (3.5-5.1); Sodium 140 meq/L (136-145); Total Protein 6.2 g/dL (6.4-8.2)
[2018-08-02] MEDS: Chlorhexidine Gluconate 2% 1 Pack (2 Cloths) TOPICAL SCH (05:28)
[2018-08-02] MEDS: MethylPREDNISolone Sod Succinate Inj 125 MG/2 ML Vial IV.PUSH SCH ×3 (05:28→21:54)
--- NOTE | 2018-08-02 05:57 | XR ---
EXAM DATE: 08/02/2018 5:49 AM EDT AGE/SEX: 77 years / Male INDICATIONS: Shortness of breath. CLINICAL DATA: This is the patient's subsequent encounter. Patient reports that signs and symptoms h ave been present for 3 days and indicates a pain score of Nonresponsive. MEDICAL/SURGICAL HISTORY: . Chronic obstructive pulmonary disease. Abdominal aortic aneurysm w ithout rupture. 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 Arthritis. Emphysema. Prostate disorder . . Bilateral shoulder. COMPARISON: [facility], CHEST 1V SINGLE AP, 08/01/2018. . FINDINGS: Single AP view the chest. Patchy opacity in the lung bases bilaterally. No significant interval bliss e. Cardiomediastinal silhouette unchanged. No evidence of pleural effusion or pneumothorax. CONCLUSION: No significant interval change. Patchy bilateral lower lung zone opacity again seen. Electronically signed by: Franc Lopez MD 08/02/2018 5:55 AM EDT
--- NOTE | 2018-08-02 07:47 | P.PNCC ---
Subjective Subjective Remarks/Hospital Course: This is a 77-year-old male. Date of admission 07/31/2018. Past medical history includes COPD with chronic respiratory failure/3 L oxygen dependent, chronic anemia, coronary artery disease, atherosclerotic vascular disease, essential hypertension, hyperlipidemia, gastroesophageal disease, hiatal hernia, benign prostatic hypertrophy and chronic prednisone use. Patient presented to [facility] 07/30 with acute shortness of breath. States he 7/ fever/chills/coughing/nonproductive without hematemesis or hemoptysis. Denies any recent sick contacts. Patient has not been at [facility] since 2017 admission. Patient received intravenous steroids in aggressive aerosolized medication therapy in the ED. CT pulmonary angiogram revealed no central pulmonary embolism. Signs of bronchial thickening indicative possible bronchiectasis. Severe emphysema. Coronary disease with atherosclerotic vascular disease. Large hiatal hernia. Small pericardial effusion. Patient has been started on ceftriaxone and azithromycin and aggressive pulmonary toilet. Patient is currently on BiPAP 5/5 and 50% saturations currently 92%. Patient is anxious in sinus tachycardia. Denies sputum production.. 08/01: Remains on CPAP 5/5 at 40%. Saturations 94%. When patient takes off BiPAP for extended period time patient becomes extremely short of breath. Appears comfortable now with an adequate ABG. A.m. chest x-ray pending SUBJECTIVE: 08/02: Remains intermittently on BiPAP. When patient takes BiPAP off at night he desaturates acutely. Stable on the BiPAP setting were 94-95%. X-ray appears stable. Objective Vital Signs / I&O: Vital Signs 08/01/18 07:52 08/01/18 08:00 08/01/18 09:00 Temperature Pulse Rate 94 H 96 H 112 H Respiratory Rate 24 16 37 H Blood Pressure 128/67 144/64 H Pulse Oximetry 91 L 92 L 87 L 08/01/18 10:00 08/01/18 11:00 08/01/18 11:37 Temperature Pulse Rate 98 H 100 H 95 H Respiratory Rate 31 H 31 H 22 Blood Pressure 111/59 L 127/63 Pulse Oximetry 93 L 90 L 08/01/18 12:00 08/01/18 13:00 08/01/18 14:00 Temperature Pulse Rate 112 H 106 H 102 H Respiratory Rate 52 H 29 H 30 H Blood Pressure 101/46 L 103/55 L 117/55 L Pulse Oximetry 87 L 94 L 89 L 08/01/18 16:00 08/01/18 16:10 08/01/18 17:00 Temperature Pulse Rate 102 H 104 H 104 H Respiratory Rate 29 H 24 31 H Blood Pressure 120/69 113/56 L Pulse Oximetry 91 L 92 L 08/01/18 18:00 08/01/18 19:00 08/01/18 19:53 Temperature Pulse Rate 116 H 69 90 Respiratory Rate 60 H 36 H 18 Blood Pressure 123/67 121/52 L Pulse Oximetry 86 L 90 L 91 L 08/01/18 20:00 08/01/18 21:00 08/01/18 22:00 Temperature 98.2 F Pulse Rate 102 H 102 H 100 H Respiratory Rate 27 H 22 19 Blood Pressure 102/65 Pulse Oximetry 94 L 94 L 08/01/18 22:59 08/01/18 23:38 08/02/18 00:00 Temperature 97.6 F Pulse Rate 102 H 97 H 87 Respiratory Rate 19 18 15 Blood Pressure 93/51 L 115/94 H Pulse Oximetry 93 L 08/02/18 01:00 08/02/18 02:00 08/02/18 03:00 Temperature Pulse Rate 94 H 96 H 98 H Respiratory Rate 23 32 H 23 Blood Pressure 100/57 L 128/70 172/89 H Pulse Oximetry 91 L 93 L 08/02/18 03:05 08/02/18 03:30 08/02/18 04:00 Temperature 97.4 F L Pulse Rate 98 H 92 H Respiratory Rate 20 23 Blood Pressure 119/79 Pulse Oximetry 94 L 94 L 08/02/18 05:00 08/02/18 06:00 Temperature Pulse Rate 92 H 96 H Respiratory Rate 27 H 23 Blood Pressure 146/62 H 156/75 H Pulse Oximetry 93 L Intake & Output 08/01/18 08/02/18 08/02/18 18:59 06:59 18:59 Intake Total 820 / 820 830 / 830 Output Total 1200 / 1200 Balance -380 / -380 830 / 830 Weight 79.1 kg Intake: IV 100 / 100 350 / 350 Azithromycin Inj 500 MG In NS 250 / 250 Inj 250 ML @ 250 mls/hr IV.SIG Q24H [facility] Rx#:[id number] Rocephin Inj 1,000 MG In NS Inj 100 / 100 100 / 100 100 ML @ 200 mls/hr IV.SIG Q12H [facility] Rx#:[id number] Oral 720 / 720 480 / 480 Output: Urine 1200 / 1200 Other: Post Void Residual 350 Date of Last Bowel Movement 07/30/18 # Incontinent Bowel Movements 0 Result Diagrams: 08/02/18 01:20 08/02/18 01:20 Other Results: Microbiology 07/31/18 02:10 Clean Catch Urine Urine Culture - Preliminary No growth in 24 hours 07/31/18 15:47 Sputum - Expectorated Sputum Gram Stain - Final 07/31/18 15:47 Sputum - Expectorated Sputum Sputum Culture - Preliminary Immature growth - reincubate 07/30/18 22:20 Blood - Peripheral Aerobic Blood Culture - Preliminary No growth in 2 days 07/30/18 22:20 Blood - Peripheral Anaerobic Blood Culture - Preliminary No growth in 2 days 07/30/18 22:10 Blood - Peripheral Aerobic Blood Culture - Preliminary No growth in 2 days 07/30/18 22:10 Blood - Peripheral Anaerobic Blood Culture - Preliminary No growth in 2 days 07/31/18 02:10 Urine - Random Urine Streptococcus pneumoniae Antigen (M - Final Presumptive negative for streptococcus pneumoniae antigen, suggesting no current or recent infection. Infection due to Streptococcus pneumoniae cannot be ruled out since the antigen present in the sample may be below the detection limit of the test. 07/31/18 02:10 Urine - Random Urine Legionella Antigen - Final Presumptive negative for Legionella pneumophila serogroup 1 antigen in urine, suggesting no recent or recurrent infection. Infection due to Legionella cannot be ruled out since other serogroups and species may cause disease, antigen may not be present in urine in early infection, and the level of antigen present in the urine may be below the detection limit of the test. 07/30/18 22:24 Nasal Wash Influenza Types A,B Antigen - Final Negative for FLU A and B antigen Infection due to influenza A or B cannot be ruled out since the antigen present in the sample may be below the detection limit of the test. Imaging: ITS Impressions Chest CTA 07/30/18 22:48 CONCLUSION: 1. No pulmonary embolus. 2. Bronchiectasis with peribronchial thickening and widespread endobronchial filling defects likely representing inspissated secretion/mucous. This is right worse than left. Poor ciliary clearance related to bronchiectasis considered most likely. Allergic bronchopulmonary aspergillosis would also be in the differential. There is associated infectious/inflammatory appearing parenchymal changes of both bases, right worse than left. 3. Severe emphysema again seen. 4. Coronary artery calcification. 5. Stable size and appearance atherosclerosis and mild aneurysmal dilatation of the thoracic aorta. 6. Small pericardial effusion not significantly changed. 7. Moderate to large hiatal hernia not significantly changed. Venous Doppler Study 07/31/18 00:00 CONCLUSION: 1. No evidence for DVT. 2. Left popliteal artery aneurysms. Chest X-Ray 08/02/18 06:00 CONCLUSION: No significant interval change. Patchy bilateral lower lung zone opacity again seen. Objective Remarks: GENERAL: 77-year-old male currently resting in bed on BiPAP SKIN: Warm and dry. HEAD: Atraumatic. Normocephalic. EYES: Pupils equal and round. No scleral icterus. No injection or drainage. ENT: No nasal bleeding or discharge. Mucous membranes pink and moist. NECK: Trachea midline. No JVD. CARDIOVASCULAR: Regular rate and rhythm. S1, S2. No S4. RESPIRATORY: Crackles appreciated bilateral bases left greater than right. Positive end expiratory wheeze.. GASTROINTESTINAL: Abdomen soft, non-tender, nondistended. Hepatic and splenic margins not palpable. MUSCULOSKELETAL: Extremities without significant peripheral edema. No obvious deformities. NEUROLOGICAL: Awake and alert. No obvious cranial nerve deficits. Motor grossly within normal limits. Five out of 5 muscle strength in the arms and legs. Normal speech. PSYCHIATRIC: Appropriate mood and affect; insight and judgment normal. Assessment and Plan - Assessment and Plan Plan: Neuro/Psych: Acetaminophen 650 mg p.o. 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 Routine limited 2D echocardiogram - The left ventricular systolic function is severely reduced with an estimated ejection fraction in the range of 30-35%. Mildly dilated left ventricle. Mild concentric left ventricular hypertrophy. There is global left ventricular dysfunction. Trace mitral valve regurgitation. Trace aortic valve regurgitation. There is trace tricuspid valve regurgitation Serial lactates until cleared Continue low-dose furosemide 40 mg twice daily and lisinopril 5 mg daily. As needed labetalol, hydralazine and Nitropaste and nicardipine drip for hypertension Resp: Acute hypoxic hypercapnic respiratory failure in the setting of chronic hypoxic respiratory failure [address] COPD oxygen dependent CT pulmonary angiogram revealed no central pulmonary vessels. Significant bronchiectasis bilaterally. Severe emphysema. Coronary artery disease/ atherosclerotic vascular disease. Moderately large hiatal hernia. Small pericardial effusion. Right thoracic aortic aneurysm. Currently on albuterol/ipratropium aerosols every 4 hours with albuterol aerosols every 2 hours as needed dyspnea Currently on budesonide/formoterol 150/4.5 2 puffs twice daily -on fluticasone/ salmeterol 150/21 2 puffs twice daily at home Methylprednisolone succinate 60 mg IV every 8 hours Incentive spirometry while awake Currently on BiPAP 5/5 and 40%. Add hypertonic saline aerosols every 4 hours as mucolytic with guaifenesin 600 mg twice daily Lung hyperinflation protocol initiated with pulmonary kinetics every 4 hours Pulmonary consultation appreciated Recheck chest x-ray in a.m. 08/03 GI: Moderately large hiatal hernia Gastroesophageal reflux disease History of peptic ulcer disease Currently on regular diet Pantoprazole for GI prophylaxis Docusate sodium/senna 1 tablet twice daily for bowel regimen. Add polythene glycol 17 g twice daily and lactulose 30 cc twice daily : BPH Continue tamsulosin 0.4 mg p.o. daily. Rosas catheter if continued urinary retention Endo: Chronic prednisone use/10 mg daily Low TSH 0.354 Sliding scale insulin Accu-Cheks to maintain euglycemia/aspart insulin q. before meals and at bedtime low Check free T/T4 in a.m. 08/03 On methylprednisolone succinate as above see orders Renal: Acute kidney injury Monitor urine output Accurate I's and O's Heme: Leukocytosis Monitor CBC daily. Follow trends. No indication for the transfusion of blood products at this time ID: Bronchiectasis? Community acquired pneumonia question irena Currently on ceftriaxone and azithromycin Blood cultures 2 07/30 no growth to date UA 07/31 no growth Sputum 07/31 pending Influenza a and B- Legionella and pneumococcal urinary antigens pending Check immunoglobin Ig G, A, M (Nl) and IgE (pending) , rheumatoid factor (-) and alpha anti-trypsin (-) in light of bronchiectasis Aspergillus pending Mycoplasma and Chlamydia pending FEN: Replace electrolytes as clinically indicated per ICU electrolyte protocol MSK: PT/OT evaluate and treat Access -Utilize peripheral IV. Central line if indicated Prophylaxis -GI -pantoprazole -DVT -SCD/heparin subcu Level 3 follow-up Code Status: Full code
[2018-08-02] MEDS: Senna/Docusate Sodium 8.6/50 MG Tablet PO SCH ×2 (09:26→20:01)
[2018-08-02] MEDS: Lisinopril 5 MG Tablet PO SCH (09:26)
[2018-08-02] MEDS: guaiFENesin 600 MG ER Tablet PO SCH ×2 (09:26→20:04)
[2018-08-02] MEDS: Polyethylene Glycol 3350 17 GM Packet PO SCH ×2 (09:28→20:02)
[2018-08-02] MEDS: Budesonide-Formoterol 160/4.5 MCG 6 GM Inhaler INH SCH ×2 (09:29→20:01)
[2018-08-02] MEDS: Insulin NovoLOG Aspart Correctional Sugar Inj SQ SCH ×3 (12:25→20:13)
--- NOTE | 2018-08-02 20:06 | P.PNPL ---
Subjective Interval history: 77 YOWM with COPD, Hypoxic, hypercapmnoic RF Weaned to 5LNC Desaturates Feels breathing better Physical Exam Vital signs: Vital Signs 08/01/18 21:00 08/01/18 22:00 08/01/18 22:59 Temperature Pulse Rate 102 H 100 H 102 H Respiratory Rate 22 19 19 Blood Pressure 93/51 L Pulse Oximetry 94 L 94 L 08/01/18 23:38 08/02/18 00:00 08/02/18 01:00 Temperature 97.6 F Pulse Rate 97 H 87 94 H Respiratory Rate 18 15 23 Blood Pressure 115/94 H 100/57 L Pulse Oximetry 93 L 08/02/18 02:00 08/02/18 03:00 08/02/18 03:05 Temperature Pulse Rate 96 H 98 H 98 H Respiratory Rate 32 H 23 20 Blood Pressure 128/70 172/89 H Pulse Oximetry 91 L 93 L 08/02/18 03:30 08/02/18 04:00 08/02/18 05:00 Temperature 97.4 F L Pulse Rate 92 H 92 H Respiratory Rate 23 27 H Blood Pressure 119/79 146/62 H Pulse Oximetry 94 L 94 L 93 L 08/02/18 06:00 08/02/18 07:30 08/02/18 08:00 Temperature Pulse Rate 96 H 92 H 102 H Respiratory Rate 23 22 Blood Pressure 156/75 H Pulse Oximetry 94 L 97 08/02/18 08:42 08/02/18 09:42 08/02/18 10:00 Temperature 98.2 F Pulse Rate 104 H 111 H Respiratory Rate 37 H 31 H Blood Pressure 157/78 H 111/69 Pulse Oximetry 92 L 92 L 08/02/18 10:42 08/02/18 11:00 08/02/18 11:42 Temperature Pulse Rate 112 H 102 H 110 H Respiratory Rate 43 H 34 H 27 H Blood Pressure 130/77 98/51 L Pulse Oximetry 88 L 94 L 91 L 08/02/18 12:00 08/02/18 12:42 08/02/18 13:00 Temperature 98.1 F Pulse Rate 102 H 118 H 110 H Respiratory Rate 28 H 41 H 30 H Blood Pressure 116/65 Pulse Oximetry 94 L 90 L 92 L 08/02/18 13:35 08/02/18 14:00 09/24/18 15:22 Temperature Pulse Rate 110 H 108 H 94 H Respiratory Rate 20 Blood Pressure Pulse Oximetry 08/02/18 16:00 08/02/18 18:00 08/02/18 19:00 Temperature Pulse Rate 98 H 110 H Respiratory Rate 28 H Blood Pressure 123/73 Pulse Oximetry 96 96 Intake & Output 08/02/18 08/02/18 08/03/18 06:59 18:59 06:59 Intake Total 830 / 830 1060 / 1060 Output Total 600 / 600 Balance 830 / 830 460 / 460 Weight 79.1 kg Intake: IV 350 / 350 100 / 100 Azithromycin Inj 500 MG In NS 250 / 250 Inj 250 ML @ 250 mls/hr IV.SIG Q24H [facility] Rx#:[id number] Rocephin Inj 1,000 MG In NS Inj 100 / 100 100 / 100 100 ML @ 200 mls/hr IV.SIG Q12H [facility] Rx#:[id number] Oral 480 / 480 960 / 960 Output: Urine 600 / 600 Other: Post Void Residual 350 # Voids 4 # Incontinent Bowel Movements 0 GENERAL: Elderly WM, sob SKIN: Warm and dry. HEAD: Normocephalic. EYES: No scleral icterus. No injection or drainage. NECK: Supple, trachea midline. No JVD or lymphadenopathy. CARDIOVASCULAR: Regular rate and rhythm without murmurs, gallops, or rubs. RESPIRATORY: Breath sounds equal bilaterally. No accessory muscle use. GASTROINTESTINAL: Abdomen soft, non-tender, nondistended. MUSCULOSKELETAL: No cyanosis, or edema. BACK: Nontender without obvious deformity. No CVA tenderness. Assessment and Plan - Plan IMPRESSION: COPD Exac Hypoxic, hypercapnoic RF HTN GERD PLAN: IV Solumedrol Aerosol nebs Supplement 02 to keep sat 88-92% BIPAP at night and PRN SQ heparin
[2018-08-03] MEDS: Azithromycin Inj 500 MG in Sodium Chlor 0.9% Inj 250 ML IV.SIG SCH (01:12)
[2018-08-03] MEDS: Heparin - SQ 10,000 UNITS/ML Vial SQ SCH ×4 (01:12→18:14)
[2018-08-03] MEDS: Chlorhexidine Gluconate 2% 1 Pack (2 Cloths) TOPICAL SCH (04:50)
[2018-08-03 05:04] LABS: Baso # (Auto) 0.1 th/mm3 (0.0-0.2); Baso % (Auto) 0.5 % (0.0-2.0); Eos % (Auto) 0.1 % (0.0-4.0); Hematocrit 43.8 % (39.0-51.0); Hemoglobin 14.7 gm/dL (13.0-17.0); Lymph # (Auto) 0.3 th/mm3 (1.0-4.8); Lymph % (Auto) 1.8 % (9.0-44.0); Mean Corpuscular HGB Conc 33.5 % (32.0-36.0); Mean Corpuscular Volume 86.6 fL (80.0-100.0); Mean Platelet Volume 8.7 fL (7.0-11.0); Neut # (Auto) 17.8 th/mm3 (1.8-7.7); Neut % (Auto) 92.6 % (16.0-70.0); Platelet Count 200 th/mm3 (150-450); Red Blood Count 5.06 mil/mm3 (4.50-5.90); Red Cell Distribution Width 13.5 % (11.6-17.2); White Blood Count 19.1 th/mm3 (4.0-11.0)
[2018-08-03 05:14] LABS: Chloride 102 meq/L (98-107); Potassium 3.7 meq/L (3.5-5.1); Sodium 140 meq/L (136-145)
[2018-08-03 05:18] LABS: Anion Gap 7 meq/L (5-15); Blood Urea Nitrogen 26 mg/dL (7-18); Carbon Dioxide 30.8 meq/L (21.0-32.0); Glucose,Random 159 mg/dL (74-106); Magnesium 2.5 mg/dL (1.5-2.5)
[2018-08-03 05:21] LABS: Alanine Aminotransferase 19 U/L (12-78); Aspartate Aminotransferase 7 U/L (15-37); Glomerular Filtration Rate 65 mL/min (>89)
[2018-08-03 05:22] LABS: Phosphorus 3.7 mg/dL (2.5-4.9)
[2018-08-03 05:23] LABS: Total Protein 6.1 g/dL (6.4-8.2)
[2018-08-03 05:24] LABS: Alkaline Phosphatase 91 U/L (45-117)
[2018-08-03] MEDS: MethylPREDNISolone Sod Succinate Inj 125 MG/2 ML Vial IV.PUSH SCH ×3 (06:05→23:08)
--- NOTE | 2018-08-03 06:20 | XR ---
EXAM DATE: 08/03/2018 6:17 AM EDT AGE/SEX: 77 years / Male INDICATIONS: Shortness of breath. CLINICAL DATA: This is the patient's subsequent encounter. Patient reports that signs and symptoms h ave been present for 4 - 6 days and indicates a pain score of 0/10. MEDICAL/SURGICAL HISTORY: . Chronic obstructive pulmonary disease. Abdominal aortic aneurysm w ithout rupture. 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 Arthritis. Emphysema. Prostate disorder . . Bilateral shoulder. COMPARISON: [facility], CHEST 1V SINGLE AP, 08/02/2018. . FINDINGS: Single AP view the chest. Mild bilateral inferior aspect lower lung zone pulmonary parenchymal opacit y is again seen. No significant interval change. No evidence of pleural effusion or pneumothorax. Car diomediastinal silhouette unchanged. CONCLUSION: No significant interval change. Mild patchy lower lung zone opacity again seen. Electronically signed by: Franc Lopez MD 08/03/2018 6:19 AM EDT
--- NOTE | 2018-08-03 06:57 | P.PNCC ---
Subjective Subjective Remarks/Hospital Course: This is a 77-year-old male. Date of admission 07/31/2018. Past medical history includes COPD with chronic respiratory failure/3 L oxygen dependent, chronic anemia, coronary artery disease, atherosclerotic vascular disease, essential hypertension, hyperlipidemia, gastroesophageal disease, hiatal hernia, benign prostatic hypertrophy and chronic prednisone use. Patient presented to [facility] 07/30 with acute shortness of breath. States he 7/ fever/chills/coughing/nonproductive without hematemesis or hemoptysis. Denies any recent sick contacts. Patient has not been at [facility] since 2017 admission. Patient received intravenous steroids in aggressive aerosolized medication therapy in the ED. CT pulmonary angiogram revealed no central pulmonary embolism. Signs of bronchial thickening indicative possible bronchiectasis. Severe emphysema. Coronary disease with atherosclerotic vascular disease. Large hiatal hernia. Small pericardial effusion. Patient has been started on ceftriaxone and azithromycin and aggressive pulmonary toilet. Patient is currently on BiPAP 5/5 and 50% saturations currently 92%. Patient is anxious in sinus tachycardia. Denies sputum production.. 08/01: Remains on CPAP 5/5 at 40%. Saturations 94%. When patient takes off BiPAP for extended period time patient becomes extremely short of breath. Appears comfortable now with an adequate ABG. A.m. chest x-ray pending SUBJECTIVE: 08/02: Remains intermittently on BiPAP. When patient takes BiPAP off at night he desaturates acutely. Stable on the BiPAP setting were 94-95%. X-ray appears stable. 08/02: Remains short of breath tachypneic on BiPAP. Sputum culture came back with Pseudomonas. I have discontinued Rocephin and have started cefepime 2 g IV every 8 hours with first dose stat. WBC count increasing most likely due to pneumonia and also steroid use. Chest x-ray shows mild bibasilar infiltrates Objective Vital Signs / I&O: Vital Signs 08/02/18 07:30 08/02/18 08:00 08/02/18 08:42 Temperature 98.2 F Pulse Rate 92 H 102 H 104 H Respiratory Rate 22 37 H Blood Pressure 157/78 H Pulse Oximetry 94 L 97 92 L 08/02/18 09:42 08/02/18 10:00 08/02/18 10:42 Temperature Pulse Rate 111 H 112 H Respiratory Rate 31 H 43 H Blood Pressure 111/69 130/77 Pulse Oximetry 92 L 88 L 08/02/18 11:00 08/02/18 11:42 08/02/18 12:00 Temperature 98.1 F Pulse Rate 102 H 110 H 102 H Respiratory Rate 34 H 27 H 28 H Blood Pressure 98/51 L Pulse Oximetry 94 L 91 L 94 L 08/02/18 12:42 08/02/18 13:00 08/02/18 13:35 Temperature Pulse Rate 118 H 110 H 110 H Respiratory Rate 41 H 30 H Blood Pressure 116/65 Pulse Oximetry 90 L 92 L 08/02/18 14:00 08/02/18 15:22 08/02/18 16:00 Temperature Pulse Rate 108 H 94 H 98 H Respiratory Rate 20 28 H Blood Pressure 123/73 Pulse Oximetry 96 08/02/18 18:00 08/02/18 19:00 08/02/18 19:32 Temperature Pulse Rate 110 H 120 H Respiratory Rate 24 Blood Pressure Pulse Oximetry 96 93 L 08/02/18 20:00 08/02/18 22:00 08/03/18 00:00 Temperature Pulse Rate 112 H 96 H 86 Respiratory Rate 27 H 26 H Blood Pressure 114/61 122/75 Pulse Oximetry 93 L 94 L 08/03/18 00:10 08/03/18 02:00 08/03/18 02:55 Temperature Pulse Rate 98 H Respiratory Rate Blood Pressure Pulse Oximetry 94 L 93 L 08/03/18 03:05 08/03/18 04:00 08/03/18 04:50 Temperature 97.7 F Pulse Rate 103 H 90 Respiratory Rate 24 23 Blood Pressure 88/54 L Pulse Oximetry 95 94 L 08/03/18 06:00 Temperature Pulse Rate 86 Respiratory Rate Blood Pressure Pulse Oximetry Intake & Output 08/02/18 08/02/18 08/03/18 06:59 18:59 06:59 Intake Total 830 / 830 1060 / 1060 350 / 350 Output Total 600 / 600 Balance 830 / 830 460 / 460 350 / 350 Weight 79.1 kg 78.1 kg Intake: IV 350 / 350 100 / 100 350 / 350 Azithromycin Inj 500 MG In NS 250 / 250 250 / 250 Inj 250 ML @ 250 mls/hr IV.SIG Q24H [facility] Rx#:[id number] Rocephin Inj 1,000 MG In NS Inj 100 / 100 100 / 100 100 / 100 100 ML @ 200 mls/hr IV.SIG Q12H [facility] Rx#:[id number] Oral 480 / 480 960 / 960 Output: Urine 600 / 600 Other: Post Void Residual 350 1,000 # Voids 4 Date of Last Bowel Movement 07/31/18 # Bowel Movements 0 # Incontinent Bowel Movements 0 Result Diagrams: 08/03/18 04:45 08/03/18 04:45 Objective Remarks: GENERAL: 77-year-old male currently lying in bed on BiPAP, tachypneic SKIN: Warm and dry. HEAD: Atraumatic. Normocephalic. EYES: Pupils equal and round. No scleral icterus. No injection or drainage. ENT: No nasal bleeding or discharge. Mucous membranes pink and moist. NECK: Trachea midline. No JVD. CARDIOVASCULAR: Tachycardic rate and rhythm. S1, S2. No S4. RESPIRATORY: Crackles appreciated bilateral bases left greater than right. Positive end expiratory wheeze. Diminished bilateral air entry, tachypneic on BiPAP GASTROINTESTINAL: Abdomen soft, non-tender, nondistended. Hepatic and splenic margins not palpable. MUSCULOSKELETAL: Extremities without significant peripheral edema. No obvious deformities. NEUROLOGICAL: Awake and alert. No obvious cranial nerve deficits. Motor grossly within normal limits. Five out of 5 muscle strength Assessment and Plan - Assessment and Plan Plan: Neuro/Psych: Acetaminophen 650 mg p.o. 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 Routine limited 2D echocardiogram - The left ventricular systolic function is severely reduced with an estimated ejection fraction in the range of 30-35%. Mildly dilated left ventricle. Mild concentric left ventricular hypertrophy. There is global left ventricular dysfunction. Trace mitral valve regurgitation. Trace aortic valve regurgitation. There is trace tricuspid valve regurgitation. No pericardial effusion Serial lactates until cleared Continue low-dose furosemide 40 mg twice daily and lisinopril 5 mg daily. Introduce low-dose beta-jonathan after COPD exacerbation is improved As needed labetalol, hydralazine and Nitropaste and nicardipine drip for hypertension Resp: Acute hypoxic hypercapnic respiratory failure in the setting of chronic hypoxic respiratory failure Bibasilar pneumonia with Pseudomonas [address] COPD oxygen dependent CT pulmonary angiogram revealed no central pulmonary emboli. Significant bronchiectasis bilaterally. Severe emphysema. Coronary artery disease/ atherosclerotic vascular disease. Moderately large hiatal hernia. Small pericardial effusion. Right thoracic aortic aneurysm. Currently on albuterol/ipratropium aerosols every 4 hours with albuterol aerosols every 2 hours as needed dyspnea Currently on budesonide/formoterol 150/4.5 2 puffs twice daily -on fluticasone/ salmeterol 150/21 2 puffs twice daily at home Methylprednisolone succinate 60 mg IV every 8 hours. Add Spiriva Incentive spirometry while awake Currently on BiPAP for increased work of breathing Hypertonic saline aerosols every 4 hours as mucolytic with guaifenesin 600 mg twice daily Lung hyperinflation protocol initiated with pulmonary kinetics every 4 hours Pulmonary consultation appreciated Chest x-ray in a.m. 08/03-bibasilar infiltrates GI: Moderately large hiatal hernia Gastroesophageal reflux disease History of peptic ulcer disease Currently on regular diet Pantoprazole for GI prophylaxis Docusate sodium/senna 1 tablet twice daily for bowel regimen. Add polythene glycol 17 g twice daily and lactulose 30 cc twice daily Endo: Chronic prednisone use/10 mg daily Low TSH 0.354 Sliding scale insulin Accu-Cheks to maintain euglycemia/aspart insulin q. before meals and at bedtime low Check free T/T4 in a.m. 08/03-pending at this time On methylprednisolone succinate as above see orders Renal: Acute kidney injury BPH Monitor urine output Accurate I's and O's Continue tamsulosin 0.4 mg p.o. daily. Rosas catheter if continued urinary retention Heme: Leukocytosis Monitor CBC daily. Follow trends. No indication for the transfusion of blood products at this time ID: Bronchiectasis Pseudomonas pneumonia Currently on ceftriaxone and azithromycin-discontinue ceftriaxone Started on cefepime 2 g IV every 8 hours on 08/03/2018 Blood cultures 2 07/30 no growth to date UA 07/31 no growth Sputum 07/31 p Pseudomonas Influenza a and B- Legionella and pneumococcal urinary antigens pending Check immunoglobin Ig G, A, M (Nl) and IgE (pending) , rheumatoid factor (-) and alpha anti-trypsin (-) in light of bronchiectasis Aspergillus pending Mycoplasma and Chlamydia pending FEN: Replace electrolytes as clinically indicated per ICU electrolyte protocol MSK: PT/OT evaluate and treat. Access -Utilize peripheral IV. Central line if indicated Prophylaxis -GI -pantoprazole -DVT -SCD/heparin subcu Critical care time 35 minutes Patient appears to be having worsening respiratory failure increased shortness of breath and tachypnea. Sputum culture growing Pseudomonas I have changed antibiotic would expect response in next 24 hours. Increase in WBC count most likely from inadequate antibiotic coverage, and IV steroids. Hopefully will be able to avoid endotracheal intubation
[2018-08-03] MEDS: guaiFENesin 600 MG ER Tablet PO SCH ×3 (07:38→20:01)
[2018-08-03] MEDS: Senna/Docusate Sodium 8.6/50 MG Tablet PO SCH ×3 (07:38→20:02)
[2018-08-03] MEDS: Polyethylene Glycol 3350 17 GM Packet PO SCH ×3 (07:40→20:02)
[2018-08-03] MEDS: Lisinopril 5 MG Tablet PO SCH ×2 (07:41→08:46)
[2018-08-03] MEDS: Insulin NovoLOG Aspart Correctional Sugar Inj SQ SCH ×4 (07:41→20:14)
[2018-08-03] MEDS: Tiotropium Bromide 18 MCG/ACT Inhaler INH SCH ×2 (07:48→08:46)
[2018-08-03] MEDS: Budesonide-Formoterol 160/4.5 MCG 6 GM Inhaler INH SCH ×2 (08:46→20:03)
--- NOTE | 2018-08-03 17:53 | P.PNPL ---
Subjective Interval history: 77 YOWM with COPD, Hypoxic, hypercapmnoic RF Weaned to 5LNC Desaturates Feels breathing better Sp Pseudomonas Started Cefepime at BS Used BIPAP few hrs Physical Exam Vital signs: Vital Signs 08/02/18 18:00 08/02/18 19:00 08/02/18 19:32 Temperature Pulse Rate 110 H 120 H Respiratory Rate 24 Blood Pressure Pulse Oximetry 96 93 L 08/02/18 20:00 08/02/18 22:00 08/03/18 00:00 Temperature Pulse Rate 112 H 96 H 86 Respiratory Rate 27 H 26 H Blood Pressure 114/61 122/75 Pulse Oximetry 93 L 94 L 08/03/18 00:10 08/03/18 02:00 08/03/18 02:55 Temperature Pulse Rate 98 H Respiratory Rate Blood Pressure Pulse Oximetry 94 L 93 L 08/03/18 03:05 08/03/18 04:00 08/03/18 04:50 Temperature 97.7 F Pulse Rate 103 H 90 Respiratory Rate 24 23 Blood Pressure 88/54 L Pulse Oximetry 95 94 L 08/03/18 06:00 08/03/18 07:00 08/03/18 07:35 Temperature 98.1 F Pulse Rate 86 96 H 103 H Respiratory Rate 25 H 22 Blood Pressure 118/75 Pulse Oximetry 92 L 93 L 08/03/18 08:00 08/03/18 09:00 08/03/18 09:49 Temperature 98.1 F Pulse Rate 100 H 108 H 110 H Respiratory Rate 54 H 32 H 36 H Blood Pressure 125/90 134/56 L 112/53 L Pulse Oximetry 92 L 92 L 91 L 08/03/18 09:51 08/03/18 10:00 08/03/18 11:00 Temperature Pulse Rate 106 H 92 H 108 H Respiratory Rate 41 H 34 H Blood Pressure 103/68 104/80 Pulse Oximetry 94 L 91 L 08/03/18 11:27 08/03/18 12:00 08/03/18 13:00 Temperature 97.9 F Pulse Rate 108 H 104 H Respiratory Rate 39 H 30 H Blood Pressure 108/64 126/51 L Pulse Oximetry 92 L 93 L 91 L 08/03/18 14:00 08/03/18 15:00 08/03/18 16:00 Temperature 98.0 F Pulse Rate 96 H 102 H 94 H Respiratory Rate 27 H 32 H 27 H Blood Pressure 111/54 L 124/58 L 151/70 H Pulse Oximetry 91 L 93 L 08/03/18 16:25 08/03/18 17:00 Temperature Pulse Rate 100 H 100 H Respiratory Rate 22 33 H Blood Pressure 142/64 H Pulse Oximetry 92 L Intake & Output 08/02/18 08/03/18 08/03/18 18:59 06:59 18:59 Intake Total 1060 / 1060 350 / 350 100 / 100 Output Total 600 / 600 700 / 700 Balance 460 / 460 350 / 350 -600 / -600 Weight 78.1 kg Intake: IV 100 / 100 350 / 350 100 / 100 Azithromycin Inj 500 MG In NS 250 / 250 Inj 250 ML @ 250 mls/hr IV.SIG Q24H [facility] Rx#:[id number] Maxipime Inj 2,000 MG In NS Inj 100 / 100 100 ML @ 200 mls/hr IV.SIG STAT [facility] Rx#:[id number] Rocephin Inj 1,000 MG In NS Inj 100 / 100 100 / 100 100 ML @ 200 mls/hr IV.SIG Q12H [facility] Rx#:[id number] Oral 960 / 960 Output: Urine 600 / 600 700 / 700 Other: Post Void Residual 1,000 # Voids 4 Date of Last Bowel Movement 07/31/18 07/31/18 # Bowel Movements 0 GENERAL: Elderly WM, mild SOB SKIN: Warm and dry. HEAD: Normocephalic. EYES: No scleral icterus. No injection or drainage. NECK: Supple, trachea midline. No JVD or lymphadenopathy. CARDIOVASCULAR: Regular rate and rhythm without murmurs, gallops, or rubs. RESPIRATORY: Breath sounds equal bilaterally. No accessory muscle use. end exp rhonchi GASTROINTESTINAL: Abdomen soft, non-tender, nondistended. MUSCULOSKELETAL: No cyanosis, or edema. BACK: Nontender without obvious deformity. No CVA tenderness. Assessment and Plan - Plan IMPRESSION: COPD Exac Hypoxic, hypercapnoic RF HTN GERD PLAN: IV Solumedrol Aerosol nebs Supplement 02 to keep sat 88-92% BIPAP at night and PRN SQ heparin Cont Cefepime Dw pt and his
[2018-08-04] MEDS: Heparin - SQ 10,000 UNITS/ML Vial SQ SCH ×4 (02:17→18:38)
[2018-08-04] MEDS: Azithromycin Inj 500 MG in Sodium Chlor 0.9% Inj 250 ML IV.SIG SCH (02:18)
[2018-08-04] MEDS: Chlorhexidine Gluconate 2% 1 Pack (2 Cloths) TOPICAL SCH (03:54)
[2018-08-04] MEDS: MethylPREDNISolone Sod Succinate Inj 125 MG/2 ML Vial IV.PUSH SCH ×3 (05:22→21:03)
[2018-08-04] MEDS: Budesonide-Formoterol 160/4.5 MCG 6 GM Inhaler INH SCH ×2 (08:11→21:03)
[2018-08-04] MEDS: Tiotropium Bromide 18 MCG/ACT Inhaler INH SCH (08:11)
[2018-08-04] MEDS: Senna/Docusate Sodium 8.6/50 MG Tablet PO SCH ×2 (08:13→21:03)
[2018-08-04] MEDS: Lisinopril 5 MG Tablet PO SCH (08:13)
[2018-08-04] MEDS: guaiFENesin 600 MG ER Tablet PO SCH ×2 (08:14→21:03)
[2018-08-04] MEDS: Insulin NovoLOG Aspart Correctional Sugar Inj SQ SCH ×4 (08:15→21:10)
[2018-08-04] MEDS: Polyethylene Glycol 3350 17 GM Packet PO SCH ×2 (08:15→21:03)
--- NOTE | 2018-08-04 12:15 | P.PNIM ---
Subjective Interval history: Patient is down to 4 L/min nasal cannula. He continues to have a persistent cough and wheezing. However his oxygenation is improving through time. He is weaned off his BiPAP. He has used BiPAP for 2 hours overnight, but he does not feel like he necessarily need this. At baseline his oxygen ranges from 88-91%. His baseline oxygen utilization is 3 L/min via nasal cannula. Physical Exam Vital signs: Vital Signs 08/03/18 13:00 08/03/18 14:00 08/03/18 15:00 Temperature Pulse Rate 104 H 96 H 102 H Respiratory Rate 30 H 27 H 32 H Blood Pressure 126/51 L 111/54 L 124/58 L Pulse Oximetry 91 L 91 L 08/03/18 16:00 08/03/18 16:25 08/03/18 17:00 Temperature 98.0 F Pulse Rate 94 H 100 H 100 H Respiratory Rate 27 H 22 33 H Blood Pressure 151/70 H 142/64 H Pulse Oximetry 93 L 92 L 08/03/18 18:00 08/03/18 19:00 08/03/18 19:30 Temperature Pulse Rate 91 H 110 H Respiratory Rate 22 Blood Pressure Pulse Oximetry 94 L 92 L 08/03/18 20:00 08/03/18 22:00 08/03/18 23:00 Temperature 98.3 F Pulse Rate 102 H 94 H 96 H Respiratory Rate 22 26 H Blood Pressure 162/77 H Pulse Oximetry 96 08/04/18 00:00 08/04/18 02:00 08/04/18 03:10 Temperature 97.3 F L Pulse Rate 82 88 86 Respiratory Rate 26 H 21 Blood Pressure 116/60 Pulse Oximetry 94 L 08/04/18 04:00 08/04/18 06:00 08/04/18 07:00 Temperature Pulse Rate 92 H 94 H Respiratory Rate 27 H Blood Pressure 140/66 Pulse Oximetry 95 94 L 94 L 08/04/18 07:41 08/04/18 07:59 08/04/18 08:00 Temperature 97.6 F Pulse Rate 92 H 82 Respiratory Rate 24 21 Blood Pressure 166/75 H Pulse Oximetry 93 L 92 L 95 08/04/18 10:00 08/04/18 11:33 Temperature Pulse Rate 116 H 96 H Respiratory Rate 23 Blood Pressure Pulse Oximetry Intake & Output 08/03/18 08/04/18 08/04/18 18:59 06:59 18:59 Intake Total 100 / 100 350 / 350 100 / 100 Output Total 700 / 700 1200 / 1200 900 / 900 Balance -600 / -600 -850 / -850 -800 / -800 Weight 80.4 kg Intake: IV 100 / 100 350 / 350 100 / 100 Azithromycin Inj 500 MG In NS 250 / 250 Inj 250 ML @ 250 mls/hr IV.SIG Q24H [facility] Rx#:[id number] Maxipime Inj 2,000 MG In NS Inj 100 / 100 100 / 100 100 / 100 100 ML @ 200 mls/hr IV.SIG Q12H [facility] Rx#:[id number] Output: Urine 700 / 700 1200 / 1200 900 / 900 Other: Date of Last Bowel Movement 07/31/18 08/03/18 08/03/18 Narrative: GENERAL: NAD, A&Ox3 HEAD: Normocephalic. NECK: Supple, trachea midline. No lymphadenopathy. EYES: No scleral icterus. No injection or drainage. CARDIOVASCULAR: Regular rate and rhythm without murmurs, gallops, or rubs. RESPIRATORY: Breath sounds equal bilaterally. No accessory muscle use. Mild wheezing at bases bilaterally. GASTROINTESTINAL: Abdomen soft, non-tender, nondistended. MUSCULOSKELETAL: No cyanosis, or edema. SKIN: Warm and dry. NEURO: No focal neurological deficits. Results - Labs CBC & Chem 7: 08/03/18 04:45 08/03/18 04:45 Laboratory Results - last 24 hr 07/31/18 07/31/18 07/31/18 08:55 08:55 08:55 POC Glucose Yotav-0-Ypoonylfmdt 142 IgE 96.7 M. pneumoniae Interp . Mycoplasma pneumon IgG Positive Mycoplasma pneumon IgM Negative 07/31/18 08/03/18 08/03/18 08:55 12:25 17:11 POC Glucose 163 H 149 H Pawjn-1-Sgopuzrnueo IgE 86.1 M. pneumoniae Interp Mycoplasma pneumon IgG Mycoplasma pneumon IgM 08/03/18 08/04/18 20:10 08:04 POC Glucose 176 H 136 H Jtcns-1-Iyccpkhjqzr IgE M. pneumoniae Interp Mycoplasma pneumon IgG Mycoplasma pneumon IgM Microbiology 07/30/18 22:20 Blood - Peripheral Aerobic Blood Culture - Final No growth in 5 days 07/30/18 22:20 Blood - Peripheral Anaerobic Blood Culture - Final No growth in 5 days 07/30/18 22:10 Blood - Peripheral Aerobic Blood Culture - Final No growth in 5 days 07/30/18 22:10 Blood - Peripheral Anaerobic Blood Culture - Final No growth in 5 days Assessment and Plan - Assessment (1) COPD exacerbation Code(s): J44.1 - Chronic obstructive pulmonary disease with (acute) exacerbation Status: Acute (2) Pneumonia Code(s): J18.9 - Pneumonia, unspecified organism Status: Acute - Plan 77-year-old male admitted secondary to COPD exacerbation with pneumonia Transfer out of ICU today. Acute hypoxic hypercapnic respiratory failure in the setting of chronic hypoxic respiratory failure COPD exacerbation Community-acquired pneumonia Pseudomonas pneumonia Lactic acidosis Bronchiolectasis Hypoxia Continue oxygen supplements as needed Schedule duo nebs When necessary albuterol Azithromycin Systemic steroids Follow for improvement in respiratory status Follow for improvement in exertional tolerance next She was BiPAP dependent now weaned to nasal cannula Transfer out of ICU Continue to monitor for stability Legionella and pneumococcal urinary antigens Aspergillus pending Mycoplasma and Chlamydia pending Incentive spirometry while awake Pulmonology following Coronary artery disease Atherosclerotic vascular disease Small pericardial effusion 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 Systolic heart failure likely chronic EF of 30-35% based on 2D echocardiogram Continue Lasix Continue lisinopril Beta-jonathan should be initiated after COPD exacerbation resolves As needed labetalol, hydralazine and Nitropaste and nicardipine drip for hypertension Hypertension Continue baseline treatment Follow blood pressures Adjust treatments as needed Hyperlipidemia Continue present treatment Follow as an outpatient Moderately large hiatal hernia Gastroesophageal reflux disease History of peptic ulcer disease Continue regular diet Continue pantoprazole As needed senna Chronic prednisone use/10 mg daily Low TSH 0.354 Continue steroids Follow blood sugars Acute kidney injury BPH Continue tamsulosin 0.4 mg p.o. daily. Rosas catheter if continued urinary retention DVT prophylaxis Heparin (2) Pneumonia Qualifiers: Pneumonia type: due to unspecified organism Laterality: bilateral Lung location: unspecified part of lung Qualified Code(s): J18.9 - Pneumonia, unspecified organism
--- NOTE | 2018-08-04 18:48 | P.PNPL ---
Subjective Interval history: 77 YOWM with COPD, Hypoxic, hypercapmnoic RF Weaned to 3LNC Desaturates Feels breathing better Sp Pseudomonas on Cefepime Breathing better, less sob Physical Exam Vital signs: Vital Signs 08/03/18 19:00 08/03/18 19:30 08/03/18 20:00 Temperature 98.3 F Pulse Rate 110 H 102 H Respiratory Rate 22 22 Blood Pressure 162/77 H Pulse Oximetry 94 L 92 L 96 08/03/18 22:00 08/03/18 23:00 08/04/18 00:00 Temperature 97.3 F L Pulse Rate 94 H 96 H 82 Respiratory Rate 26 H 26 H Blood Pressure 116/60 Pulse Oximetry 94 L 08/04/18 02:00 08/04/18 03:10 08/04/18 04:00 Temperature Pulse Rate 88 86 92 H Respiratory Rate 21 27 H Blood Pressure 140/66 Pulse Oximetry 95 08/04/18 06:00 08/04/18 07:00 08/04/18 07:41 Temperature Pulse Rate 94 H 92 H Respiratory Rate 24 Blood Pressure Pulse Oximetry 94 L 94 L 93 L 08/04/18 07:59 08/04/18 08:00 08/04/18 10:00 Temperature 97.6 F Pulse Rate 82 116 H Respiratory Rate 21 Blood Pressure 166/75 H Pulse Oximetry 92 L 95 08/04/18 11:33 08/04/18 12:00 08/04/18 16:00 Temperature 97.8 F 98.4 F Pulse Rate 96 H 105 H 102 H Respiratory Rate 23 27 H 26 H Blood Pressure 114/68 114/61 Pulse Oximetry 92 L 91 L Intake & Output 08/03/18 08/04/18 08/04/18 18:59 06:59 18:59 Intake Total 100 / 100 350 / 350 100 / 100 Output Total 700 / 700 1200 / 1200 1360 / 1360 Balance -600 / -600 -850 / -850 -1260 / -1260 Weight 80.4 kg Intake: IV 100 / 100 350 / 350 100 / 100 Azithromycin Inj 500 MG In NS 250 / 250 Inj 250 ML @ 250 mls/hr IV.SIG Q24H [facility] Rx#:[id number] Maxipime Inj 2,000 MG In NS Inj 100 / 100 100 / 100 100 / 100 100 ML @ 200 mls/hr IV.SIG Q12H [facility] Rx#:[id number] Output: Urine 700 / 700 1200 / 1200 1360 / 1360 Other: Date of Last Bowel Movement 07/31/18 08/03/18 08/03/18 GENERAL: Elderly wm, mild sob SKIN: Warm and dry. HEAD: Normocephalic. EYES: No scleral icterus. No injection or drainage. NECK: Supple, trachea midline. No JVD or lymphadenopathy. CARDIOVASCULAR: Regular rate and rhythm without murmurs, gallops, or rubs. RESPIRATORY: Breath sounds equal bilaterally. No accessory muscle use. GASTROINTESTINAL: Abdomen soft, non-tender, nondistended. MUSCULOSKELETAL: No cyanosis, or edema. BACK: Nontender without obvious deformity. No CVA tenderness. Assessment and Plan - Plan IMPRESSION: COPD Exac Hypoxic, hypercapnoic RF HTN GERD PLAN: IV Solumedrol Aerosol nebs Supplement 02 to keep sat 88-92% BIPAP at night and PRN SQ heparin Cont Cefepime Stable to tr to floor.
[2018-08-05] MEDS: Azithromycin Inj 500 MG in Sodium Chlor 0.9% Inj 250 ML IV.SIG SCH (00:22)
[2018-08-05] MEDS: Heparin - SQ 10,000 UNITS/ML Vial SQ SCH ×3 (01:31→17:38)
[2018-08-05] MEDS: MethylPREDNISolone Sod Succinate Inj 125 MG/2 ML Vial IV.PUSH SCH ×2 (05:10→13:13)
[2018-08-05] MEDS: guaiFENesin 600 MG ER Tablet PO SCH ×2 (08:37→20:53)
[2018-08-05] MEDS: Lisinopril 5 MG Tablet PO SCH (08:38)
[2018-08-05] MEDS: Senna/Docusate Sodium 8.6/50 MG Tablet PO SCH ×2 (08:38→20:53)
[2018-08-05] MEDS: Insulin NovoLOG Aspart Correctional Sugar Inj SQ SCH ×4 (08:39→20:56)
[2018-08-05] MEDS: Polyethylene Glycol 3350 17 GM Packet PO SCH ×2 (08:39→23:45)
[2018-08-05] MEDS: Budesonide-Formoterol 160/4.5 MCG 6 GM Inhaler INH SCH ×2 (09:12→23:45)
[2018-08-05] MEDS: Tiotropium Bromide 18 MCG/ACT Inhaler INH SCH (09:12)
--- NOTE | 2018-08-05 12:27 | P.PNIM ---
Subjective Interval history: Slightly improved today. Remains on 4L/min, baseline is 3L/min. Ambulation improving. Physical Exam Vital signs: Vital Signs 08/04/18 16:00 08/04/18 19:00 08/04/18 19:20 Temperature 98.4 F Pulse Rate 102 H 86 Respiratory Rate 26 H 24 Blood Pressure 114/61 140/77 Pulse Oximetry 91 L 94 L 92 L 08/04/18 20:00 08/04/18 23:00 08/05/18 00:00 Temperature 97.6 F 97.5 F L Pulse Rate 93 H 94 H 87 Respiratory Rate 22 22 18 Blood Pressure 144/77 H 104/51 L Pulse Oximetry 08/05/18 03:10 08/05/18 04:00 08/05/18 08:00 Temperature 97.5 F L 96.8 F L Pulse Rate 90 90 98 H Respiratory Rate 22 21 20 Blood Pressure 159/73 H 140/63 Pulse Oximetry 91 L 08/05/18 08:09 08/05/18 11:20 Temperature Pulse Rate 81 88 Respiratory Rate 20 20 Blood Pressure Pulse Oximetry 92 L Intake & Output 08/04/18 08/05/18 08/05/18 18:59 06:59 18:59 Intake Total 100 / 100 350 / 350 100 / 100 Output Total 1360 / 1360 1974 Balance -1260 / -1260 -1625 / -1625 100 / 100 Weight 78.7 kg Intake: IV 100 / 100 350 / 350 100 / 100 Azithromycin Inj 500 MG In NS 250 / 250 Inj 250 ML @ 250 mls/hr IV.SIG Q24H [facility] Rx#:[id number] Maxipime Inj 2,000 MG In NS Inj 100 / 100 100 / 100 100 / 100 100 ML @ 200 mls/hr IV.SIG Q12H [facility] Rx#:[id number] Output: Urine 1360 / 1360 1974 Other: # Voids 6 Date of Last Bowel Movement 08/03/18 08/04/18 # Bowel Movements 1 Narrative: GENERAL: NAD, A&Ox3 HEAD: Normocephalic. NECK: Supple, trachea midline. No lymphadenopathy. EYES: No scleral icterus. No injection or drainage. CARDIOVASCULAR: Regular rate and rhythm without murmurs, gallops, or rubs. RESPIRATORY: Breath sounds equal bilaterally. No accessory muscle use. Mild wheezing at bases bilaterally. GASTROINTESTINAL: Abdomen soft, non-tender, nondistended. MUSCULOSKELETAL: No cyanosis, or edema. SKIN: Warm and dry. NEURO: No focal neurological deficits. Results - Labs CBC & Chem 7: 08/03/18 04:45 08/03/18 04:45 Laboratory Results - last 24 hr 08/04/18 08/04/18 08/05/18 16:48 21:09 07:42 POC Glucose 165 H 169 H 447 H 08/05/18 11:27 POC Glucose 98 Microbiology 07/30/18 22:20 Blood - Peripheral Aerobic Blood Culture - Final No growth in 5 days 07/30/18 22:20 Blood - Peripheral Anaerobic Blood Culture - Final No growth in 5 days 07/30/18 22:10 Blood - Peripheral Aerobic Blood Culture - Final No growth in 5 days 07/30/18 22:10 Blood - Peripheral Anaerobic Blood Culture - Final No growth in 5 days Assessment and Plan - Assessment (1) COPD exacerbation Code(s): J44.1 - Chronic obstructive pulmonary disease with (acute) exacerbation Status: Acute (2) Pneumonia Code(s): J18.9 - Pneumonia, unspecified organism Status: Acute - Plan 77-year-old male admitted secondary to COPD exacerbation with pneumonia Improving through time. Possible discharge in 1-2 days if clinical improvement continues and stability remains. Patient lives at home with his . Acute hypoxic hypercapnic respiratory failure in the setting of chronic hypoxic respiratory failure COPD exacerbation Community-acquired pneumonia Pseudomonas pneumonia Lactic acidosis Bronchiolectasis Hypoxia Continue oxygen supplements as needed Schedule duo nebs When necessary albuterol Azithromycin Systemic steroids Follow for improvement in respiratory status Follow for improvement in exertional tolerance next She was BiPAP dependent now weaned to nasal cannula Transfer out of ICU Continue to monitor for stability Legionella and pneumococcal urinary antigens Aspergillus pending Mycoplasma and Chlamydia pending Incentive spirometry while awake Pulmonology following Coronary artery disease Atherosclerotic vascular disease Small pericardial effusion 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 Systolic heart failure likely chronic EF of 30-35% based on 2D echocardiogram Continue Lasix Continue lisinopril Beta-jonathan should be initiated after COPD exacerbation resolves As needed labetalol, hydralazine and Nitropaste and nicardipine drip for hypertension Hypertension Continue baseline treatment Follow blood pressures Adjust treatments as needed Hyperlipidemia Continue present treatment Follow as an outpatient Moderately large hiatal hernia Gastroesophageal reflux disease History of peptic ulcer disease Continue regular diet Continue pantoprazole As needed senna Chronic prednisone use/10 mg daily Low TSH 0.354 Continue steroids Follow blood sugars Acute kidney injury BPH Continue tamsulosin 0.4 mg p.o. daily. Rosas catheter if continued urinary retention DVT prophylaxis Heparin Discharge Planning 1-2 days, discharge to home (based on clinical improvement, if present) (2) Pneumonia Qualifiers: Pneumonia type: due to unspecified organism Laterality: bilateral Lung location: unspecified part of lung Qualified Code(s): J18.9 - Pneumonia, unspecified organism
--- NOTE | 2018-08-05 18:45 | P.PNPL ---
Subjective Interval history: 77 YOWM with COPD, Hypoxic, hypercapmnoic RF Weaned to 3LNC Sp Pseudomonas on Cefepime Breathing better, less sob Tr to floor Ambulates with 02 Physical Exam Vital signs: Vital Signs 08/04/18 19:00 08/04/18 19:20 08/04/18 20:00 Temperature 97.6 F Pulse Rate 86 93 H Respiratory Rate 24 22 Blood Pressure 140/77 144/77 H Pulse Oximetry 94 L 92 L 08/04/18 23:00 08/05/18 00:00 08/05/18 03:10 Temperature 97.5 F L Pulse Rate 94 H 87 90 Respiratory Rate 22 18 22 Blood Pressure 104/51 L Pulse Oximetry 08/05/18 04:00 08/05/18 08:00 08/05/18 08:09 Temperature 97.5 F L 96.8 F L Pulse Rate 90 98 H 81 Respiratory Rate 21 20 20 Blood Pressure 159/73 H 140/63 Pulse Oximetry 91 L 92 L 08/05/18 11:20 08/05/18 12:00 08/05/18 15:31 Temperature 98.6 F Pulse Rate 88 107 H 88 Respiratory Rate 20 20 20 Blood Pressure 132/65 Pulse Oximetry 91 L 08/05/18 16:00 Temperature 96.9 F L Pulse Rate 101 H Respiratory Rate 20 Blood Pressure 137/75 Pulse Oximetry 90 L Intake & Output 08/04/18 08/05/18 08/05/18 18:59 06:59 18:59 Intake Total 100 / 100 350 / 350 580 / 580 Output Total 1360 / 1360 1974 Balance -1260 / -1260 -1625 / -1625 580 / 580 Weight 78.7 kg Intake: IV 100 / 100 350 / 350 100 / 100 Azithromycin Inj 500 MG In NS 250 / 250 Inj 250 ML @ 250 mls/hr IV.SIG Q24H [facility] Rx#:[id number] Maxipime Inj 2,000 MG In NS Inj 100 / 100 100 / 100 100 / 100 100 ML @ 200 mls/hr IV.SIG Q12H [facility] Rx#:[id number] Oral 480 / 480 Output: Urine 1360 / 1360 1974 Other: # Voids 6 2 Date of Last Bowel Movement 08/03/18 08/04/18 # Bowel Movements 1 1 GENERAL: Elderly wm, NAD SKIN: Warm and dry. HEAD: Normocephalic. EYES: No scleral icterus. No injection or drainage. NECK: Supple, trachea midline. No JVD or lymphadenopathy. CARDIOVASCULAR: Regular rate and rhythm without murmurs, gallops, or rubs. RESPIRATORY: Breath sounds equal bilaterally. No accessory muscle use. No rhonchi GASTROINTESTINAL: Abdomen soft, non-tender, nondistended. MUSCULOSKELETAL: No cyanosis, or edema. BACK: Nontender without obvious deformity. No CVA tenderness. Assessment and Plan - Plan IMPRESSION: COPD Exac Hypoxic, hypercapnoic RF--much improved HTN GERD PLAN: DC Solumedrol Pred 10 mg tid Aerosol nebs Supplement 02 to keep sat 88-92% BIPAP at night and PRN SQ heparin Cont Cefepime DC plans for home
[2018-08-05] MEDS: predniSONE 10 MG Tablet PO SCH (20:51)
[2018-08-06] MEDS: Azithromycin Inj 500 MG in Sodium Chlor 0.9% Inj 250 ML IV.SIG SCH (01:20)
[2018-08-06] MEDS: Heparin - SQ 10,000 UNITS/ML Vial SQ SCH ×2 (01:20→08:29)
[2018-08-06] MEDS: Insulin NovoLOG Aspart Correctional Sugar Inj SQ SCH (08:05)
[2018-08-06] MEDS: predniSONE 10 MG Tablet PO SCH (08:22)
[2018-08-06] MEDS: guaiFENesin 600 MG ER Tablet PO SCH (08:22)
[2018-08-06] MEDS: Senna/Docusate Sodium 8.6/50 MG Tablet PO SCH (08:22)
[2018-08-06] MEDS: Lisinopril 5 MG Tablet PO SCH (08:36)
[2018-08-06] MEDS: Budesonide-Formoterol 160/4.5 MCG 6 GM Inhaler INH SCH (08:40)
[2018-08-06] MEDS: Tiotropium Bromide 18 MCG/ACT Inhaler INH SCH (08:40)
[2018-08-06] MEDS: Polyethylene Glycol 3350 17 GM Packet PO SCH (08:41)
[2018-08-06] MEDS ORDERED: Nystatin Liq 500,000 UNIT/5 ML UDC SWISH-SWAL SCH (09:00)
[2018-08-06 09:05] VITALS: BP 127/80; PULSE 80; RESP 18; TEMP 97; O2SAT 95
--- NOTE | 2018-08-06 10:11 | P.DS ---
Date of admission: 07/31/18 00:49 Primary care physician: UNKNOWN Brief History from admission: This is a 77-year-old male. Date of admission 07/31/2018. Past medical history includes COPD with chronic respiratory failure/3 L oxygen dependent, chronic anemia, coronary artery disease, atherosclerotic vascular disease, essential hypertension, hyperlipidemia, gastroesophageal disease, hiatal hernia, benign prostatic hypertrophy and chronic prednisone use. Patient presented to [facility] 07/30 with acute shortness of breath. States he 7/ fever/chills/coughing/nonproductive without hematemesis or hemoptysis. Denies any recent sick contacts. Patient has not been at [facility] since 2017 admission. Patient received intravenous steroids in aggressive aerosolized medication therapy in the ED. CT pulmonary angiogram revealed no central pulmonary embolism. Signs of bronchial thickening indicative possible bronchiectasis. Severe emphysema. Coronary disease with atherosclerotic vascular disease. Large hiatal hernia. Small pericardial effusion. Patient has been started on ceftriaxone and azithromycin and aggressive pulmonary toilet. Patient is currently on BiPAP 5/5 and 50% saturations currently 92%. Patient is anxious in sinus tachycardia. Denies sputum production.. DS: Diagnosis - Discharge Diagnosis (1) COPD exacerbation Status: Acute (2) Pneumonia Status: Acute DS: Medications - Discharge Medications Prescriptions: azithromycin [Zithromax] 500 mg PO DAILY #4 tab cefuroxime axetil 500 mg PO Q12H #8 tab Lactobacillus acidophilus 500 mmu cells PO TID #24 cap nystatin 5 ml SWISH-SWAL QID 10 Days #200 ml prednisone 10 mg PO DIRECTED #6 tab DS: Summary Hospital Course: Mr. Patricio is a 77-year-old male. He has a past medical history of severe COPD exacerbation and he is chronically on oxygen at home at 3 L/min. Baseline oxygen stat typically ranges from 88% to 91%. Came in secondary to COPD exacerbation which was found to be related to pneumonia. Initially he needed BiPAP support in the ICU and has had a slowly improving course with addition of steroids, increased frequency of breathing treatments, and antibiotics to his baseline treatment. Slowly he has improved and is nearing baseline today. Ambulation tolerance is increasing. At this point he is able to tolerate ambulation distances over 100 feet and he is medically stable and cleared for discharge to home. He will finish antibiotics with an oral treatment and in addition will taper off steroids and have a probiotic. - Time Spent with Patient Total time spent providing and/or coordinating discharge services: Less than 30 minutes - Quality: VTE Deep Vein Thrombosis/Pulmonary Embolism Present on Admission: No Exam Vital signs: Vital Signs 08/05/18 11:20 08/05/18 12:00 08/05/18 15:31 Temperature 98.6 F Pulse Rate 88 107 H 88 Respiratory Rate 20 20 20 Blood Pressure 132/65 Pulse Oximetry 91 L 08/05/18 16:00 08/05/18 19:21 08/05/18 20:00 Temperature 96.9 F L 96.1 F L Pulse Rate 101 H 95 H 88 Respiratory Rate 20 20 18 Blood Pressure 137/75 122/86 Pulse Oximetry 90 L 92 L 93 L 08/05/18 23:41 08/06/18 00:00 08/06/18 03:44 Temperature 96.3 F L Pulse Rate 92 H 88 80 Respiratory Rate 20 16 20 Blood Pressure 143/70 H Pulse Oximetry 92 L 08/06/18 07:52 08/06/18 08:00 Temperature 97.0 F L Pulse Rate 81 80 Respiratory Rate 20 18 Blood Pressure 127/80 Pulse Oximetry 93 L 95 Intake & Output 08/05/18 08/06/18 08/06/18 18:59 06:59 18:59 Intake Total 580 / 580 490 / 490 100 / 100 Balance 580 / 580 490 / 490 100 / 100 Weight 78.9 kg Intake: IV 100 / 100 250 / 250 100 / 100 Azithromycin Inj 500 MG In NS 250 / 250 Inj 250 ML @ 250 mls/hr IV.SIG Q24H [facility] Rx#:[id number] Maxipime Inj 2,000 MG In NS Inj 100 / 100 100 / 100 100 ML @ 200 mls/hr IV.SIG Q12H [facility] Rx#:[id number] Oral 480 / 480 240 / 240 Other: # Voids 2 4 # Bowel Movements 1 1 Results Procedures completed during hospitalization: Bipap Labs on day of discharge: Labs from last 24 hours 08/06/18 08/05/18 08/05/18 07:22 20:55 16:13 POC Glucose 119 H 102 238 H C. pneumoniae IgG Titer C. pneumoniae IgA Titer C. pneumoniae IgM Titer C. pneumoniae Ab Interp 08/05/18 07/31/18 11:27 08:55 POC Glucose 98 C. pneumoniae IgG Titer 1:64 H C. pneumoniae IgA Titer <1:16 C. pneumoniae IgM Titer <1:10 C. pneumoniae Ab Interp Past infection - Impressions ITS Impressions Chest CTA 07/30/18 22:48 CONCLUSION: 1. No pulmonary embolus. 2. Bronchiectasis with peribronchial thickening and widespread endobronchial filling defects likely representing inspissated secretion/mucous. This is right worse than left. Poor ciliary clearance related to bronchiectasis considered most likely. Allergic bronchopulmonary aspergillosis would also be in the differential. There is associated infectious/inflammatory appearing parenchymal changes of both bases, right worse than left. 3. Severe emphysema again seen. 4. Coronary artery calcification. 5. Stable size and appearance atherosclerosis and mild aneurysmal dilatation of the thoracic aorta. 6. Small pericardial effusion not significantly changed. 7. Moderate to large hiatal hernia not significantly changed. Venous Doppler Study 07/31/18 00:00 CONCLUSION: 1. No evidence for DVT. 2. Left popliteal artery aneurysms. Chest X-Ray 08/03/18 06:00 CONCLUSION: No significant interval change. Mild patchy lower lung zone opacity again seen. Discharge Plan - Discharge Disposition Patient Disposition: Discharge Home - Discharge Condition Condition: Stable - Discharge Order Discharge Orders: Discharge Order (Routine); Ordered 08/06/18 Ordered By: Ramu Cutler - Discharge Details Anticipated Discharge Date: 08/06/18 - Physicians Team Primary Care Provider: UNKNOWN, Attending Provider: Ramu Cutler Other Providers: Kimberly Mai MD ; Deo Quiñones MD
== END 2018-08-06 10:51 | disposition home or self-care (01) ==
LOC: PHED 22:04 → PHEDA 07-31 00:49 → PHICU 07-31 01:27 → PH3 08-05 06:20
PROVIDERS: ADMIT Hospitalist; ATTEND Hospitalist